=== PATIENT | male | born 1950 | race Caucasian/White ===

== ENCOUNTER → 2016-12-02 | Outpatient (CLI) | payer MEDICARE ==
--- NOTE | 2016-12-02 18:25 | PN ---
DATE OF SERVICE: 12/02/2016 A 66-year-old gentleman who has been followed in the sleep center for treatment of obstructive sleep apnea/hypopnea syndrome. We proceeded with a home sleep apnea test and then with titration. We discussed results of the tests in detail. Home sleep apnea test confirmed moderate obstructive sleep apnea-hypopnea syndrome. During the titration, patient did not sleep at all in sleep center. Subsequently I recommended to try auto PAP with a pressure in the regimen between 5 and 15. Presently, patient received auto PAP machine. I checked unit. It showed that the patient is using equipment 100% of the time more than 4 hours per night. Average pressure is 11.5 cm of water. Apnea-hypopnea index reading from the machine is 1.7 for the last month. Leak is up to 18 L/min, which is acceptable. Patient sleeps better with the machine, longer than before. Vaughn Sleepiness Scale is 8. MEDICATIONS: 1. Aspirin. 2. Sulfasalazine. 3. Alprazolam. 4. Paroxetine. 5. Atenolol. 6. Pravastatin. 7. Benazepril. 8. Metformin. 9. Humalog. 10. Magnesium supplement. 11. Cranberry. PHYSICAL EXAMINATION: GENERAL: Patient without any distress. VITAL SIGNS: BP 126/62, HR 162, RR 16. Weight 203. Temperature 97.8. Oxygen saturation at room air 95% HEENT: PERRLA, EOMI, Evaluation of the oropharynx showed tongue protrudes midline. NECK: Supple. No JVD, Thyroid is not palpable. LUNGS: Clear to percussion and to auscultation. Good air exchange. No wheezing or rhonchi. HEART: S1, S2 regular. No murmurs, gallops, or rubs. ABDOMEN: Soft and nontender. Bowel sounds are present. No organomegaly appreciated. EXTREMITIES: 1+ bilateral ankle edema. RETAIL SEASONAL SPECIALIST: Awake, alert, and oriented x3. Cranial nerves 2 to 7 intact. There is no fasciculation or atrophy noted. No focal deficits observed. IMPRESSION: 1. Moderate obstructive sleep apnea-hypopnea syndrome on control with auto positive airway pressure treatment. Patient demonstrated 100% compliance with treatment, benefiting from treatment. 2. Obesity. 3. Hyperlipidemia. 4. Diabetes. 5. Anxiety. 6. Ulcerative colitis. PLAN: 1. Continue treatment with CPAP every night for the whole night. 2. Watching and losing weight. 3. Sleep hygiene with regular time in bed for at least 8 hours. 4. No driving if feeling any sleepiness. Thank you very much for allowing me to participate in the management of your patient. Sincerely, Tej Flanagan MD, PhD, FAASM Diplomat of [employer], Sleep Medicine Board by [employer] Rod Drawer of [facility] [place]
== END | disposition home or self-care (01) ==
LOC: SLEEP 14:13
PROVIDERS: ATTEND Internal Medicine
DX: G47.33 Obstructive sleep apnea (adult) (pediatric) (principal); E66.9 Obesity, unspecified; E78.5 Hyperlipidemia, unspecified; E11.9 Type 2 diabetes mellitus without complications; F41.9 Anxiety disorder, unspecified; K51.90 Ulcerative colitis, unspecified, without complications; Z79.4 Long term (current) use of insulin; Z79.84 Long term (current) use of oral hypoglycemic drugs; Z79.82 Long term (current) use of aspirin; Z79.899 Other long term (current) drug therapy

== ENCOUNTER → 2017-01-06 | Outpatient (CLI) | payer MEDICARE ==
--- NOTE | 2017-01-06 23:29 | CONS ---
DATE OF CONSULTATION: 01/06/2017 66-year-old gentleman who has been followed in the sleep center for treatment of obstructive sleep apnea/hypopnea syndrome and episodes of some abnormal movements during sleep. Presently, patient is on auto PAP in the range between 5 and 15 cm of water, range with a pressure. I checked his CPAP unit. Most of the time pressure is 10.7 cm of water, apnea-hypopnea index was only 1.1. Average usage is 6. Hours usage for more than 4 hours is 26 out of 30 nights, very good compliance, humidity level at 5, REM time is on automatic regimen. Leak 22 L per minute which is acceptable. MEDICATIONS: 1. Aspirin. 2. Alprazolam. 3. Silver sulfasalazine. 4. Paroxetine. 5. Atenolol. 6. Pravastatin. 7. Benazepril. 8. Metformin. 9. Humalog. During physical exam, the patient in no distress. VITAL SIGNS: BP 136/63, HR 60, RR 16. Height 5 feet 6 inches. Weight 200, BMI 32.2. Temp is 97.5. Oxygen saturation at room air 95%. HEENT: PERRLA, EOMI oropharynx low position of soft palate. NECK: Supple. No JVD. Thyroid is not palpable. LUNGS: Clear to percussion and to auscultation. Good air exchange. No wheezing or rhonchi. HEART: S1, S2 regular. No murmurs, gallops or rubs. ABDOMEN: Obese. Soft and nontender. Bowel sounds are present. No organomegaly appreciated. EXTREMITIES: No clubbing or cyanosis. PUBLIC SAFETY DIRECTOR: Awake, alert, and oriented x3. Cranial nerves 2 to 7 intact. There is no fasciculation or atrophy noted. No focal deficits observed. IMPRESSION: 1. Obstructive sleep apnea/hypopnea syndrome on control with AutoPap five to 15 cm of water range for most of the time. Pressure is 10.7 cm of water. Patient demonstrated great compliance with treatment, benefiting from treatment. 2. No episodes of abnormal behavioral recently on treatment with Clonazepam. 3. Obesity. 4. Hyperlipidemia. 5. Diabetes mellitus. 6. Anxiety. 7. Ulcerative colitis. PLAN: 1. Continue treatment with CPAP every night for the whole night. 2. Losing weight. 3. Sleep hygiene with regular time in bed for at least 8 hours. 4. No driving if feeling any sleepiness. Thank you very much for allowing me to participate in the management of your patient. Sincerely, Tej Flanagan MD, PhD, FAASM. Diplomat of [place] [employer], Sleep Medicine Board by [employer] Colon Therapist [facility] [place]
== END | disposition home or self-care (01) ==
LOC: SLEEP 15:50
PROVIDERS: ATTEND Internal Medicine
DX: G47.33 Obstructive sleep apnea (adult) (pediatric) (principal); E66.9 Obesity, unspecified; Z68.32 Body mass index [BMI] 32.0-32.9, adult; Z79.899 Other long term (current) drug therapy; Z79.4 Long term (current) use of insulin; Z79.84 Long term (current) use of oral hypoglycemic drugs; E78.5 Hyperlipidemia, unspecified; E11.9 Type 2 diabetes mellitus without complications; F41.9 Anxiety disorder, unspecified; K51.90 Ulcerative colitis, unspecified, without complications

== ENCOUNTER 2017-03-07 07:08 | Emergency (ER) | payer MEDICARE ==
[2017-03-07] MEDS ORDERED: diphenhydrAMINE 50 MG/ML 1 ML VIAL IVP STA (08:01)
[2017-03-07] MEDS ORDERED: ONDANSETRON 4 MG/2 ML VIAL IVP STA (08:01)
[2017-03-07] MEDS ORDERED: SODIUM CHLORIDE 0.9% 1,000 ML IV ONE (08:01)
--- NOTE | 2017-03-07 08:04 | ED ---
General Adult HPI - General Chief complaint: Abdominal Pain Stated complaint: Flu like symptoms Time Seen by Provider: 03/07/17 07:20 Source: patient, family, RN notes reviewed Mode of arrival: ambulatory Limitations: no limitations - History of Present Illness Initial comments: This is a 66-year-old male who presents to the emergency department complaining that last night he started having diarrhea in the middle the night he started vomiting. Patient states he has diffuse abdominal cramping but no specific area of pain. Patient denies any fever chills. Patient states he took some Pepto-Bismol and since then he's been itching all over. Patient states he is raised hives on the insides of his thighs. Patient denies any chest pain difficulty breathing shortness of breath per patient denies back pain. Patient denies any dysuria hematuria urinary frequency. Patient states is also started last night - Related Data Home Medications Medication Instructions Recorded Confirmed Aspirin 81 mg PO DAILY 05/16/14 03/07/17 Atenolol 100 mg PO DAILY 05/16/14 03/07/17 Cranberry Conc/C/Bacill Coag 1 each PO DAILY 05/16/14 03/07/17 [Cranberry Tablet] Fish Oil/Fat No.8/Hrb Comb.137 1,200 mg PO DAILY 05/16/14 03/07/17 [[place] 3-6-9 1,200 mg Softgel] Garlic 1 each PO DAILY 05/16/14 03/07/17 INSULIN LISPRO (humaLOG) [humaLOG] 1 injection SQ DIRECTED 05/16/14 03/07/17 Mesalamine [Delzicol] 800 mg PO TID 05/16/14 03/07/17 Multivitamins, Thera [Multivitamin] 1 tab PO DAILY 05/16/14 03/07/17 PARoxetine [Paxil] 20 mg PO DAILY 05/16/14 03/07/17 Pravastatin Sodium [Pravachol] 20 mg PO HS 05/16/14 03/07/17 amLODIPine [Norvasc] 5 mg PO BID 05/16/14 03/07/17 metFORMIN HCL 1,000 mg PO BID 05/16/14 03/07/17 Allergies Allergy/AdvReac Type Severity Reaction Status Date / Time Penicillins Allergy Anaphylaxis Verified 03/07/17 09:45 Review of Systems ROS Statement: Those systems with pertinent positive or pertinent negative responses have been documented in the HPI. ROS Other: All systems not noted in ROS Statement are negative. 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 Patient is nontoxic and well- hydrated and is in mild distress. ENT: Neck is soft and supple. No significant lymphadenopathy is noted. Oropharynx is clear. Moist mucous membranes. EYES: The sclera were anicteric and conjunctiva were pink and moist. Extraocular movements were intact and pupils were equal round and reactive to light. Eyelids were unremarkable. PULMONARY: Unlabored respirations. Good breath sounds bilaterally. No audible rales rhonchi or wheezing was noted. CARDIOVASCULAR: There is a regular rate and rhythm without any murmurs gallops or rubs. ABDOMEN: Soft and nontender with normal bowel sounds. No palpable organomegaly was noted. There is no palpable pulsatile mass. SKIN: Skin is clear with no lesions or rashes and otherwise unremarkable. NEUROLOGIC: Patient is alert and oriented x3. Cranial nerves II through XII are grossly intact. Motor and sensory are also intact. Normal speech, volume and content. Symmetrical smile. MUSCULOSKELETAL: Normal extremities with adequate strength and full range of motion. LYMPHATICS: No significant lymphadenopathy is noted PSYCHIATRIC: Normal psychiatric evaluation. Limitations: no limitations Course Vital Signs 03/07/17 07:21 Temperature 98.2 F Pulse Rate 64 Respiratory 18 Rate Blood Pressure 142/63 O2 Sat by Pulse 91 L Oximetry Medical Decision Making - Medical Decision Making I went back into the room to reevaluate the patient his abdomen remained soft and nontender on palpation. Patient states he felt much better. Patient states he has not vomited since been emergency department. - Lab Data Result diagrams: 03/07/17 07:38 03/07/17 07:38 Lab Results 03/07/17 03/07/17 03/07/17 Range/Units 07:38 07:38 09:13 WBC 16.7 H (3.8-10.6) k/uL RBC 5.62 (4.30-5.90) m/uL Hgb 16.2 (13.0-17.5) gm/dL Hct 48.9 (39.0-53.0) % MCV 87.1 (80.0-100.0) fL MCH 28.9 (25.0-35.0) pg MCHC 33.1 (31.0-37.0) g/dL RDW 14.2 (11.5-15.5) % Plt Count 287 (150-450) k/uL Neutrophils % 88 % Lymphocytes % 7 % Monocytes % 4 % Eosinophils % 0 % Basophils % 0 % Neutrophils # 14.7 H (1.3-7.7) k/uL Lymphocytes # 1.1 (1.0-4.8) k/uL Monocytes # 0.7 (0-1.0) k/uL Eosinophils # 0.1 (0-0.7) k/uL Basophils # 0.0 (0-0.2) k/uL Sodium 141 (137-145) mmol/L Potassium 5.2 H (3.5-5.1) mmol/L Chloride 102 (98-107) mmol/L Carbon Dioxide 24 (22-30) mmol/L Anion Gap 15 mmol/L BUN 28 H (9-20) mg/dL Creatinine 1.00 (0.66-1.25) mg/dL Est GFR (MDRD) Af Amer >60 (>60 ml/min/1.73 sqM) Est GFR (MDRD) Non-Af >60 (>60 ml/min/1.73 sqM) Glucose 258 H (74-99) mg/dL Calcium 9.7 (8.4-10.2) mg/dL Total Bilirubin 0.6 (0.2-1.3) mg/dL AST 31 (17-59) U/L ALT 43 (21-72) U/L Alkaline Phosphatase 73 (38-126) U/L Total Protein 7.1 (6.3-8.2) g/dL Albumin 4.3 (3.5-5.0) g/dL Amylase 53 (30-110) U/L Lipase 142 (23-300) U/L Urine Color Yellow Urine Appearance Cloudy (Clear) Urine pH 5.5 (5.0-8.0) Ur Specific [place] 1.022 (1.001-1.035) Urine Protein 3+ H (Negative) Urine Glucose (UA) Trace H (Negative) Urine Ketones Trace H (Negative) Urine Blood Negative (Negative) Urine Nitrite Negative (Negative) Urine Bilirubin Negative (Negative) Urine Urobilinogen <2.0 (<2.0) mg/dL Ur Leukocyte Esterase Negative (Negative) Urine RBC 4 (0-5) /hpf Urine WBC 9 H (0-5) /hpf Ur Squamous Epith Cells 1 (0-4) /hpf Calcium Oxalate Crystal Rare H (None) /hpf Hyaline Casts 26 H (0-2) /lpf Urine Mucus Moderate H (None) /hpf Disposition Clinical Impression: Gastroenteritis Disposition: HOME SELF-CARE Condition: Good Instructions: Gastroenteritis (ED) Referrals: Long Acosta MD [Primary Care Provider] - 1-2 days Time of Disposition: 09:52
[2017-03-07 08:10] LABS: Basophils % (A) 0 %; CH 28.5; CHCM 32.9; Eosinophils # (A) 0.1 k/uL (0-0.7); Eosinophils % (A) 0 %; HCT 48.9 % (39.0-53.0); HDW 2.62; HGB 16.2 gm/dL (13.0-17.5); Luc # (Auto) 0.12; Luc % (Auto) 1; Lymphocytes # (A) 1.1 k/uL (1.0-4.8); Lymphocytes % (A) 7 %; MCH 28.9 pg (25.0-35.0); MCHC 33.1 g/dL (31.0-37.0); MCV 87.1 fL (80.0-100.0); Mean Platelet Volume 7.7; Monocytes # (A) 0.7 k/uL (0-1.0); Monocytes % (A) 4 %; Neutrophils # (A) 14.7 k/uL (1.3-7.7); Neutrophils % (A) 88 %; RBC 5.62 m/uL (4.30-5.90); RDW 14.2 % (11.5-15.5); WBC 16.7 k/uL (3.8-10.6); WBC (Perox) 15.76
[2017-03-07 08:18] LABS: ALT 43 U/L (21-72); AST 31 U/L (17-59); Alkaline Phosphatase 73 U/L (38-126); Amylase 53 U/L (30-110); Anion Gap 15 mmol/L; Blood Urea Nitrogen 28 mg/dL (9-20); Calcium 9.7 mg/dL (8.4-10.2); Carbon Dioxide 24 mmol/L (22-30); Chloride 102 mmol/L (98-107); Glucose 258 mg/dL (74-99); Non-African American GFR(MDRD) >60 (>60 ml/min/1.73 sqM); Potassium 5.2 mmol/L (3.5-5.1); Sodium 141 mmol/L (137-145); Total Bilirubin 0.6 mg/dL (0.2-1.3); Total Protein 7.1 g/dL (6.3-8.2)
--- NOTE | 2017-03-07 08:44 | XR ---
Abdomen HISTORY: Pain, nausea and vomiting Frontal view of the abdomen on 3 images There are air-fluid levels with gas distended loops of small bowel. Lung bases are clear. No pneumope ritoneum. IMPRESSION: Findings may be indicative of enteritis, follow-up as indicated if bowel obstruction is s uspected.
[2017-03-07 09:46] LABS: Appearance,Urine Cloudy (Clear); Bilirubin,Urine Negative (Negative); Calcium Oxalate Crystals,Urine Rare /hpf; Glucose,Urine (UA) Trace (Negative); Ketones,Urine Trace (Negative); Leukocyte Esterase,Urine Negative (Negative); Mucus,Urine Moderate /hpf; Nitrite,Urine Negative (Negative); PH, Urine 5.5 (5.0-8.0); Particle Count 6756; Protein,Urine 3+ (Negative); RBC,Urine 4 /hpf (0-5); Specific Gravity,Urine 1.022 (1.001-1.035); Squamous Epithelial Cell,Urine 1 /hpf (0-4); UA Billing (MACRO vs. MICRO) MICRO; Urobilinogen,Urine <2.0 mg/dL (<2.0); WBC,Urine 9 /hpf (0-5)
[2017-03-07] MEDS ORDERED: ONDANSETRON 4 MG ODT STARTER PACK 2 TAB BTL PO STA (09:52)
[2017-03-07 10:20] VITALS: BP 137/63; PULSE 62; RESP 16; TEMP 97.6
== END 2017-03-07 10:20 | disposition home or self-care (01) ==
LOC: EC 07:08
DX: K52.9 Noninfective gastroenteritis and colitis, unspecified (principal); E11.9 Type 2 diabetes mellitus without complications; R11.10 Vomiting, unspecified; E78.5 Hyperlipidemia, unspecified; F41.9 Anxiety disorder, unspecified; I10 Essential (primary) hypertension; F32.9 Major depressive disorder, single episode, unspecified; Z79.82 Long term (current) use of aspirin; Z79.4 Long term (current) use of insulin; Z79.899 Other long term (current) drug therapy; Z88.0 Allergy status to penicillin; Z87.19 Personal history of other diseases of the digestive system
CPT/HCPCS: 36415; 80053; 82150; 83690; 85025; 81001; 87045; 87046; 74000; 99284; 96374; 96375; 96361; J1200; J2405; S0119

== ENCOUNTER 2017-06-26 18:11 | Emergency (ER) | payer MEDICARE ==
[2017-06-26 18:36] VITALS: RESP 18
[2017-06-26] MEDS ORDERED: MORPHINE SULFATE 4 MG/ML SYRINGE IV ONE (18:49)
[2017-06-26] MEDS ORDERED: SODIUM CHLORIDE 0.9% 1,000 ML IV ONE (18:49)
[2017-06-26] MEDS ORDERED: KETOROLAC 30 MG/ML 1 ML VIAL IVP STA (18:49)
--- NOTE | 2017-06-26 18:57 | ED ---
Abdominal Pain HPI - General Chief Complaint: Abdominal Pain Stated Complaint: rt side irma Time Seen by Provider: 06/26/17 18:39 Source: patient Mode of arrival: ambulatory Limitations: no limitations - History of Present Illness Initial Comments: This is a 67-year-old male with a history of ulcerative colitis who presents emergency department for right-sided flank pain. He states it started this morning and has gradually worsened. He states it radiates into his testicle. It does not radiate into his back. No fevers or chills. No nausea or vomiting. No diarrhea. He states he's been having normal bowel movements. No other complaints. - Related Data Home Medications Medication Instructions Recorded Confirmed Aspirin 81 mg PO DAILY 05/16/14 06/26/17 Atenolol 100 mg PO DAILY 05/16/14 06/26/17 Cranberry Conc/C/Bacill Coag 1 tab PO DAILY 05/16/14 06/26/17 [Cranberry Tablet] Fish Oil/Fat No.8/Hrb Comb.137 1,200 mg PO DAILY 05/16/14 06/26/17 [[place] 3-6-9 1,200 mg Softgel] Garlic 1 tab PO DAILY 05/16/14 06/26/17 PARoxetine [Paxil] 20 mg PO DAILY 05/16/14 06/26/17 Pravastatin Sodium [Pravachol] 20 mg PO DAILY 05/16/14 06/26/17 amLODIPine [Norvasc] 5 mg PO BID 05/16/14 06/26/17 metFORMIN HCL 1,000 mg PO BID 05/16/14 06/26/17 ALPRAZolam [Xanax] 0.25 mg PO Q8HR PRN 03/07/17 06/26/17 Benazepril HCl [Lotensin] 40 mg PO DAILY 03/07/17 06/26/17 Cinnamon Bark [Cinnamon] 500 mg PO DAILY 03/07/17 06/26/17 Magnesium Oxide [Magnesium] 500 mg PO DAILY 03/07/17 06/26/17 INSULIN LISPRO (For Pump) [humaLOG 0.01 units SQ-PUMP CONTINUOUS MDD 06/26/17 (For Pump)] 150 UNITS IN 24 HOURS Multivitamins, Thera [Multivitamin 1 tab PO DAILY 09/17/17 09/17/17 (formulary)] clonazePAM [KlonoPIN] 0.5 mg PO HS 06/26/17 06/26/17 sulfaSALAzine [Azulfidine] 500 mg PO BID 06/26/17 06/26/17 Previous Rx's Medication Instructions Recorded HYDROcodone/APAP 5-325MG [[place] 1 tab PO Q4HR PRN #15 tab 06/26/17 5-325] Tamsulosin HCl [Flomax] 0.4 mg PO DAILY #14 cap 06/26/17 Allergies Allergy/AdvReac Type Severity Reaction Status Date / Time Penicillins Allergy Anaphylaxis Verified 06/26/17 19:04 Review of Systems ROS Statement: Those systems with pertinent positive or pertinent negative responses have been documented in the HPI. ROS Other: All systems not noted in ROS Statement are negative. Past Medical History Past Medical History: Asthma, Diabetes Mellitus, Hyperlipidemia, Hypertension Additional Past Medical History / Comment(s): ulcerative colitis History of Any Multi-Drug Resistant Organisms: None Reported Past Surgical History: Heart Catheterization, Orthopedic Surgery Additional Past Surgical History / Comment(s): right elbow and gonzalez wrist/hands surgery Past Anesthesia/Blood Transfusion Reactions: No Reported Reaction Past Psychological History: Anxiety, Depression Smoking Status: Former smoker Past Alcohol Use History: None Reported Past Drug Use History: None Reported - Past Family History Father Family Medical History: Myocardial Infarction ([place]) Additional Family Medical History / Comment(s): age 64 Brother(s) Family Medical History: Myocardial Infarction ([place]) Additional Family Medical History / Comment(s): at 65 General Exam - General Exam Comments Initial Comments: Constitutional: Awake alert Appears comfortable Head: Normocephalic atraumatic Eyes: no conjunctival injection No scleral icterus EOMI Neck: No JVD Supple Heart: Regular rate rhythm normal S1-S2 no murmurs Lungs: Clear to auscultation bilaterally No wheezing No rales Abdomen: Soft nondistended entered his along the right flank just above the right ASIS, no hernias palpated Extremities: Non edematous DP pulses intact Radial pulses intact Neuro: A&Ox3 No focal neurologic deficits Psych: Appropriate mood and affect Limitations: no limitations Course Vital Signs 06/26/17 06/26/17 18:34 19:31 Temperature 98.4 F Pulse Rate 61 60 Respiratory 18 18 Rate Blood Pressure 202/89 181/76 O2 Sat by Pulse 96 95 Oximetry Medical Decision Making - Medical Decision Making This is a 67-year-old male who presents emergency department for right flank pain. Computed tomography scan confirmed a 6 mm obstructing stone. The rest was labwork was unremarkable. No UTI. At this time I feel the patient can be managed as an outpatient since his pain is well controlled currently. I gave him Dr. Ny for follow-up. He will be sent home on [place], Flomax, and given a strainer. He can return if he has worsening or changing symptoms. All questions were answered. - Lab Data Result diagrams: 06/26/17 19:03 06/26/17 19:03 Lab Results 06/26/17 06/26/17 06/26/17 Range/Units 19: 19: 19:03 WBC 11.2 H (3.8-10.6) k/uL RBC 4.67 (4.30-5.90) m/uL Hgb 13.5 (13.0-17.5) gm/dL Hct 40.2 (39.0-53.0) % MCV 86.0 (80.0-100.0) fL MCH 28.8 (25.0-35.0) pg MCHC 33.5 (31.0-37.0) g/dL RDW 15.3 (11.5-15.5) % Plt Count 209 (150-450) k/uL Neutrophils % 79 % Lymphocytes % 11 % Monocytes % 8 % Eosinophils % 1 % Basophils % 0 % Neutrophils # 8.8 H (1.3-7.7) k/uL Lymphocytes # 1.2 (1.0-4.8) k/uL Monocytes # 0.9 (0-1.0) k/uL Eosinophils # 0.1 (0-0.7) k/uL Basophils # 0.1 (0-0.2) k/uL Sodium 139 (137-145) mmol/L Potassium 4.9 (3.5-5.1) mmol/L Chloride 104 (98-107) mmol/L Carbon Dioxide 21 L (22-30) mmol/L Anion Gap 14 mmol/L BUN 22 H (9-20) mg/dL Creatinine 1.00 (0.66-1.25) mg/dL Est GFR (MDRD) Af Amer >60 (>60 ml/min/1.73 sqM) Est GFR (MDRD) Non-Af >60 (>60 ml/min/1.73 sqM) Glucose 237 H (74-99) mg/dL Calcium 9.4 (8.4-10.2) mg/dL Total Bilirubin 0.6 (0.2-1.3) mg/dL AST 30 (17-59) U/L ALT 48 (21-72) U/L Alkaline Phosphatase 86 (38-126) U/L Total Protein 7.4 (6.3-8.2) g/dL Albumin 4.4 (3.5-5.0) g/dL Urine Color Yellow Urine Appearance Clear (Clear) Urine pH 6.0 (5.0-8.0) Ur Specific [place] 1.015 (1.001-1.035) Urine Protein 3+ H (Negative) Urine Glucose (UA) 3+ H (Negative) Urine Ketones Negative (Negative) Urine Blood Moderate H (Negative) Urine Nitrite Negative (Negative) Urine Bilirubin Negative (Negative) Urine Urobilinogen <2.0 (<2.0) mg/dL Ur Leukocyte Esterase Negative (Negative) Urine RBC 59 H (0-5) /hpf Urine WBC 1 (0-5) /hpf Hyaline Casts 4 H (0-2) /lpf Urine Mucus Rare H (None) /hpf Urine Yeast (Budding) Rare H (None) /hpf Urine Sperm Rare (None) /hpf Disposition Clinical Impression: Ureterolithiasis Disposition: HOME SELF-CARE Condition: Stable Instructions: Kidney Stones (ED) Prescriptions: HYDROcodone/APAP 5-325MG [[place] 5-325] 1 tab PO Q4HR PRN #15 tab PRN Reason: Pain Tamsulosin HCl [Flomax] 0.4 mg PO DAILY #14 cap Referrals: Long Acosta MD [Primary Care Provider] - 1-2 days Will Gaitan MD [STAFF PHYSICIAN] - 1-2 days
[2017-06-26 19:16] LABS: Basophils # (A) 0.1 k/uL (0-0.2); Basophils % (A) 0 %; CH 27.7; CHCM 32.3; Eosinophils # (A) 0.1 k/uL (0-0.7); Eosinophils % (A) 1 %; HCT 40.2 % (39.0-53.0); HDW 2.78; HGB 13.5 gm/dL (13.0-17.5); Luc # (Auto) 0.18; Luc % (Auto) 2; Lymphocytes # (A) 1.2 k/uL (1.0-4.8); Lymphocytes % (A) 11 %; MCH 28.8 pg (25.0-35.0); MCHC 33.5 g/dL (31.0-37.0); Monocytes # (A) 0.9 k/uL (0-1.0); Monocytes % (A) 8 %; Neutrophils # (A) 8.8 k/uL (1.3-7.7); Neutrophils % (A) 79 %; RBC 4.67 m/uL (4.30-5.90); RDW 15.3 % (11.5-15.5); WBC 11.2 k/uL (3.8-10.6); WBC (Perox) 11.13
[2017-06-26 19:20] LABS: Appearance,Urine Clear (Clear); Bilirubin,Urine Negative (Negative); Glucose,Urine (UA) 3+ (Negative); Ketones,Urine Negative (Negative); Leukocyte Esterase,Urine Negative (Negative); Mucus,Urine Rare /hpf; Nitrite,Urine Negative (Negative); Particle Count 1199; Protein,Urine 3+ (Negative); RBC,Urine 59 /hpf (0-5); Specific Gravity,Urine 1.015 (1.001-1.035); Sperm,Urine Rare /hpf; UA Billing (MACRO vs. MICRO) MICRO; Urobilinogen,Urine <2.0 mg/dL (<2.0); WBC,Urine 1 /hpf (0-5)
[2017-06-26 19:25] LABS: ALT 48 U/L (21-72); AST 30 U/L (17-59); Alkaline Phosphatase 86 U/L (38-126); Anion Gap 14 mmol/L; Blood Urea Nitrogen 22 mg/dL (9-20); Calcium 9.4 mg/dL (8.4-10.2); Carbon Dioxide 21 mmol/L (22-30); Chloride 104 mmol/L (98-107); Glucose 237 mg/dL (74-99); Non-African American GFR(MDRD) >60 (>60 ml/min/1.73 sqM); Potassium 4.9 mmol/L (3.5-5.1); Sodium 139 mmol/L (137-145); Total Bilirubin 0.6 mg/dL (0.2-1.3); Total Protein 7.4 g/dL (6.3-8.2)
[2017-06-26] MEDS ORDERED: ONDANSETRON 4 MG/2 ML VIAL IVP STA (19:27)
--- NOTE | 2017-06-26 20:07 | CT ---
EXAMINATION TYPE: CT abdomen pelvis wo con DATE OF EXAM: 06/26/2017 COMPARISON: NONE HISTORY: Right side flank pain. CT DLP: 778.7 mGycm Automated exposure control for dose reduction was used. TECHNIQUE: Helical acquisition of images was performed from the lung bases through the pelvis. FINDINGS: LUNG BASES: There is a small right-sided pleural effusion with adjacent passive atelectasis. There is a tiny left-sided pleural effusion with adjacent atelectasis. Evaluation of the visceral organs is suboptimal without the use of intravenous contrast. LIVER/GB: Liver is unremarkable. There is a calcification identified within the neck of the gallbladd er which is felt to be a gallstone. PANCREAS: No significant abnormality is seen. SPLEEN: No significant abnormality is seen. ADRENALS: No significant abnormality is seen. KIDNEYS: Mild hydronephrosis is identified within the right kidney as well as the right ureter. There is a 6 mm obstructing calculus noted in the distal right ureter. Left kidney is unremarkable. There is no left-sided hydronephrosis or evidence of left-sided nephrolithiasis. FREE AIR: No free air is visualized RETROPERITONEAL ADENOPATHY: None visualized REPRODUCTIVE ORGANS: No significant abnormality is seen URINARY BLADDER: No significant abnormality is seen. PELVIC ADENOPATHY: None visualized. OSSEOUS STRUCTURES: No significant abnormality is seen. BOWEL: No significant abnormality is seen. IMPRESSION: OBSTRUCTING RIGHT-SIDED NEPHROLITHIASIS WITH A 6 MM CUTTING CALCULUS IN THE DISTAL RIGHT URETER.
[2017-06-26 20:35] VITALS: BP 162/72; PULSE 67; TEMP 97.8
== END 2017-06-26 20:35 | disposition home or self-care (01) ==
LOC: EC 18:11
DX: N20.1 Calculus of ureter (principal); E11.9 Type 2 diabetes mellitus without complications; E78.5 Hyperlipidemia, unspecified; I10 Essential (primary) hypertension; F32.9 Major depressive disorder, single episode, unspecified; F41.9 Anxiety disorder, unspecified; Z87.19 Personal history of other diseases of the digestive system; Z87.891 Personal history of nicotine dependence; Z88.0 Allergy status to penicillin; Z79.4 Long term (current) use of insulin; Z79.84 Long term (current) use of oral hypoglycemic drugs; Z79.82 Long term (current) use of aspirin; Z79.899 Other long term (current) drug therapy
CPT/HCPCS: 36415; 80053; 85025; 81001; 74176; 99284; 96374; 96375 ×2; 96361; J2270; J2405; J1885

== ENCOUNTER 2017-10-13 16:18 | Emergency (ER) | payer MEDICARE ==
[2017-10-13] MEDS ORDERED: DIPH,PERTUS(ACELL)TETVAC-LF 0.5 ML VIAL IM ONE (16:39)
[2017-10-13] MEDS ORDERED: SODIUM CHLORIDE 0.9% 1,000 ML IV STA (16:39)
[2017-10-13] MEDS ORDERED: HYDROmorphone 1 MG/ML 1 ML SYRINGE IVP STA (16:39)
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
[2017-10-13] MEDS ORDERED: LACTATED RINGERS 1,000 ML IV STA (16:56)
[2017-10-13 17:00] LABS: Anisocytosis Slight; Basophils # (A) 0.1 k/uL (0-0.2); Basophils % (A) 1 %; Eosinophils # (A) 0.2 k/uL (0-0.7); Eosinophils % (A) 3 %; HCT 44.8 % (39.0-53.0); HGB 13.7 gm/dL (13.0-17.5); Hypochromasia Slight; Lymphocytes # (A) 1.7 k/uL (1.0-4.8); Lymphocytes % (A) 21 %; MCH 26.8 pg (25.0-35.0); MCHC 30.6 g/dL (31.0-37.0); MCV 87.7 fL (80.0-100.0); Mean Platelet Volume 7.8; Monocytes # (A) 0.7 k/uL (0-1.0); Monocytes % (A) 9 %; Neutrophils # (A) 5.2 k/uL (1.3-7.7); Neutrophils % (A) 65 %; Platelet Count 214 k/uL (150-450); RBC 5.11 m/uL (4.30-5.90)
[2017-10-13 17:07] LABS: ALT 66 U/L (21-72); AST 47 U/L (17-59); Albumin 4.5 g/dL (3.5-5.0); Alcohol <10 mg/dL; Alkaline Phosphatase 96 U/L (38-126); Amylase 66 U/L (30-110); Anion Gap 13 mmol/L; Blood Urea Nitrogen 17 mg/dL (9-20); Calcium 10.1 mg/dL (8.4-10.2); Carbon Dioxide 28 mmol/L (22-30); Chloride 103 mmol/L (98-107); Glucose 199 mg/dL (74-99); Lipase 340 U/L (23-300); Potassium 4.9 mmol/L (3.5-5.1); Sodium 144 mmol/L (137-145); Total Bilirubin 0.3 mg/dL (0.2-1.3); Total Protein 7.6 g/dL (6.3-8.2)
--- NOTE | 2017-10-13 17:11 | XR ---
EXAMINATION TYPE: XR pelvis AP view DATE OF EXAM: 10/13/2017 COMPARISON: NONE HISTORY: Pain TECHNIQUE: Single view FINDINGS: The pelvic ring is intact. Proximal femurs and hip joints are intact. Sacroiliac joints escobar ear normal. There is no evidence of a fracture. IMPRESSION: Negative pelvis exam.
--- NOTE | 2017-10-13 17:12 | XR ---
EXAMINATION TYPE: XR chest 1V portable DATE OF EXAM: 10/13/2017 COMPARISON: 09/13/2014 HISTORY: Chest pain TECHNIQUE: Single frontal view of the chest is obtained. FINDINGS: There is no heart failure nor confluent pneumonic infiltrate. Thoracic aorta is atheromato us. Costophrenic angles are clear. Bony thorax is intact. IMPRESSION: No active cardiopulmonary disease. Normal heart. Inspiration is improved compared to old exam.
[2017-10-13 17:16] LABS: Creatine Kinase 162 U/L (55-170)
[2017-10-13 17:17] LABS: INR 1.1 (<1.2); Prothrombin Time 10.3 sec (9.0-12.0)
[2017-10-13 17:23] LABS: Partial Thromboplastin Time 21.6 sec (22.0-30.0)
[2017-10-13 17:30] LABS: Troponin I <0.012 ng/mL (0.000-0.034)
[2017-10-13 18:44] VITALS: BP 172/76; PULSE 98; RESP 18; TEMP 97.6
== END 2017-10-13 17:45 | disposition other institution (70) ==
LOC: EC 16:18
DX: T21.34XA Burn of third degree of lower back, initial encounter (principal); T21.25XA Burn of second degree of buttock, initial encounter; T24.222A Burn of second degree of left knee, initial encounter; T24.221A Burn of second degree of right knee, initial encounter; E11.9 Type 2 diabetes mellitus without complications; E78.5 Hyperlipidemia, unspecified; I10 Essential (primary) hypertension; F32.9 Major depressive disorder, single episode, unspecified; F41.9 Anxiety disorder, unspecified; Z95.5 Presence of coronary angioplasty implant and graft; Z87.891 Personal history of nicotine dependence; Z79.82 Long term (current) use of aspirin; Z79.899 Other long term (current) drug therapy; Z79.4 Long term (current) use of insulin; Z88.0 Allergy status to penicillin; X08.8XXA Exposure to other specified smoke, fire and flames, initial encounter; Y92.59 Other trade areas as the place of occurrence of the external cause
CPT/HCPCS: 99285; 96374; 36415; 93005; 86900; 86901; 80053; 82150; 82550; 82553; 83605; 83690; 84484; 85025; 85610; 85730; 86850; 80320; 72170; 71045; J1170

== ENCOUNTER 2017-11-06 08:44 | Emergency (ER) | payer MEDICARE ==
[2017-11-06 08:53] VITALS: RESP 18
[2017-11-06] MEDS ORDERED: methylPREDNISolone SOD SUCCI 125 MG/2 ML VIAL IV STA (09:21)
[2017-11-06] MEDS ORDERED: diphenhydrAMINE 50 MG/ML 1 ML VIAL IVP STA (09:21)
[2017-11-06] MEDS ORDERED: FAMOTIDINE 20 MG/2 ML VIAL IV STA (09:21)
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
[2017-11-06 11:37] VITALS: BP 180/77; PULSE 76; TEMP 97.9
== END 2017-11-06 11:38 | disposition home or self-care (01) ==
LOC: EC 08:44
DX: T78.3XXA Angioneurotic edema, initial encounter (principal); E11.9 Type 2 diabetes mellitus without complications; I10 Essential (primary) hypertension; E78.5 Hyperlipidemia, unspecified; F32.9 Major depressive disorder, single episode, unspecified; F41.9 Anxiety disorder, unspecified; Z87.891 Personal history of nicotine dependence; Z88.0 Allergy status to penicillin; Z79.82 Long term (current) use of aspirin; Z79.84 Long term (current) use of oral hypoglycemic drugs; Z79.4 Long term (current) use of insulin; Z79.899 Other long term (current) drug therapy
CPT/HCPCS: 99284; 96374; 96375 ×2; J1200; J2930

== ENCOUNTER → 2018-01-12 | Outpatient (CLI) | payer MEDICARE ==
--- NOTE | 2018-01-12 13:01 | SFUN ---
FOLLOW UP NOTE DATE OF SERVICE: 01/12/2018 A 67-year-old gentleman who has been followed in the Sleep Center for treatment of obstructive sleep apnea-hypopnea syndrome. Patient continued to use his CPAP equipment every night for the whole night. According to him, he cannot sleep without machine now, so much he is used to it. He usually goes to bed quite late around 2 am until 9 - 10 in the morning. 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 I checked his CPAP unit machine, it is on automatic regimen 5 to 15 cm of water. Most of the time pressure at the range of 10.6 cm of water, usage is 28/30 nights for more than 4 hours. Average usage is 66.2 hours. Leak 10 L/minute which is totally normal. Apnea-hypopnea index for the last month only 1.0, which is perfect. The patient lost 2 pounds since our visit last year. MEDICATIONS: Aspirin, alprazolam, paroxetine, atenolol, pravastatin, benazepril, metformin, Humalog, clonazepam. PHYSICAL EXAM: Patient in no distress. BP 170/65, HR 53, RR 16, height 5 and 7, weight 198.8, BMI 31.0, temperature 98.0, oxygen saturation at room air 94%. OROPHARYNX: Low position of soft palate. ABDOMEN: Obese. HEART: S1, S2 regular. Systolic murmur on aorta. Neck Supple, no JVD. Thyroid is not palpable. LUNGS Clear to percussion and to auscultation. Good air exchange. No wheezing or rhonchi. EXTREMITIES No clubbing or cyanosis. VOLCANOLOGY PROFESSOR Awake, alert, and oriented X3. Cranial nerves 2 to 7 intact. There is no fasciculation or atrophy. noted. No focal deficits observed. IMPRESSION: 1. Obstructive sleep apnea-hypopnea syndrome, on full control with CPAP with great compliance with treatment benefitting from treatment. 2. History of some abnormal movements at night and abnormal behavioral, no problem presently with treatment of clonazepam. 3. Obesity. 4. Hyperlipidemia. 5. Diabetes mellitus. 6. History of ulcerative colitis. 7. History of anxiety. 8. Sleep delay syndrome. PLAN: 1. Patient will continue to use his CPAP equipment every night for the whole night. 2. Losing weight. 3. Sleep hygiene in bed for at least 7-1/2, 8 hours. 4. As much as possible exposure to the sunlight in the morning with a goal to move sleep cycle earlier. 5. Followup visit in 1 year or earlier if patient has any problems. Thank you very much for allowing me to participate in the management of your patient. Sincerely, Tej Flanagan MD, PhD, FAASM Diplomat of [employer] District Agent of [facility] [place] MMODL / RADHA: [id number] / ARLENE
== END | disposition home or self-care (01) ==
LOC: SLEEP 11:29
PROVIDERS: ATTEND Internal Medicine
DX: G47.33 Obstructive sleep apnea (adult) (pediatric) (principal); E66.9 Obesity, unspecified; E78.5 Hyperlipidemia, unspecified; E11.9 Type 2 diabetes mellitus without complications; Z87.19 Personal history of other diseases of the digestive system; Z86.59 Personal history of other mental and behavioral disorders; G47.21 Circadian rhythm sleep disorder, delayed sleep phase type; Z99.89 Dependence on other enabling machines and devices; Z79.82 Long term (current) use of aspirin; Z79.84 Long term (current) use of oral hypoglycemic drugs; Z79.899 Other long term (current) drug therapy

== ENCOUNTER → 2018-04-26 | Day surgery (SDC) | payer MEDICARE ==
[2018-04-20 13:17] VITALS: BMI 30.8
[~2018-04-26] MED LIST: ALPRAZolam 0.25 MG TAB PO PRN; ALPRAZolam 0.5 MG TAB PO PRN; ASPIRIN 325 MG TAB PO STA; ATORVASTATIN 80 MG TAB PO STA; HEPARIN SODIUM 1,000 UN/ML (10ML VL) IV ONE; HEPARIN SODIUM 1,000 UN/ML (10ML VL) ONE; IOPAMIDOL-370 125ML BTL INJ ONE; IV FLUID CONTINUATION 1,000 ML IV ONE; LIDOCAINE 1% INJ 10MG/ML (20 ML MDV) ONE; LIDOCAINE 1% INJ 10MG/ML (20 ML MDV) SQ ONE; MIDAZOLAM 2 MG/2 ML VIAL IVP ONE; MIDAZOLAM 2 MG/2 ML VIAL ONE; NITROGLYCERIN SL TABS 0.4 MG TAB SUBLINGUAL PRN; RX INFO: IV CONTRAST WAS GIVEN 1 EACH MISC MISCELLANE PRN; SODIUM CHLORIDE 0.9% 1,000 ML IV ONE; SODIUM CHLORIDE 0.9% 1,000 ML IV SCH; SODIUM CHLORIDE 0.9% 1,000 ML in EMPTY BAG 1 BAG IV ONE; VERAPAMIL 2.5 MG/ML 2 ML AMP ONE
[2018-04-26 09:44] VITALS: TEMP 98.2
[2018-04-26 09:53] LABS: Glucose,Whole Blood 155 mg/dL (75-99)
[2018-04-26 09:59] LABS: Basophils # (A) 0.1 k/uL (0-0.2); Basophils % (A) 1 %; Eosinophils # (A) 0.5 k/uL (0-0.7); Eosinophils % (A) 7 %; HCT 40.7 % (39.0-53.0); HGB 13.4 gm/dL (13.0-17.5); Lymphocytes # (A) 1.4 k/uL (1.0-4.8); Lymphocytes % (A) 20 %; MCH 27.3 pg (25.0-35.0); Mean Platelet Volume 7.1; Monocytes # (A) 0.5 k/uL (0-1.0); Monocytes % (A) 8 %; Neutrophils # (A) 4.1 k/uL (1.3-7.7); Neutrophils % (A) 62 %; Platelet Count 201 k/uL (150-450); RBC 4.92 m/uL (4.30-5.90); RDW 15.6 % (11.5-15.5); WBC 6.7 k/uL (3.8-10.6)
[2018-04-26 10:01] LABS: MCV 82.8 fL (80.0-100.0)
[2018-04-26 10:15] LABS: Calcium 9.2 mg/dL (8.4-10.2); Potassium 4.7 mmol/L (3.5-5.1)
[2018-04-26] MEDS: VERAPAMIL SYRINGE (5 MG/10 ML) INTRAARTER ONE ×2 (13:56→14:05)
[2018-04-26 15:26] VITALS: PULSE 48
[2018-04-26 15:27] VITALS: BP 120/56; RESP 16
--- NOTE | 2018-04-26 17:21 | CC ---
CARDIAC CATHETERIZATION REPORT DATE OF SERVICE: April 26, 2018 PERFORMING PHYSICIAN: Jonathan Cadena MD, armed security officer. PROCEDURE PERFORMED: 1. Selective right and left coronary angiogram. 2. Left heart catheterization. INDICATION: This is a pleasant 67-year-old gentleman with diabetes, hypertension, and dyslipidemia, who was experiencing symptoms of exertional dyspnea and feeling fatigue and tired. He underwent a stress test and that revealed moderate area of ischemia involving the anterior wall. Because of that, heart catheterization was recommended. APPROACH: Right radial artery. COMPLICATION: None. LEVEL OF SEDATION: Moderate. Sedation length of 14 minutes. PROCEDURE DESCRIPTION: After obtaining an informed consent, the patient was brought to cardiac label folder. The right radial artery was cannulated using micropuncture technique, the micropuncture wire passed easily. Then I placed a 6-Tamazight sheath in the right radial artery. After that, I gave the patient a thousands of heparin IV and 2 mg of verapamil IA. Selective right and left coronary angiogram after that was performed using JR4 and JL3.5 catheters. Left heart catheterization was performed using 5-Tamazight pigtail catheter. The procedure was completed without any complication. SELECTIVE CORONARY ANGIOGRAM: 1. The RCA is a large caliber vessel. It is a dominant vessel. It is angiographically normal. 2. The left main is angiographically normal it bifurcates into the circumflex and left anterior descending artery. 3. The left circumflex is a large caliber, this is a codominant vessel. The proximal circ is normal. The mid circ is normal and gives rise into a large OM branch which seems to be angiographically normal. The circ distally is normal and bifurcates into PDA and PLV branches both are angiographically normal. 4. The LAD: The proximal LAD is angiographically normal. It gives rise into a large diagonal branch which seems to be normal. The mid and distal LAD are angiographically normal. HEMODYNAMICS: The left ventricular end-diastolic pressure was 12 mmHg and no gradient was identified across aortic valve. CONCLUSION: 1. Normal coronary angiogram. 2. Normal left ventricular end-diastolic pressure. POSTPROCEDURE MANAGEMENT: Medical treatment and follow up with the patient. MMODL / IJN: [id number] /
--- NOTE | 2018-04-26 17:27 | LTR ---
April 26, [address] Acosta: Mr. Valentino Donovan was experiencing symptoms of shortness of breath with exertion as well as symptoms of fatigue and tiredness. He underwent a myocardial perfusion imaging stress test and that revealed an anterior ischemia. Because of that, he underwent a heart catheterization and that revealed normal coronaries. I want to thank you for allowing me to participate in his care and please do not hesitate to call if you have any questions or concerns. MMODL / IJN: [id number] /
== END | disposition home or self-care (01) ==
LOC: CATHCVL 09:21
PROVIDERS: ATTEND Internal Medicine Interventional Cardiology
DX: I25.9 Chronic ischemic heart disease, unspecified (principal); I20.0 Unstable angina; I10 Essential (primary) hypertension; E11.9 Type 2 diabetes mellitus without complications; E78.5 Hyperlipidemia, unspecified; E78.00 Pure hypercholesterolemia, unspecified; Z82.49 Family history of ischemic heart disease and other diseases of the circulatory system; Z79.899 Other long term (current) drug therapy; Z88.0 Allergy status to penicillin; K51.90 Ulcerative colitis, unspecified, without complications; Z79.4 Long term (current) use of insulin; Z79.82 Long term (current) use of aspirin; Z88.8 Allergy status to other drugs, medicaments and biological substances; Z87.891 Personal history of nicotine dependence
CPT/HCPCS: 93458; 80048; 85025; C1894; C1769; J2250; J2001; J1644; Q9967

== ENCOUNTER 2018-05-17 06:38 | Day surgery (SDC) | payer MEDICARE ==
[2018-05-16 09:35] VITALS: BMI 31.9
[2018-05-17] MEDS ORDERED: LACTATED RINGERS 1,000 ML IV ONE ×3 (06:52→07:52)
[2018-05-17 07:03] LABS: Glucose,Whole Blood 100 mg/dL (75-99)
[2018-05-17] MEDS ORDERED: LIDOCAINE 1% INJ 10MG/ML (20 ML MDV) ONE (07:25)
[2018-05-17] MEDS ORDERED: PROPOFOL 10 MG/ML 20 ML VIAL IV ONE (07:25)
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
--- NOTE | 2018-05-17 07:55 | P.PCN ---
Date of Procedure: 05/17/18 Description of Procedure: PREOPERATIVE DIAGNOSIS: Ulcerative colitis History of colon polyps POSTOPERATIVE DIAGNOSIS: Ulcerative colitis History of colon polyps Multiple tubular adenomas throughout the colon. External hemorrhoids, grade 3 Scattered diverticulosis OPERATION: Colonoscopy to the ileocecal valve and appendiceal orifice. Colonoscopy with multiple cold forceps biopsies. SURGEON: Brianna Padilla MD. ANESTHESIA: MAC. INDICATIONS: The patient is a 67-year-old male who presents for colonoscopy screening. Last colonoscopy was 2 years ago due to high risk colon polyps and ulcerative colitis. Benefits and risks were described and informed consent was obtained. DESCRIPTION OF PROCEDURE: The patient had undergone Gatorade, MiraLAX and Dulcolax prep. He had been brought into the operating room and laid in the left lateral decubitus position. Prostate was smooth and without abnormality. After adequate intravenous sedation, the rectum was examined with 2% lidocaine jelly. External hemorrhoids were encountered. The rectal tone was within normal limits. No lesions were palpated in the rectal vault. An Olympus colonoscope was advanced until the ileocecal valve and appendiceal orifice were clearly viewed. The prep was fair with visualization of the mucosal folds. The scope was removed with visualization of each mucosal fold. Scattered diverticulosis was encountered. Multiple colonic polyps were found and cold forcep biopsy or snare polypectomy. No evidence of focal colitis was found. Retroflexion of the scope demonstrated grade 1 internal hemorrhoids without active bleeding or inflammation. The colon was desufflated. The patient had tolerated the procedure well. Withdrawal time was over 6 minutes. FINDINGS: Internal hemorrhoids, grade 1 External hemorrhoids, grade 3 No arteriovenous malformations Scattered sigmoid diverticulosis without diverticulitis Removal of 11 polyps from the proximal, mid transverse colon and descending colon: - Cold forceps biopsy at 25 cm from the anal verge, 4 mm polyp. - Cold forceps biopsy at cecum, 5 mm polyp. - Cold forceps biopsy at proximal ascending colon colon, 4 mm polyp. No focal colitis. RECOMMENDATIONS: Given severity of tubular adenomas, recommend repeat colonoscopy 2 years, 2019. Plan - Discharge Summary New Discharge Prescriptions: No Action PARoxetine [Paxil] 20 mg PO DAILY Aspirin 81 mg PO DAILY amLODIPine [Norvasc] 5 mg PO BID Pravastatin Sodium [Pravachol] 20 mg PO DAILY metFORMIN HCL 1,000 mg PO BID Garlic 1 tab PO DAILY Fish Oil/Fat No.8/Hrb Comb.137 [[place] 3-6-9 1,200 mg Softgel] 1,200 mg PO DAILY Cranberry Conc/C/Bacill Coag [Cranberry Tablet] 1 tab PO DAILY ALPRAZolam [Xanax] 0.25 mg PO Q8HR PRN PRN Reason: Anxiety Benazepril HCl [Lotensin] 40 mg PO DAILY Cinnamon Bark [Cinnamon] 500 mg PO DAILY Magnesium Oxide [Magnesium] 500 mg PO DAILY clonazePAM [KlonoPIN] 0.5 mg PO HS INSULIN LISPRO (For Pump) [humaLOG (For Pump)] 0.01 units SQ-PUMP CONTINUOUS MDD 150 UNITS IN 24 HOURS sulfaSALAzine [Azulfidine] 500 mg PO BID Multivitamins, Thera [Multivitamin (formulary)] 1 tab PO DAILY Nitroglycerin Sl Tabs [Nitrostat] 0.4 mg SUBLINGUAL Q5M PRN PRN Reason: Chest Pain Hydrochlorothiazide 25 mg PO DAILY Discharge Medication List Aspirin 81 mg PO DAILY 05/16/14 [History] Cranberry Conc/C/Bacill Coag [Cranberry Tablet] 1 tab PO DAILY 05/16/14 [History ] Fish Oil/Fat No.8/Hrb Comb.137 [[place] 3-6-9 1,200 mg Softgel] 1,200 mg PO DAILY 05/16/14 [History] Garlic 1 tab PO DAILY 05/16/14 [History] PARoxetine [Paxil] 20 mg PO DAILY 05/16/14 [History] Pravastatin Sodium [Pravachol] 20 mg PO DAILY 05/16/14 [History] amLODIPine [Norvasc] 5 mg PO BID 05/16/14 [History] metFORMIN HCL 1,000 mg PO BID 05/16/14 [History] ALPRAZolam [Xanax] 0.25 mg PO Q8HR PRN 03/07/17 [History] Benazepril HCl [Lotensin] 40 mg PO DAILY 03/07/17 [History] Cinnamon Bark [Cinnamon] 500 mg PO DAILY 03/07/17 [History] Magnesium Oxide [Magnesium] 500 mg PO DAILY 03/07/17 [History] INSULIN LISPRO (For Pump) [humaLOG (For Pump)] 0.01 units SQ-PUMP CONTINUOUS MDD 150 UNITS IN 24 HOURS 06/26/17 [History] Multivitamins, Thera [Multivitamin (formulary)] 1 tab PO DAILY 06/26/17 [History ] clonazePAM [KlonoPIN] 0.5 mg PO HS 06/26/17 [History] sulfaSALAzine [Azulfidine] 500 mg PO BID 06/26/17 [History] Nitroglycerin Sl Tabs [Nitrostat] 0.4 mg SUBLINGUAL Q5M PRN 04/20/18 [History] Hydrochlorothiazide 25 mg PO DAILY 05/16/18 [History]
[2018-05-17 07:56] VITALS: RESP 18
[2018-05-17 08:12] VITALS: BP 162/70; PULSE 50
[2018-05-17] MEDS ORDERED: IV FLUID CONTINUATION 1,000 ML IV ONE (08:14)
[2018-05-17 08:23] LABS: Glucose,Whole Blood 103 mg/dL (75-99)
== END 2018-05-17 08:48 | disposition home or self-care (01) ==
LOC: ORWHC2ENDO 06:38
PROVIDERS: ATTEND Surgery Plastic and Reconstructive Surgery
DX: D12.0 Benign neoplasm of cecum (principal); D12.5 Benign neoplasm of sigmoid colon; Z86.010 Personal history of colon polyps; K57.90 Diverticulosis of intestine, part unspecified, without perforation or abscess without bleeding; K64.2 Third degree hemorrhoids; K64.0 First degree hemorrhoids; I10 Essential (primary) hypertension; E78.5 Hyperlipidemia, unspecified; E11.9 Type 2 diabetes mellitus without complications; Z79.4 Long term (current) use of insulin; Z96.41 Presence of insulin pump (external) (internal); F41.9 Anxiety disorder, unspecified; F32.9 Major depressive disorder, single episode, unspecified; G47.30 Sleep apnea, unspecified; Z99.89 Dependence on other enabling machines and devices; H35.30 Unspecified macular degeneration; Z87.891 Personal history of nicotine dependence; Z85.828 Personal history of other malignant neoplasm of skin; Z79.82 Long term (current) use of aspirin; Z79.899 Other long term (current) drug therapy; Z88.0 Allergy status to penicillin; Z88.8 Allergy status to other drugs, medicaments and biological substances
CPT/HCPCS: 88305; 45380; 45385; J2001; J2704

== ENCOUNTER → 2018-05-25 | Outpatient (CLI) | payer MEDICARE ==
[2018-05-25 12:35] LABS: Anisocytosis Slight; HCT 39.3 % (39.0-53.0); HGB 12.5 gm/dL (13.0-17.5); Hypochromasia Slight; MCH 26.7 pg (25.0-35.0); MCHC 31.7 g/dL (31.0-37.0); MCV 84.4 fL (80.0-100.0); Mean Platelet Volume 7.2; Platelet Count 199 k/uL (150-450); RBC 4.66 m/uL (4.30-5.90); RDW 16.5 % (11.5-15.5)
[2018-05-25 12:43] LABS: ABG Base Excess -2.3 mmol/L; ABG HCO3 23 mmol/L (21-25); ABG Oxygen Saturation 93.2 % (94-97); ABG PCO2 39 mmHg (35-45); ABG PH 7.38 (7.35-7.45); ABG PO2 72 mmHg (83-108); ABG TCO2 24 mmol/L (19-24)
[2018-05-25 12:45] LABS: Albumin 4.4 g/dL (3.5-5.0); Calcium 9.7 mg/dL (8.4-10.2); Potassium 4.7 mmol/L (3.5-5.1); Total Bilirubin 0.2 mg/dL (0.2-1.3); Total Protein 7.3 g/dL (6.3-8.2)
[2018-05-25 13:01] LABS: T4, Free (Free Thyroxine) 0.92 ng/dL (0.78-2.19)
[2018-05-25 13:22] LABS: Erythrocyte Sedimentation Rate 8 mm/hr (0-15)
--- NOTE | 2018-05-25 13:36 | CT ---
EXAMINATION TYPE: CT angio chest DATE OF EXAM: 05/25/2018 COMPARISON: None HISTORY: SOB CT DLP: 407.3 mGycm CONTRAST: CT chest with contrast and 3D reconstruction with MIP imaging is performed with IV Contrast, patient injected with 100 mL of Isovue 370. Contrast-enhanced CT of the chest was performed through the course of the pulmonary arteries with harjinder g and mediastinal window settings submitted. 3D reconstruction with MIP imaging was also performed. PULMONARY ARTERIES: The pulmonary arteries and their major tributaries are patent. I do not see michelle dence for sizable filling defect to suggest pulmonary embolic process. LUNGS: The lungs are clear and free of infiltrate. No evidence for atelectasis. No pulmonary nodule or mass is detected. No pleural effusion. MEDIASTINUM: Thoracic aorta is of normal caliber,however, evaluation is limited given timing of the contrast bolus. If there is concern for thoracic aortic pathology consider THERESA. Correlate clinicall y . The heart is not enlarged. No evidence for mediastinal mass. No mediastinal lymph nodes greater than 1cm. HILAR STRUCTURES: No evidence for mass. No hilar lymph nodes greater than 1 cm. UPPER ABDOMEN: No significant abnormality is seen. IMPRESSION: 1. No evidence for Pulmonary embolism at this time.
--- NOTE | 2018-05-25 15:11 | FL ---
EXAMINATION TYPE: FL sniff test without CXR DATE OF EXAM: 05/25/2018 COMPARISON: NONE HISTORY: Shortness of breath TECHNIQUE: Fluoroscopy. FINDINGS: There is no evidence for paradoxical motion of the hemidiaphragms with SNIFF maneuver. May phragms are symmetric and grossly unremarkable. IMPRESSION: Unremarkable study.
== END | disposition home or self-care (01) ==
LOC: RADCTMAIN 11:54
PROVIDERS: ATTEND Internal Medicine
DX: R06.02 Shortness of breath (principal); R06.00 Dyspnea, unspecified; Z88.0 Allergy status to penicillin; Z88.8 Allergy status to other drugs, medicaments and biological substances
CPT/HCPCS: 36600; 84439; 80053; 85652; 82805; 84443; 85027; 86038; 76000; 71275; 36415; Q9967

== ENCOUNTER → 2018-07-17 | Outpatient (CLI) | payer MEDICARE | END | disposition home or self-care (01) | LOC: LABWHC1 14:01 | PROVIDERS: ATTEND Internal Medicine | DX: K51.50 Left sided colitis without complications (principal) | CPT/HCPCS: 36415; 83993; 85652; 86140 ==

== ENCOUNTER → 2018-11-08 | Outpatient (CLI) | payer MEDICARE ==
[2018-11-08 12:01] LABS: Basophils % (A) 0 %; Eosinophils # (A) 0.3 k/uL (0-0.7); Eosinophils % (A) 5 %; HGB 13.2 gm/dL (13.0-17.5); Lymphocytes % (A) 20 %; MCH 27.7 pg (25.0-35.0); MCHC 30.8 g/dL (31.0-37.0); Mean Platelet Volume 6.7; Monocytes # (A) 0.3 k/uL (0-1.0); Monocytes % (A) 6 %; Neutrophils # (A) 3.3 k/uL (1.3-7.7); Neutrophils % (A) 67 %; Platelet Count 214 k/uL (150-450); RBC 4.77 m/uL (4.30-5.90); RDW 15.3 % (11.5-15.5)
[2018-11-08 16:01] LABS: Albumin 4.4 g/dL (3.80-4.90); Anion Gap 10.3 mmol/L (4.00-12.00); Calcium 9.6 mg/dL (8.7-10.3); Carbon Dioxide 29.7 mmol/L (21.6-31.8); Globulin 2.2 g/dL (1.6-3.3); LDL Cholesterol,Calculated 71.4 mg/dL (0.0-131.0); Potassium 4.3 mmol/L (3.5-5.5); Total Bilirubin 0.3 mg/dL (0.3-1.2); Total Protein 6.6 g/dL (6.2-8.2); VLDL Calculation 39.6 mg/dL (5.00-40.00)
[2018-11-08 17:21] LABS: Hemoglobin A1C 9.4 % (4.0-6.0)
== END | disposition home or self-care (01) ==
LOC: LABWHC1 11:09
PROVIDERS: ATTEND Internal Medicine Endocrinology, Diabetes & Metabolism
DX: E11.65 Type 2 diabetes mellitus with hyperglycemia (principal); I10 Essential (primary) hypertension; E78.2 Mixed hyperlipidemia; E55.9 Vitamin D deficiency, unspecified; Z12.5 Encounter for screening for malignant neoplasm of prostate
CPT/HCPCS: 80061; 80053; 84443; 85025; 82306; 82043; 82570; 83036; 36415; G0103

== ENCOUNTER → 2019-02-19 | Outpatient (CLI) | payer MEDICARE ==
[2019-02-19 13:20] LABS: Basophils # (A) 0.1 k/uL (0-0.2); Basophils % (A) 1 %; Eosinophils # (A) 0.3 k/uL (0-0.7); Eosinophils % (A) 5 %; HCT 45.6 % (39.0-53.0); HGB 13.8 gm/dL (13.0-17.5); Lymphocytes # (A) 1.1 k/uL (1.0-4.8); Lymphocytes % (A) 20 %; MCH 27.3 pg (25.0-35.0); MCHC 30.3 g/dL (31.0-37.0); MCV 89.9 fL (80.0-100.0); Mean Platelet Volume 7.5; Monocytes # (A) 0.5 k/uL (0-1.0); Monocytes % (A) 8 %; Neutrophils # (A) 3.6 k/uL (1.3-7.7); Neutrophils % (A) 65 %; Platelet Count 230 k/uL (150-450); RBC 5.07 m/uL (4.30-5.90); RDW 14.7 % (11.5-15.5); WBC 5.5 k/uL (3.8-10.6)
[2019-02-19 14:14] LABS: Erythrocyte Sedimentation Rate 10 mm/hr (0-15)
[2019-02-19 19:24] LABS: Albumin 4.5 g/dL (3.80-4.90); Albumin/Globulin Ratio 2.14 (1.60-3.17); Anion Gap 7.2 mmol/L (4.00-12.00); C Reactive Protein 1.4 mg/dL (0.0-0.8); Calcium 9.4 mg/dL (8.7-10.3); Carbon Dioxide 29.8 mmol/L (21.6-31.8); Globulin 2.1 g/dL (1.6-3.3); LDL Cholesterol,Calculated 53.2 mg/dL (0.0-131.0); Total Bilirubin 0.4 mg/dL (0.3-1.2); Total Protein 6.6 g/dL (6.2-8.2); VLDL Calculation 36.8 mg/dL (5.00-40.00)
[2019-02-19 22:17] LABS: Hemoglobin A1C 8.1 % (4.0-6.0)
== END ==
LOC: LABWHC1 11:58
PROVIDERS: ATTEND Internal Medicine Endocrinology, Diabetes & Metabolism
DX: E11.65 Type 2 diabetes mellitus with hyperglycemia (principal); E11.21 Type 2 diabetes mellitus with diabetic nephropathy; K51.50 Left sided colitis without complications
CPT/HCPCS: 36415; 80053; 80061; 82043; 82570; 83036; 84443; 85025; 85652; 86140

== ENCOUNTER → 2019-03-01 | Outpatient (CLI) | payer MEDICARE ==
--- NOTE | 2019-03-01 14:20 | SFUN ---
SLEEP CENTER FOLLOW UP NOTE DATE OF SERVICE: 03/01/2019 A 68-year-old gentleman who has been followed in the Sleep Center for treatment of obstructive sleep apnea-hypopnea syndrome. The patient successfully continues to use his CPAP equipment every night for the whole night without significant problem with the usage of equipment. No snoring with the machine. [place] Sleepiness Scale is 6, which is normal. I checked CPAP unit, range of the pressure 5-15, average pressure 8.6, usage 27/30 nights for more than 4 hours for last month. Average usage 6.1 hours. Leak 30 L/minute which is normal range. Apnea-hypopnea index only 0.9, which is absolutely perfect. MEDICATIONS: Losartan, hydrochlorothiazide, paroxetine, aspirin, atenolol, amlodipine, clonazepam, pravastatin, metformin, Humalog, PHYSICAL EXAM: Patient in no distress. BP 132/71, HR 60, RR 16, height 5 foot 6 inches, weight 205 pounds which is 7 pounds more than during the last visit last year. Temperature 97.7, oxygen saturation at room air 95%. OROPHARYNX: Low position of soft palate. HEART: S1, S2 with some irregularities. Neck Supple, no JVD. Thyroid is not palpable. LUNGS Clear to percussion and to auscultation. Good air exchange. No wheezing or rhonchi. ABDOMEN Soft and nontender. Bowel sounds are present. No organomegaly appreciated. EXTREMITIES No clubbing or cyanosis. BILINGUAL SOCIAL WORKER Awake, alert, and oriented X3. Cranial nerves 2 to 7 intact. There is no fasciculation or atrophy. noted. No focal deficits observed. IMPRESSION: 1. Obstructive sleep apnea-hypopnea syndrome, on full control with CPAP. The patient demonstrated great compliance with treatment, benefitting from treatment. 2. Obesity. 3. History of chronic obstructive pulmonary disease. 4. Hyperlipidemia. 5. Diabetes mellitus. 6. History of anxiety. 7. History of ulcerative colitis. 8. Sleep delay syndrome. PLAN: 1. Patient will continue to use CPAP equipment every night for the whole night with the same regimen. 2. Prescription for all necessary CPAP supplies including mask, tube, filters. 3. As much as possible bright light exposure in the morning and less bright light exposure in the evening for sleep delay syndrome. 4. Losing weight. 5. No driving if feeling sleepiness. Thank you very much for allowing me to participate in the management of your patient. Sincerely, Tej Flanagan MD, PhD, FAASM Diplomat of [place] [employer] Barbed Wire Machine Operator of [facility] [place] SADIE / RADHA: [id number] /
== END | disposition home or self-care (01) ==
LOC: SLEEP 13:19
PROVIDERS: ATTEND Internal Medicine
DX: G47.33 Obstructive sleep apnea (adult) (pediatric) (principal); E66.9 Obesity, unspecified; E78.5 Hyperlipidemia, unspecified; E11.9 Type 2 diabetes mellitus without complications; G47.21 Circadian rhythm sleep disorder, delayed sleep phase type; Z68.33 Body mass index [BMI] 33.0-33.9, adult; Z87.09 Personal history of other diseases of the respiratory system; Z86.59 Personal history of other mental and behavioral disorders; Z87.19 Personal history of other diseases of the digestive system; Z99.89 Dependence on other enabling machines and devices; Z79.82 Long term (current) use of aspirin; Z79.4 Long term (current) use of insulin; Z79.899 Other long term (current) drug therapy

== ENCOUNTER → 2019-05-01 | Outpatient (CLI) | payer MEDICARE ==
--- NOTE | 2019-05-01 13:39 | XR ---
Right foot HISTORY: Pain 3 weeks 3 views of the right foot There is a proximal metaphyseal second digit metatarsal fracture with only minimal displacement. No e vident dislocation. Bone mineralization is reduced. Small ossific density present at the proximal fir st metatarsal medially and dorsally is of questionable acuity. Difficult to exclude small chip fractu re. There is a plantar calcaneal spur. Enthesophyte present at the insertion of the Achilles tendon. IMPRESSION: Proximal second metatarsal fracture and additional findings above.
== END | disposition home or self-care (01) ==
LOC: RADXRMAIN 09:43
PROVIDERS: ATTEND Internal Medicine
DX: S92.324A Nondisplaced fracture of second metatarsal bone, right foot, initial encounter for closed fracture (principal)

== ENCOUNTER → 2019-09-17 | Outpatient (CLI) | payer MEDICARE ==
[2019-09-17 11:40] LABS: Basophils # (A) 0.1 k/uL (0-0.2); Basophils % (A) 1 %; Eosinophils # (A) 0.3 k/uL (0-0.7); Eosinophils % (A) 3 %; HCT 41.2 % (39.0-53.0); Lymphocytes # (A) 1.6 k/uL (1.0-4.8); Lymphocytes % (A) 18 %; MCH 27.6 pg (25.0-35.0); MCHC 31.6 g/dL (31.0-37.0); MCV 87.3 fL (80.0-100.0); Mean Platelet Volume 7.3; Monocytes # (A) 0.7 k/uL (0-1.0); Monocytes % (A) 8 %; Neutrophils # (A) 5.8 k/uL (1.3-7.7); Neutrophils % (A) 67 %; Platelet Count 257 k/uL (150-450); RBC 4.72 m/uL (4.30-5.90); RDW 15.2 % (11.5-15.5); WBC 8.6 k/uL (3.8-10.6)
[2019-09-17 12:50] LABS: Erythrocyte Sedimentation Rate 22 mm/hr (0-15)
[2019-09-17 17:55] LABS: African American GFR (CKD) 87.4 (60.0-200.0); Albumin 4.3 g/dL (3.80-4.90); Albumin/Globulin Ratio 2.05 (1.60-3.17); Anion Gap 9.7 mmol/L (4.00-12.00); Calcium 9.5 mg/dL (8.7-10.3); Carbon Dioxide 28.3 mmol/L (21.6-31.8); Globulin 2.1 g/dL (1.6-3.3); Non-African American GFR(CKD) 75.4 (60.0-200.0); Potassium 5.1 mmol/L (3.5-5.5); Total Bilirubin 0.3 mg/dL (0.3-1.2); Total Protein 6.4 g/dL (6.2-8.2)
== END | disposition home or self-care (01) ==
LOC: LABWHC1 10:10
PROVIDERS: ATTEND Internal Medicine
DX: K51.50 Left sided colitis without complications (principal)
CPT/HCPCS: 36415; 80053; 85025; 85652; 86140

== ENCOUNTER → 2019-10-30 | Outpatient (CLI) | payer MEDICARE ==
[2019-10-30 19:51] LABS: African American GFR (CKD) 77.9 (60.0-200.0); Albumin 4.3 g/dL (3.80-4.90); Albumin/Globulin Ratio 2.53 (1.60-3.17); Anion Gap 11.6 mmol/L (4.00-12.00); BUN/Creat Ratio 20.91 Ratio (12.00-20.00); Calcium 9.2 mg/dL (8.7-10.3); Carbon Dioxide 30.4 mmol/L (21.6-31.8); Chol/HDL Ratio 2.45; Globulin 1.7 g/dL (1.6-3.3); Non-African American GFR(CKD) 67.2 (60.0-200.0); Total Bilirubin 0.4 mg/dL (0.2-1.2)
[2019-10-30 21:27] LABS: Hemoglobin A1C 7.8 % (4.0-6.0)
[2019-10-30 22:33] LABS: Urine Creatinine 133.3 mg/dL
== END | disposition home or self-care (01) ==
LOC: LABWHC1 12:12
PROVIDERS: ATTEND Internal Medicine Endocrinology, Diabetes & Metabolism
DX: E11.65 Type 2 diabetes mellitus with hyperglycemia (principal)
CPT/HCPCS: 36415; 80053; 80061; 82043; 82570; 83036; 84403; 84443

== ENCOUNTER → 2019-11-23 | Outpatient (CLI) | payer MEDICARE ==
[2019-11-23 13:20] LABS: Anisocytosis Slight; Basophils # (A) 0.1 k/uL (0-0.2); Basophils % (A) 1 %; Eosinophils # (A) 0.1 k/uL (0-0.7); Eosinophils % (A) 2 %; HCT 41.6 % (39.0-53.0); HGB 13.2 gm/dL (13.0-17.5); Lymphocytes # (A) 1.3 k/uL (1.0-4.8); Lymphocytes % (A) 21 %; MCHC 31.7 g/dL (31.0-37.0); MCV 91.3 fL (80.0-100.0); Mean Platelet Volume 8.4; Monocytes # (A) 0.4 k/uL (0-1.0); Monocytes % (A) 7 %; Neutrophils # (A) 4.3 k/uL (1.3-7.7); Neutrophils % (A) 67 %; Platelet Count 167 k/uL (150-450); RBC 4.56 m/uL (4.30-5.90); RDW 16.7 % (11.5-15.5); WBC 6.4 k/uL (3.8-10.6)
[2019-11-23 15:52] LABS: Erythrocyte Sedimentation Rate 10 mm/hr (0-15)
[2019-11-23 18:30] LABS: African American GFR (CKD) 99.2 (60.0-200.0); Albumin 4.1 g/dL (3.80-4.90); Albumin/Globulin Ratio 2.56 (1.60-3.17); Anion Gap 7.9 mmol/L (4.00-12.00); BUN/Creat Ratio 12.22 Ratio (12.00-20.00); C Reactive Protein 2.3 mg/dL (0.0-0.8); Calcium 8.7 mg/dL (8.7-10.3); Carbon Dioxide 27.1 mmol/L (21.6-31.8); Globulin 1.6 g/dL (1.6-3.3); Non-African American GFR(CKD) 85.6 (60.0-200.0); Potassium 4.6 mmol/L (3.5-5.5); Total Bilirubin 0.3 mg/dL (0.3-1.2); Total Protein 5.7 g/dL (6.2-8.2)
== END | disposition home or self-care (01) ==
LOC: LABWHC1 12:58
PROVIDERS: ATTEND Internal Medicine
DX: K51.50 Left sided colitis without complications (principal)
CPT/HCPCS: 36415; 80053; 83993; 85025; 85652; 86140

== ENCOUNTER → 2020-05-27 | Outpatient (CLI) | payer MEDICARE ==
[2020-05-27 14:03] LABS: Basophils # (A) 0.1 k/uL (0-0.2); Basophils % (A) 1 %; Eosinophils # (A) 0.3 k/uL (0-0.7); Eosinophils % (A) 5 %; HCT 41.2 % (39.0-53.0); HGB 12.9 gm/dL (13.0-17.5); Lymphocytes # (A) 1.5 k/uL (1.0-4.8); Lymphocytes % (A) 23 %; MCH 28.7 pg (25.0-35.0); MCHC 31.3 g/dL (31.0-37.0); MCV 91.7 fL (80.0-100.0); Mean Platelet Volume 7.8; Monocytes # (A) 0.5 k/uL (0-1.0); Monocytes % (A) 8 %; Neutrophils % (A) 62 %; Platelet Count 209 k/uL (150-450); RDW 15.6 % (11.5-15.5); WBC 6.4 k/uL (3.8-10.6)
[2020-05-27 20:04] LABS: Erythrocyte Sedimentation Rate 9 mm/Hr (0-20)
[2020-05-27 23:15] LABS: African American GFR (CKD) 86.8 (60.0-200.0); Albumin 4.4 g/dL (3.80-4.90); Calcium 9.2 mg/dL (8.7-10.3); Globulin 2.2 g/dL (1.6-3.3); Non-African American GFR(CKD) 74.9 (60.0-200.0); Potassium 4.5 mmol/L (3.5-5.5); Total Bilirubin 0.2 mg/dL (0.2-1.2); Total Protein 6.6 g/dL (6.2-8.2)
[2020-05-27 23:47] LABS: C Reactive Protein 0.8 mg/dL (0.0-0.8)
== END | disposition home or self-care (01) ==
LOC: LABWHC1 12:45
PROVIDERS: ATTEND Internal Medicine Endocrinology, Diabetes & Metabolism
DX: E11.65 Type 2 diabetes mellitus with hyperglycemia (principal); K51.50 Left sided colitis without complications
CPT/HCPCS: 36415; 80053; 82043; 82570; 83036; 84443; 85025; 85652; 86140

== ENCOUNTER 2020-06-09 06:46 | Day surgery (SDC) | payer MEDICARE ==
[2020-06-04 16:00] VITALS: BMI 31.8
[~2020-06-09 06:46] MED LIST changes: -ALPRAZolam 0.25 MG TAB PO PRN; -ALPRAZolam 0.5 MG TAB PO PRN; -ASPIRIN 325 MG TAB PO STA; -ATORVASTATIN 80 MG TAB PO STA; -HEPARIN SODIUM 1,000 UN/ML (10ML VL) IV ONE; -HEPARIN SODIUM 1,000 UN/ML (10ML VL) ONE; -IOPAMIDOL-370 125ML BTL INJ ONE; -IV FLUID CONTINUATION 1,000 ML IV ONE; +LACTATED RINGERS 1,000 ML IV SCH; -LIDOCAINE 1% INJ 10MG/ML (20 ML MDV) ONE; -LIDOCAINE 1% INJ 10MG/ML (20 ML MDV) SQ ONE; -MIDAZOLAM 2 MG/2 ML VIAL IVP ONE; -MIDAZOLAM 2 MG/2 ML VIAL ONE; -NITROGLYCERIN SL TABS 0.4 MG TAB SUBLINGUAL PRN; -RX INFO: IV CONTRAST WAS GIVEN 1 EACH MISC MISCELLANE PRN; -SODIUM CHLORIDE 0.9% 1,000 ML IV ONE; -SODIUM CHLORIDE 0.9% 1,000 ML IV SCH; -SODIUM CHLORIDE 0.9% 1,000 ML in EMPTY BAG 1 BAG IV ONE; -VERAPAMIL 2.5 MG/ML 2 ML AMP ONE
[2020-06-09 07:20] VITALS: RESP 16; TEMP 96.9
[2020-06-09] MEDS ORDERED: LIDOCAINE 1% (10MG/ML) FOR IV START INTRADERMA ONE (07:21)
[2020-06-09 07:35] LABS: Glucose,Whole Blood 114 mg/dL (75-99)
[2020-06-09] MEDS ORDERED: PROPOFOL 10 MG/ML 20 ML VIAL IV ONE (07:43)
[2020-06-09] MEDS ORDERED: fentaNYL (PF) 50 MCG/ML 2 ML AMP ONE (07:43)
[2020-06-09] MEDS ORDERED: LIDOCAINE 1% INJ 10MG/ML (20 ML MDV) ONE (07:43)
--- NOTE | 2020-06-09 08:27 | P.PCN ---
Date of Procedure: 06/09/20 Description of Procedure: BRIEF HISTORY: Patient is a 70-year-old male with a long-standing history of left-sided ulcerative colitis presenting for colonoscopy for evaluation of ulcerative colitis. Patient has been maintained on 5ASA agents for many years. Patient intermittently reports symptoms of loose stool and frequent stool. Last colonoscopy 2 years ago with no signs of active disease on gross examination but inflammation seen on biopsy. PROCEDURE PERFORMED: Colonoscopy with biopsy and polypectomy. PREOPERATIVE DIAGNOSIS: Left-sided ulcerative colitis with no complications, ulcerative colitis, last colonoscopy 2 years ago. ESTIMATED BLOOD LOSS: Minimal. IV sedation per Anesthesia. PROCEDURE: After informed consent was obtained, the patient, was brought into the endoscopy unit. IV sedation was administered by Anesthesia under continuous monitoring. Digital rectal examination was normal. Initially the Olympus CF-190 flexible video colonoscope was then inserted in the rectum, gradually advanced into the cecum without any difficulty. Careful examination was performed as the scope was gradually being withdrawn. Ileocecal valve and the appendiceal orifice were visualized and appeared normal. Prep was excellent. Mucosa of the cecum, ascending colon, transverse colon, descending colon, sigmoid colon, and rectum appeared normal. Diminutive polyps measuring 2-3 mm were removed from the cecum, hepatic flexure, transverse colon, sigmoid colon and rectum 2 with cold forcep polypectomy. Random biopsies taken of the right colon, transverse colon, left colon and rectum for evaluation of ulcerative colitis. A few scattered diverticula noted in the left colon. Retroflexion was performed in the rectum and no lesions were seen. The patient tolerated the procedure well. IMPRESSION: Diminutive polyps removed with cold forcep polypectomy from the cecum, hepatic flexure, transverse colon, sigmoid colon and rectum 2. Normal-appearing colon from rectum to cecum with no active inflammation noted with random biopsies taken of the right colon, transverse colon, left colon and rectum. Mild left colonic diverticulosis. RECOMMENDATIONS: Findings of this examination were discussed with the patient in his . Okay to resume diet and medications. Continue follow-up with the GI service. Await pathology from biopsies and polypectomy. Follow-up in GI clinic as scheduled.
[2020-06-09 08:29] LABS: Glucose,Whole Blood 97 mg/dL (75-99)
[2020-06-09 09:03] VITALS: BP 173/78; PULSE 63
== END 2020-06-09 09:13 | disposition home or self-care (01) ==
LOC: ORWHC2ENDO 06:46
PROVIDERS: ATTEND Internal Medicine
DX: D12.0 Benign neoplasm of cecum (principal); D12.3 Benign neoplasm of transverse colon; D12.8 Benign neoplasm of rectum; K63.5 Polyp of colon; K51.50 Left sided colitis without complications; K57.30 Diverticulosis of large intestine without perforation or abscess without bleeding; I10 Essential (primary) hypertension; G47.33 Obstructive sleep apnea (adult) (pediatric); E11.9 Type 2 diabetes mellitus without complications; Z87.891 Personal history of nicotine dependence; Z88.0 Allergy status to penicillin; Z79.899 Other long term (current) drug therapy; Z79.82 Long term (current) use of aspirin; Z88.8 Allergy status to other drugs, medicaments and biological substances; Z79.4 Long term (current) use of insulin
CPT/HCPCS: 88305; 45380; J2001; J3010; J2704

== ENCOUNTER → 2020-08-07 | Outpatient (CLI) | payer MEDICARE ==
--- NOTE | 2020-08-07 20:44 | SFUN ---
SLEEP CENTER FOLLOW UP NOTE DATE OF SERVICE: 08/07/2020 This 70-year-old gentleman has been followed in Sleep Center for treatment of obstructive sleep apnea-hypopnea syndrome. The patient continues to use his CPAP equipment every night for the whole night. No problems with usage of the machine. No snoring. [place] Sleepiness Scale today is 5. I checked his CPAP unit. Range of the pressure is 5 to 15 with average pressure 8.5. Usage is every night and 27/30 nights for more than 4 hours with average usage 6 hours per night. Leak is 10 L/minute, which is acceptable. Apnea-hypopnea index is 1.2, which is perfect. Previously the patient had episodes of fek-ca-hqiyd behavior when he might hit his . At present, while on treatment with clonazepam and CPAP, there is no abnormal behavior during sleep. MEDICATIONS: 1. Allopurinol 5 mg twice a day. 2. Carvedilol 12.5 mg twice a day. 3. Dicyclomine 20 mg as needed. 4. Losartan 12.5 mg once a day. 5. Clonazepam 0.5 mg once at bedtime. 6. Hydrochlorothiazide 12.5 mg once a day. 7. Metformin 1000 mg twice a day. 8. Paroxetine 20 mg once a day. 9. Pravastatin 20 mg once a day. 10.Sulfasalazine 500 mg. 11.Insulin. 12.Aspirin 81 mg once a day. PHYSICAL EXAMINATION: GENERAL: A pleasant patient in no distress. VITAL SIGNS: BP 169/73, HR 78, RR 15, height 5 feet 6-1/2 inches, weight 204 pounds. Body mass index 32.4. Temperature 98.4, oxygen saturation at room air 92%. HEENT: PERRLA, EOMI. Evaluation of oropharynx showed tongue protrudes midline. Low position of soft palate. NECK: Supple. No JVD. Thyroid is not palpable. LUNGS: Clear to percussion and to auscultation. Good air exchange. No wheezing or rhonchi. HEART: S1, S2 regular. No murmurs, gallops or rubs. ABDOMEN: Slightly obese. EXTREMITIES: No clubbing or cyanosis. 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 Cranial nerves 2 to 7 intact. There is no fasciculation or atrophy. noted. No focal deficits observed. IMPRESSION: 1. Obstructive sleep apnea-hypopnea syndrome. Patient demonstrated great compliance with treatment, benefitting from treatment. 2. 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 No recent episodes. On treatment with clonazepam. 3. History of chronic obstructive pulmonary disease. 4. Hyperlipidemia. 5. Diabetes mellitus. 6. History of anxiety. 7. History of ulcerative colitis. PLAN: 1. Patient will continue to use PAP equipment every night for the whole night. 2. Sleep hygiene with regular time in bed for at least 7-1/2 to 8 hours. 3. Precautions related to driving. No driving if feeling sleepiness. 4. I will maintain all necessary prescription for PAP supplies including mask, tube, filters. 5. Watching weight. 6. No driving if feeling sleepiness. 7. Follow-up visit in 6 months or earlier if patient has any problems. 8. Patient will continue to take clonazepam 0.5 mg at bedtime. Thank you very much for allowing me to participate in the management of your patient. Sincerely, Tej Flanagan MD, PhD, FAASM Diplomat of [place] [employer] [place] [employer] Tool Filer Hand of [facility] [place] MMODL / IJN: [id number] /
== END | disposition home or self-care (01) ==
LOC: SLEEP 16:53
PROVIDERS: ATTEND Internal Medicine
DX: G47.33 Obstructive sleep apnea (adult) (pediatric) (principal); E11.9 Type 2 diabetes mellitus without complications; E78.5 Hyperlipidemia, unspecified; Z86.59 Personal history of other mental and behavioral disorders; Z79.82 Long term (current) use of aspirin; Z79.891 Long term (current) use of opiate analgesic; Z79.899 Other long term (current) drug therapy; Z79.4 Long term (current) use of insulin; Z79.1 Long term (current) use of non-steroidal anti-inflammatories (NSAID); Z87.19 Personal history of other diseases of the digestive system

== ENCOUNTER → 2020-09-19 | Outpatient (CLI) | payer MEDICARE ==
[2020-09-19 20:27] LABS: African American GFR (CKD) 77.3 (60.0-200.0); Albumin 4.5 g/dL (3.80-4.90); Albumin/Globulin Ratio 2.14 (1.60-3.17); Anion Gap 9.2 mmol/L (4.00-12.00); BUN/Creat Ratio 13.64 Ratio (12.00-20.00); Calcium 9.5 mg/dL (8.7-10.3); Carbon Dioxide 27.8 mmol/L (21.6-31.8); Chol/HDL Ratio 4.16; Globulin 2.1 g/dL (1.6-3.3); LDL Cholesterol,Calculated 50.8 mg/dL (0.0-131.0); Non-African American GFR(CKD) 66.7 (60.0-200.0); Potassium 4.2 mmol/L (3.5-5.5); Total Bilirubin 0.3 mg/dL (0.2-1.2); Total Protein 6.6 g/dL (6.2-8.2); VLDL Calculation 50.2 mg/dL (5.00-40.00)
[2020-09-19 21:32] LABS: Hemoglobin A1C 6.9 % (4.0-6.0)
== END | disposition home or self-care (01) ==
LOC: LABWHC1 14:16
PROVIDERS: ATTEND Internal Medicine Endocrinology, Diabetes & Metabolism
DX: E11.65 Type 2 diabetes mellitus with hyperglycemia (principal)
CPT/HCPCS: 36415; 80053; 80061; 83036; 84443

== ENCOUNTER 2021-02-02 07:13 | Day surgery (SDC) | payer MEDICARE ==
[2021-01-29 11:07] VITALS: BMI 30.7
[~2021-02-02 07:13] MED LIST changes: +ACETAMINOPHEN TAB 500 MG TAB PO PRN; +CLINDAMYCIN 900 MG in DEXTROSE 5% IN WATER 50 ML IVPB PRN; +DEXAMETHASONE SOD PHOSPHATE 4 MG/ML 1 ML VIAL IV ONE; +GENTAMICIN 360 MG in SODIUM CHLORIDE 0.9% 100 ML IVPB PRN; +HEPARIN SODIUM,PORCINE/PF 5,000 UNIT/0.5 ML SYRINGE SQ PRN; +LIDOCAINE 1% (10MG/ML) FOR IV START INTRADERMA PRN; +ONDANSETRON 4 MG/2 ML VIAL IVP ONE
[2021-02-02 07:53] LABS: Glucose,Whole Blood 144 mg/dL (75-99)
--- NOTE | 2021-02-02 08:23 | P.GSHP ---
History of Present Illness H&P Date: 02/02/21 Chief Complaint: Right upper quadrant This is a 70-year-old male who presents today for laparoscopic cholecystectomy. Patient's echo was read quadrant pain. Patient has had a history of gallstones. Patient is noted to have a gallstone in the neck of the gallbladder. Past Medical History Past Medical History: Cancer, COPD, Diabetes Mellitus, Eye Disorder, GERD/Reflux, Hyperlipidemia, Hypertension, Sleep Apnea/CPAP/BIPAP Additional Past Medical History / Comment(s): Ulcerative colitis, 1st 2nd and 3rd degree de [place] santos with skin grafts 10/26/17, cough, CPAP use., RLS., macular degeneration (receives injections)., Hx basal cell skin cancer., keratosis, trigger finger left hand., mild COPD., hx Gall Bladder pain & nausea. History of Any Multi-Drug Resistant Organisms: None Reported Past Surgical History: Heart Catheterization, Orthopedic Surgery Additional Past Surgical History / Comment(s): right elbow and bilateral wrist/hand surgery, trigger finger surgery x3., skin grafts to lower back, under knee and buttocks due to de [place] santos., HEART CATH 2018. Past Anesthesia/Blood Transfusion Reactions: No Reported Reaction Past Psychological History: Anxiety, Depression Smoking Status: Former smoker Past Alcohol Use History: None Reported Additional Past Alcohol Use History / Comment(s): Quit smoking 1998, smoked for 35 yrs., smoked 1/2 ppd.,. States hx of heavy alcohol use but quit 41 yrs ago. Past Drug Use History: Marijuana Additional Drug Use History / Comment(s): quit marijuana 41 yrs ago. - Past Family History Father Family Medical History: Cancer, Myocardial Infarction ([place]) Additional Family Medical History / Comment(s): skin cancer Brother(s) Family Medical History: Myocardial Infarction ([place]) Additional Family Medical History / Comment(s): at 65 Mother Family Medical History: Cancer Additional Family Medical History / Comment(s): skin cancer Medications and Allergies Home Medications Medication Instructions Recorded Confirmed Type Aspirin 81 mg PO DAILY 05/16/14 02/02/21 History Cranberry Conc/C/Bacill Coag 1 tab PO DAILY 05/16/14 02/02/21 History [Cranberry Tablet] Fish Oil/Fat No.8/Hrb Comb.137 1,200 mg PO DAILY 05/16/14 02/02/21 History [[place] 3-6-9 1,200 mg Softgel] Garlic 1 tab PO DAILY 05/16/14 02/02/21 History PARoxetine [Paxil] 20 mg PO DAILY 05/16/14 02/02/21 History Pravastatin Sodium [Pravachol] 20 mg PO DAILY 05/16/14 02/02/21 History amLODIPine [Norvasc] 5 mg PO BID 05/16/14 02/02/21 History metFORMIN HCL 1,000 mg PO BID 05/16/14 02/02/21 History Cinnamon Bark [Cinnamon] 500 mg PO DAILY 03/07/17 02/02/21 History Magnesium Oxide [Magnesium] 133 mg PO DAILY 03/07/17 02/02/21 History clonazePAM [KlonoPIN] 0.5 mg PO HS 06/26/17 02/02/21 History sulfaSALAzine [Azulfidine] 1,000 mg PO TID-W/MEALS 06/26/17 02/02/21 History Nitroglycerin Sl Tabs [Nitrostat] 0.4 mg SUBLINGUAL Q5M PRN 04/20/18 02/02/21 History Carvedilol [Coreg] 12.5 mg PO BID 06/04/20 02/02/21 History Dicyclomine HCl 20 mg PO TID PRN 06/04/20 02/02/21 History Insulin Aspart [NovoLOG] 0 units SQ AC-TID PRN 06/04/20 02/02/21 History hydroCHLOROthiazide [Hydrodiuril] 12.5 mg PO DAILY 06/04/20 02/02/21 History INSULIN LISPRO (For Pump) [humaLOG 0 units SQ-PUMP CONTINUOUS 01/29/21 02/02/21 History (For Pump)] Losartan Potassium [Cozaar] 100 mg PO DAILY 01/29/21 02/02/21 History Multivit-Min/FA/Lycopen/Lutein 1 each PO DAILY 01/29/21 02/02/21 History [Centrum Silver Tablet] Allergies Allergy/AdvReac Type Severity Reaction Status Date / Time hydralazine Allergy Swelling Verified 02/02/21 07:34 Penicillins Allergy Anaphylaxis Verified 02/02/21 07:34 Surgical - Exam Vital Signs Temp Pulse Resp BP Pulse Ox 98.2 F 77 16 200/91 95 02/02/21 07:41 02/02/21 07:41 02/02/21 07:41 02/02/21 07:41 02/02/21 07:41 - General well developed, well nourished - ENT normal pinna, no hearing loss - Respiratory normal expansion - Cardiovascular Rhythm: regular - Abdomen Abdomen: soft, non tender Results - Labs Abnormal Lab Results - Last 24 Hours (Table) 02/02/21 Range/Units 07:50 POC Glucose (mg/dL) 144 H (75-99) mg/dL Assessment and Plan Assessment: Right quadrant pain Cholelithiasis We'll perform laparoscopic cholecystectomy
[2021-02-02] MEDS ORDERED: LIDOCAINE 1% INJ 10MG/ML (20 ML MDV) ONE (08:32)
[2021-02-02] MEDS ORDERED: fentaNYL (PF) 50 MCG/ML 2 ML AMP ONE (08:32)
[2021-02-02] MEDS ORDERED: NEOSTIGMINE 1 MG/ML 10 ML VIAL ONE (08:32)
[2021-02-02] MEDS ORDERED: ROCURONIUM 10 MG/ML (5 ML VIAL) IV ONE (08:32)
[2021-02-02] MEDS ORDERED: PROPOFOL 10 MG/ML 20 ML VIAL IV ONE (08:32)
[2021-02-02] MEDS ORDERED: MIDAZOLAM 2 MG/2 ML VIAL ONE (08:32)
[2021-02-02] MEDS ORDERED: SUCCINYLCHOLINE CHLORIDE 100 MG/5 ML SYR IV ONE (08:32)
[2021-02-02] MEDS ORDERED: GLYCOPYRROLATE 0.2 MG/ML 2 ML VIAL ONE (08:32)
[2021-02-02] MEDS ORDERED: KETOROLAC 15 MG/ML 1 ML VIAL ONE (08:32)
[2021-02-02] MEDS ORDERED: LIDOCAINE 1%-EPI 1:100,000 20 ML VIAL SQ ONE (08:56)
--- NOTE | 2021-02-02 09:14 | P.OP ---
Date of Procedure: 02/02/21 Preoperative Diagnosis: Cholecystitis Postoperative Diagnosis: Cholecystitis Procedure(s) Performed: Laparoscopic cholecystectomy Anesthesia: PAUL Surgeon: Papa Herrera Estimated Blood Loss (ml): 5 Pathology: other (Gallbladder) Condition: stable Disposition: PACU Description of Procedure: The patient was placed on the operating table. The patient received a general endotracheal tube anesthesia. The patients abdomen was prepped and draped in the usual sterile fashion. Through an infraumbilical stab incision, the fascia of the anterior abdominal wall was grasped with a pair of Kochers and then the Veress needle was placed in the peritoneal cavity. Position of the Veress needle was confirmed with positive drop test. The abdomen was then insufflated. After adequate insufflation, the 10 mm trocar was placed in the peritoneal cavity. Following this the laparoscope was placed in the peritoneal cavity. The patient was placed in the head-up, right side up position and then a 5 mm trocar was placed in the right lateral and right subcostal position under direct visualization. A 8 mm trocar was placed in the epigastric position. The gallbladder was grasped in the fundus and infundibulum. Traction on the gallbladder was placed in the lateral and the cephalad positions. The triangle of Calot was visualized.. The cystic duct was bluntly dissected until the union of the cystic duct and common bile duct was seen. A critical view of safety was achieved. The cystic duct was then divided and sealed with the Harmonic scissors. A PDS Endoloop was then placed throughout the cystic duct stump. The cystic artery divided and sealed with the Harmonic scissors. The gallbladder was then removed from the liver bed using Harmonic scissors. The gallbladder was then extracted through the epigastric port site. Operative field was checked for any bleeding spots and Harmonic scissors was used to coagulate the liver bed. The abdomen was irrigated. The trocars were removed. The skin was closed using interrupted 3-0 Vicryl suture. Dermabond dressing were applied. The patient tolerated the procedure well.
[2021-02-02] MEDS: HYDROmorphone 0.5 MG/0.5 ML SYRINGE IVP PRN ×2 (09:26→09:46)
[2021-02-02 09:46] LABS: Glucose,Whole Blood 259 mg/dL (75-99)
[2021-02-02] MEDS ORDERED: INSULIN ASPART (NovoLOG) 100 UNIT/ML VIAL SQ ONE (09:47)
[2021-02-02 09:54] VITALS: TEMP 96.8
[2021-02-02] MEDS ORDERED: diphenhydrAMINE 50 MG/ML 1 ML VIAL IVP ONE (10:08)
[2021-02-02 10:44] VITALS: RESP 16
[2021-02-02] MEDS ORDERED: LACTATED RINGERS 1,000 ML IV ONE (11:30)
[2021-02-02 11:37] LABS: Glucose,Whole Blood 231 mg/dL (75-99)
[2021-02-02 12:20] VITALS: PULSE 68
[2021-02-02] MEDS ORDERED: TAMSULOSIN 0.4 MG CAP.ER.24H PO STA (14:34)
[2021-02-02 18:39] VITALS: BP 153/78
== END 2021-02-02 18:33 | disposition home or self-care (01) ==
LOC: OR 07:13
PROVIDERS: ATTEND Surgery
DX: K80.10 Calculus of gallbladder with chronic cholecystitis without obstruction (principal); J44.9 Chronic obstructive pulmonary disease, unspecified; E11.9 Type 2 diabetes mellitus without complications; K21.9 Gastro-esophageal reflux disease without esophagitis; E78.5 Hyperlipidemia, unspecified; I10 Essential (primary) hypertension; G47.33 Obstructive sleep apnea (adult) (pediatric); Z99.89 Dependence on other enabling machines and devices; K51.90 Ulcerative colitis, unspecified, without complications; G25.81 Restless legs syndrome; H35.30 Unspecified macular degeneration; Z85.828 Personal history of other malignant neoplasm of skin; Z98.890 Other specified postprocedural states; F41.9 Anxiety disorder, unspecified; F32.9 Major depressive disorder, single episode, unspecified; Z87.891 Personal history of nicotine dependence; Z82.49 Family history of ischemic heart disease and other diseases of the circulatory system; Z80.8 Family history of malignant neoplasm of other organs or systems; Z79.82 Long term (current) use of aspirin; Z79.4 Long term (current) use of insulin; Z79.899 Other long term (current) drug therapy; Z88.0 Allergy status to penicillin; Z88.8 Allergy status to other drugs, medicaments and biological substances
CPT/HCPCS: 88304; 47562; J2250; J1200; J1100; J2710; J2405; J2001; J3010; J1885; J0330; J2704; J1170; J1644

== ENCOUNTER → 2021-02-12 | Outpatient (CLI) | payer MEDICARE ==
--- NOTE | 2021-02-12 20:04 | SFUN ---
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 The patient continues to use his CPAP equipment every night for the whole night. No problems with the machine related to mask fitting, pressure or humidification. He is getting his supplies. He is on treatment with clonazepam 0.5 mg at bedtime for episodes of [id number] movements. With medication and CPAP, he sleeps better but still sometimes might have some awakenings from sleep. [place] Sleepiness Scale today increased to 20. I checked his CPAP unit. Range of the pressure is 5 to 15, average pressure 8.7, usage 30/30 nights and nights for more than 4 hours, average 6.0 hours per night. Leak is in normal range at 10 L/minute. Apnea-hypopnea index is 1.0, which is perfect. MEDICATIONS: 1. Amlodipine 5 mg once a day. 2. Carvedilol 12.5 mg once a day. 3. Dicyclomine 20 mg as needed. 4. Losartan 12.5 mg once a day. 5. Clonazepam 0.5 mg at bedtime. 6. Hydrochlorothiazide 12.5 mg once a day. 7. Metformin 1000 mg twice a day. 8. Paroxetine 20 mg once a day. 9. Pravastatin 20 mg once a day. 10.Sulfasalazine 500 mg once a day. 11.Insulin. 12.Aspirin 81 mg once a day. PHYSICAL EXAMINATION: GENERAL: A pleasant patient in no distress. VITAL SIGNS: BP 189/75, HR 78, RR 18, height 5 feet 7 inches, weight 201.2, which is 3 pounds less than on his last visit, temperature 97.2, oxygen saturation at room air 94%. HEENT: PERRLA, EOMI. Evaluation of oropharynx showed tongue protrudes midline. Low position of soft palate. NECK: Supple. No JVD. Thyroid is not palpable. LUNGS: Clear to percussion and to auscultation. Good air exchange. No wheezing or rhonchi. HEART: S1, S2 regular. No murmurs, gallops or rubs. ABDOMEN: Obese. EXTREMITIES: No clubbing or cyanosis. FILTERING MACHINE TENDER HELPER: Awake, alert, and oriented X3. Cranial nerves 2 to 7 intact. There is no fasciculation or atrophy. noted. No focal deficits observed. IMPRESSION: 1. Obstructive sleep apnea-hypopnea syndrome. Patient demonstrated close to 100% compliance with treatment, benefitting from treatment. Normal respiration on CPAP. 2. History of possible REM sleep behavioral disorder with episodes of [id number] movements. The patient is on treatment with clonazepam. No recent problems. 3. History of chronic obstructive pulmonary disease. 4. Hyperlipidemia. 5. Diabetes mellitus. 6. History of anxiety. 7. History of ulcerative colitis. PLAN: 1. Patient will continue to use PAP equipment every night for the whole night. 2. Sleep hygiene with regular time in bed for at least 7-1/2 to 8 hours. 3. Precautions related to driving. No driving if feeling sleepiness. 4. I will maintain all necessary prescription for PAP supplies including mask, tube, filters. 5. Watching weight. 6. Follow-up visit in 6 months or earlier if patient has any problems. Thank you very much for allowing me to participate in the management of your patient. Sincerely, Tej Flanagan MD, PhD, FAASM Diplomat of [place] [employer] [place] [employer] Pharmacy Assistant of [facility] [place] MMODL / IJN: [id number] /
== END ==
LOC: SLEEP 10:19
PROVIDERS: ATTEND Internal Medicine
DX: G47.33 Obstructive sleep apnea (adult) (pediatric) (principal); J44.9 Chronic obstructive pulmonary disease, unspecified; E78.5 Hyperlipidemia, unspecified; E11.9 Type 2 diabetes mellitus without complications; F41.9 Anxiety disorder, unspecified; Z87.19 Personal history of other diseases of the digestive system; Z79.4 Long term (current) use of insulin; Z79.899 Other long term (current) drug therapy; Z87.891 Personal history of nicotine dependence

== ENCOUNTER → 2021-05-14 | Outpatient (CLI) | payer MEDICARE ==
[2021-05-15 04:38] LABS: Hemoglobin A1C 6.9 % (4.0-6.0)
[2021-05-15 06:10] LABS: African American GFR (CKD) 77.3 (60.0-200.0); Albumin 4.6 g/dL (3.80-4.90); Albumin/Globulin Ratio 1.77 (1.60-3.17); Anion Gap 14.7 mmol/L (4.00-12.00); BUN/Creat Ratio 18.18 Ratio (12.00-20.00); Calcium 9.6 mg/dL (8.7-10.3); Carbon Dioxide 25.3 mmol/L (21.6-31.8); Chol/HDL Ratio 4.17; Globulin 2.6 g/dL (1.6-3.3); LDL Cholesterol,Calculated 59.4 mg/dL (0.0-131.0); Magnesium 1.6 mg/dL (1.5-2.4); Non-African American GFR(CKD) 66.7 (60.0-200.0); Potassium 5.4 mmol/L (3.5-5.5); Total Bilirubin 0.3 mg/dL (0.2-1.2); Total Protein 7.2 g/dL (6.2-8.2); VLDL Calculation 35.6 mg/dL (5.00-40.00)
[2021-05-15 14:10] LABS: Urine Creatinine 107.4 mg/dL
== END | disposition home or self-care (01) ==
LOC: LABWHC1 12:44
PROVIDERS: ATTEND Internal Medicine Endocrinology, Diabetes & Metabolism
DX: E11.65 Type 2 diabetes mellitus with hyperglycemia (principal); I10 Essential (primary) hypertension
CPT/HCPCS: 36415; 80053; 80061; 82043; 82570; 83036; 83735; 84443

== ENCOUNTER → 2021-09-02 | Outpatient (CLI) | payer MEDICARE ==
--- NOTE | 2021-09-02 11:19 | SFUN ---
SLEEP CENTER FOLLOW UP NOTE DATE OF SERVICE: 09/02/2021 This 71-year-old gentleman has been followed in Sleep Center for treatment of obstructive sleep apnea-hypopnea syndrome. Also, the patient has a history of REM sleep behavioral disorder. The patient continues to use his CPAP equipment every night but still has occasional episodes of REM sleep behavioral disorder, which was stopped. He is on treatment with clonazepam 0.5 mg but presently on the same dose of medication he started to have occasional events. [place] Sleepiness Scale today is increased to 12. I checked his CPAP unit. The air filter is in bad condition. AutoPAP 5 to 15 with average pressure 9 cm of water. Usage 83/90 nights for last 3 months. Average 6.5 hours per night. Leak is 19 L/minute. Apnea-hypopnea index 1.0, which is absolutely normal. MEDICATIONS: 1. Pravastatin 20 mg once a day. 2. Paroxetine 20 mg once a day. 3. Sulfasalazine 500 mg 2 tablets twice a day. 4. Metformin 1000 mg twice a day. 5. Carvedilol 12.5 mg twice a day. 6. Valsartan 320 mg once a day. 7. Amlodipine 5 mg twice a day. 8. Chlorthalidone 25 mg once a day. 9. Clonazepam 0.5 mg at bedtime. 10.Dicyclomine 20 mg as needed. 11.Aspirin 81 mg once a day. 12.Insulin pump with Humalog. 13.Vitamin D3. 14.Potassium. 15.Fiber. 16.Fish oil. 17.Polyvitamin supplement. PHYSICAL EXAMINATION: GENERAL: Pleasant patient in no distress. VITAL SIGNS: BP 155/71, HR 82, RR 18, height 5 feet 6-1/2 inches, weight 199.4 pounds, 2 pounds less than during last visit, temperature 98.5, oxygen saturation at room air 94%. HEENT: PERRLA, EOMI, evaluation of oropharynx showed tongue protrudes midline. Low position of soft palate. NECK: Supple, no JVD. Thyroid is not palpable. LUNGS: Clear to percussion and to auscultation. Good air exchange. No wheezing or rhonchi. HEART: S1, S2 regular. No murmurs, gallops, or rubs. ABDOMEN: Obese. EXTREMITIES: No clubbing or cyanosis. WELDER TOOL AND DIE: Awake, alert, and oriented X3. Cranial nerves 2 to 7 intact. There is no fasciculation or atrophy. noted. No focal deficits observed. IMPRESSION: 1. Obstructive sleep apnea-hypopnea syndrome. Patient demonstrated good compliance with treatment. Normal respiration on CPAP, benefitting from treatment. 2. REM sleep behavioral disorder. The patient again started to develop some out-of- dream events. 3. History of chronic obstructive pulmonary disease. 4. Hyperlipidemia. 5. Diabetes mellitus. 6. History of anxiety. 7. Ulcerative colitis. PLAN: 1. I increased dose of clonazepam to 0.75 mg at bedtime. 2. Melatonin at bedtime. Melatonin may decrease episodes of REM sleep behavioral disorder. 3. Patient will continue to use PAP equipment every night for the whole night. 4. Sleep hygiene with regular time in bed for at least 7-1/2 to 8 hours. 5. Precautions related to driving. No driving if feeling sleepiness. 6. I will maintain all necessary prescription for PAP supplies including mask, tube, filters. 7. Watching weight. 8. Follow-up visit in 6 months or earlier if patient has any problems. Thank you very much for allowing me to participate in the management of your patient. Sincerely, Tej Flanagan MD, PhD, FAASM Diplomat of [place] [employer] Specialties Sleep Medicine Board of [place] [employer] of Internal Medicine Duty Engineer of [facility] [place] SADIE / RADHA: [id number] /
== END ==
LOC: SLEEP 09:56
PROVIDERS: ATTEND Internal Medicine
DX: G47.33 Obstructive sleep apnea (adult) (pediatric) (principal); J44.9 Chronic obstructive pulmonary disease, unspecified; E78.5 Hyperlipidemia, unspecified; E11.9 Type 2 diabetes mellitus without complications; F41.9 Anxiety disorder, unspecified; K51.90 Ulcerative colitis, unspecified, without complications; Z79.4 Long term (current) use of insulin; Z96.41 Presence of insulin pump (external) (internal); Z79.84 Long term (current) use of oral hypoglycemic drugs; Z79.899 Other long term (current) drug therapy; Z88.8 Allergy status to other drugs, medicaments and biological substances; Z88.0 Allergy status to penicillin; Z87.891 Personal history of nicotine dependence

== ENCOUNTER → 2021-12-15 | Outpatient (CLI) | payer MEDICARE ==
[2021-12-15 15:41] LABS: ALT 27 U/L (10-49); AST 27 U/L (14-35); African American GFR (CKD) 66.4 (60.0-200.0); Albumin 4.4 g/dL (3.8-4.9); Albumin/Globulin Ratio 1.59 (1.60-3.17); Alkaline Phosphatase 64 U/L (41-126); BUN/Creat Ratio 16.53 Ratio (12.00-20.00); Blood Urea Nitrogen 20.5 mg/dL (9.0-27.0); Calcium 9.5 mg/dL (8.7-10.3); Chloride 99 mmol/L (96-109); Chol/HDL Ratio 3.78 Ratio; Globulin 2.8 g/dL (1.6-3.3); Glucose 200 mg/dL (70-110); LDL Cholesterol,Calculated 34.8 mg/dL (0.0-131.0); Non-African American GFR(CKD) 57.3 (60.0-200.0); Potassium 5.4 mmol/L (3.5-5.5); Sodium 138 mmol/L (135-145); Total Bilirubin <0.15 mg/dL (0.30-1.20); Total Protein 7.2 g/dL (6.2-8.2)
== END | disposition home or self-care (01) ==
LOC: LABWHC1 10:52
PROVIDERS: ATTEND Internal Medicine Endocrinology, Diabetes & Metabolism
DX: E11.65 Type 2 diabetes mellitus with hyperglycemia (principal)
CPT/HCPCS: 36415; 80053; 80061; 82043; 82570; 83036; 84443

== ENCOUNTER → 2022-04-06 | Outpatient (CLI) | payer MEDICARE ==
[2022-04-06 15:47] LABS: ALT 28 U/L (10-49); AST 27 U/L (14-35); African American GFR (CKD) 70.5 (60.0-200.0); Albumin 4.3 g/dL (3.8-4.9); Alkaline Phosphatase 67 U/L (41-126); BUN/Creat Ratio 14.58 Ratio (12.00-20.00); Blood Urea Nitrogen 17.2 mg/dL (9.0-27.0); Calcium 9.3 mg/dL (8.7-10.3); Carbon Dioxide 23.8 mmol/L (20.0-27.5); Chloride 102 mmol/L (96-109); Chol/HDL Ratio 3.54 Ratio; Globulin 2.5 g/dL (1.6-3.3); Glucose 122 mg/dL (70-110); LDL Cholesterol,Calculated 44.6 mg/dL (0.0-131.0); Non-African American GFR(CKD) 60.9 (60.0-200.0); Sodium 139 mmol/L (135-145); Total Bilirubin <0.15 mg/dL (0.30-1.20); Total Protein 6.9 g/dL (6.2-8.2)
== END | disposition home or self-care (01) ==
LOC: LABWHC1 10:48
PROVIDERS: ATTEND Internal Medicine Endocrinology, Diabetes & Metabolism
DX: E11.65 Type 2 diabetes mellitus with hyperglycemia (principal)
CPT/HCPCS: 36415; 80053; 80061; 83036

== ENCOUNTER → 2022-04-14 | Outpatient (CLI) | payer MEDICARE ==
--- NOTE | 2022-04-14 11:01 | P.PN ---
Subjective DATE: 04/14/2022 FOLLOW UP VISIT. Patient with obstructive sleep apnea hypopnea syndrome return to sleep center for follow-up visit. Patient is on treatment with clonazepam for REM sleep behavioral disorder. Video the dose of 0.75 mg of clonazepam no out of dream movements during the sleep. Patient is using PAP equipment every night for the whole night, getting PAP supplies in time. The patient does not have significant problems with the mask, PAP unit and humidification. [place] sleepiness scale is 6. I checked PAP unit. Air filter in bed condition. PAP unit pressure 5-15 average 8.3 cm H2O. Usage is 97 % for more then 4 hours, average 6.3 hours per night. Leak is 12 l/m, which is in acceptable range. Apnea Hypopnea Index is 1.2, which is normal. MEDICATIONS:1. Pravastatin 20 mg once a day 2. Paroxetine 20 mg once a day 3. Sulfasalazine 500 mg 2 tablets twice a day 4. Metformin 1000 mg twice a day 5. Carvedilol 12.5 mg twice a day 6. Valsartan 320 mg once a day 7. Amlodipine 5 mg twice a day 8. Trazodone 25 mg once a day 9. Clonazepam 0.75 mg at bedtime 10. Dicyclomine 20 mg as needed 11 Humalog During physical exam: GENERAL: A pleasant patient without any distress. VITAL SIGNS: BP 180/63, HR extent to, RR 18 , weight 196.8, height 5 foot 6 inches, body mass index 31.7, temperature 97.4, oxygen saturation at room air 2% . HEENT: PERRLA, EOMI.low position of soft palate[] . NECK: Supple. No JVD. LUNGS: Clear to percussion and to auscultation. Good air exchange. No wheezing or rhonchi. HEART: S1, S2 regular. ABDOMEN: Soft and nontender.[] EXTREMITIES: No clubbing or cyanosis. HOGSHEAD DUMPER: Awake, alert, and oriented x3. No focal deficit. Impressions: 1. Obstructive sleep apnea-hypopnea syndrome. Patient demonstrated great compliance with treatment, benefiting from treatment. 2. REM sleep behavioral disorder on control with clonazepam 0.75 mg at bedtime. 3. History of chronic obstructive pulmonary disease. 4. Hyperlipidemia. 5. Hypertension. 6. Diabetes mellitus. 7. Ulcerative colitis. 8. History of anxiety. Plan: 1. Continue using PAP equipment every night for the whole night. 2. To change air filter at least 1-2 times per month. 3. PAP unit should stay lower then position of the head. 4. Advised patient to remove all remaining water from humidifier canister daily and make it dry after each usage. Refill canister with fresh distilled water before each usage. 5. Sleep hygiene with regular time in bed for at least 8 hours. 6. Precautions related to driving. No driving if feel any sleepiness. 7. I will maintain prescription for PAP supplies including mask, tube, filters. 8. Follow up visit in 6 months or earlier if patient has any problems. 9. Watching weight. 10. Continue clonazepam 0.75 mg at bedtime. Thank you very much for allowing me to participate in the management of your patient. Tej Flanagan MD, PhD, FAASM. Diplomat of [place] [employer], Sleep Medicine Board by [place] [employer] Insurance Attorney of [facility] [place]
== END ==
LOC: SLEEP 09:54
PROVIDERS: ATTEND Internal Medicine
DX: G47.33 Obstructive sleep apnea (adult) (pediatric) (principal); J44.9 Chronic obstructive pulmonary disease, unspecified; E78.5 Hyperlipidemia, unspecified; I10 Essential (primary) hypertension; E11.9 Type 2 diabetes mellitus without complications; F41.9 Anxiety disorder, unspecified; K51.90 Ulcerative colitis, unspecified, without complications; Z99.89 Dependence on other enabling machines and devices; Z79.84 Long term (current) use of oral hypoglycemic drugs; Z79.4 Long term (current) use of insulin; Z79.899 Other long term (current) drug therapy; Z88.0 Allergy status to penicillin; Z88.8 Allergy status to other drugs, medicaments and biological substances; Z87.891 Personal history of nicotine dependence
CPT/HCPCS: 99212

== ENCOUNTER 2022-05-21 06:56 | Day surgery (SDC) | payer MEDICARE ==
[2022-05-20 10:18] VITALS: BMI 32.1
[~2022-05-21 06:56] MED LIST changes: -ACETAMINOPHEN TAB 500 MG TAB PO PRN; -CLINDAMYCIN 900 MG in DEXTROSE 5% IN WATER 50 ML IVPB PRN; -DEXAMETHASONE SOD PHOSPHATE 4 MG/ML 1 ML VIAL IV ONE; -GENTAMICIN 360 MG in SODIUM CHLORIDE 0.9% 100 ML IVPB PRN; -HEPARIN SODIUM,PORCINE/PF 5,000 UNIT/0.5 ML SYRINGE SQ PRN; -ONDANSETRON 4 MG/2 ML VIAL IVP ONE
[2022-05-21 07:48] VITALS: TEMP 98.3
[2022-05-21 07:57] LABS: Glucose,Whole Blood 113 mg/dL (70-110)
[2022-05-21] MEDS ORDERED: PROPOFOL 10 MG/ML 20 ML VIAL IV ONE (08:14)
[2022-05-21] MEDS ORDERED: LIDOCAINE 2% INJ 20 MG/ML (2 ML VIAL) ONE (08:14)
--- NOTE | 2022-05-21 08:35 | P.PCN ---
Date of Procedure: 05/21/22 Procedure(s) Performed: BRIEF HISTORY: Patient is a 71-year-old pleasant 78 male scheduled for an elective colonoscopy as a part of surveillance of long-standing history of ulcerative colitis which was diagnosed in 1969. Lately has been having chronic diarrhea with 5-6 loose watery bowel movements daily. He is currently maintained on sulfasalazine 1 g twice daily. PROCEDURE PERFORMED: Colonoscopy with biopsy. PREOPERATIVE DIAGNOSIS: Long-standing history of ulcerative colitis and chronic diarrhea. IV sedation per Anesthesia. PROCEDURE: After informed consent was obtained, the patient, was brought into the endoscopy unit. IV sedation was administered by Anesthesia under continuous monitoring. Digital rectal examination was normal. Initially the Olympus CF-160 flexible video colonoscope was then inserted in the rectum, gradually advanced into the cecum without any difficulty. Careful examination was performed as the scope was gradually being withdrawn. Ileocecal valve and the appendiceal orifice were visualized and appeared normal. Prep was excellent. Mucosa of the cecum, ascending colon, appeared normal. The transverse colon there was a 3-4 mm sessile polyp removed by cold biopsy. Rest of the transverse colon, descending colon, sigmoid colon, and rectum appeared normal. Retroflexion was performed in the rectum and no lesions were seen. Random biopsies were done from the cecum to rectum at every 10 cm intervals to rule out dysplasia. Scattered left-sided diverticulosis seen. The patient tolerated the procedure well. IMPRESSION: 3-4 mm transverse colon polyp status post cold biopsy Scattered sigmoid diverticulosis No evidence of active colitis RECOMMENDATIONS: Findings of this examination were discussed with the patient as well as his family. He was advised to follow with the biopsy results. If the biopsies do not show any evidence of dysplasia, he can have a repeat colonoscopy in 2 years..
[2022-05-21 08:42] VITALS: RESP 16
[2022-05-21 08:58] VITALS: BP 126/56; PULSE 70
== END 2022-05-21 09:33 | disposition home or self-care (01) ==
LOC: ORWHC2ENDO 06:56
PROVIDERS: ATTEND Internal Medicine Gastroenterology
DX: K52.9 Noninfective gastroenteritis and colitis, unspecified (principal); D12.3 Benign neoplasm of transverse colon; K57.30 Diverticulosis of large intestine without perforation or abscess without bleeding; Z88.0 Allergy status to penicillin; Z88.8 Allergy status to other drugs, medicaments and biological substances; I10 Essential (primary) hypertension; E11.69 Type 2 diabetes mellitus with other specified complication; E78.5 Hyperlipidemia, unspecified; J44.9 Chronic obstructive pulmonary disease, unspecified; Z87.891 Personal history of nicotine dependence; Z79.82 Long term (current) use of aspirin; Z79.899 Other long term (current) drug therapy; Z79.4 Long term (current) use of insulin; Z96.41 Presence of insulin pump (external) (internal); Z80.8 Family history of malignant neoplasm of other organs or systems; Z82.49 Family history of ischemic heart disease and other diseases of the circulatory system
CPT/HCPCS: 88305; 45380; J2704; J2001

== ENCOUNTER 2022-06-06 12:01 | Emergency (ER) | payer MEDICARE ==
--- NOTE | 2022-06-06 12:17 | ED ---
General Adult HPI - General Chief complaint: Recheck/Abnormal Lab/Rx Stated complaint: low blood sugar Time Seen by Provider: 06/06/22 12:16 Source: patient, family Mode of arrival: ambulatory Limitations: no limitations - History of Present Illness Initial comments: Patient presents to the ED with his for evaluation of low blood glucose readings intermittently over the past couple of days. Patient states that his blood glucose readings were in the 40s and below this morning, so he took 4 glucose pills, drank a glass of orange juice and had some cereal about 3 hours ago. Patient states that his readings have come up since then. Patient wears an insulin pump, and he states that he turned off his pump when his blood glucose readings were low this morning. Patient states that he felt weak and dizzy when his blood glucose readings were low this morning, but he no longer has these symptoms. Patient states that he has been eating regularly/normally, and he denies decreased PO intake or appetite. Patient denies any recent change in his insulin regimen. Patient states that the only oral diabetes medication that he takes is metformin. Patient denies having any pain, fever or chills, headache, focal numbness/weakness/neuro deficit, visual changes, speech difficulty, chest pain or pressure, dyspnea, cough or cold symptoms, palpitati ons, syncope, abdominal pain, nausea/vomiting/diarrhea, bloody or melanotic stool, dysuria or urinary symptoms, or any other symptoms or complaints. Patient states that he has an chemical process equipment operator who manages his diabetes, and he states that he plans on calling her tomorrow to schedule a follow-up ap pointment. - Related Data Home Medications Medication Instructions Recorded Confirmed Aspirin 81 mg PO DAILY 05/16/14 05/20/22 Cranberry Conc/C/Bacill Coag 1 tab PO DAILY 05/16/14 05/20/22 [Cranberry Tablet] Fish Oil/Fat No.8/Hrb Comb.137 1,200 mg PO DAILY 05/16/14 05/20/22 [[place]ham 3-6-9 1,200 mg Softgel] PARoxetine [Paxil] 20 mg PO QAM 05/16/14 05/20/22 Pravastatin Sodium [Pravachol] 20 mg PO HS 05/16/14 05/21/22 amLODIPine [Norvasc] 5 mg PO BID 05/16/14 05/20/22 metFORMIN HCL [Glucophage] 1,000 mg PO BID 05/16/14 05/21/22 Cinnamon Bark [Cinnamon] 500 mg PO DAILY 03/07/17 05/20/22 Magnesium Oxide [Magnesium] 133 mg PO DAILY 03/07/17 05/20/22 clonazePAM [KlonoPIN] 0.75 mg PO HS 06/26/17 05/21/22 sulfaSALAzine [Azulfidine] 1,000 mg PO QID 06/26/17 05/21/22 Nitroglycerin Sl Tabs [Nitrostat] 0.4 mg SUBLINGUAL Q5M PRN 04/20/18 05/20/22 Dicyclomine HCl 20 mg PO QID 06/04/20 05/21/22 Insulin Aspart [NovoLOG] 0 units SQ AC-TID PRN 06/04/20 05/20/22 carvediloL [Coreg] 12.5 mg PO BID 06/04/20 05/20/22 INSULIN LISPRO (For Pump) [humaLOG 0 units SQ-PUMP CONTINUOUS 01/29/21 05/21/22 (For Pump)] Multivit-Min/FA/Lycopen/Lutein 1 each PO DAILY 01/29/21 05/20/22 [Centrum Silver Tablet] Chlorthalidone 25 mg PO DAILY 05/20/22 05/21/22 Potassium (Unknown Dose) 1 tab PO DAILY 05/20/22 05/20/22 Valsartan 320 mg PO QAM 05/20/22 05/20/22 Vitamin D3 (Unknown Dose) 1 tab PO DAILY 05/20/22 05/20/22 Allergies Allergy/AdvReac Type Severity Reaction Status Date / Time hydralazine Allergy Swelling Verified 06/06/22 12:14 Penicillins Allergy Anaphylaxis Verified 06/06/22 12:14 Review of Systems ROS Statement: Those systems with pertinent positive or pertinent negative responses have been documented in the HPI. ROS Other: All systems not noted in ROS Statement are negative. Past Medical History Past Medical History: Cancer, COPD, Diabetes Mellitus, Eye Disorder, GERD/Reflux, GI Bleed, Hyperlipidemia, Hypertension, Skin Disorder, Sleep Apnea/CPAP/BIPAP Additional Past Medical History / Comment(s): Hx bronchitis early 2021. Ulcerative Colitis. hx GI bleeding many yrs ago. 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 CPAP use. RLS. Macular Degeneration (receives injections every 6 weeks). Hx basal cell skin cancer on right shoulder. Keratosis. Mild COPD. Hx prostate infections, resoved with taking cranberry supplement. History of Any Multi-Drug Resistant Organisms: None Reported Past Surgical History: Cholecystectomy, Heart Catheterization, Orthopedic Surgery Additional Past Surgical History / Comment(s): Right elbow surgery, left elbow tendon repair, bilateral wrist/hand surgery, trigger finger surgery X3, skin grafts to lower back, under knee and buttocks due to de los santos, colonoscopies. Past Anesthesia/Blood Transfusion Reactions: No Reported Reaction Past Psychological History: Anxiety, Depression Smoking Status: Former smoker Past Alcohol Use History: Heavy Past Drug Use History: Marijuana - Past Family History Father Family Medical History: Cancer, Myocardial Infarction ([place]) Additional Family Medical History / Comment(s): Skin cancer. Brother(s) Family Medical History: Myocardial Infarction ([place]) Additional Family Medical History / Comment(s): at age 65. Mother Family Medical History: Cancer Additional Family Medical History / Comment(s): Skin cancer. General Exam Limitations: no limitations General appearance: alert, in no apparent distress Head exam: Present: atraumatic, normocephalic Eye exam: Present: normal appearance, PERRL, EOMI ENT exam: Present: mucous membranes moist Neck exam: Present: other (Trachea is in midline) Respiratory exam: Present: normal lung sounds bilaterally. Absent: respiratory distress, wheezes, rales, rhonchi, stridor Cardiovascular Exam: Present: regular rate, normal rhythm, normal heart sounds, other (Normal radial pulses bilaterally) GI/Abdominal exam: Present: soft. Absent: distended, tenderness, guarding Extremities exam: Absent: pedal edema Neurological exam: Present: alert, oriented X3, CN II-XII intact. Absent: motor sensory deficit Psychiatric exam: Present: normal affect, normal mood Skin exam: Present: warm, dry, intact, normal color Course Vital Signs 06/06/22 12:11 Temperature 98.5 F Pulse Rate 77 Respiratory 18 Rate Blood Pressure 157/78 O2 Sat by Pulse 93 L Oximetry - Reevaluation(s) Reevaluation #1: 06/06/22 16:27 Patient denies having any symptoms while in the ED. Patient's blood glucose monitor is currently giving a reading of 50, which is quite a discrepancy from what the patient's lab blood glucose and finger-stick blood glucose readings have been in the ED. Per ED RN, the patient's glucose monitor has been giving inaccurate readings when compared to his ER readings since the patient has been in the ED. I suspect that the patient's glucose monitor is giving inaccurate readings. Patient was advised to, and agrees to, have his glucose monitor checked/replaced. In the meantime, I have instructed him to only rely on finger-stick blood glucose readings at home. Patient and are aware the patient's test results, and they both feel comfortable with the patient being discharged home at this time. They were counseled about hypoglycemia, and they were clearly explained return and follow-up instructions. They feel comfortable with this plan. Patient was instructed to, and agrees to, follow-up closely with his primary care provider, as well as his chemical process equipment operator. Medical Decision Making - Medical Decision Making I do not suspect an emergent medical condition at this time. I suspect the patient's low blood glucose readings are due to dysfunction of his glucose monitor given his monitor readings do not align with his readings in the ER today. Will discharge patient home with his at this time with instructed to follow up closely with his primary care provider, as well as his chemical process equipment operator. Patient feels comfortable with this plan. - Lab Data Result diagrams: 06/06/22 12:33 06/06/22 12:33 Lab Results 06/06/22 06/06/22 06/06/22 Range/Units 12:33 12:33 13:55 WBC 7.1 (3.8-10.6) k/uL RBC 4.45 (4.30-5.90) m/uL Hgb 12.5 L (13.0-17.5) gm/dL Hct 40.5 (39.0-53.0) % MCV 91.0 (80.0-100.0) fL MCH 28.1 (25.0-35.0) pg MCHC 30.9 L (31.0-37.0) g/dL RDW 16.0 H (11.5-15.5) % Plt Count 224 (150-450) k/uL MPV 7.7 Neutrophils % 69 % Lymphocytes % 19 % Monocytes % 7 % Eosinophils % 3 % Basophils % 1 % Neutrophils # 4.9 (1.3-7.7) k/uL Lymphocytes # 1.3 (1.0-4.8) k/uL Monocytes # 0.5 (0-1.0) k/uL Eosinophils # 0.2 (0-0.7) k/uL Basophils # 0.1 (0-0.2) k/uL Hypochromasia Moderate Sodium 136 L (137-145) mmol/L Potassium 5.3 H (3.5-5.1) mmol/L Chloride 98 (98-107) mmol/L Carbon Dioxide 21 L (22-30) mmol/L Anion Gap 17 mmol/L BUN 21 H (9-20) mg/dL Creatinine 1.04 (0.66-1.25) mg/dL Est GFR (CKD-EPI)AfAm 82 (>60 ml/min/1.73 sqM) Est GFR (CKD-EPI)NonAf 71 (>60 ml/min/1.73 sqM) Glucose 313 H (74-99) mg/dL POC Glucose (mg/dL) 250 H (70-110) mg/dL POC Glu Biostatistician ID Jacob, Candida Calcium 8.9 (8.4-10.2) mg/dL Magnesium 1.7 (1.6-2.3) mg/dL Total Bilirubin 0.3 (0.2-1.3) mg/dL AST 37 (17-59) U/L ALT 32 (4-49) U/L Alkaline Phosphatase 88 (38-126) U/L Total Protein 7.5 (6.3-8.2) g/dL Albumin 4.6 (3.5-5.0) g/dL TSH 6.710 H (0.465-4.680) mIU/L Free T4 (0.78-2.19) ng/dL Free T3 pg/mL (2.8-5.3) pg/ml 06/06/22 06/06/22 06/06/22 Range/Units 15:34 15:55 17:08 WBC (3.8-10.6) k/uL RBC (4.30-5.90) m/uL Hgb (13.0-17.5) gm/dL Hct (39.0-53.0) % MCV (80.0-100.0) fL MCH (25.0-35.0) pg MCHC (31.0-37.0) g/dL RDW (11.5-15.5) % Plt Count (150-450) k/uL MPV Neutrophils % % Lymphocytes % % Monocytes % % Eosinophils % % Basophils % % Neutrophils # (1.3-7.7) k/uL Lymphocytes # (1.0-4.8) k/uL Monocytes # (0-1.0) k/uL Eosinophils # (0-0.7) k/uL Basophils # (0-0.2) k/uL Hypochromasia Sodium (137-145) mmol/L Potassium (3.5-5.1) mmol/L Chloride (98-107) mmol/L Carbon Dioxide (22-30) mmol/L Anion Gap mmol/L BUN (9-20) mg/dL Creatinine (0.66-1.25) mg/dL Est GFR (CKD-EPI)AfAm (>60 ml/min/1.73 sqM) Est GFR (CKD-EPI)NonAf (>60 ml/min/1.73 sqM) Glucose (74-99) mg/dL POC Glucose (mg/dL) 216 H 168 H (70-110) mg/dL POC Glu Biostatistician ID Gigi Hardy Geronimo Calcium (8.4-10.2) mg/dL Magnesium (1.6-2.3) mg/dL Total Bilirubin (0.2-1.3) mg/dL AST (17-59) U/L ALT (4-49) U/L Alkaline Phosphatase (38-126) U/L Total Protein (6.3-8.2) g/dL Albumin (3.5-5.0) g/dL TSH (0.465-4.680) mIU/L Free T4 0.96 (0.78-2.19) ng/dL Free T3 pg/mL 3.6 (2.8-5.3) pg/ml Disposition Clinical Impression: Low blood glucose measurement Disposition: HOME SELF-CARE Condition: Stable Instructions (If sedation given, give patient instructions): Hypoglycemia in a Person with Diabetes (ED) Additional Instructions: Return to the ER immediately should you develop weakness/dizziness, fainting, shortness of breath, any significant pain, a fever, vomiting, or new or worseni ng symptoms. Follow up closely with your primary care provider, as well as your chemical process equipment operator. Is patient prescribed a controlled substance at d/c from ED?: No Referrals: Kayden Pascal DO [Primary Care Provider] - 1-2 days Time of Disposition: 17:37
[2022-06-06 12:48] LABS: Basophils # (A) 0.1 k/uL (0-0.2); Basophils % (A) 1 %; Eosinophils # (A) 0.2 k/uL (0-0.7); Eosinophils % (A) 3 %; HCT 40.5 % (39.0-53.0); HGB 12.5 gm/dL (13.0-17.5); Hypochromasia Moderate; Lymphocytes # (A) 1.3 k/uL (1.0-4.8); Lymphocytes % (A) 19 %; MCH 28.1 pg (25.0-35.0); MCHC 30.9 g/dL (31.0-37.0); Mean Platelet Volume 7.7; Monocytes # (A) 0.5 k/uL (0-1.0); Monocytes % (A) 7 %; Neutrophils # (A) 4.9 k/uL (1.3-7.7); Neutrophils % (A) 69 %; Platelet Count 224 k/uL (150-450); RBC 4.45 m/uL (4.30-5.90); WBC 7.1 k/uL (3.8-10.6)
[2022-06-06 13:00] LABS: Albumin 4.6 g/dL (3.5-5.0); Calcium 8.9 mg/dL (8.4-10.2); Magnesium 1.7 mg/dL (1.6-2.3); Potassium 5.3 mmol/L (3.5-5.1); Total Bilirubin 0.3 mg/dL (0.2-1.3); Total Protein 7.5 g/dL (6.3-8.2)
[2022-06-06 13:58] LABS: Glucose,Whole Blood 250 mg/dL (70-110)
[2022-06-06 15:35] LABS: Glucose,Whole Blood 216 mg/dL (70-110)
[2022-06-06 17:10] LABS: Glucose,Whole Blood 168 mg/dL (70-110)
[2022-06-06 17:21] LABS: T4, Free (Free Thyroxine) 0.96 ng/dL (0.78-2.19)
[2022-06-06 18:22] VITALS: BP 161/70; PULSE 66; RESP 16; TEMP 98
== END 2022-06-06 18:21 | disposition home or self-care (01) ==
LOC: EC 12:01
DX: E16.2 Hypoglycemia, unspecified (principal); J44.9 Chronic obstructive pulmonary disease, unspecified; E78.5 Hyperlipidemia, unspecified; I10 Essential (primary) hypertension; K21.9 Gastro-esophageal reflux disease without esophagitis; Z79.83 Long term (current) use of bisphosphonates; Z87.891 Personal history of nicotine dependence; Z82.49 Family history of ischemic heart disease and other diseases of the circulatory system; Z88.0 Allergy status to penicillin; Z88.8 Allergy status to other drugs, medicaments and biological substances
CPT/HCPCS: 36415; 80053; 83735; 84439; 84443; 84481; 85025; 99283

== ENCOUNTER → 2022-08-24 | Outpatient (CLI) | payer MEDICARE ==
[2022-08-24 19:14] LABS: ALT 34 U/L (10-49); AST 28 U/L (14-35); African American GFR (CKD) 75.4 (60.0-200.0); Albumin 4.4 g/dL (3.8-4.9); Albumin/Globulin Ratio 1.57 (1.60-3.17); Alkaline Phosphatase 61 U/L (41-126); BUN/Creat Ratio 16.22 Ratio (12.00-20.00); Calcium 9.5 mg/dL (8.7-10.3); Chloride 107 mmol/L (96-109); Chol/HDL Ratio 3.42 Ratio; Globulin 2.8 g/dL (1.6-3.3); Glucose 136 mg/dL (70-110); LDL Cholesterol,Calculated 49.3 mg/dL (0.0-131.0); Non-African American GFR(CKD) 65.1 (60.0-200.0); Potassium 5.6 mmol/L (3.5-5.5); Sodium 142 mmol/L (135-145); Total Bilirubin <0.15 mg/dL (0.30-1.20); Total Protein 7.2 g/dL (6.2-8.2)
== END | disposition home or self-care (01) ==
LOC: LABWHC1 11:30
PROVIDERS: ATTEND Internal Medicine Endocrinology, Diabetes & Metabolism
DX: E11.65 Type 2 diabetes mellitus with hyperglycemia (principal)
CPT/HCPCS: 36415; 80053; 80061; 82043; 82570; 83036; 84443

== ENCOUNTER → 2022-10-20 | Outpatient (CLI) | payer MEDICARE ==
--- NOTE | 2022-10-20 15:16 | P.PN ---
Subjective DATE: [] FOLLOW UP VISIT. Patient with obstructive sleep apnea hypopnea syndrome return to sleep center for follow-up visit. Information from previous visit have been reviewed. Patient is using PAP equipment every night for the whole night, getting PAP supplies in time. The patient does not have significant problems with the mask, PAP unit and humidification. [place] sleepiness scale is 4, which is normal. No problems with out of dream movements, while patient is on clonazepam 0.75 mg at bedtime. I checked information from PAP unit. PAP unit pressure 5-15, average 8.6 cm H2O. Usage is 98 % for more then 4 hours, average 5.6 hours per night. Leak is 7 l/m, which is in acceptable range. Apnea Hypopnea Index is 1.0, which is normal. MEDICATIONS:1. Pravastatin 20 mg once a day 2. Paroxetine 20 mg once a day 3. Sulfasalazine 500 mg 2 tablets twice a day 4. Metformin 1000 mg twice a day 5. Carvedilol 12.5 mg twice a day 6. Valsartan 320 mg once a day 7. Amlodipine 5 mg twice a day 8. Trazodone 25 mg once a day 9. Clonazepam 0.75 mg at bedtime 10. Dicyclomine 20 mg as needed 11 Humalog 12. Levothyroxine 50 g once a day During physical exam: GENERAL: A pleasant patient without any distress. VITAL SIGNS: BP 137/78, HR 77, RR 18 , weight 190.6, temperature 97.1, oxygen saturation at room air 93 % . HEENT: PERRLA, EOMI.low position of soft palate. NECK: Supple. No JVD. LUNGS: Clear to percussion and to auscultation. Good air exchange. No wheezing or rhonchi. HEART: S1, S2 regular. ABDOMEN: Soft and nontender.[] EXTREMITIES: No clubbing or cyanosis. AERIAL SPRAYER: Awake, alert, and oriented x3. No focal deficit. Impressions: 1. Obstructive sleep apnea-hypopnea syndrome. Patient demonstrated great compliance with treatment, benefiting from treatment. 2. REM sleep behavioral disorder on control with clonazepam 0.75 mg at bedtime. 3. History of chronic obstructive pulmonary disease. 4. Hyperlipidemia. 5. Hypertension. 6. Diabetes mellitus. Recent hemoglobin A1c according to patient 6.1. 7. Ulcerative colitis. 8. History of anxiety. Plan: 1. Continue using PAP equipment every night for the whole night. 2. To change air filter at least 1-2 times per month. 3. PAP unit should stay lower then position of the head. 4. Advised patient to remove all remaining water from humidifier canister daily and make it dry after each usage. Refill canister with fresh distilled water before each usage. 5. Sleep hygiene with regular time in bed for at least 8 hours. 6. Precautions related to driving. No driving if feel any sleepiness. 7. I will maintain prescription for PAP supplies including mask, tube, filters. 8. Follow up visit in 6 months or earlier if patient has any problems. 9. Watching weight. 10. Continue clonazepam 0.75 mg at bedtime. Prescription for 90 day supplies. Thank you very much for allowing me to participate in the management of your patient. Tej Flanagan MD, PhD, FAASM. Diplomat of [employer] [employer], Sleep Medicine Board by [employer] Loss Prevention Detective of [facility] [place]
== END ==
LOC: SLEEP 13:22
PROVIDERS: ATTEND Internal Medicine
DX: G47.33 Obstructive sleep apnea (adult) (pediatric) (principal); E78.5 Hyperlipidemia, unspecified; I10 Essential (primary) hypertension; E11.9 Type 2 diabetes mellitus without complications; Z86.59 Personal history of other mental and behavioral disorders; Z87.09 Personal history of other diseases of the respiratory system; G47.52 REM sleep behavior disorder; K51.919 Ulcerative colitis, unspecified with unspecified complications; Z99.89 Dependence on other enabling machines and devices; Z79.84 Long term (current) use of oral hypoglycemic drugs; Z88.0 Allergy status to penicillin; Z87.891 Personal history of nicotine dependence; Z88.8 Allergy status to other drugs, medicaments and biological substances; Z79.4 Long term (current) use of insulin
CPT/HCPCS: 99212

== ENCOUNTER → 2023-03-25 | Outpatient (CLI) | payer MEDICARE ==
[2023-03-25 16:20] LABS: ALT 23 U/L (10-49); AST 26 U/L (14-35); Albumin 4.1 d/dL (3.8-4.9); Albumin/Globulin Ratio 1.41 Ratio (1.60-3.17); Alkaline Phosphatase 81 U/L (41-126); BUN/Creat Ratio 14.42 Ratio (12.00-20.00); Blood Urea Nitrogen 17.3 mg/dL (9.0-27.0); Calcium 9.2 mg/dL (8.7-10.3); Carbon Dioxide 26.3 mmol/L (21.6-31.8); Chloride 106 mmol/L (96-109); Chol/HDL Ratio 3.84 Ratio; Globulin 2.9 d/dL (1.6-3.3); Glucose 105 mg/dL (70-110); Potassium 4.4 mmol/L (3.5-5.5); Sodium 144 mmol/L (135-145); Total Bilirubin <0.2 mg/dL (0.3-1.2)
== END | disposition home or self-care (01) ==
LOC: LABWHC1 10:39
PROVIDERS: ATTEND Internal Medicine Endocrinology, Diabetes & Metabolism
DX: E11.65 Type 2 diabetes mellitus with hyperglycemia (principal)
CPT/HCPCS: 36415; 80053; 80061; 82043; 82570; 83036; 84443

== ENCOUNTER → 2023-05-18 | Outpatient (CLI) | payer MEDICARE ==
--- NOTE | 2023-05-18 14:13 | P.PN ---
Subjective DATE: 05/18/2023 FOLLOW UP VISIT. Patient with obstructive sleep apnea hypopnea syndrome and RSBD return to sleep center for follow-up visit. Information from previous visit have been reviewed. On treatment with clonazepam, no episodes of out of dream movements. Patient is using PAP equipment every night for the whole night, getting PAP supplies in time. The patient does not have significant problems with the mask, PAP unit and humidification. [place] sleepiness scale is 3. I checked information from PAP unit. PAP unit pressure 5-15, average 8.6 cm H2O. Usage is 100 % for more then 4 hours, average 6.7 hours per night. Leak is 8 l/m, which is in acceptable range. Apnea Hypopnea Index is 1.2, which is normal. MEDICATIONS:1. Clonazepam 0.75 mg daily at bedtime 2. Carvedilol 12.5 mg twice a day 3. Losartan 320 mg once a day 4. Amlodipine 5 mg once a day 5. Metformin 1000 mg twice a day 6. Paroxetine 20 mg once a day 7. Insulin pump 8. Levothyroxine 50 g once a day During physical exam: GENERAL: A pleasant patient without any distress. VITAL SIGNS: BP 164/64, HR 77, RR 20 , weight 194.6, temperature 98.1, oxygen saturation at room air 91 % . HEENT: PERRLA, EOMI.low position of soft palate, [place] 3 . NECK: Supple. No JVD. LUNGS: Clear to percussion and to auscultation. Good air exchange. No wheezing or rhonchi. HEART: S1, S2 regular. ABDOMEN: Soft and nontender.[] EXTREMITIES: No clubbing or cyanosis. PERIPHERAL EQUIPMENT OPERATOR: Awake, alert, and oriented x3. No focal deficit. Impressions: 1. Obstructive sleep apnea-hypopnea syndrome. Patient demonstrated great compliance with treatment, benefiting from treatment. 2. REM sleep behavior disorder, on control with clonazepam. 3. History of COPD. 4. Hypertension. 5. Hyperlipidemia. 6. Diabetes mellitus. 7. History of ulcerative colitis. 8. History of anxiety. Plan: 1. Continue using PAP equipment every night for the whole night. 2. To change air filter at least 1-2 times per month. 3. PAP unit should stay lower then position of the head. 4. Advised patient to remove all remaining water from humidifier canister daily and make it dry after each usage. Refill canister with fresh distilled water before each usage. 5. Sleep hygiene with regular time in bed for at least 8 hours. 6. Precautions related to driving. No driving if feel any sleepiness. 7. I will maintain prescription for PAP supplies including mask, tube, filters. 8. Follow up visit in 6 months or earlier if patient has any problems. 9. Watching weight. 10. Prescription for clonazepam 90 days supply, Thank you very much for allowing me to participate in the management of your patient. Tej Flanagan MD, PhD, FAASM. Diplomat of [employer], Sleep Medicine Board by [employer] Flyer Repairer of [facility] [place]
== END ==
LOC: 3 N SLEEP 13:21
PROVIDERS: ATTEND Internal Medicine
DX: G47.33 Obstructive sleep apnea (adult) (pediatric) (principal); E11.9 Type 2 diabetes mellitus without complications; E78.5 Hyperlipidemia, unspecified; F41.9 Anxiety disorder, unspecified; G47.52 REM sleep behavior disorder; I10 Essential (primary) hypertension; J44.9 Chronic obstructive pulmonary disease, unspecified; K51.90 Ulcerative colitis, unspecified, without complications; Z79.4 Long term (current) use of insulin; Z79.84 Long term (current) use of oral hypoglycemic drugs; Z79.899 Other long term (current) drug therapy; Z99.89 Dependence on other enabling machines and devices; Z88.0 Allergy status to penicillin; Z88.8 Allergy status to other drugs, medicaments and biological substances; Z87.891 Personal history of nicotine dependence
CPT/HCPCS: 99212

== ENCOUNTER 2023-09-10 10:15 | Inpatient (IN) | payer MEDICARE ==
[2023-09-10] MEDS ORDERED: ALBUTEROL NEBULIZED 2.5 MG/3 ML INHALATION STA (10:29)
[2023-09-10] MEDS ORDERED: IPRATROPIUM 0.5 MG/2.5 ML NEBU INHALATION STA (10:29)
--- NOTE | 2023-09-10 10:32 | ED ---
General Adult HPI - General Chief complaint: Shortness of Breath Stated complaint: sob Time Seen by Provider: 09/10/23 10:15 Source: patient, RN notes reviewed, old records reviewed Mode of arrival: ambulatory Limitations: no limitations - History of Present Illness Initial comments: This is a 73-year-old male who presents emergency Department complaining of difficulty breathing. Patient states one month ago he was in the hospital with difficulty breathing for 4 days cardiology and pulmonary physician saw him and according to the never gave them any answers that explained his shortness of breath. Patient states she woke up this morning early and was very short of breath and was coughing but he has been coughing for quite a while he states he's got a chronic cough. Patient has a history of diabetes also of colitis and COPD. Patient denies any fever chills per patient denies any sputum production. Patient denies any chest pain palpitations. Patient denies any headache patient denies lightheadedness or dizziness. Patient denies any swelling to the legs or calf tenderness. - Related Data Home Medications Medication Instructions Recorded Confirmed Aspirin 81 mg PO DAILY 05/16/14 05/20/22 Cranberry Conc/C/Bacill Coag 1 tab PO DAILY 05/16/14 05/20/22 [Cranberry Tablet] Fish Oil/Fat No.8/Hrb Comb.137 1,200 mg PO DAILY 05/16/14 05/20/22 [[place]orton 3-6-9 1,200 mg Softgel] PARoxetine [Paxil] 20 mg PO QAM 05/16/14 05/20/22 Pravastatin Sodium [Pravachol] 20 mg PO HS 05/16/14 05/21/22 amLODIPine [Norvasc] 5 mg PO BID 05/16/14 05/20/22 metFORMIN HCL [Glucophage] 1,000 mg PO BID 05/16/14 05/21/22 Cinnamon Bark [Cinnamon] 500 mg PO DAILY 03/07/17 05/20/22 Magnesium Oxide [Magnesium] 133 mg PO DAILY 03/07/17 05/20/22 clonazePAM [KlonoPIN] 0.75 mg PO HS 06/26/17 05/21/22 sulfaSALAzine [Azulfidine] 1,000 mg PO QID 06/26/17 05/21/22 Nitroglycerin Sl Tabs [Nitrostat] 0.4 mg SUBLINGUAL Q5M PRN 04/20/18 05/20/22 Dicyclomine HCl 20 mg PO QID 06/04/20 05/21/22 Insulin Aspart [NovoLOG] 0 units SQ AC-TID PRN 06/04/20 05/20/22 carvediloL [Coreg] 12.5 mg PO BID 06/04/20 05/20/22 INSULIN LISPRO (For Pump) [humaLOG 0 units SQ-PUMP CONTINUOUS 01/29/21 05/21/22 (For Pump)] Multivit-Min/FA/Lycopen/Lutein 1 each PO DAILY 01/29/21 05/20/22 [Centrum Silver Tablet] Chlorthalidone 25 mg PO DAILY 05/20/22 05/21/22 Potassium (Unknown Dose) 1 tab PO DAILY 05/20/22 05/20/22 Valsartan 320 mg PO QAM 05/20/22 05/20/22 Vitamin D3 (Unknown Dose) 1 tab PO DAILY 05/20/22 05/20/22 Allergies Allergy/AdvReac Type Severity Reaction Status Date / Time hydralazine Allergy Swelling Verified 09/10/23 10:21 Penicillins Allergy Anaphylaxis Verified 09/10/23 10:21 Review of Systems ROS Statement: Those systems with pertinent positive or pertinent negative responses have been documented in the HPI. ROS Other: All systems not noted in ROS Statement are negative. Past Medical History Past Medical History: Cancer, COPD, Diabetes Mellitus, Eye Disorder, GERD/Reflux, GI Bleed, Hyperlipidemia, Hypertension, Skin Disorder, Sleep Apnea/CPAP/BIPAP Additional Past Medical History / Comment(s): Hx bronchitis early 2021. Ulcerative Colitis. hx GI bleeding many yrs ago. Hx 1st, 2nd and 3rd degree bu rns on back, legs and groin with skin grafts 10/26/17. CPAP use. RLS. Macular Degeneration (receives injections every 6 weeks). Hx basal cell skin cancer on right shoulder. Keratosis. Mild COPD. Hx prostate infections, resoved with taking cranberry supplement. History of Any Multi-Drug Resistant Organisms: None Reported Past Surgical History: Cholecystectomy, Heart Catheterization, Orthopedic Surgery Additional Past Surgical History / Comment(s): Right elbow surgery, left elbow tendon repair, bilateral wrist/hand surgery, trigger finger surgery X3, skin grafts to lower back, under knee and buttocks due to [place], colonoscopies. Past Anesthesia/Blood Transfusion Reactions: No Reported Reaction Past Psychological History: Anxiety, Depression Smoking Status: Former smoker Past Alcohol Use History: Heavy Past Drug Use History: Marijuana - Past Family History Father Family Medical History: Cancer, Myocardial Infarction (DC) Additional Family Medical History / Comment(s): Skin cancer. Brother(s) Family Medical History: Myocardial Infarction (DC) Additional Family Medical History / Comment(s): at age 65. Mother Family Medical History: Cancer Additional Family Medical History / Comment(s): Skin cancer. General Exam - General Exam Comments Initial Comments: GENERAL: Patient is well-developed and well-nourished. Patient is nontoxic and well- hydrated and is in mild distress. ENT: Neck is soft and supple. No significant lymphadenopathy is noted. Oropharynx is clear. Moist mucous membranes. Neck has full range of motion without eliciting any pain. EYES: The sclera were anicteric and conjunctiva were pink and moist. Extraocular movements were intact and pupils were equal round and reactive to light. Eyelids were unremarkable. PULMONARY: Unlabored respirations. Good breath sounds bilaterally. Scattered crackles left base CARDIOVASCULAR: There is a regular rate and rhythm without any murmurs gallops or rubs. ABDOMEN: Soft and nontender with normal bowel sounds. SKIN: Skin is clear with no lesions or rashes and otherwise unremarkable. NEUROLOGIC: Patient is alert and oriented x3. Cranial nerves II through XII are grossly intact. Motor and sensory are also intact. Normal speech, volume and content. Symmetrical smile. MUSCULOSKELETAL: Normal extremities with adequate strength and full range of motion. LYMPHATICS: No significant lymphadenopathy is noted PSYCHIATRIC: Normal psychiatric evaluation. Limitations: no limitations Course Vital Signs 09/10/23 09/10/23 09/10/23 10:19 10:21 11:31 Temperature 98.7 F Pulse Rate 82 80 70 Respiratory 18 17 18 Rate Blood Pressure 206/74 192/81 O2 Sat by Pulse 83 L 91 L Oximetry 09/10/23 09/10/23 09/10/23 11:52 12:00 13:49 Temperature Pulse Rate 80 74 Respiratory 18 20 Rate Blood Pressure 137/60 O2 Sat by Pulse 93 L Oximetry Medical Decision Making - Medical Decision Making EKG is interpreted by myself. EKG shows a sinus rhythm at 80 bpm AR interval 271 QRS is 96 QT interval 375 QTC is 412. Patient's EKG shows no ST segment elevation or depression. Was pt. sent in by a medical professional or institution (YLNN Nguyen, RADIATION CONTROL HEALTH PHYSICIST, urgent care, hospital, or half-way...) When possible be specific @ -No Did you speak to anyone other than the patient for history (EMS, parent, family, police, friend...)? What history was obtained from this source @ -Patient's gave some of the history the patient arrived Did you review nursing and triage notes (agree or disagree)? Why? @ -I reviewed and agree with nursing and triage notes Were old charts reviewed (outside hosp., previous admission, EMS record, old EKG, old radiological studies, urgent care reports/EKG's, half-way records)? Report findings @ -I reviewed prior charts from prior lab work on the patient Differential Diagnosis (chest pain, altered mental status, abdominal pain women, abdominal pain men, vaginal bleeding, weakness, fever, dyspnea, syncope, headache, dizziness, GI bleed, back pain, seizure, CVA, palpatations, mental health, musculoskeletal)? @ -Differential Dyspnea: Coronary syndrome, arrhythmia, tamponade, asthma, COPD, pulmonary embolism, pneumonia, pneumothorax, pulmonary effusion, anaphylaxis, diabetic ketoacidosis, flailed chest, pulmonary contusion, diaphragmatic rupture, anemia, neuromuscular, this is not meant to be an all-inclusive list. EKG interpreted by me (3pts min.). @ -As above X-rays interpreted by me (1pt min.). @ -Chest x-ray showed no acute abnormality. CT interpreted by me (1pt min.). @ -None done U/S interpreted by me (1pt. min.). @ -None done What testing was considered but not performed or refused? (CT, X-rays, U/S, labs)? Why? @ -None What meds were considered but not given or refused? Why? @ -None Did you discuss the management of the patient with other professionals (professionals i.e. LYNN Nguyen, RADIATION CONTROL HEALTH PHYSICIST, lab, RT, psych nurse, social work coordinator, inside channel account manager, teacher, radio division officer, shoe caser)? Give summary @ -I spoke with Dr. Duncan he agreed to admit the patient we admitted the patient wrote admitting orders. Patient received breathing treatments in the emergency pertinent as well as steroids. Dr. Lunsford will follow-up the CAT scan. Was smoking cessation discussed for >3mins.? @ -No Was critical care preformed (if so, how long)? @ -No Were there social determinants of health that impacted care today? How? (Homelessness, low income, unemployed, alcoholism, drug addiction, transportation, low edu. Level, literacy, decrease access to med. care, long term, rehab)? @ -No Was there de-escalation of care discussed even if they declined (Discuss DNR or withdrawal of care, Hospice)? DNR status @ -No What co-morbidities impacted this encounter? (DM, HTN, Smoking, COPD, CAD, Cancer, CVA, ARF, Chemo, Hep., AIDS, mental health diagnosis, sleep apnea, morbid obesity)? @ -None Was patient admitted / discharged? Hospital course, mention meds given and route, prescriptions, significant lab abnormalities, going to OR and other pertinent info. @ -Patient received breathing treatments steroids emergency department. Patient will be admitted I wrote admitting orders. Undiagnosed new problem with uncertain prognosis? @ -No Drug Therapy requiring intensive monitoring for toxicity (Heparin, Nitro, Insulin, Cardizem)? @ -No Were any procedures done? @ -No Diagnosis/symptom? @ -COPD exacerbation Acute, or Chronic, or Acute on Chronic? @ -Acute Uncomplicated (without systemic symptoms) or Complicated (systemic symptoms)? @ -Complicated Side effects of treatment? @ -No Exacerbation, Progression, or Severe Exacerbation? @ -No Poses a threat to life or bodily function? How? (Chest pain, [place], DC, pneumonia, PE, COPD, DKA, ARF, appy, cholecystitis, CVA, Diverticulitis, Homicidal, Suicidal, threat to staff... and all critical care pts) @ -Yes patient become hypoxic in because end organ dysfunction - Lab Data Result diagrams: 09/10/23 10:33 09/10/23 10:33 Lab Results 09/10/23 09/10/23 09/10/23 Range/Units 10:33 10:33 10:33 WBC 11.5 H (3.8-10.6) k/uL RBC 4.14 L (4.30-5.90) m/uL Hgb 11.1 L (13.0-17.5) gm/dL Hct 35.7 L (39.0-53.0) % MCV 86.2 (80.0-100.0) fL MCH 26.7 (25.0-35.0) pg MCHC 31.0 (31.0-37.0) g/dL RDW 17.4 H (11.5-15.5) % Plt Count 253 (150-450) k/uL MPV 9.5 Neutrophils % 76 % Lymphocytes % 12 % Monocytes % 8 % Eosinophils % 2 % Basophils % 0 % Neutrophils # 8.8 H (1.3-7.7) k/uL Lymphocytes # 1.4 (1.0-4.8) k/uL Monocytes # 0.9 (0-1.0) k/uL Eosinophils # 0.3 (0-0.7) k/uL Basophils # 0.0 (0-0.2) k/uL Hypochromasia Slight Anisocytosis Slight PT 11.3 (10.0-12.5) sec INR 1.0 (<1.2) APTT 24.5 (22.0-30.0) sec D-Dimer 0.93 H (<0.60) mg/L FEU VBG pH (7.31-7.41) VBG pCO2 (37-51) mmHg VBG HCO3 (24-28) mmol/L Sodium 141 (137-145) mmol/L Potassium 4.3 (3.5-5.1) mmol/L Chloride 108 H (98-107) mmol/L Carbon Dioxide 20 L (22-30) mmol/L Anion Gap 13 mmol/L BUN 19 (9-20) mg/dL Creatinine 1.14 (0.66-1.25) mg/dL Est GFR (CKD-EPI)AfAm 73 (>60 ml/min/1.73 sqM) Est GFR (CKD-EPI)NonAf 63 (>60 ml/min/1.73 sqM) Glucose 53 L (74-99) mg/dL Plasma Lactic Acid Denny (0.7-2.0) mmol/L Calcium 9.1 (8.4-10.2) mg/dL Magnesium 1.9 (1.6-2.3) mg/dL Total Bilirubin 0.4 (0.2-1.3) mg/dL AST 28 (17-59) U/L ALT 21 (4-49) U/L Alkaline Phosphatase 108 (38-126) U/L Troponin I (0.000-0.034) ng/mL NT-Pro-B Natriuret Pep 460 pg/mL Total Protein 7.3 (6.3-8.2) g/dL Albumin 4.1 (3.5-5.0) g/dL 09/10/23 09/10/23 09/10/23 Range/Units 10:33 10:33 12:50 WBC (3.8-10.6) k/uL RBC (4.30-5.90) m/uL Hgb (13.0-17.5) gm/dL Hct (39.0-53.0) % MCV (80.0-100.0) fL MCH (25.0-35.0) pg MCHC (31.0-37.0) g/dL RDW (11.5-15.5) % Plt Count (150-450) k/uL MPV Neutrophils % % Lymphocytes % % Monocytes % % Eosinophils % % Basophils % % Neutrophils # (1.3-7.7) k/uL Lymphocytes # (1.0-4.8) k/uL Monocytes # (0-1.0) k/uL Eosinophils # (0-0.7) k/uL Basophils # (0-0.2) k/uL Hypochromasia Anisocytosis PT (10.0-12.5) sec INR (<1.2) APTT (22.0-30.0) sec D-Dimer (<0.60) mg/L FEU VBG pH 7.36 (7.31-7.41) VBG pCO2 38 (37-51) mmHg VBG HCO3 21 L (24-28) mmol/L Sodium (137-145) mmol/L Potassium (3.5-5.1) mmol/L Chloride (98-107) mmol/L Carbon Dioxide (22-30) mmol/L Anion Gap mmol/L BUN (9-20) mg/dL Creatinine (0.66-1.25) mg/dL Est GFR (CKD-EPI)AfAm (>60 ml/min/1.73 sqM) Est GFR (CKD-EPI)NonAf (>60 ml/min/1.73 sqM) Glucose (74-99) mg/dL Plasma Lactic Acid Denny 0.9 (0.7-2.0) mmol/L Calcium (8.4-10.2) mg/dL Magnesium (1.6-2.3) mg/dL Total Bilirubin (0.2-1.3) mg/dL AST (17-59) U/L ALT (4-49) U/L Alkaline Phosphatase (38-126) U/L Troponin I <0.012 (0.000-0.034) ng/mL NT-Pro-B Natriuret Pep pg/mL Total Protein (6.3-8.2) g/dL Albumin (3.5-5.0) g/dL Disposition Clinical Impression: COPD exacerbation Disposition: ADMITTED IP TO THIS HOSP Referrals: Kayden Pascal DO [Primary Care Provider] - 1-2 days Time of Disposition: 15:02
[2023-09-10] MEDS ORDERED: hydrALAZINE HCL 20 MG/ML 1 ML VIAL IVP STA (10:34)
--- NOTE | 2023-09-10 10:56 | XR ---
EXAMINATION TYPE: XR chest 2V DATE OF EXAM: 09/10/2023 COMPARISON: 10/13/2017 INDICATION: Short of breath TECHNIQUE: Frontal and lateral views of the chest are obtained. FINDINGS: The heart size is normal. The pulmonary vasculature is normal. The lungs are clear. On the lateral projection a tiny posterior pleural effusion is not excluded IMPRESSION: 1. No acute pulmonary process. Tiny posterior pleural effusion not excluded.
[2023-09-10 11:01] LABS: Anisocytosis Slight; Basophils % (A) 0 %; Eosinophils # (A) 0.3 k/uL (0-0.7); Eosinophils % (A) 2 %; HCT 35.7 % (39.0-53.0); HGB 11.1 gm/dL (13.0-17.5); Hypochromasia Slight; Lymphocytes # (A) 1.4 k/uL (1.0-4.8); Lymphocytes % (A) 12 %; MCH 26.7 pg (25.0-35.0); MCV 86.2 fL (80.0-100.0); Mean Platelet Volume 9.5; Monocytes # (A) 0.9 k/uL (0-1.0); Monocytes % (A) 8 %; Neutrophils # (A) 8.8 k/uL (1.3-7.7); Neutrophils % (A) 76 %; Platelet Count 253 k/uL (150-450); RBC 4.14 m/uL (4.30-5.90); RDW 17.4 % (11.5-15.5); WBC 11.5 k/uL (3.8-10.6)
[2023-09-10 11:12] LABS: Partial Thromboplastin Time 24.5 sec (22.0-30.0); Prothrombin Time 11.3 sec (10.0-12.5)
[2023-09-10 11:17] LABS: ALT 21 U/L (4-49); AST 28 U/L (17-59); African American GFR (CKD) 73 (>60 ml/min/1.73 sqM); Albumin 4.1 g/dL (3.5-5.0); Alkaline Phosphatase 108 U/L (38-126); Anion Gap 13 mmol/L; Blood Urea Nitrogen 19 mg/dL (9-20); Carbon Dioxide 20 mmol/L (22-30); Chloride 108 mmol/L (98-107); Glucose 53 mg/dL (74-99); Magnesium 1.9 mg/dL (1.6-2.3); Non-African American GFR(CKD) 63 (>60 ml/min/1.73 sqM); Potassium 4.3 mmol/L (3.5-5.1); Sodium 141 mmol/L (137-145); Total Bilirubin 0.4 mg/dL (0.2-1.3); Total Protein 7.3 g/dL (6.3-8.2)
[2023-09-10 11:18] LABS: Calcium 9.1 mg/dL (8.4-10.2)
[2023-09-10 11:24] LABS: NT-Pro-B-Type Natriuretic Pept 460 pg/mL
[2023-09-10 13:36] LABS: VBG PH 7.36 (7.31-7.41)
[2023-09-10] MEDS ORDERED: methylPREDNISolone SOD SUCCI 125 MG/2 ML VIAL IV STA (15:05)
[2023-09-10] MEDS ORDERED: NALOXONE 0.4 MG/ML 1 ML VIAL IVP PRN (15:05)
[2023-09-10] MEDS ORDERED: IPRATROPIUM-ALBUTEROL 3 ML NEB INHALATION PRN (15:05)
[2023-09-10] MEDS ORDERED: LORazepam 2 MG/ML INJ IV PRN (15:36)
[2023-09-10] MEDS ORDERED: LORazepam 0.5 MG TAB PO PRN (15:36)
[2023-09-10] MEDS ORDERED: DEXTROSE 50% SYRINGE 50 ML IVP PRN ×2 (15:37)
[2023-09-10] MEDS: IPRATROPIUM-ALBUTEROL 3 ML NEB INHALATION SCH ×2 (15:49→18:15)
[2023-09-10] MEDS: SYMBICORT 160-4.5 MCG INHALER INHALATION SCH ×2 (15:49→18:15)
[2023-09-10 16:27] LABS: Glucose,Whole Blood 91 mg/dL (70-110)
[2023-09-10] MEDS: INSULIN ASPART (NovoLOG) 100 UNIT/ML VIAL SQ SCH ×2 (16:40→21:51)
[2023-09-10] MEDS: AZITHROMYCIN 500 MG in SODIUM CHLORIDE 0.9% 250 ML IVPB SCH (17:03)
--- NOTE | 2023-09-10 17:41 | CT ---
CT CHEST FOR PULMONARY EMBOLISM. EXAMINATION TYPE: CT chest angio for PE DATE OF EXAM: 09/10/2023 INDICATION: Elevated d-dimer, SOB. Hx COPD. CT DLP: 396.4 mGycm, Automated exposure control for dose reduction was used. CONTRAST: Patient injected with 100 mL of Isovue 370. COMPARISON: TECHNIQUE: CT of the chest is performed on a spiral scan at 2 mm thick sections. Study is performed with intravenous contrast timed for evaluation for pulmonary embolism. This will limit additional po rtions of the evaluation. 3-D MIP images reconstructed by the technologist are reviewed on the compu ter in the coronal and sagittal planes. FINDINGS: The thyroid visualized is unremarkable. No persistent filling defects are evident to suggest an acute pulmonary embolism. There is a 1.1 cm node adjacent to the left main pulmonary artery. Image 57. 1.6 cm pretracheal lymp h node may be present. Image 46 additional small pretracheal lymph nodes are present. Hilar adenopath y likely present The ascending aorta diameter at the level of the main pulmonary artery is 3.8 cm. T he main pulmonary artery diameter at the bifurcation is 3.0 cm. Some mild infiltrates in the periphery of the left upper lobe, example image series 401 image 27. The re is a punctate density posterior lateral left upper lobe. Series 4061 image 40. Some mild compressi ve atelectasis adjacent to minimal bilateral pleural effusions. Limited CT section through the upper abdomen are unremarkable. IMPRESSION: 1. Couple of prominent lymph nodes enlarged by CT criteria. 2. No acute pulmonary embolism. 3. Minimal infiltrate posterior lateral left upper lung field.
[2023-09-10] MEDS: AZTREONAM 2 GM in SODIUM CHLORIDE 0.9% 100 ML IVPB SCH ×2 (18:12→23:26)
[2023-09-10] MEDS: methylPREDNISolone SOD SUCCI 125 MG/2 ML VIAL IV SCH ×2 (18:14→23:26)
--- NOTE | 2023-09-10 19:46 | CA ---
Transthoracic Echo Report Name: Valentino Donovan Age: 73 Gender: M : 1950 Exam Date: 09/10/2023 15:41 Exam Location: [facility] Ht (in): 67 Wt (lb): 190 Ordering Physician: Alejandra Duncan MD Attending/Referring Phys: Orchard Manager Josseline Duggan RDCS Procedure CPT: Indications: chf Cardiac Hx: Technical Quality: Good Contrast 1: Total Dose (mL): Contrast 2: Total Dose (mL): MEASUREMENTS (Male / Female) Normal Values 2D ECHO LV Diastolic Diameter PLAX 4.5 cm 4.2 - 5.9 / 3.9 - 5.3 cm LV Systolic Diameter PLAX 3.2 cm IVS Diastolic Thickness 1.3 cm 0.6 - 1.0 / 0.6 - 0.9 cm LVPW Diastolic Thickness 1.1 cm 0.6 - 1.0 / 0.6 - 0.9 cm LV Relative Wall Thickness 0.5 RV Internal Dim ED PLAX 3.4 cm LA Systolic Diameter LX 3.7 cm 3.0 - 4.0 / 2.7 - 3.8 cm LV Diastolic Volume MOD BP 72.0 cm??? 67 - 155 / 56 - 104 cm??? LV Systolic Volume MOD BP 31.1 cm??? 22 - 58 / 19 - 49 cm??? LV Ejection Fraction MOD BP 56.8 % >= 55 % LV Cardiac Index MOD BP 1442.9 cm???/min???m??? LV Diastolic Volume MOD 4C 89.1 cm??? LV Systolic Volume MOD 4C 35.2 cm??? LV Ejection Fraction MOD 4C 60.6 % LV Cardiac Index MOD 4C 1902.9 cm???/min???m??? LV Diastolic Length 4C 8.0 cm LV Systolic Length 4C 6.8 cm LV Diastolic Volume MOD 2C 46.6 cm??? LV Systolic Volume MOD 2C 26.0 cm??? LV Ejection Fraction MOD 2C 44.2 % LV Cardiac Index MOD 2C 725.0 cm???/min???m??? LV Diastolic Length 2C 6.2 cm LV Systolic Length 2C 5.8 cm LA Volume 66.5 cm??? 18 - 58 / 22 - 52 cm??? LA Volume Index 32.6 cm???/m??? 16 - 28 cm???/m??? M-MODE Aortic Root Diameter MM 3.1 cm MV E Point Septal Separation 0.3 cm AV Cusp Separation MM 2.1 cm DOPPLER AV Peak Velocity 204.4 cm/s AV Peak Gradient 16.7 mmHg AI Peak Velocity 346.8 cm/s AI Peak Gradient 48.1 mmHg AI Pressure Half Time 637.7 ms MV Peak Velocity 178.1 cm/s MV Peak Gradient 12.7 mmHg MV Mean Velocity 91.7 cm/s MV Mean Gradient 3.9 mmHg MV Velocity Time Integral 53.8 cm MV Area PHT 2.7 cm??? MR Peak Velocity 529.1 cm/s MR Peak Gradient 112.0 mmHg Mitral E Point Velocity 105.8 cm/s Mitral A Point Velocity 118.6 cm/s Mitral E to A Ratio 0.9 MV Deceleration Time 286.2 ms TR Peak Velocity 369.4 cm/s TR Peak Gradient 54.6 mmHg Right Ventricular Systolic Press 58.2 mmHg FINDINGS Left Ventricle Left ventricular ejection fraction is estimated at 60-65 %. No obvious regional wall motion abnormalities. Left ventricular cavity size normal. Mildly increased septal wall thickness. Right Ventricle Mild right ventricular dilatation. Severe pulmonary hypertension. Right ventricular systolic pressure estimated at 58 mm hg. Right Atrium mild RA dilatation Left Atrium Mildly increased left atrial volume. Mitral Valve Structurally normal mitral valve. Mild mitral regurgitation. Aortic Valve Trileaflet aortic valve. Trace to mild aortic regurgitation. Aortic valve sclerosis. Tricuspid Valve Structurally normal tricuspid valve. Mild tricuspid regurgitation. Pulmonic Valve Structurally normal pulmonic valve. No pulmonic regurgitation. Pericardium No pericardial effusion. Aorta Normal size aortic root and proximal ascending aorta. CONCLUSIONS Left ventricular ejection fraction is estimated at 60-65 %. Left ventricular cavity size normal. Mildly increased septal wall thickness. No obvious regional wall motion abnormalities. Right ventricular systolic pressure estimated at 58 mm hg. Mild RA dilatation. Mildly increased left atrial volume. Previewed by: Dr Zbigniew Arriaga (Electronically Signed) Final Date: 10 September 2023 19:45
[2023-09-10 20:21] LABS: Glucose,Whole Blood 176 mg/dL (70-110)
[2023-09-10] MEDS: LATANOPROST 0.005% OPHTH DROPS 2.5 ML BTL BOTH EYES SCH (21:49)
[2023-09-10] MEDS: sulfaSALAzine 500 MG TAB PO SCH (21:49)
[2023-09-10] MEDS: amLODIPine 5 MG TAB PO SCH (21:50)
[2023-09-10] MEDS: clonazePAM 0.5 MG TAB PO SCH (21:50)
[2023-09-10] MEDS: PRAVASTATIN SODIUM 20 MG TAB PO SCH (21:50)
[2023-09-10] MEDS: SENNOSIDES-DOCUSATE SODIUM 1 EACH TAB PO SCH (21:50)
[2023-09-10] MEDS: DICYCLOMINE 10 MG CAP PO SCH (21:50)
[2023-09-10] MEDS: HEPARIN SODIUM,PORCINE 5,000 UNIT/ML 1 ML VIAL SQ SCH (21:51)
[2023-09-10] MEDS: carvediloL 12.5 MG TAB PO SCH (22:01)
--- NOTE | 2023-09-10 22:31 | HP ---
HISTORY AND PHYSICAL CHIEF COMPLAINT: Shortness of breath. HISTORY OF PRESENT ILLNESS: This is a 73-year-old gentleman with a past medical history of multiple medical problems including COPD, being followed by Dr. Gwyn vargas. The patient apparently went to [facility]. D-dimer was elevated. V/Q scan was done. Currently, the patient last night again had shortness of breath and some cough, and the patient came to [facility]. D-dimer was elevated. CT angio chest is pending at this time, possibly indicating some interstitial pneumonitic process. The patient also has some bilateral pleural effusion also. There is no history of any fever, rigors, or chills. BNP is noted. PAST MEDICAL HISTORY: COPD, rest of the history and rest of the chart is also noted. HOME MEDICATIONS: Reviewed include sulfasalazine, dose and rest of medications noted. ALLERGIES: Hydralazine, penicillin. FAMILY HISTORY: History of myocardial infarction in the family. SOCIAL HISTORY: ETOH history and also acute smoking. REVIEW OF SYSTEMS: A 14-point review is negative except as mentioned earlier. PHYSICAL EXAMINATION: VITAL SIGNS: Pulse is 74, blood pressure 137/60, respirations 18. HEENT: Conjunctivae normal. NECK: No jugular venous distention. CARDIOVASCULAR: S1, S2. RESPIRATIONS: Breath sounds diminished at the bases. Few scattered rhonchi and crackles. ABDOMEN: Soft, obese, nontender. No masses palpable. LEGS: No edema. No swelling. NERVOUS SYSTEM: No focal deficits. LABORATORY DATA: WBC 11.5, other labs are noted. ASSESSMENT: 1. Shortness of breath, possibly COPD acute exacerbation with bilateral interstitial pneumonia with failure of outpatient treatment. 2. Elevated D-dimer. 3. Elevated WBC. 4. Diabetes mellitus, type 2. 5. History of GI bleed. 6. Hypertension. 7. Hyperlipidemia. 8. History of EtOH. RECOMMENDATIONS AND DISCUSSION: This 73-year-old gentleman presented with multiple complex medical issues, we will monitor the patient closely. Continue the current medications, continue symptomatic treatment. Otherwise at this time, intensive bronchodilator treatment, steroids as well as empiric antibiotics. I will review the CT scan of the chest when the final report is available. Otherwise, we will consult Dr. Ruiz and continue to monitor. The prognosis is guarded because of multiple complex medical conditions, further recommendations to follow. The family understands and agrees with [facility] protocol as well. SADIE / RADHA: [id number] / ARLENE
[2023-09-10] MEDS: hydrALAZINE HCL 50 MG TAB PO SCH (23:26)
[2023-09-11 05:55] LABS: Glucose,Whole Blood 212 mg/dL (70-110)
[2023-09-11 05:57] LABS: Anisocytosis Slight; Basophils % (A) 0 %; Eosinophils % (A) 0 %; HCT 34.1 % (39.0-53.0); HGB 10.8 gm/dL (13.0-17.5); Hypochromasia Slight; Lymphocytes # (A) 0.6 k/uL (1.0-4.8); Lymphocytes % (A) 9 %; MCH 27.3 pg (25.0-35.0); MCHC 31.7 g/dL (31.0-37.0); MCV 86.3 fL (80.0-100.0); Mean Platelet Volume 7.8; Monocytes # (A) 0.1 k/uL (0-1.0); Monocytes % (A) 2 %; Neutrophils # (A) 5.5 k/uL (1.3-7.7); Neutrophils % (A) 88 %; Platelet Count 215 k/uL (150-450); RBC 3.95 m/uL (4.30-5.90); RDW 17.6 % (11.5-15.5); WBC 6.3 k/uL (3.8-10.6)
[2023-09-11 06:05] LABS: African American GFR (CKD) 58 (>60 ml/min/1.73 sqM); Anion Gap 13 mmol/L; Blood Urea Nitrogen 29 mg/dL (9-20); Calcium 8.5 mg/dL (8.4-10.2); Carbon Dioxide 20 mmol/L (22-30); Chloride 104 mmol/L (98-107); Glucose 205 mg/dL (74-99); Non-African American GFR(CKD) 51 (>60 ml/min/1.73 sqM); Potassium 5.1 mmol/L (3.5-5.1); Sodium 137 mmol/L (137-145)
[2023-09-11] MEDS: methylPREDNISolone SOD SUCCI 125 MG/2 ML VIAL IV SCH ×4 (06:46→23:22)
[2023-09-11] MEDS: INSULIN ASPART (NovoLOG) 100 UNIT/ML VIAL SQ SCH ×4 (06:47→21:20)
[2023-09-11] MEDS: carvediloL 12.5 MG TAB PO SCH ×2 (06:47→17:44)
[2023-09-11] MEDS: DICYCLOMINE 10 MG CAP PO SCH ×4 (06:48→21:22)
[2023-09-11] MEDS: AZTREONAM 2 GM in SODIUM CHLORIDE 0.9% 100 ML IVPB SCH (08:14)
[2023-09-11] MEDS: hydrALAZINE HCL 50 MG TAB PO SCH ×3 (08:14→23:23)
[2023-09-11] MEDS: PARoxetine 20 MG TAB PO SCH (08:14)
[2023-09-11] MEDS: ISOSORBIDE MONONITRATE ER 30 MG TAB.ER.24H PO SCH (08:14)
[2023-09-11] MEDS: lisinopriL 5 MG TAB PO SCH (08:14)
[2023-09-11] MEDS: HEPARIN SODIUM,PORCINE 5,000 UNIT/ML 1 ML VIAL SQ SCH ×2 (08:14→21:21)
[2023-09-11] MEDS: amLODIPine 5 MG TAB PO SCH ×2 (08:14→21:22)
[2023-09-11] MEDS: ASPIRIN 81 MG PO SCH (08:14)
[2023-09-11] MEDS: sulfaSALAzine 500 MG TAB PO SCH ×4 (08:15→21:21)
[2023-09-11] MEDS: SYMBICORT 160-4.5 MCG INHALER INHALATION SCH ×2 (09:21→20:44)
[2023-09-11] MEDS: IPRATROPIUM-ALBUTEROL 3 ML NEB INHALATION SCH ×4 (09:21→20:44)
[2023-09-11 12:00] LABS: Glucose,Whole Blood 268 mg/dL (70-110)
--- NOTE | 2023-09-11 12:31 | P.CNPUL ---
History of Present Illness Consult date: 09/11/23 Requesting physician: Alejandra Duncan Reason for consult: dyspnea, COPD Chief complaint: Shortness of breath, cough, congestion History of present illness: This is a pleasant 73-year-old male patient with a history of chronic obstructive pulmonary disease, former smoker, history of heavy alcohol use, marijuana use, diabetes mellitus, hypertension, hyperlipidemia, hypothyroidism, anxiety/depression. He presented to the emergency room with complaints of shortness of breath. Chest x-ray reveals no acute pulmonary process. T angiogram ruled out pulmonary embolism. There is a minimal infiltrate in the posterior lateral left upper lung field. Chest x-ray reveals preserved left ventricular systolic function with ejection fraction 60-65%. Severe pulmonary hypertension with an RVSP of 58 mmHg. White count 6.3. Hemoglobin 10.8. Platelets 2:15. Sodium 137. Potassium 5.1. Bicarb 20. BUN 29. Creatinine 1.36. ProBNP 460. Pro-Calcitonin 0.19. He is seen today in consultation on the regular medical floor. He is currently sitting up in bed. Awake and alert in no acute distress. Maintaining O2 saturations in the 90s on 4 L/m per nasal cannula. He's been afebrile. Hemodynamically stable. He's been initiated on ceftriaxone and azithromycin. DuoNeb inhalations, Symbicort, Solu-Medrol. Heparin for DVT prophylaxis. Review of Systems REVIEW OF SYSTEMS: CONSTITUTIONAL: Denies any recent significant weight loss or weight gain. EYES: Denies change in vision. EARS, NOSE, MOUTH, THROAT: Denies headaches, denies sore throat. CARDIOVASCULAR: Denies chest pain, palpitations or syncopal episodes. RESPIRATORY: Positive for shortness of breath, cough, congestion no hemoptysis. GASTROINTESTINAL: Denies change in appetite, denies abdominal pain GENITOURINARY: Denies hematuria, denies infections. MUSKULOSKELETAL: Denies pain, denies swelling. INTEGUMENTARY: Denies rash, denies eczema. NEUROLOGICAL: Denies recent memory loss, no recent seizure activity. PSYCHIATRIC: Denies anxiety, denies depression. HEMATOLOGIC/LYMPHATIC: Denies anemia, denies enlarged lymph nodes. Past Medical History Past Medical History: Cancer, COPD, Diabetes Mellitus, Eye Disorder, GERD/Reflux, GI Bleed, Hyperlipidemia, Hypertension, Skin Disorder, Sleep Apnea/CPAP/BIPAP Additional Past Medical History / Comment(s): Hx bronchitis early 2021. Ulcerative Colitis. hx GI bleeding many yrs ago. 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 CPAP use. RLS. Macular Degeneration (receives injections every 6 weeks). Hx basal cell skin cancer on right shoulder. Keratosis. Mild COPD. Hx prostate infections, resoved with taking cranberry supplement. History of Any Multi-Drug Resistant Organisms: None Reported Past Surgical History: Cholecystectomy, Heart Catheterization, Orthopedic Surgery Additional Past Surgical History / Comment(s): Right elbow surgery, left elbow tendon repair, bilateral wrist/hand surgery, trigger finger surgery X3, skin grafts to lower back, under knee and buttocks due to de [place] santos, colonoscopies. Past Anesthesia/Blood Transfusion Reactions: No Reported Reaction Past Psychological History: Anxiety, Depression Smoking Status: Former smoker Past Alcohol Use History: Heavy Additional Past Alcohol Use History / Comment(s): Quit smoking in 1998, smoked for 35 yrs, 1/2 ppd. Hx of heavy alcohol use, quit 43 yrs ago. Past Drug Use History: Marijuana Additional Drug Use History / Comment(s): Quit marijuana 43 yrs ago. - Past Family History Father Family Medical History: Cancer, Myocardial Infarction ([place]) Additional Family Medical History / Comment(s): Skin cancer. Brother(s) Family Medical History: Myocardial Infarction ([place]) Additional Family Medical History / Comment(s): at age 65. Mother Family Medical History: Cancer Additional Family Medical History / Comment(s): Skin cancer. Medications and Allergies Home Medications Medication Instructions Recorded Confirmed Type Aspirin 81 mg PO DAILY 05/16/14 09/10/23 History PARoxetine [Paxil] 20 mg PO DAILY 05/16/14 09/10/23 History Pravastatin Sodium [Pravachol] 20 mg PO HS 05/16/14 09/10/23 History amLODIPine [Norvasc] 5 mg PO BID 05/16/14 09/10/23 History metFORMIN HCL [Glucophage] 1,000 mg PO DAILY 05/16/14 09/10/23 History sulfaSALAzine [Azulfidine] 1,000 mg PO QID 06/26/17 09/10/23 History carvediloL [Coreg] 25 mg PO BID 06/04/20 09/10/23 History INSULIN LISPRO (For Pump) [humaLOG 0.01 units SQ-PUMP CONTINUOUS 01/29/21 09/10/23 History (For Pump)] Dicyclomine [Bentyl] 10 mg PO ACHS 09/10/23 09/10/23 History Famotidine 20 mg PO DAILY@1600 09/10/23 09/10/23 History Isosorbide Mononitrate ER [Imdur] 30 mg PO DAILY 09/10/23 09/10/23 History Latanoprost Ophth [Xalatan 0.005%] 1 drop BOTH EYES HS 09/10/23 09/10/23 History Levothyroxine Sodium [Synthroid] 75 mcg PO AC-BRKFST 09/10/23 09/10/23 History Sennosides/Docusate Sodium [Senna 1 cap PO HS 09/10/23 09/10/23 History Plus 8.6-50 mg Softgel] clonazePAM [KlonoPIN] 0.5 mg PO HS 09/10/23 09/10/23 History hydrALAZINE HCL [Apresoline] 100 mg PO Q8H 09/10/23 09/10/23 History lisinopriL [Zestril] 5 mg PO DAILY 09/10/23 09/10/23 History Allergies Allergy/AdvReac Type Severity Reaction Status Date / Time empagliflozin Allergy Unknown Verified 09/10/23 16:03 [From Jardiance] hydrochlorothiazide Allergy Unknown Verified 09/10/23 16:03 Penicillins Allergy Anaphylaxis Verified 09/10/23 16:03 Physical Exam Vitals: Vital Signs Temp Pulse Pulse Resp BP BP Pulse Ox 09/11/23 09:34 72 09/11/23 09:21 72 09/11/23 06:57 97.6 F 63 18 122/72 95 09/11/23 06:32 87 133/66 09/11/23 00:41 98.4 F 82 18 142/56 92 L 09/10/23 20:00 98.6 F 76 18 160/67 93 L 09/10/23 18:22 72 09/10/23 18:15 72 09/10/23 18:00 97.6 F 77 20 201/90 94 L 09/10/23 16:23 72 09/10/23 16:06 75 09/10/23 16:00 77 17 168/81 92 L 12/02/23 15:00 73 17 174/73 91 L 09/10/23 13:49 20 Intake and Output 09/10/23 09/11/23 09/11/23 22:59 06:59 14:59 Other: Voiding Method Toilet Toilet # Voids 1 1 Weight 86.183 kg GENERAL EXAM: Alert, pleasant 73-year-old male, on 4 L nasal cannula, fairly comfortable in no apparent distress. HEAD: Normocephalic. EYES: Normal reaction of pupils, equal size. NOSE: Clear with pink turbinates. THROAT: No erythema or exudates. NECK: No masses, no JVD. CHEST: No chest wall deformity. LUNGS: Equal air entry with no crackles, wheeze, rhonchi or dullness. CVS: S1 and S2 normal with no audible murmur, regular rhythm. ABDOMEN: No hepatosplenomegaly, normal bowel sounds, no guarding or rigidity. SPINE: No scoliosis or deformity SKIN: No rashes CENTRAL NERVOUS SYSTEM: No focal deficits, tone is normal in all 4 extremities. EXTREMITIES: There is no peripheral edema. No clubbing, no cyanosis. Peripheral pulses are intact. Results - Laboratory Findings CBC and BMP: 09/11/23 05:04 09/11/23 05:04 PT/INR, D-dimer PT 11.3 sec (10.0-12.5) 09/10/23 10:33 INR 1.0 (<1.2) 09/10/23 10:33 D-Dimer 0.93 mg/L FEU (<0.60) H 09/10/23 10:33 Abnormal lab findings: Abnormal Labs 09/10/23 09/10/23 09/10/23 10:33 10:33 10:33 WBC 11.5 H RBC 4.14 L Hgb 11.1 L Hct 35.7 L RDW 17.4 H Neutrophils # 8.8 H Lymphocytes # D-Dimer 0.93 H VBG HCO3 Chloride 108 H Carbon Dioxide 20 L BUN Creatinine Glucose 53 L POC Glucose (mg/dL) Procalcitonin 09/10/23 09/10/23 09/11/23 12:50 20:19 01:39 WBC RBC Hgb Hct RDW Neutrophils # Lymphocytes # D-Dimer VBG HCO3 21 L Chloride Carbon Dioxide BUN Creatinine Glucose POC Glucose (mg/dL) 176 H Procalcitonin 0.19 H 09/11/23 09/11/23 09/11/23 05:04 05:04 05:53 WBC RBC 3.95 L Hgb 10.8 L Hct 34.1 L RDW 17.6 H Neutrophils # Lymphocytes # 0.6 L D-Dimer VBG HCO3 Chloride Carbon Dioxide 20 L BUN 29 H Creatinine 1.36 H Glucose 205 H POC Glucose (mg/dL) 212 H Procalcitonin 09/11/23 11:58 WBC RBC Hgb Hct RDW Neutrophils # Lymphocytes # D-Dimer VBG HCO3 Chloride Carbon Dioxide BUN Creatinine Glucose POC Glucose (mg/dL) 268 H Procalcitonin - Diagnostic Findings Chest x-ray: image reviewed CT scan - chest: image reviewed Assessment and Plan Assessment: Acute hypoxemic respiratory failure secondary to suspected acute exacerbation of COPD, possible early pneumonia in the left upper lobe. Pro-Calcitonin 0.19 Former smoker Strict of sleep apnea maintained on CPAP Diabetes mellitus Hypertension Hyperlipidemia Hypothyroidism History of anxiety/depression History of alcohol use History of marijuana use Plan: The patient was seen and evaluated Chest x-ray, CT angiogram, echocardiogram, labs and medications reviewed Continue on ceftriaxone and azithromycin Continued DuoNeb inhalations, Symbicort, Solu-Medrol Titrate down the FiO2 as tolerated Increase his activity as tolerated We will continue to follow and make further recommendations based on his clinical status I have personally seen and examined the patient, performed the documentation and the assessment and plan as written. Number of minutes spent on the visit: 20.
[2023-09-11] MEDS: FAMOTIDINE 20 MG TAB PO SCH (16:19)
[2023-09-11] MEDS: AZITHROMYCIN 500 MG in SODIUM CHLORIDE 0.9% 250 ML IVPB SCH (16:19)
[2023-09-11 17:06] LABS: Glucose,Whole Blood 344 mg/dL (70-110)
[2023-09-11 19:12] LABS: Glucose,Whole Blood 337 mg/dL (70-110)
[2023-09-11] MEDS: LATANOPROST 0.005% OPHTH DROPS 2.5 ML BTL BOTH EYES SCH (21:21)
[2023-09-11] MEDS: PRAVASTATIN SODIUM 20 MG TAB PO SCH (21:22)
[2023-09-11] MEDS: SENNOSIDES-DOCUSATE SODIUM 1 EACH TAB PO SCH (21:22)
[2023-09-11] MEDS: clonazePAM 0.5 MG TAB PO SCH (21:22)
[2023-09-12 06:22] LABS: Glucose,Whole Blood 309 mg/dL (70-110)
[2023-09-12] MEDS: INSULIN ASPART (NovoLOG) 100 UNIT/ML VIAL SQ SCH ×5 (06:42→21:11)
[2023-09-12] MEDS: methylPREDNISolone SOD SUCCI 125 MG/2 ML VIAL IV SCH ×2 (06:43→12:03)
[2023-09-12] MEDS: carvediloL 12.5 MG TAB PO SCH ×2 (06:43→16:50)
[2023-09-12] MEDS: DICYCLOMINE 10 MG CAP PO SCH ×4 (06:43→21:11)
--- NOTE | 2023-09-12 07:56 | PN ---
PROGRESS NOTE SUBJECTIVE: This is a 73-year-old gentleman admitted with COPD acute exacerbation, also had possibly bilateral interstitial pneumonia. The procalcitonin is elevated. Cultures are pending at this time. The patient is started on Zithromax and Rocephin at this time. Multiple consultants are following the patient closely. PAST MEDICAL HISTORY: Reviewed. REVIEW OF SYSTEMS: Fourteen-point review is negative except as mentioned earlier. PHYSICAL EXAMINATION: VITAL SIGNS: Pulse is 72, blood pressure 120/70, respirations 18. HEENT: Conjunctivae are normal. NECK: No jugular venous distention. CARDIOVASCULAR: S1 and S2 muffled. RESPIRATORY: Breath sounds diminished at the bases. Bilateral scattered rhonchi. ABDOMEN: Soft. NERVOUS SYSTEM: Nonfocal. LABORATORY DATA: Creatinine 1.36. Other labs are noted. ASSESSMENT: 1. Shortness of breath with possible chronic obstructive pulmonary disease acute exacerbation with bilateral interstitial pneumonia with failure of outpatient treatment. 2. Elevated D-dimer. 3. Elevated WBC. 4. Diabetes mellitus, type 2. 5. History of gastrointestinal bleed. 6. Hypertension. 7. Hyperlipidemia. 8. History of EtOH. RECOMMENDATIONS AND DISCUSSION: In this 73-year-old gentleman presented with multiple complex medical issues, we will monitor the patient closely. Continue with current medications. Continue symptomatic treatment. The patient will require more than 2 nights of hospital stay for evaluation and treatment of the above-mentioned medical issues. The creatinine is elevated. I would recommend to avoid nephrotoxic medications. Continue to monitor. Continue with empiric antibiotics. Follow the cultures. Closely follow up with Pulmonary. Dr. Pascal will follow tomorrow. IV steroids. MMODL / IJN: [id number] /
[2023-09-12] MEDS: HEPARIN SODIUM,PORCINE 5,000 UNIT/ML 1 ML VIAL SQ SCH ×2 (08:08→21:11)
[2023-09-12] MEDS: lisinopriL 5 MG TAB PO SCH (08:08)
[2023-09-12] MEDS: ASPIRIN 81 MG PO SCH (08:08)
[2023-09-12] MEDS: ISOSORBIDE MONONITRATE ER 30 MG TAB.ER.24H PO SCH (08:08)
[2023-09-12] MEDS: hydrALAZINE HCL 50 MG TAB PO SCH ×2 (08:08→16:50)
[2023-09-12] MEDS: PARoxetine 20 MG TAB PO SCH (08:08)
[2023-09-12] MEDS: amLODIPine 5 MG TAB PO SCH ×2 (08:08→21:11)
[2023-09-12] MEDS: sulfaSALAzine 500 MG TAB PO SCH ×2 (08:09→12:04)
[2023-09-12 08:41] LABS: Basophils # (A) 0 X 10*3/uL (0.00-0.10); Basophils % (A) 0 %; Eosinophils # (A) 0 X 10*3/uL (0.04-0.35); Eosinophils % (A) 0 %; HCT 31.2 % (39.6-50.0); HGB 9.2 g/dL (13.0-17.0); Lymphocytes # (A) 0.45 X 10*3/uL (0.90-5.00); Lymphocytes % (A) 5.4 %; MCH 25.3 pg (27.0-32.0); MCHC 29.5 g/dL (32.0-37.0); Mean Platelet Volume 10.8 FL (9.5-12.2); Monocytes # (A) 0.26 X 10*3/uL (0.20-1.00); Monocytes % (A) 3.1 %; NRBC Per 100 WBC 0 X 10*3/uL (0.00-0.01); Neutrophils # (A) 7.54 X 10*3/uL (1.80-7.70); Platelet Count 212 X 10*3/uL (140-440); RBC 3.63 X 10*6/uL (4.40-5.60); RDW 18.3 % (11.5-14.5); WBC 8.29 X 10*3/uL (4.50-10.00)
[2023-09-12 08:55] LABS: ALT 20 U/L (10-49); AST 20 U/L (14-35); Albumin 3.5 g/dL (3.8-4.9); Alkaline Phosphatase 101 U/L (41-126); Blood Urea Nitrogen 48.2 mg/dL (9.0-27.0); Calcium 8.4 mg/dL (8.7-10.3); Carbon Dioxide 20.6 mmol/L (21.6-31.8); Chloride 103 mmol/L (96-109); Globulin 2.5 g/dL (1.6-3.3); Glucose 309 mg/dL (70-110); Potassium 5.8 mmol/L (3.5-5.5); Sodium 135 mmol/L (135-145); Total Bilirubin <0.2 mg/dL (0.3-1.2)
[2023-09-12] MEDS: IPRATROPIUM-ALBUTEROL 3 ML NEB INHALATION SCH ×4 (08:59→21:38)
[2023-09-12] MEDS: SYMBICORT 160-4.5 MCG INHALER INHALATION SCH ×2 (08:59→21:38)
[2023-09-12 11:31] LABS: Glucose,Whole Blood 340 mg/dL (70-110)
--- NOTE | 2023-09-12 13:59 | P.PN ---
Subjective Progress Note Date: 09/12/23 This is a pleasant 73-year-old male patient with a history of chronic obstructi ve pulmonary disease, former smoker, history of heavy alcohol use, marijuana use, diabetes mellitus, hypertension, hyperlipidemia, hypothyroidism, anxiety/depression. He presented to the emergency room with complaints of shortness of breath. Chest x-ray reveals no acute pulmonary process. T angio gram ruled out pulmonary embolism. There is a minimal infiltrate in the posterior lateral left upper lung field. Chest x-ray reveals preserved left ventricular systolic function with ejection fraction 60-65%. Severe pulmonary hypertension with an RVSP of 58 mmHg. White count 6.3. Hemoglobin 10.8. Platelets 2:15. Sodium 137. Potassium 5.1. Bicarb 20. BUN 29. Creatinine 1.36. ProBNP 460. Pro-Calcitonin 0.19. He is seen today in consultation on the regular medical floor. He is currently sitting up in bed. Awake and alert in no acute distress. Maintaining O2 saturations in the 90s on 4 L/m per nasal cannula. He's been afebrile. Hemodynamically stable. He's been initiated on ceftriaxone and azithromycin. DuoNeb inhalations, Symbicort, Solu-Medrol. Heparin for DVT prophylaxis. On 09/12/2023, the patient is feeling better last short of breath compared to yesterday. He is known to have COPD, former smoker presented with Acute hypoxic respiratory failure and shortness of breath. The patient is already feeling better by now. His creatinine is impaired at 2.0. Stable. CT angiogram showed some limited infiltration and small effusion lung bases. He is diabetic and he is currently on a insulin pump. However, the pump is off currently as the patient is hospitalized.His echoes at 8.9, hemoglobin is at 9.2, sodium is at 135, potassium is at 5.8, BUN is at 48 with a creatinine 2.0. LFTs are within normal limits. Echo of the heart was done and it showed a preserved LV function with an ejection fraction of 60-65%. No significant wall motion abnormalities. RV pressure was elevated at [address] angiogram was also done at time of admission and it showed no evidence of any acute pulmonary embolism. Currently on Rocephin and Zithromax. Currently on bronchodilators. Currently on steroids. Objective - Vital Signs Vital signs: Vital Signs Temp 98.0 F 09/12/23 07:00 Pulse 80 09/12/23 09:16 Resp 19 09/12/23 07:00 BP 173/59 09/12/23 07:00 Pulse Ox 95 09/12/23 07:00 FiO2 Intake & Output 09/11/23 09/12/23 09/12/23 18:59 06:59 18:59 Other: Voiding Method Toilet - Exam GENERAL EXAM: Alert, pleasant 73-year-old male, on 4 L nasal cannula, fairly comfortable in no apparent distress. HEAD: Normocephalic. EYES: Normal reaction of pupils, equal size. NOSE: Clear with pink turbinates. THROAT: No erythema or exudates. NECK: No masses, no JVD. CHEST: No chest wall deformity. LUNGS: Equal air entry with no crackles, wheeze, rhonchi or dullness. CVS: S1 and S2 normal with no audible murmur, regular rhythm. ABDOMEN: No hepatosplenomegaly, normal bowel sounds, no guarding or rigidity. SPINE: No scoliosis or deformity SKIN: No rashes CENTRAL NERVOUS SYSTEM: No focal deficits, tone is normal in all 4 extremities. EXTREMITIES: There is no peripheral edema. No clubbing, no cyanosis. Perip heral pulses are intact. - Labs CBC & Chem 7: 09/12/23 05:18 09/12/23 05:18 Labs: Abnormal Lab Results - Last 24 Hours (Table) 09/11/23 09/11/23 09/12/23 Range/Units 17:03 19:11 05:18 RBC 3.63 L (4.40-5.60) X 10*6/uL Hgb 9.2 L (13.0-17.0) g/dL Hct 31.2 L (39.6-50.0) % MCH 25.3 L (27.0-32.0) pg MCHC 29.5 L (32.0-37.0) g/dL RDW 18.3 H (11.5-14.5) % Lymphocytes # 0.45 L (0.90-5.00) X 10*3/uL Eosinophils # 0 L (0.04-0.35) X 10*3/uL Potassium (3.5-5.5) mmol/L Carbon Dioxide (21.6-31.8) mmol/L BUN (9.0-27.0) mg/dL Creatinine (0.6-1.5) mg/dL Est GFR (CKD-EPI) (>=60) BUN/Creatinine Ratio (12.00-20.00) Ratio Glucose (70-110) mg/dL POC Glucose (mg/dL) 344 H 337 H (70-110) mg/dL Calcium (8.7-10.3) mg/dL Total Bilirubin (0.3-1.2) mg/dL Total Protein (6.2-8.2) g/dL Albumin (3.8-4.9) g/dL Albumin/Globulin Ratio (1.60-3.17) Ratio 09/12/23 09/12/23 09/12/23 Range/Units 05:18 06:18 11:29 RBC (4.40-5.60) X 10*6/uL Hgb (13.0-17.0) g/dL Hct (39.6-50.0) % MCH (27.0-32.0) pg MCHC (32.0-37.0) g/dL RDW (11.5-14.5) % Lymphocytes # (0.90-5.00) X 10*3/uL Eosinophils # (0.04-0.35) X 10*3/uL Potassium 5.8 H (3.5-5.5) mmol/L Carbon Dioxide 20.6 L (21.6-31.8) mmol/L BUN 48.2 H (9.0-27.0) mg/dL Creatinine 2.0 H (0.6-1.5) mg/dL Est GFR (CKD-EPI) 34 L (>=60) BUN/Creatinine Ratio 24.10 H (12.00-20.00) Ratio Glucose 309 H (70-110) mg/dL POC Glucose (mg/dL) 309 H 340 H (70-110) mg/dL Calcium 8.4 L (8.7-10.3) mg/dL Total Bilirubin <0.2 L (0.3-1.2) mg/dL Total Protein 6.0 L (6.2-8.2) g/dL Albumin 3.5 L (3.8-4.9) g/dL Albumin/Globulin Ratio 1.40 L (1.60-3.17) Ratio Microbiology - Last 24 Hours (Table) 09/10/23 10:33 Blood Culture - Preliminary Blood Assessment and Plan Plan: Acute hypoxemic respiratory failure secondary to suspected acute exacerbation of COPD, possible early pneumonia in the left upper lobe. Pro-Calcitonin 0.19, and the patient is covered appropriately with antibiotics with Rocephin and Zithromax. Currently is on oxygen at 2 L. Former smoker Obstructive sleep apnea maintained on CPAP Diabetes mellitus, currently on insulin pump , Hypertension Hyperlipidemia Hypothyroidism History of anxiety/depression History of alcohol use History of marijuana use Plan: Will taper the Solu-Medrol to 40 mg every 12 hours Wean down FiO2 as tolerated to [facility] about 90% Continue on ceftriaxone and azithromycin Continued DuoNeb inhalations, Symbicort, Solu-Medrol Titrate down the FiO2 as tolerated Increase his activity as tolerated We will continue to follow and make further recommendations based on his cl inical status
[2023-09-12] MEDS ORDERED: INSULIN DETEMIR (LEVEMIR) 100 UNIT/ML SYR SQ SCH (15:29)
[2023-09-12] MEDS ORDERED: DEXTROSE 50% SYRINGE 50 ML IVP PRN ×2 (15:34)
--- NOTE | 2023-09-12 15:45 | P.PN ---
Subjective Progress Note Date: 09/12/23 This is a 73-year-old gentleman admitted with acute hypoxic respiratory failure, acute exacerbation COPD and possible left upper lobe pneumonia and multiple other medical issues. Echo reported normal LV function, EF 6065%, mildly increased septal wall thickness. Maintained on Rocephin ,Zithromax, nebulized bronchodilators and IV steroids. Pro-calcitonin 0.19. Maintaining O2 sats in the 90s on 2 L. Afebrile, normal WBC. Worsening renal function, BUN 48.2, creatinine 2. Blood sugars uncontrolled. Objective - Vital Signs Vital signs: Vital Signs Temp 98.2 F 09/12/23 14:29 Pulse 87 09/12/23 14:29 Resp 19 09/12/23 14:29 BP 163/76 09/12/23 14:29 Pulse Ox 94 L 09/12/23 14:29 FiO2 Intake & Output 09/11/23 09/12/23 09/12/23 18:59 06:59 18:59 Other: Voiding Method Toilet - Exam PHYSICAL EXAM: VITAL SIGNS: [As above] GENERAL: Sitting up in bed, no acute distress HEENT: Normocephalic Conjunctivae normal. eyes normal. NECK: Supple, No JVD. CARDIOVASCULAR: S1, S2 regular. No murmur RESPIRATION: Unlabored , equal air entry ,Breath sounds diminished in the bases. No rhonchi or crackles. ABDOMEN: Soft, nontender . No guarding. no masses palpable.+BS. LEGS: No edema. no swelling PSYCHIATRY: Alert and oriented X3, mood and affect normal. NERVOUS SYSTEM: Cranial N 2-12 grossly normal. No focal deficits. Strength and sensation grossly intact.. Skin: Warm and dry, no rash - Labs CBC & Chem 7: 09/12/23 05:18 09/12/23 05:18 Labs: Abnormal Lab Results - Last 24 Hours (Table) 09/11/23 09/11/23 09/12/23 Range/Units 17:03 19:11 05:18 RBC 3.63 L (4.40-5.60) X 10*6/uL Hgb 9.2 L (13.0-17.0) g/dL Hct 31.2 L (39.6-50.0) % MCH 25.3 L (27.0-32.0) pg MCHC 29.5 L (32.0-37.0) g/dL RDW 18.3 H (11.5-14.5) % Lymphocytes # 0.45 L (0.90-5.00) X 10*3/uL Eosinophils # 0 L (0.04-0.35) X 10*3/uL Potassium (3.5-5.5) mmol/L Carbon Dioxide (21.6-31.8) mmol/L BUN (9.0-27.0) mg/dL Creatinine (0.6-1.5) mg/dL Est GFR (CKD-EPI) (>=60) BUN/Creatinine Ratio (12.00-20.00) Ratio Glucose (70-110) mg/dL POC Glucose (mg/dL) 344 H 337 H (70-110) mg/dL Calcium (8.7-10.3) mg/dL Total Bilirubin (0.3-1.2) mg/dL Total Protein (6.2-8.2) g/dL Albumin (3.8-4.9) g/dL Albumin/Globulin Ratio (1.60-3.17) Ratio 09/12/23 09/12/23 09/12/23 Range/Units 05:18 06:18 11:29 RBC (4.40-5.60) X 10*6/uL Hgb (13.0-17.0) g/dL Hct (39.6-50.0) % MCH (27.0-32.0) pg MCHC (32.0-37.0) g/dL RDW (11.5-14.5) % Lymphocytes # (0.90-5.00) X 10*3/uL Eosinophils # (0.04-0.35) X 10*3/uL Potassium 5.8 H (3.5-5.5) mmol/L Carbon Dioxide 20.6 L (21.6-31.8) mmol/L BUN 48.2 H (9.0-27.0) mg/dL Creatinine 2.0 H (0.6-1.5) mg/dL Est GFR (CKD-EPI) 34 L (>=60) BUN/Creatinine Ratio 24.10 H (12.00-20.00) Ratio Glucose 309 H (70-110) mg/dL POC Glucose (mg/dL) 309 H 340 H (70-110) mg/dL Calcium 8.4 L (8.7-10.3) mg/dL Total Bilirubin <0.2 L (0.3-1.2) mg/dL Total Protein 6.0 L (6.2-8.2) g/dL Albumin 3.5 L (3.8-4.9) g/dL Albumin/Globulin Ratio 1.40 L (1.60-3.17) Ratio Microbiology - Last 24 Hours (Table) 09/10/23 10:33 Blood Culture - Preliminary Blood Assessment and Plan Assessment: Acute COPD exacerbation Possible acute left upper lobe pneumonia Acute hypoxic respiratory failure secondary to the above Obesity, BMI 30 Obstructive sleep apnea, on CPAP Diabetes mellitus, insulin pump currently not on, hemoglobin A1c 5, [id number] Hypothyroidism Hypertension Hyperlipidemia History of anxiety, depression History of alcohol and marijuana use Plan: Continue on current medication regime ,monitoring and symptomatic t reatment. Patient's took his insulin pump home over the weekend, Lantus insulin, pre-meal insulin ordered in addition to sliding scale. Close monitoring of Accu-Cheks. Worsening renal function, IV fluids initiated, azulfadine and PHOEBE inhibitor placed on hold, IV fluids ordered and nephrology consulted. Close monitoring of renal function with repeat labs ordered for a.m. Continue weaning FiO2. Aggressive pulmonary toileting with antibiotics, steroids and nebulized bronchodilators. Smoking cessation reinforced. Increase activity as tolerated. The impression and plan of care has been dictated as directed. : I performed a history and examination of this patient, discussed the same with the dictator. I agree with the dictator's note ,documented as a scribe. Any additional findings or plans will be noted.
[2023-09-12 16:22] LABS: Glucose,Whole Blood 348 mg/dL (70-110)
[2023-09-12] MEDS: FAMOTIDINE 20 MG TAB PO SCH (16:50)
[2023-09-12] MEDS: AZITHROMYCIN 500 MG in SODIUM CHLORIDE 0.9% 250 ML IVPB SCH (16:51)
[2023-09-12] MEDS: INSULIN DETEMIR (LEVEMIR) 100 UNIT/ML SYR SQ SCH (16:51)
[2023-09-12] MEDS: methylPREDNISolone SOD SUCCI 40 MG/ML 1 ML VIAL IV SCH (19:48)
[2023-09-12 20:55] LABS: Glucose,Whole Blood 354 mg/dL (70-110)
[2023-09-12] MEDS: clonazePAM 0.5 MG TAB PO SCH (21:11)
[2023-09-12] MEDS: LATANOPROST 0.005% OPHTH DROPS 2.5 ML BTL BOTH EYES SCH (21:11)
[2023-09-12] MEDS: SENNOSIDES-DOCUSATE SODIUM 1 EACH TAB PO SCH (21:11)
[2023-09-12] MEDS: PRAVASTATIN SODIUM 20 MG TAB PO SCH (21:11)
[2023-09-13] MEDS: hydrALAZINE HCL 50 MG TAB PO SCH ×3 (00:32→17:58)
[2023-09-13] MEDS: methylPREDNISolone SOD SUCCI 40 MG/ML 1 ML VIAL IV SCH ×4 (00:32→17:58)
[2023-09-13] MEDS: SODIUM CHLORIDE 0.45% 1,000 ML IV SCH ×2 (00:49→07:35)
[2023-09-13 05:40] LABS: Glucose,Whole Blood 247 mg/dL (70-110)
[2023-09-13] MEDS: carvediloL 12.5 MG TAB PO SCH ×2 (07:35→17:57)
[2023-09-13] MEDS: DICYCLOMINE 10 MG CAP PO SCH ×4 (07:35→21:36)
[2023-09-13] MEDS: INSULIN ASPART (NovoLOG) 100 UNIT/ML VIAL SQ SCH ×7 (07:35→21:37)
[2023-09-13] MEDS: IPRATROPIUM-ALBUTEROL 3 ML NEB INHALATION SCH ×4 (07:37→21:20)
[2023-09-13] MEDS: SYMBICORT 160-4.5 MCG INHALER INHALATION SCH ×2 (07:37→21:20)
[2023-09-13] MEDS: INSULIN DETEMIR (LEVEMIR) 100 UNIT/ML SYR SQ SCH ×2 (07:39→21:37)
[2023-09-13] MEDS: ASPIRIN 81 MG PO SCH (08:37)
[2023-09-13] MEDS: HEPARIN SODIUM,PORCINE 5,000 UNIT/ML 1 ML VIAL SQ SCH ×2 (08:37→21:37)
[2023-09-13] MEDS: amLODIPine 5 MG TAB PO SCH ×2 (08:37→21:36)
[2023-09-13] MEDS: PARoxetine 20 MG TAB PO SCH (08:37)
[2023-09-13] MEDS: ISOSORBIDE MONONITRATE ER 30 MG TAB.ER.24H PO SCH (08:37)
[2023-09-13 08:57] LABS: BUN/Creat Ratio 28.93 Ratio (12.00-20.00); Blood Urea Nitrogen 43.4 mg/dL (9.0-27.0); Calcium 8.2 mg/dL (8.7-10.3); Carbon Dioxide 20.6 mmol/L (21.6-31.8); Chloride 105 mmol/L (96-109); Glucose 253 mg/dL (70-110); Potassium 5.4 mmol/L (3.5-5.5); Sodium 135 mmol/L (135-145)
[2023-09-13] MEDS ORDERED: SODIUM CHLORIDE 0.9% 1,000 ML IV SCH (10:00)
--- NOTE | 2023-09-13 11:41 | P.NPCON ---
History of Present Illness - Reason for Consult acute renal failure - History of Present Illness Patient is a 73-year-old male with history of COPD, type 2 diabetes, gastroesophageal reflux disease, hypertension. Patient is admitted to the hospital with complaints of shortness of breath and is being treated for acute exacerbation of COPD with possible early pneumonia in the left upper lobe. Serum creatinine was 1.14 on 09/10/2023 and increased to 2.0 yesterday. Creatinine is down to 1.5 today. Patient received IV contrast for chest CTA on 09/10/2023. Patient has been voiding. The pressure is not low in fact it is on the high side. Started IV fluids yesterday. Review of Systems As per HPI Past Medical History Past Medical History: Cancer, COPD, Diabetes Mellitus, Eye Disorder, GERD/Reflux, GI Bleed, Hyperlipidemia, Hypertension, Skin Disorder, Sleep Apnea/CPAP/BIPAP Additional Past Medical History / Comment(s): Hx bronchitis early 2021. Ulcerative Colitis. hx GI bleeding many yrs ago. 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 CPAP use. RLS. Macular Degeneration (receives injections every 6 weeks). Hx basal cell skin cancer on right shoulder. Keratosis. Mild COPD. Hx prostate infections, resoved with taking cranberry supplement. History of Any Multi-Drug Resistant Organisms: None Reported Past Surgical History: Cholecystectomy, Heart Catheterization, Orthopedic Surgery Additional Past Surgical History / Comment(s): Right elbow surgery, left elbow tendon repair, bilateral wrist/hand surgery, trigger finger surgery X3, skin grafts to lower back, under knee and buttocks due to de [place] santos, colonoscopies. Past Anesthesia/Blood Transfusion Reactions: No Reported Reaction Past Psychological History: Anxiety, Depression Smoking Status: Former smoker Past Alcohol Use History: Heavy Additional Past Alcohol Use History / Comment(s): Quit smoking in 1998, smoked for 35 yrs, 1/2 ppd. Hx of heavy alcohol use, quit 43 yrs ago. Past Drug Use History: Marijuana Additional Drug Use History / Comment(s): Quit marijuana 43 yrs ago. - Past Family History Father Family Medical History: Cancer, Myocardial Infarction ([place]) Additional Family Medical History / Comment(s): Skin cancer. Brother(s) Family Medical History: Myocardial Infarction ([place]) Additional Family Medical History / Comment(s): at age 65. Mother Family Medical History: Cancer Additional Family Medical History / Comment(s): Skin cancer. Medications and Allergies Home Medications Medication Instructions Recorded Confirmed Type Aspirin 81 mg PO DAILY 05/16/14 09/10/23 History PARoxetine [Paxil] 20 mg PO DAILY 05/16/14 09/10/23 History Pravastatin Sodium [Pravachol] 20 mg PO HS 05/16/14 09/10/23 History amLODIPine [Norvasc] 5 mg PO BID 05/16/14 09/10/23 History metFORMIN HCL [Glucophage] 1,000 mg PO DAILY 05/16/14 09/10/23 History sulfaSALAzine [Azulfidine] 1,000 mg PO QID 06/26/17 09/10/23 History carvediloL [Coreg] 25 mg PO BID 06/04/20 09/10/23 History INSULIN LISPRO (For Pump) [humaLOG 0.01 units SQ-PUMP CONTINUOUS 01/29/21 09/10/23 History (For Pump)] Dicyclomine [Bentyl] 10 mg PO ACHS 09/10/23 09/10/23 History Famotidine 20 mg PO DAILY@1600 09/10/23 09/10/23 History Isosorbide Mononitrate ER [Imdur] 30 mg PO DAILY 09/10/23 09/10/23 History Latanoprost Ophth [Xalatan 0.005%] 1 drop BOTH EYES HS 09/10/23 09/10/23 History Levothyroxine Sodium [Synthroid] 75 mcg PO AC-BRKFST 09/10/23 09/10/23 History Sennosides/Docusate Sodium [Senna 1 cap PO HS 09/10/23 09/10/23 History Plus 8.6-50 mg Softgel] clonazePAM [KlonoPIN] 0.5 mg PO HS 09/10/23 09/10/23 History hydrALAZINE HCL [Apresoline] 100 mg PO Q8H 09/10/23 09/10/23 History lisinopriL [Zestril] 5 mg PO DAILY 09/10/23 09/10/23 History Allergies Allergy/AdvReac Type Severity Reaction Status Date / Time empagliflozin Allergy Unknown Verified 09/10/23 16:03 [From Jardiance] hydrochlorothiazide Allergy Unknown Verified 09/10/23 16:03 Penicillins Allergy Anaphylaxis Verified 09/10/23 16:03 Physical Exam Vitals: Vital Signs Temp Pulse Pulse Resp BP BP Pulse Ox 09/13/23 10:20 20 85 L 09/13/23 08:02 97.5 F L 75 20 179/82 91 L 09/13/23 07:58 76 09/13/23 07:37 78 96 09/13/23 00:39 97.5 F L 61 18 163/84 92 L 09/12/23 21:50 85 09/12/23 21:39 84 09/12/23 20:00 16 09/12/23 19:13 97.4 F L 72 18 149/62 94 L 09/12/23 16:46 87 09/12/23 16:21 87 09/12/23 16:17 87 19 09/12/23 14:29 98.2 F 87 19 163/76 94 L Intake and Output 09/12/23 09/13/23 09/13/23 22:59 06:59 14:59 Intake Total 1300 Balance 1300 Intake: Intake, IV Titration 900 Amount Sodium Chloride 0.45% 1, 900 000 ml @ 75 mls/hr IV . 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 Acute kidney injury, ATN currently nonoliguric. Rule out urine retention. Renal function improved with IV hydration. Check UA and check ultrasound of the kidneys. 2. Acute hypoxic respiratory failure secondary to COPD exacerbation and possible pneumonia 3. Non-gap metabolic acidosis associated with acute kidney injury and IV fluids 4. Hypertension uncontrolled secondary to steroids. Maintained on Coreg and hydralazine and amlodipine. Lisinopril was held due to acute kidney injury. Plan: Change IV fluids to Ringer lactate as sodium is on the lower side and patient is maintained on 0.45% daily Can resume lisinopril as renal function has improved. Check UA Check ultrasound of the kidneys Thank you for the consultation. We will continue to follow the patient with you during his hospitalization
--- NOTE | 2023-09-13 11:47 | P.PN ---
Subjective Progress Note Date: 09/13/23 This is a pleasant 73-year-old male patient with a history of chronic obstructi ve pulmonary disease, former smoker, history of heavy alcohol use, marijuana use, diabetes mellitus, hypertension, hyperlipidemia, hypothyroidism, anxiety/depression. He presented to the emergency room with complaints of shortness of breath. Chest x-ray reveals no acute pulmonary process. T angio gram ruled out pulmonary embolism. There is a minimal infiltrate in the posterior lateral left upper lung field. Chest x-ray reveals preserved left ventricular systolic function with ejection fraction 60-65%. Severe pulmonary hypertension with an RVSP of 58 mmHg. White count 6.3. Hemoglobin 10.8. Platelets 2:15. Sodium 137. Potassium 5.1. Bicarb 20. BUN 29. Creatinine 1.36. ProBNP 460. Pro-Calcitonin 0.19. He is seen today in consultation on the regular medical floor. He is currently sitting up in bed. Awake and alert in no acute distress. Maintaining O2 saturations in the 90s on 4 L/m per nasal cannula. He's been afebrile. Hemodynamically stable. He's been initiated on ceftriaxone and azithromycin. DuoNeb inhalations, Symbicort, Solu-Medrol. Heparin for DVT prophylaxis. On 09/12/2023, the patient is feeling better last short of breath compared to yesterday. He is known to have COPD, former smoker presented with Acute hypoxic respiratory failure and shortness of breath. The patient is already feeling better by now. His creatinine is impaired at 2.0. Stable. CT angiogram showed some limited infiltration and small effusion lung bases. He is diabetic and he is currently on a insulin pump. However, the pump is off currently as the patient is hospitalized.His echoes at 8.9, hemoglobin is at 9.2, sodium is at 135, potassium is at 5.8, BUN is at 48 with a creatinine 2.0. LFTs are within normal limits. Echo of the heart was done and it showed a preserved LV function with an ejection fraction of 60-65%. No significant wall motion abnormalities. RV pressure was elevated at [address] angiogram was also done at time of admission and it showed no evidence of any acute pulmonary embolism. Currently on Rocephin and Zithromax. Currently on bronchodilators. Currently on steroids. on 09/13/2023, less short of breath compared to yesterday and the patient is responding to the treatment. The patient is less bronchospastic and wheezing compared to yesterday. He was restless for an acute COPD exacerbation. He is on oxygen at 2 L/m nasal cannula. No interval worsening. Remains on Rocephin and Zithromax. Follow-up blood work from today shows a BUN of 43 with a creatinine of 1.5. Sodium is at 135 and a potassium level is at 5.4. The patient remains on IV fluids of normal saline at the rate of 75 mL an hour. Objective - Vital Signs Vital signs: Vital Signs Temp 97.5 F L 09/13/23 08:02 Pulse 75 09/13/23 08:02 Resp 20 09/13/23 10:20 BP 179/82 09/13/23 08:02 Pulse Ox 85 L 09/13/23 10:20 FiO2 Intake & Output 09/12/23 09/13/23 09/13/23 18:59 06:59 18:59 Intake Total 1300 Balance 1300 Intake: Intake, IV Titration 900 Amount Sodium Chloride 0.45% 1, 900 000 ml @ 75 mls/hr IV . [id number] [facility] Rx#:[id number] Oral 400 Other: Voiding Method Toilet Toilet # Voids 2 2 - Exam GENERAL EXAM: Alert, pleasant 73-year-old male, on 4 L nasal cannula, fairly comfortable in no apparent distress. HEAD: Normocephalic. EYES: Normal reaction of pupils, equal size. NOSE: Clear with pink turbinates. THROAT: No erythema or exudates. NECK: No masses, no JVD. CHEST: No chest wall deformity. LUNGS: Equal air entry with no crackles, wheeze, rhonchi or dullness. CVS: S1 and S2 normal with no audible murmur, regular rhythm. ABDOMEN: No hepatosplenomegaly, normal bowel sounds, no guarding or rigidity. SPINE: No scoliosis or deformity SKIN: No rashes CENTRAL NERVOUS SYSTEM: No focal deficits, tone is normal in all 4 extremities. EXTREMITIES: There is no peripheral edema. No clubbing, no cyanosis. Peripheral pulses are intact. - Labs CBC & Chem 7: 09/12/23 05:18 09/13/23 05:16 Labs: Abnormal Lab Results - Last 24 Hours (Table) 09/12/23 09/12/23 09/13/23 Range/Units 16:21 20:51 05:16 Carbon Dioxide 20.6 L (21.6-31.8) mmol/L BUN 43.4 H (9.0-27.0) mg/dL Est GFR (CKD-EPI) 48 L (>=60) BUN/Creatinine Ratio 28.93 H (12.00-20.00) Ratio Glucose 253 H (70-110) mg/dL POC Glucose (mg/dL) 348 H 354 H (70-110) mg/dL Calcium 8.2 L (8.7-10.3) mg/dL 09/13/23 Range/Units 05:37 Carbon Dioxide (21.6-31.8) mmol/L BUN (9.0-27.0) mg/dL Est GFR (CKD-EPI) (>=60) BUN/Creatinine Ratio (12.00-20.00) Ratio Glucose (70-110) mg/dL POC Glucose (mg/dL) 247 H (70-110) mg/dL Calcium (8.7-10.3) mg/dL Microbiology - Last 24 Hours (Table) 09/10/23 10:33 Blood Culture - Preliminary Blood Assessment and Plan Plan: Acute hypoxemic respiratory failure secondary to suspected acute exacerbation of COPD, possible early pneumonia in the left upper lobe. Pro-Calcitonin 0.19, and the patient is covered appropriately with antibiotics with Rocephin and Zithromax. Currently is on oxygen at 2 L. Former smoker Obstructive sleep apnea maintained on CPAP Diabetes mellitus, currently on insulin pump , Hypertension Hyperlipidemia Hypothyroidism History of anxiety/depression History of alcohol use History of marijuana use Plan: clinically improved and the patient is currently on 2 L of oxygen by nasal cannula. Not completely ready to come off the oxygen yet. I'm hoping this will occur tomorrow. Renal function continues to improve Will tcontinue Solu-Medrol to 40 mg every 12 hours Wean down FiO2 as tolerated to [facility] about 90% Continue on ceftriaxone and azithromycin Continued DuoNeb inhalations, Symbicort, Solu-Medrol Titrate down the FiO2 as tolerated Increase his activity as tolerated We will continue to follow and make further recommendations based on his clin ical status
[2023-09-13 11:51] LABS: Glucose,Whole Blood 268 mg/dL (70-110)
[2023-09-13] MEDS: LACTATED RINGERS 1,000 ML IV SCH (12:59)
--- NOTE | 2023-09-13 15:28 | US ---
EXAMINATION TYPE: US kidneys/renal and bladder DATE OF EXAM: 09/13/2023 COMPARISON: CT 2017 CLINICAL INDICATION: Male, 73 years old with history of laine; LAINE, hx of kidney stones. EXAM MEASUREMENTS: Right Kidney: 11.9 x 6.2 x 5.7 cm Left Kidney: 11.1 x 6.4 x 6.3 cm Right Kidney: Anechoic area seen laterally at mid: 1.0 x 0.7 x 0.8 cm. Left Kidney: Hyperechoic focus with posterior shadowing seen upper pole: 0.7 x 0.5 x 0.5 cm. Bladder: Appears wnl Bilateral Jets seen: Left jet seen during exam. Renal cortical thickness normal. Cortical medullary junction preserved. IMPRESSION: 1. Nonobstructing 7 mm left renal calculus. 2. Anechoic areas seen in the lateral mid right kidney is too small to characterize but statistically most likely related to tiny simple cyst
[2023-09-13 17:11] LABS: Glucose,Whole Blood 364 mg/dL (70-110)
--- NOTE | 2023-09-13 17:14 | P.PN ---
Subjective Progress Note Date: 09/13/23 This is a 73-year-old gentleman admitted with acute hypoxic respiratory failure, acute exacerbation COPD and possible left upper lobe pneumonia and multiple other medical issues. Echo reported normal LV function, EF 6065%, mildly increased septal wall thickness. Maintained on Rocephin ,Zithromax, nebulized bronchodilators and IV steroids. Pro-calcitonin 0.19. Maintaining O2 sats in the 90s on 2 L. Afebrile, normal WBC. Worsening renal function, BUN 48.2, creatinine 2. Blood sugars uncontrolled. 09/13/2023 maintained on nebulized bronchodilators, IV steroids, ceftriaxone and azithromycin. Maintaining O2 sats in the 90s on 2 L nasal cannula patient's renal function worsened after receiving chest CTA-contrast. PHOEBE inhibitor held, IV fluids initiated and creatinine improved decreased to 1.5. Potassium decreased to 5.4, sodium 135. Hypertensive. Blood sugars elevated blood but improving on Lantus, pre-meal NovoLog and sliding scale. Reports breathing better, set up in the chair yesterday, he ambulated more within the room. Tolerated exertion well. Objective - Vital Signs Vital signs: Vital Signs Temp 97.5 F L 09/13/23 08:02 Pulse 76 09/13/23 12:22 Resp 20 09/13/23 10:20 BP 179/82 09/13/23 08:02 Pulse Ox 85 L 09/13/23 10:20 FiO2 Intake & Output 09/12/23 09/13/23 09/13/23 18:59 06:59 18:59 Intake Total 1300 300 Balance 1300 300 Intake: Intake, IV Titration 900 Amount Sodium Chloride 0.45% 1, 900 000 ml @ 75 mls/hr IV . [id number] [facility] Rx#:[id number] Oral 400 300 Other: Voiding Method Toilet Toilet # Voids 2 2 - Exam PHYSICAL EXAM: VITAL SIGNS: [As above] GENERAL: Alert and oriented 3, Sitting up in bed, no acute distress HEENT: Normocephalic Conjunctivae normal. eyes normal. NECK: Supple, No JVD. CARDIOVASCULAR: S1, S2 regular. No murmur RESPIRATION: Unlabored , equal air entry ,Breath sounds diminished in the bases. No rhonchi or crackles. No expiratory wheeze. ABDOMEN: Soft, nondistended, nontender . No guarding. +BS. LEGS: No edema. no swelling NERVOUS SYSTEM: Cranial N 2-12 grossly normal. No focal deficits. Strength and sensation grossly intact. Skin: Warm and dry, no rash - Labs CBC & Chem 7: 09/12/23 05:18 09/13/23 05:16 Labs: Abnormal Lab Results - Last 24 Hours (Table) 09/12/23 09/12/23 09/13/23 Range/Units 16:21 20:51 05:16 Carbon Dioxide 20.6 L (21.6-31.8) mmol/L BUN 43.4 H (9.0-27.0) mg/dL Est GFR (CKD-EPI) 48 L (>=60) BUN/Creatinine Ratio 28.93 H (12.00-20.00) Ratio Glucose 253 H (70-110) mg/dL POC Glucose (mg/dL) 348 H 354 H (70-110) mg/dL Calcium 8.2 L (8.7-10.3) mg/dL 09/13/23 09/13/23 Range/Units 05:37 11:49 Carbon Dioxide (21.6-31.8) mmol/L BUN (9.0-27.0) mg/dL Est GFR (CKD-EPI) (>=60) BUN/Creatinine Ratio (12.00-20.00) Ratio Glucose (70-110) mg/dL POC Glucose (mg/dL) 247 H 268 H (70-110) mg/dL Calcium (8.7-10.3) mg/dL Microbiology - Last 24 Hours (Table) 09/10/23 10:33 Blood Culture - Preliminary Blood Assessment and Plan Assessment: Acute COPD exacerbation Possible acute left upper lobe pneumonia Acute hypoxic respiratory failure secondary to the above Acute renal failure, contrast induced, possibly hypovolemic Obesity, BMI 30 Obstructive sleep apnea, on CPAP Diabetes mellitus, insulin pump currently not on, hemoglobin A1c 5, [id number] Hypothyroidism Hypertension Hyperlipidemia History of anxiety, depression History of alcohol and marijuana use Plan: Continue on current medication regime ,monitoring and symptomatic treat ment. Maintain aggressive pulmonary toileting with antibiotics, steroids and nebulized bronchodilators. Increase activity as tolerated. Lantus increased to a.m. and p.m. with close monitoring of Accu-Cheks. Renal function improving , close monitoring with repeat labs ordered for a.m. Continue weaning FiO2. Smoking cessation reinforced. The impression and plan of care has been dictated as directed. : I performed a history and examination of this patient, discussed the same with the dictator. I agree with the dictator's note ,documented as a scribe. Any additional findings or plans will be noted.
[2023-09-13] MEDS: FAMOTIDINE 20 MG TAB PO SCH (17:58)
[2023-09-13] MEDS: AZITHROMYCIN 500 MG in SODIUM CHLORIDE 0.9% 250 ML IVPB SCH (17:58)
[2023-09-13 20:47] LABS: Glucose,Whole Blood 421 mg/dL (70-110)
[2023-09-13] MEDS ORDERED: INSULIN DETEMIR (LEVEMIR) 100 UNIT/ML SYR SQ ONE (21:16)
[2023-09-13] MEDS: SENNOSIDES-DOCUSATE SODIUM 1 EACH TAB PO SCH (21:36)
[2023-09-13] MEDS: PRAVASTATIN SODIUM 20 MG TAB PO SCH (21:36)
[2023-09-13] MEDS: clonazePAM 0.5 MG TAB PO SCH (21:36)
[2023-09-13] MEDS: LATANOPROST 0.005% OPHTH DROPS 2.5 ML BTL BOTH EYES SCH (21:38)
[2023-09-14] MEDS: methylPREDNISolone SOD SUCCI 40 MG/ML 1 ML VIAL IV SCH ×4 (00:48→17:17)
[2023-09-14] MEDS: hydrALAZINE HCL 50 MG TAB PO SCH ×4 (00:48→17:17)
[2023-09-14 06:08] LABS: Glucose,Whole Blood 264 mg/dL (70-110)
[2023-09-14] MEDS: carvediloL 12.5 MG TAB PO SCH ×2 (06:36→17:17)
[2023-09-14] MEDS: INSULIN DETEMIR (LEVEMIR) 100 UNIT/ML SYR SQ SCH ×2 (06:36→21:40)
[2023-09-14] MEDS: LACTATED RINGERS 1,000 ML IV SCH (06:37)
[2023-09-14] MEDS: DICYCLOMINE 10 MG CAP PO SCH ×4 (06:37→21:40)
[2023-09-14] MEDS: INSULIN ASPART (NovoLOG) 100 UNIT/ML VIAL SQ SCH ×7 (08:13→21:40)
[2023-09-14] MEDS: ISOSORBIDE MONONITRATE ER 30 MG TAB.ER.24H PO SCH ×2 (08:13→21:40)
[2023-09-14] MEDS: HEPARIN SODIUM,PORCINE 5,000 UNIT/ML 1 ML VIAL SQ SCH ×2 (08:13→21:40)
[2023-09-14] MEDS: ASPIRIN 81 MG PO SCH (08:13)
[2023-09-14] MEDS: PARoxetine 20 MG TAB PO SCH (08:13)
[2023-09-14] MEDS: amLODIPine 5 MG TAB PO SCH ×2 (08:13→21:40)
[2023-09-14] MEDS: lisinopriL 5 MG TAB PO SCH (08:13)
[2023-09-14 08:51] LABS: BUN/Creat Ratio 27.31 Ratio (12.00-20.00); Blood Urea Nitrogen 35.5 mg/dL (9.0-27.0); Calcium 8.3 mg/dL (8.7-10.3); Carbon Dioxide 21.6 mmol/L (21.6-31.8); Chloride 106 mmol/L (96-109); Glucose 280 mg/dL (70-110); Potassium 5.6 mmol/L (3.5-5.5); Sodium 135 mmol/L (135-145)
[2023-09-14] MEDS: SYMBICORT 160-4.5 MCG INHALER INHALATION SCH ×2 (09:05→21:14)
[2023-09-14] MEDS: IPRATROPIUM-ALBUTEROL 3 ML NEB INHALATION SCH ×4 (09:05→21:14)
--- NOTE | 2023-09-14 10:46 | P.PN ---
Subjective Patient is seen for follow-up for acute kidney injury. No significant complaints today. Renal function has improved with creatinine down to 1.3. Potassium did go up to 5.6. Blood pressure remains elevated with systolic in the 180s to 197. Lisinopril was restarted yesterday but potassium has increased to 5.6 today. 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 - Labs CBC & Chem 7: 09/12/23 05:18 09/14/23 05:41 Labs: Abnormal Lab Results - Last 24 Hours (Table) 09/13/23 09/13/23 09/13/23 Range/Units 11:49 17:10 20:46 Potassium (3.5-5.5) mmol/L BUN (9.0-27.0) mg/dL Est GFR (CKD-EPI) (>=60) BUN/Creatinine Ratio (12.00-20.00) Ratio Glucose (70-110) mg/dL POC Glucose (mg/dL) 268 H 364 H 421 H (70-110) mg/dL Calcium (8.7-10.3) mg/dL 09/14/23 09/14/23 Range/Units 05:41 06:06 Potassium 5.6 H (3.5-5.5) mmol/L BUN 35.5 H (9.0-27.0) mg/dL Est GFR (CKD-EPI) 57 L (>=60) BUN/Creatinine Ratio 27.31 H (12.00-20.00) Ratio Glucose 280 H (70-110) mg/dL POC Glucose (mg/dL) 264 H (70-110) mg/dL Calcium 8.3 L (8.7-10.3) mg/dL Microbiology - Last 24 Hours (Table) 09/10/23 10:33 Blood Culture - Preliminary Blood Assessment and Plan Assessment: 1. Acute kidney injury, ATN currently nonoliguric. . Renal function improved with IV hydration. Check UA , ultrasound shows nonobstructing 7 mm left renal calculus. No hydronephrosis noted bilaterally.. 2. Acute hypoxic respiratory failure secondary to COPD exacerbation and possible pneumonia 3. Non-gap metabolic acidosis associated with acute kidney injury and IV fluids 4. Hypertension uncontrolled secondary to steroids. Maintained on Coreg and hydralazine and amlodipine. Lisinopril was held due to acute kidney injury. It was restarted this morning but potassium has increased to 5.6 therefore I will hold it again. Plan: DC IV fluids Increase Imdur to 30 mg twice a day Lokelma x2 Low potassium diet Control blood sugars which will also contribute to hyperkalemia DC lisinopril again if potassium remains elevated.
[2023-09-14 11:52] LABS: Glucose,Whole Blood 286 mg/dL (70-110)
[2023-09-14] MEDS ORDERED: INSULIN DETEMIR (LEVEMIR) 100 UNIT/ML SYR SQ ONE (12:15)
[2023-09-14] MEDS: SODIUM ZIRCONIUM CYCLOSILICATE 10 GM PACKET PO SCH ×3 (12:19→21:42)
--- NOTE | 2023-09-14 12:22 | P.PN ---
Subjective Progress Note Date: 09/14/23 This is a 73-year-old gentleman admitted with acute hypoxic respiratory failure, acute exacerbation COPD and possible left upper lobe pneumonia and multiple other medical issues. Echo reported normal LV function, EF 6065%, mildly increased septal wall thickness. Maintained on Rocephin ,Zithromax, nebulized bronchodilators and IV steroids. Pro-calcitonin 0.19. Maintaining O2 sats in the 90s on 2 L. Afebrile, normal WBC. Worsening renal function, BUN 48.2, creatinine 2. Blood sugars uncontrolled. 09/13/2023 maintained on nebulized bronchodilators, IV steroids, ceftriaxone and azithromycin. Maintaining O2 sats in the 90s on 2 L nasal cannula patient's renal function worsened after receiving chest CTA-contrast. PHOEBE inhibitor held, IV fluids initiated and creatinine improved decreased to 1.5. Potassium decreased to 5.4, sodium 135. Hypertensive. Blood sugars elevated blood but improving on Lantus, pre-meal NovoLog and sliding scale. Reports breathing better, set up in the chair yesterday, he ambulated more within the room. Tolerated exertion well. 09/14/2023 maintaining O2 sats of low 90s on 2 L nasal cannula. Respiratory status improving .Denies chest pain, palpitations or increased shortness of breath. Apparently, patient did not receive his insulin sliding scale this mor divina with current blood sugars further elevated to 286. Creatinine decreased, potassium increased to 5.6. Hypertensive. Renal ultrasound reporting nonobstructing 7 mm left renal calculus, anechoic areas seen in the lateral mid right kidney too small to characterize but statistically most likely related to tiny simple cyst. Objective - Vital Signs Vital signs: Vital Signs Temp 97.9 F 09/14/23 07:21 Pulse 72 09/14/23 09:21 Resp 15 09/14/23 07:21 BP 197/70 09/14/23 07:21 Pulse Ox 97 09/14/23 09:05 FiO2 Intake & Output 09/13/23 09/14/23 09/14/23 18:59 06:59 18:59 Intake Total 600 Balance 600 Intake: Oral 600 Other: Voiding Method Toilet # Voids 2 - Exam PHYSICAL EXAM: VITAL SIGNS: [As above] GENERAL: Alert and oriented 3, Sitting up in bed, no acute distress HEENT: Normocephalic Conjunctivae normal. eyes normal. NECK: Supple, No JVD. CARDIOVASCULAR: S1, S2 regular. No murmur RESPIRATION: Unlabored , equal air entry ,Breath sounds diminished in the bases. No rhonchi,crackles or expiratory wheeze. ABDOMEN: Soft, nondistended, nontender . No guarding. +BS. LEGS: No edema. no swelling NERVOUS SYSTEM: Cranial N 2-12 grossly normal. No focal deficits. Strength and sensation grossly intact. Skin: Warm and dry, no rash - Labs CBC & Chem 7: 09/12/23 05:18 09/14/23 05:41 Labs: Abnormal Lab Results - Last 24 Hours (Table) 09/13/23 09/13/23 09/13/23 Range/Units 11:49 17:10 20:46 Potassium (3.5-5.5) mmol/L BUN (9.0-27.0) mg/dL Est GFR (CKD-EPI) (>=60) BUN/Creatinine Ratio (12.00-20.00) Ratio Glucose (70-110) mg/dL POC Glucose (mg/dL) 268 H 364 H 421 H (70-110) mg/dL Calcium (8.7-10.3) mg/dL 09/14/23 09/14/23 Range/Units 05:41 06:06 Potassium 5.6 H (3.5-5.5) mmol/L BUN 35.5 H (9.0-27.0) mg/dL Est GFR (CKD-EPI) 57 L (>=60) BUN/Creatinine Ratio 27.31 H (12.00-20.00) Ratio Glucose 280 H (70-110) mg/dL POC Glucose (mg/dL) 264 H (70-110) mg/dL Calcium 8.3 L (8.7-10.3) mg/dL Microbiology - Last 24 Hours (Table) 09/10/23 10:33 Blood Culture - Preliminary Blood Assessment and Plan Assessment: Acute COPD exacerbation Possible acute left upper lobe pneumonia Acute hypoxic respiratory failure secondary to the above Acute renal failure, contrast induced, possibly hypovolemic Obesity, BMI 30 Obstructive sleep apnea, on CPAP Diabetes mellitus, insulin pump currently not on, hemoglobin A1c 5, [id number] Hypothyroidism Hypertension Hyperlipidemia History of anxiety, depression History of alcohol and marijuana use Plan: Continue on current medication regime ,monitoring and symptomatic treatment. Antihypertensives further adjusted with parameters .hyperkalemic in part related to uncontrolled blood sugars, Salvatoreme ordered, recheck potassium level later this afternoon. Discussed diabetic regimen with RN; patient is to receive Levemir insulin pre-meal insulin and sliding scale as ordered -informed to call with any concerns or questions .Levemir dose increased, close monitoring of Accu-Cheks . Continue with aggressive pulmonary toileting with antibiotics, steroids and nebulized bronchodilators. Increase activity as tolerated. Renal function improving , close monitoring with repeat labs ordered for a.m. Continue weaning FiO2. Smoking cessation reinforced. Discharge planning soon, pending pulmonary clearance. The impression and plan of care has been dictated as directed. : I performed a history and examination of this patient, discussed the same with the dictator. I agree with the dictator's note ,documented as a scribe. Any additional findings or plans will be noted.
[2023-09-14 16:50] LABS: Glucose,Whole Blood 268 mg/dL (70-110)
[2023-09-14] MEDS: FAMOTIDINE 20 MG TAB PO SCH (17:17)
--- NOTE | 2023-09-14 17:53 | P.PN ---
Subjective Progress Note Date: 09/14/23 This is a pleasant 73-year-old male patient with a history of chronic obstructi ve pulmonary disease, former smoker, history of heavy alcohol use, marijuana use, diabetes mellitus, hypertension, hyperlipidemia, hypothyroidism, anxiety/depression. He presented to the emergency room with complaints of shortness of breath. Chest x-ray reveals no acute pulmonary process. T angio gram ruled out pulmonary embolism. There is a minimal infiltrate in the posterior lateral left upper lung field. Chest x-ray reveals preserved left ventricular systolic function with ejection fraction 60-65%. Severe pulmonary hypertension with an RVSP of 58 mmHg. White count 6.3. Hemoglobin 10.8. Platelets 2:15. Sodium 137. Potassium 5.1. Bicarb 20. BUN 29. Creatinine 1.36. ProBNP 460. Pro-Calcitonin 0.19. He is seen today in consultation on the regular medical floor. He is currently sitting up in bed. Awake and alert in no acute distress. Maintaining O2 saturations in the 90s on 4 L/m per nasal cannula. He's been afebrile. Hemodynamically stable. He's been initiated on ceftriaxone and azithromycin. DuoNeb inhalations, Symbicort, Solu-Medrol. Heparin for DVT prophylaxis. On 09/12/2023, the patient is feeling better last short of breath compared to yesterday. He is known to have COPD, former smoker presented with Acute hypoxic respiratory failure and shortness of breath. The patient is already feeling better by now. His creatinine is impaired at 2.0. Stable. CT angiogram showed some limited infiltration and small effusion lung bases. He is diabetic and he is currently on a insulin pump. However, the pump is off currently as the patient is hospitalized.His echoes at 8.9, hemoglobin is at 9.2, sodium is at 135, potassium is at 5.8, BUN is at 48 with a creatinine 2.0. LFTs are within normal limits. Echo of the heart was done and it showed a preserved LV function with an ejection fraction of 60-65%. No significant wall motion abnormalities. RV pressure was elevated at [address] angiogram was also done at time of admission and it showed no evidence of any acute pulmonary embolism. Currently on Rocephin and Zithromax. Currently on bronchodilators. Currently on steroids. on 09/13/2023, less short of breath compared to yesterday and the patient is responding to the treatment. The patient is less bronchospastic and wheezing compared to yesterday. He was restless for an acute COPD exacerbation. He is on oxygen at 2 L/m nasal cannula. No interval worsening. Remains on Rocephin and Zithromax. Follow-up blood work from today shows a BUN of 43 with a creatinine of 1.5. Sodium is at 135 and a potassium level is at 5.4. The patient remains on IV fluids of normal saline at the rate of 75 mL an hour. On 09/14/2023, the patient is still hypoxic on 2 L of oxygen by nasal cannula to maintain a saturation above 90%. On room air, he denies his oxygen to mid 80s. No chest pain. No cough or sputum production. No altered mentation. Potassium levels at 5.6 with a sodium level of 135, BUN is at 35 with a creatinine of 1.3. He remains on DuoNeb updrafts. He remains on Symbicort. He remains on IV Solu-Medrol 40 mg every 6 hours. Is also on Levemir insulin 30 units in the morning and 10 units in the evening and he is also on a sliding scale insulin coverage. He remains on IV Rocephin. The CT angiogram that was done at time of admission showed no this of any pulmonary embolism. Minimal infiltration of the posterior lateral left upper lung vicente. Noted the patient also developed an acute kidney injury at time of admission and the creatinine peaked at 2.0pain currently is down to 1.3. The patient remains on IV fluids. He is also on Lokelma regarding his hyperkalemia. Nephrology is on the case regarding potassium monitoring. Hyperkalemia is probably related to his acute kidney injury and its improved. Ultrasound the kidney was done and showed nonobstructive 7 mm calculus in the left kidney. Objective - Vital Signs Vital signs: Vital Signs Temp 97.5 F L 09/14/23 11:56 Pulse 70 09/14/23 12:21 Resp 18 09/14/23 11:56 BP 166/84 09/14/23 11:56 Pulse Ox 93 L 09/14/23 11:56 FiO2 Intake & Output 09/13/23 09/14/23 09/14/23 18:59 06:59 18:59 Intake Total 600 Balance 600 Intake: Oral 600 Other: Voiding Method Toilet # Voids 2 - Exam GENERAL EXAM: Alert, pleasant 73-year-old male, on 2 L nasal cannula, fairly com fortable in no apparent distress. HEAD: Normocephalic. EYES: Normal reaction of pupils, equal size. NOSE: Clear with pink turbinates. THROAT: No erythema or exudates. NECK: No masses, no JVD. CHEST: No chest wall deformity. LUNGS: Equal air entry with no crackles, wheeze, rhonchi or dullness. CVS: S1 and S2 normal with no audible murmur, regular rhythm. ABDOMEN: No hepatosplenomegaly, normal bowel sounds, no guarding or rigidity. SPINE: No scoliosis or deformity SKIN: No rashes CENTRAL NERVOUS SYSTEM: No focal deficits, tone is normal in all 4 extremities. EXTREMITIES: There is no peripheral edema. No clubbing, no cyanosis. Peripheral pulses are intact. - Labs CBC & Chem 7: 09/12/23 05:18 09/14/23 05:41 Labs: Abnormal Lab Results - Last 24 Hours (Table) 09/13/23 09/13/23 09/14/23 Range/Units 17:10 20:46 05:41 Potassium 5.6 H (3.5-5.5) mmol/L BUN 35.5 H (9.0-27.0) mg/dL Est GFR (CKD-EPI) 57 L (>=60) BUN/Creatinine Ratio 27.31 H (12.00-20.00) Ratio Glucose 280 H (70-110) mg/dL POC Glucose (mg/dL) 364 H 421 H (70-110) mg/dL Calcium 8.3 L (8.7-10.3) mg/dL 09/14/23 09/14/23 Range/Units 06:06 11:50 Potassium (3.5-5.5) mmol/L BUN (9.0-27.0) mg/dL Est GFR (CKD-EPI) (>=60) BUN/Creatinine Ratio (12.00-20.00) Ratio Glucose (70-110) mg/dL POC Glucose (mg/dL) 264 H 286 H (70-110) mg/dL Calcium (8.7-10.3) mg/dL Microbiology - Last 24 Hours (Table) 09/10/23 10:33 Blood Culture - Preliminary Blood Assessment and Plan Plan: Acute hypoxemic respiratory failure secondary to suspected acute exacerbation of COPD, possible early pneumonia in the left upper lobe. Pro-Calcitonin 0.19, and the patient is covered appropriately with antibiotics with Rocephin and Zithromax. Currently is on oxygen at 2 L. still having some issues with hypoxemia and the patient desaturates on room air oxygen. May need home O2 as his being treated for his acute COPD exacerbation Former smoker Obstructive sleep apnea maintained on CPAP Diabetes mellitus, currently on insulin pump Acute kidney injury, improving , Hypertension Hyperlipidemia Hypothyroidism History of anxiety/depression History of alcohol use History of marijuana use Plan: Continue same treatment Evaluate for home within the time of discharge Renal function continues to improve Will continue Solu-Medrol to 40 mg every 12 hours Wean down FiO2 as tolerated to [facility] about 90% Continue on ceftriaxone and azithromycin Continued DuoNeb inhalations, Symbicort, Solu-Medrol Titrate down the FiO2 as tolerated Increase his activity as tolerated We will continue to follow and make further recommendations based on his clinical status
[2023-09-14 20:34] LABS: Glucose,Whole Blood 280 mg/dL (70-110)
[2023-09-14] MEDS: SENNOSIDES-DOCUSATE SODIUM 1 EACH TAB PO SCH (21:40)
[2023-09-14] MEDS: clonazePAM 0.5 MG TAB PO SCH (21:40)
[2023-09-14] MEDS: PRAVASTATIN SODIUM 20 MG TAB PO SCH (21:40)
[2023-09-14] MEDS: LATANOPROST 0.005% OPHTH DROPS 2.5 ML BTL BOTH EYES SCH (21:41)
[2023-09-15] MEDS: methylPREDNISolone SOD SUCCI 40 MG/ML 1 ML VIAL IV SCH ×4 (00:46→17:28)
[2023-09-15] MEDS: hydrALAZINE HCL 50 MG TAB PO SCH ×4 (00:47→17:28)
[2023-09-15 06:29] LABS: Glucose,Whole Blood 333 mg/dL (70-110)
[2023-09-15] MEDS: DICYCLOMINE 10 MG CAP PO SCH ×4 (06:44→21:35)
[2023-09-15] MEDS: carvediloL 12.5 MG TAB PO SCH ×2 (06:44→17:28)
[2023-09-15] MEDS: INSULIN DETEMIR (LEVEMIR) 100 UNIT/ML SYR SQ SCH ×2 (06:44→21:36)
[2023-09-15] MEDS: lisinopriL 5 MG TAB PO SCH (07:57)
[2023-09-15] MEDS: INSULIN ASPART (NovoLOG) 100 UNIT/ML VIAL SQ SCH ×7 (07:57→21:35)
[2023-09-15] MEDS: PARoxetine 20 MG TAB PO SCH (07:58)
[2023-09-15] MEDS: ISOSORBIDE MONONITRATE ER 30 MG TAB.ER.24H PO SCH ×2 (07:58→21:35)
[2023-09-15] MEDS: ASPIRIN 81 MG PO SCH (07:58)
[2023-09-15] MEDS: amLODIPine 5 MG TAB PO SCH (07:58)
[2023-09-15] MEDS: HEPARIN SODIUM,PORCINE 5,000 UNIT/ML 1 ML VIAL SQ SCH ×2 (07:58→21:35)
[2023-09-15] MEDS: SYMBICORT 160-4.5 MCG INHALER INHALATION SCH ×2 (08:39→21:42)
[2023-09-15] MEDS: IPRATROPIUM-ALBUTEROL 3 ML NEB INHALATION SCH ×4 (08:39→21:41)
[2023-09-15 11:36] LABS: BUN/Creat Ratio 24.67 Ratio (12.00-20.00); Blood Urea Nitrogen 29.6 mg/dL (9.0-27.0); Calcium 8.7 mg/dL (8.7-10.3); Carbon Dioxide 22.4 mmol/L (21.6-31.8); Chloride 105 mmol/L (96-109); Glucose 334 mg/dL (70-110); Potassium 5.1 mmol/L (3.5-5.5); Sodium 138 mmol/L (135-145)
[2023-09-15 11:48] LABS: Glucose,Whole Blood 359 mg/dL (70-110)
--- NOTE | 2023-09-15 12:42 | P.PN ---
Subjective Patient is seen for follow-up for acute kidney injury. No significant complaints today. Renal function has improved with creatinine down to 1.2. Potassium did go up to 5.6 yesterday but decrease to 5.1 today. Blood sugars remained elevated but im proved from yesterday.. Objective - Vital Signs Vital signs: Vital Signs Temp 98.3 F 09/15/23 07:24 Pulse 72 09/15/23 11:43 Resp 16 09/15/23 07:24 BP 202/72 09/15/23 07:24 Pulse Ox 97 09/15/23 08:41 FiO2 - Exam Patient is awake, comfortable, no acute distress Examination of the heart S1 and S2 Examination of the lungs bilateral breath sounds are heard Abdomen is soft nontender Examination of lower extremities shows no significant edema [employer] exam grossly intac - Labs CBC & Chem 7: 09/12/23 05:18 09/15/23 06:29 Labs: Abnormal Lab Results - Last 24 Hours (Table) 09/14/23 09/14/23 09/15/23 Range/Units 16:49 20:33 06:27 BUN (9.0-27.0) mg/dL BUN/Creatinine Ratio (12.00-20.00) Ratio Glucose (70-110) mg/dL POC Glucose (mg/dL) 268 H 280 H 333 H (70-110) mg/dL 09/15/23 09/15/23 Range/Units 06:29 11:46 BUN 29.6 H (9.0-27.0) mg/dL BUN/Creatinine Ratio 24.67 H (12.00-20.00) Ratio Glucose 334 H (70-110) mg/dL POC Glucose (mg/dL) 359 H (70-110) mg/dL Assessment and Plan Assessment: 1. Acute kidney injury, ATN currently nonoliguric. . Renal function improved with IV hydration. Check UA , ultrasound shows nonobstructing 7 mm left renal calculus. No hydronephrosis noted bilaterally.. 2. Acute hypoxic respiratory failure secondary to COPD exacerbation and possible pneumonia 3. Non-gap metabolic acidosis associated with acute kidney injury and IV fluids 4. Hypertension uncontrolled secondary to steroids. Maintained on Coreg and hydralazine and amlodipine. Lisinopril was held due to acute kidney injury but was restarted due to uncontrolled hypertension. Potassium is better today at 5.1. Plan: Consider decreasing Solu-Medrol Switch amlodipine to Procardia and if blood pressure remains uncontrolled clonidine will be added Low potassium diet Control blood sugars as hyperglycemia will also contribute to hyperkalemia
[2023-09-15 13:26] VITALS: BMI 29.7
--- NOTE | 2023-09-15 16:16 | P.PN ---
Subjective Progress Note Date: 09/15/23 This is a pleasant 73-year-old male patient with a history of chronic obstructi ve pulmonary disease, former smoker, history of heavy alcohol use, marijuana use, diabetes mellitus, hypertension, hyperlipidemia, hypothyroidism, anxiety/depression. He presented to the emergency room with complaints of shortness of breath. Chest x-ray reveals no acute pulmonary process. T angio gram ruled out pulmonary embolism. There is a minimal infiltrate in the posterior lateral left upper lung field. Chest x-ray reveals preserved left ventricular systolic function with ejection fraction 60-65%. Severe pulmonary hypertension with an RVSP of 58 mmHg. White count 6.3. Hemoglobin 10.8. Platelets 2:15. Sodium 137. Potassium 5.1. Bicarb 20. BUN 29. Creatinine 1.36. ProBNP 460. Pro-Calcitonin 0.19. He is seen today in consultation on the regular medical floor. He is currently sitting up in bed. Awake and alert in no acute distress. Maintaining O2 saturations in the 90s on 4 L/m per nasal cannula. He's been afebrile. Hemodynamically stable. He's been initiated on ceftriaxone and azithromycin. DuoNeb inhalations, Symbicort, Solu-Medrol. Heparin for DVT prophylaxis. On 09/12/2023, the patient is feeling better last short of breath compared to yesterday. He is known to have COPD, former smoker presented with Acute hypoxic respiratory failure and shortness of breath. The patient is already feeling better by now. His creatinine is impaired at 2.0. Stable. CT angiogram showed some limited infiltration and small effusion lung bases. He is diabetic and he is currently on a insulin pump. However, the pump is off currently as the patient is hospitalized.His echoes at 8.9, hemoglobin is at 9.2, sodium is at 135, potassium is at 5.8, BUN is at 48 with a creatinine 2.0. LFTs are within normal limits. Echo of the heart was done and it showed a preserved LV function with an ejection fraction of 60-65%. No significant wall motion abnormalities. RV pressure was elevated at [address] angiogram was also done at time of admission and it showed no evidence of any acute pulmonary embolism. Currently on Rocephin and Zithromax. Currently on bronchodilators. Currently on steroids. on 09/13/2023, less short of breath compared to yesterday and the patient is responding to the treatment. The patient is less bronchospastic and wheezing compared to yesterday. He was restless for an acute COPD exacerbation. He is on oxygen at 2 L/m nasal cannula. No interval worsening. Remains on Rocephin and Zithromax. Follow-up blood work from today shows a BUN of 43 with a creatinine of 1.5. Sodium is at 135 and a potassium level is at 5.4. The patient remains on IV fluids of normal saline at the rate of 75 mL an hour. On 09/14/2023, the patient is still hypoxic on 2 L of oxygen by nasal cannula to maintain a saturation above 90%. On room air, he denies his oxygen to mid 80s. No chest pain. No cough or sputum production. No altered mentation. Potassium levels at 5.6 with a sodium level of 135, BUN is at 35 with a creatinine of 1.3. He remains on DuoNeb updrafts. He remains on Symbicort. He remains on IV Solu-Medrol 40 mg every 6 hours. Is also on Levemir insulin 30 units in the morning and 10 units in the evening and he is also on a sliding scale insulin coverage. He remains on IV Rocephin. The CT angiogram that was done at time of admission showed no this of any pulmonary embolism. Minimal infiltration of the posterior lateral left upper lung vicente. Noted the patient also developed an acute kidney injury at time of admission and the creatinine peaked at 2.0pain currently is down to 1.3. The patient remains on IV fluids. He is also on Lokelco regarding his hyperkalemia. Nephrology is on the case regarding potassium monitoring. Hyperkalemia is probably related to his acute kidney injury and its improved. Ultrasound the kidney was done and showed nonobstructive 7 mm calculus in the left kidney. On today's evaluation of 09/15/2023, the patient is less short of breath. Pulse ox on room air is is above 90%. We'll do also a home O2 evaluation. Remains on DuoNeb updrafts, remains on IV Solu-Medrol, remains on Symbicort. Remains on IV Rocephin. Remains on Levemir insulin for blood sugar control. No new complaints otherwise for now. Potassium level is down to 5.1. BUN is at 29 w ith a creatinine of 1.2 and a sodium level is at 138. The patient has recovered from his acute kidney injury. Potassium level is also improving. Objective - Vital Signs Vital signs: Vital Signs Temp 98.3 F 09/15/23 07:24 Pulse 72 09/15/23 11:43 Resp 16 09/15/23 07:24 BP 202/72 09/15/23 07:24 Pulse Ox 97 09/15/23 08:41 FiO2 Intake & Output 09/14/23 09/15/23 09/15/23 18:59 06:59 18:59 Weight 86.183 kg - Exam GENERAL EXAM: Alert, pleasant 73-year-old male, on 2 L nasal cannula, fairly comfortable in no apparent distress. HEAD: Normocephalic. EYES: Normal reaction of pupils, equal size. NOSE: Clear with pink turbinates. THROAT: No erythema or exudates. NECK: No masses, no JVD. CHEST: No chest wall deformity. LUNGS: Equal air entry with no crackles, wheeze, rhonchi or dullness. CVS: S1 and S2 normal with no audible murmur, regular rhythm. ABDOMEN: No hepatosplenomegaly, normal bowel sounds, no guarding or rigidity. SPINE: No scoliosis or deformity SKIN: No rashes CENTRAL NERVOUS SYSTEM: No focal deficits, tone is normal in all 4 extremities. EXTREMITIES: There is no peripheral edema. No clubbing, no cyanosis. Peripheral pulses are intact. - Labs CBC & Chem 7: 09/12/23 05:18 09/15/23 06:29 Labs: Abnormal Lab Results - Last 24 Hours (Table) 09/14/23 09/14/23 09/15/23 Range/Units 16:49 20:33 06:27 BUN (9.0-27.0) mg/dL BUN/Creatinine Ratio (12.00-20.00) Ratio Glucose (70-110) mg/dL POC Glucose (mg/dL) 268 H 280 H 333 H (70-110) mg/dL 09/15/23 09/15/23 Range/Units 06:29 11:46 BUN 29.6 H (9.0-27.0) mg/dL BUN/Creatinine Ratio 24.67 H (12.00-20.00) Ratio Glucose 334 H (70-110) mg/dL POC Glucose (mg/dL) 359 H (70-110) mg/dL Assessment and Plan Plan: Acute hypoxemic respiratory failure secondary to suspected acute exacerbation of COPD, possible early pneumonia in the left upper lobe. Pro-Calcitonin 0.19, and the patient is covered appropriately with antibiotics with Rocephin and Zithromax. Currently is on oxygen at 2 L. clinically improving. Oxygenation is also improving Acute kidney injury, improving Acute hyperkalemia, improving Former smoker Obstructive sleep apnea maintained on CPAP Diabetes mellitus, currently on insulin pump , Hypertension Hyperlipidemia Hypothyroidism History of anxiety/depression History of alcohol use History of marijuana use Plan: Continue same treatment Evaluate for home within the time of discharge, oxygenation general is improved Renal function continues to improve Will continue Solu-Medrol to 40 mg every 12 hours Wean down FiO2 as tolerated to [facility] about 90% Continue on ceftriaxone and azithromycin course Continued DuoNeb inhalations, Symbicort, Solu-Medrol Titrate down the FiO2 as tolerated Increase his activity as tolerated We will continue to follow and make further recommendations based on his clinical status
[2023-09-15 17:04] LABS: Glucose,Whole Blood 303 mg/dL (70-110)
[2023-09-15] MEDS: FAMOTIDINE 20 MG TAB PO SCH (17:29)
[2023-09-15 20:59] LABS: Glucose,Whole Blood 350 mg/dL (70-110)
[2023-09-15] MEDS: PRAVASTATIN SODIUM 20 MG TAB PO SCH (21:35)
[2023-09-15] MEDS: SENNOSIDES-DOCUSATE SODIUM 1 EACH TAB PO SCH (21:35)
[2023-09-15] MEDS: clonazePAM 0.5 MG TAB PO SCH (21:35)
[2023-09-15] MEDS: LATANOPROST 0.005% OPHTH DROPS 2.5 ML BTL BOTH EYES SCH (21:36)
[2023-09-16] MEDS: methylPREDNISolone SOD SUCCI 40 MG/ML 1 ML VIAL IV SCH ×2 (00:10→06:05)
[2023-09-16] MEDS: hydrALAZINE HCL 50 MG TAB PO SCH ×3 (00:10→12:45)
[2023-09-16 05:42] LABS: Glucose,Whole Blood 267 mg/dL (70-110)
[2023-09-16] MEDS: INSULIN DETEMIR (LEVEMIR) 100 UNIT/ML SYR SQ SCH (06:46)
[2023-09-16] MEDS: IPRATROPIUM-ALBUTEROL 3 ML NEB INHALATION SCH (08:50)
[2023-09-16] MEDS: SYMBICORT 160-4.5 MCG INHALER INHALATION SCH (08:50)
[2023-09-16] MEDS: ISOSORBIDE MONONITRATE ER 30 MG TAB.ER.24H PO SCH (08:58)
[2023-09-16] MEDS: lisinopriL 5 MG TAB PO SCH (08:58)
[2023-09-16] MEDS: PARoxetine 20 MG TAB PO SCH (08:58)
[2023-09-16] MEDS: HEPARIN SODIUM,PORCINE 5,000 UNIT/ML 1 ML VIAL SQ SCH (08:59)
[2023-09-16] MEDS: carvediloL 12.5 MG TAB PO SCH (08:59)
[2023-09-16] MEDS: DICYCLOMINE 10 MG CAP PO SCH ×2 (08:59→12:45)
[2023-09-16] MEDS: ASPIRIN 81 MG PO SCH (08:59)
[2023-09-16] MEDS: INSULIN ASPART (NovoLOG) 100 UNIT/ML VIAL SQ SCH ×4 (09:00→12:46)
--- NOTE | 2023-09-16 11:12 | P.PN ---
Subjective Progress Note Date: 09/16/23 This is a 73-year-old gentleman admitted with acute hypoxic respiratory failure, acute exacerbation COPD and possible left upper lobe pneumonia and multiple other medical issues. Echo reported normal LV function, EF 6065%, mildly increased septal wall thickness. Maintained on Rocephin ,Zithromax, nebulized bronchodilators and IV steroids. Pro-calcitonin 0.19. Maintaining O2 sats in the 90s on 2 L. Afebrile, normal WBC. Worsening renal function, BUN 48.2, creatinine 2. Blood sugars uncontrolled. 09/13/2023 maintained on nebulized bronchodilators, IV steroids, ceftriaxone and azithromycin. Maintaining O2 sats in the 90s on 2 L nasal cannula patient's renal function worsened after receiving chest CTA-contrast. PHOEBE inhibitor held, IV fluids initiated and creatinine improved decreased to 1.5. Potassium decreased to 5.4, sodium 135. Hypertensive. Blood sugars elevated blood but improving on Lantus, pre-meal NovoLog and sliding scale. Reports breathing better, set up in the chair yesterday, he ambulated more within the room. Tolerated exertion well. 09/14/2023 maintaining O2 sats of low 90s on 2 L nasal cannula. Respiratory status improving .Denies chest pain, palpitations or increased shortness of breath. Apparently, patient did not receive his insulin sliding scale this mor divina with current blood sugars further elevated to 286. Creatinine decreased, potassium increased to 5.6. Hypertensive. Renal ultrasound reporting nonobstructing 7 mm left renal calculus, anechoic areas seen in the lateral mid right kidney too small to characterize but statistically most likely related to tiny simple cyst. 09/15/2023 O2 sat on room air after ambulation reported at 82%, repeat 88%. Hypertensive, currently maintaining O2 sats of 91% on 2-1/2 L nasal cannula. Renal function improving, creatinine 1.2. Received lokelma yesterday, potassium decreased to 5.1. Blood sugars elevated, improving. IV steroids decreased as per pulmonary. Objective - Vital Signs Vital signs: Vital Signs Temp 98.3 F 09/15/23 07:24 Pulse 72 09/15/23 11:43 Resp 16 09/15/23 07:24 BP 202/72 09/15/23 07:24 Pulse Ox 97 09/15/23 08:41 FiO2 Intake & Output 09/14/23 09/15/23 09/15/23 18:59 06:59 18:59 Weight 86.183 kg - Exam PHYSICAL EXAM: VITAL SIGNS: [As above] GENERAL: Alert and oriented 3, Sitting up in chair, no acute distress HEENT: Normocephalic Conjunctivae normal. eyes normal. NECK: Supple, No JVD. CARDIOVASCULAR: S1, S2 regular. No murmur RESPIRATION: Unlabored , equal air entry ,Breath sounds diminished in the bases. No rhonchi,crackles or expiratory wheeze. ABDOMEN: Soft, nondistended, nontender . No guarding. +BS. LEGS: No edema. no swelling NERVOUS SYSTEM: Cranial N 2-12 grossly normal. No focal deficits. Strength and sensation grossly intact. Skin: Warm and dry, no rash - Labs CBC & Chem 7: 09/12/23 05:18 09/15/23 06:29 Labs: Abnormal Lab Results - Last 24 Hours (Table) 09/14/23 09/14/23 09/15/23 Range/Units 16:49 20:33 06:27 BUN (9.0-27.0) mg/dL BUN/Creatinine Ratio (12.00-20.00) Ratio Glucose (70-110) mg/dL POC Glucose (mg/dL) 268 H 280 H 333 H (70-110) mg/dL 09/15/23 09/15/23 Range/Units 06:29 11:46 BUN 29.6 H (9.0-27.0) mg/dL BUN/Creatinine Ratio 24.67 H (12.00-20.00) Ratio Glucose 334 H (70-110) mg/dL POC Glucose (mg/dL) 359 H (70-110) mg/dL Assessment and Plan Assessment: Acute COPD exacerbation Possible acute left upper lobe pneumonia Acute hypoxic respiratory failure secondary to the above Acute renal failure, contrast induced, possibly hypovolemic Hyperkalemia Obesity, BMI 30 Obstructive sleep apnea, on CPAP Diabetes mellitus, insulin pump currently not on, hemoglobin A1c 5, [id number] Hypothyroidism Hypertension Hyperlipidemia History of anxiety, depression History of alcohol and marijuana use Plan: Continue on current medication regime ,monitoring and symptomatic treatment. Hypertensive, antihypertensives further adjusted, close monitoring of blood pressures. Steroids decreased . Maintain aggressive pulmonary toileting with antibiotics, steroids and nebulized bronchodilators. Increase activity as tolerated. Continue weaning FiO2. O2 sat on room air after ambulation pending. Smoking cessation reinforced. Discussed with at bedside to bring patient's insulin pump in. Discharge planning in progress, pending pulmonary clearance. The impression and plan of care has been dictated as directed. : I performed a history and examination of this patient, discussed the same with the dictator. I agree with the dictator's note ,documented as a scribe. Any additional findings or plans will be noted.
[2023-09-16 11:27] LABS: Glucose,Whole Blood 380 mg/dL (70-110)
[2023-09-16 11:58] LABS: African American GFR (CKD) 71 (>60 ml/min/1.73 sqM); Anion Gap 12 mmol/L; Blood Urea Nitrogen 36 mg/dL (9-20); Calcium 8.5 mg/dL (8.4-10.2); Carbon Dioxide 22 mmol/L (22-30); Chloride 102 mmol/L (98-107); Glucose 384 mg/dL (74-99); Non-African American GFR(CKD) 62 (>60 ml/min/1.73 sqM); Potassium 4.7 mmol/L (3.5-5.1); Sodium 136 mmol/L (137-145)
--- NOTE | 2023-09-16 12:27 | P.DS ---
Providers Date of admission: 09/10/23 15:46 Expected date of discharge: 09/16/23 Attending physician: Kayden Pascal Consults: 09/10/23 15:32 Consult Physician Routine Consulting Provider: Micah Ruiz Consult Reason/Comments: copd Do you want consulting provider notified?: Yes 09/12/23 15:23 Consult Physician Routine Consulting Provider: Susan Clarke Consult Reason/Comments: Renal failure Do you want consulting provider notified?: Yes Primary care physician: Kayden Pascal Hospital Course: Final Diagnoses: Acute COPD exacerbation Possible acute left upper lobe pneumonia Acute hypoxic respiratory failure secondary to the above Acute renal failure, contrast induced, possibly hypovolemic Hyperkalemia Obesity, BMI 30 Obstructive sleep apnea, on CPAP Diabetes mellitus, insulin pump currently not on, hemoglobin A1c 5, [id number] Hypothyroidism Hypertension Hyperlipidemia History of anxiety, depression History of alcohol and marijuana use Hospital course:This is a 73-year-old gentleman admitted with acute hypoxic respiratory failure, acute exacerbation COPD and possible left upper lobe pneumonia and multiple other medical issues. Echo reported normal LV function, EF 6065%, mildly increased septal wall thickness. Maintained on Rocephin ,Zithromax, nebulized bronchodilators and IV steroids. Pro-calcitonin 0.19. Maintaining O2 sats in the 90s on 2 L. Afebrile, normal WBC. Worsening renal function, BUN 48.2, creatinine 2. Blood sugars uncontrolled. 09/13/2023 maintained on nebulized bronchodilators, IV steroids, ceftriaxone and azithromycin. Maintaining O2 sats in the 90s on 2 L nasal cannula patient's renal function worsened after receiving chest CTA-contrast. PHOEBE inhibitor held, IV fluids initiated and creatinine improved decreased to 1.5. Potassium decreased to 5.4, sodium 135. Hypertensive. Blood sugars elevated blood but improving on Lantus, pre-meal NovoLog and sliding scale. Reports breathing better, set up in the chair yesterday, he ambulated more within the room. Tolerated exertion well. 09/14/2023 maintaining O2 sats of low 90s on 2 L nasal cannula. Respiratory status improving .Denies chest pain, palpitations or increased shortness of breath. Apparently, patient did not receive his insulin sliding scale this morning with current blood sugars further elevated to 286. Creatinine decreased, potassium increased to 5.6. Hypertensive. Renal ultrasound reporting nonobstructing 7 mm left renal calculus, anechoic areas seen in the lateral mid right kidney too small to characterize but statistically most likely related to tiny simple cyst. 09/15/2023 O2 sat on room air after ambulation reported at 82%, repeat 88%. Hypertensive, currently maintaining O2 sats of 91% on 2-1/2 L nasal cannula. Re nal function improving, creatinine 1.2. Received lokelma yesterday, potassium decreased to 5.1. Blood sugars elevated, improving. IV steroids decreased as per pulmonary. Significant clinical improvement. Denies chest pain, palpitations or increased shortness of breath. He'll require 2 L nasal cannula O2 at home, O2 sat on room air after ambulation 88%. Patient will be discharged home today in stable condition with guarded prognosis pending final DC recommendations and clearance per pulmonary. The impression and plan of care has been dictated as directed. : I performed a history and examination of this patient, discussed the same with the dictator. I agree with the dictator's note ,documented as a scribe. Any additional findings or plans will be noted. Patient Condition at Discharge: Stable Plan - Discharge Summary Discharge Rx Participant: Yes New Discharge Prescriptions: New Ipratropium-Albuterol Nebulize [Duoneb 0.5 mg-3 mg/3 ml Soln] 3 ml INHALATION RT-QID #120 each Budesonide-Formot 160-4.5 Mcg [Symbicort 160-4.5 Mcg Inhaler] 2 puff INHALATION RT-BID #1 each cefUROXime axetiL [Ceftin] 500 mg PO BID 5 Days #10 tab predniSONE 10 mg PO DIRECTED #30 tab NIFEdipine XL [Procardia XL] 60 mg PO Q12HR #60 tab Continue PARoxetine [Paxil] 20 mg PO DAILY Aspirin 81 mg PO DAILY Pravastatin Sodium [Pravachol] 20 mg PO HS metFORMIN HCL [Glucophage] 1,000 mg PO DAILY sulfaSALAzine [Azulfidine] 1,000 mg PO QID carvediloL [Coreg] 25 mg PO BID INSULIN LISPRO (For Pump) [humaLOG (For Pump)] 0.01 units SQ-PUMP CONTINUOUS Latanoprost Ophth [Xalatan 0.005%] 1 drop BOTH EYES HS Dicyclomine [Bentyl] 10 mg PO ACHS clonazePAM [KlonoPIN] 0.5 mg PO HS Sennosides/Docusate Sodium [Senna Plus 8.6-50 mg Softgel] 1 cap PO HS Famotidine 20 mg PO DAILY@1600 Levothyroxine Sodium [Synthroid] 75 mcg PO AC-BRKFST lisinopriL [Zestril] 5 mg PO DAILY Changed hydrALAZINE HCL [Apresoline] 100 mg PO Q6H #0 Isosorbide Mononitrate ER [Imdur] 30 mg PO BID #60 tab Discontinued amLODIPine [Norvasc] 5 mg PO BID Discharge Medication List Aspirin 81 mg PO DAILY 05/16/14 [History] PARoxetine [Paxil] 20 mg PO DAILY 05/16/14 [History] Pravastatin Sodium [Pravachol] 20 mg PO HS 05/16/14 [History] metFORMIN HCL [Glucophage] 1,000 mg PO DAILY 05/16/14 [History] sulfaSALAzine [Azulfidine] 1,000 mg PO QID 06/26/17 [History] carvediloL [Coreg] 25 mg PO BID 06/04/20 [History] INSULIN LISPRO (For Pump) [humaLOG (For Pump)] 0.01 units SQ-PUMP CONTINUOUS 01/29/21 [History] Dicyclomine [Bentyl] 10 mg PO ACHS 09/10/23 [History] Famotidine 20 mg PO DAILY@1600 09/10/23 [History] Latanoprost Ophth [Xalatan 0.005%] 1 drop BOTH EYES HS 09/10/23 [History] Levothyroxine Sodium [Synthroid] 75 mcg PO AC-BRKFST 09/10/23 [History] Sennosides/Docusate Sodium [Senna Plus 8.6-50 mg Softgel] 1 cap PO HS 09/10/23 [History] clonazePAM [KlonoPIN] 0.5 mg PO HS 09/10/23 [History] lisinopriL [Zestril] 5 mg PO DAILY 09/10/23 [History] Budesonide-Formot 160-4.5 Mcg [Symbicort 160-4.5 Mcg Inhaler] 2 puff INHALATION RT-BID #1 each 09/16/23 [Rx] Ipratropium-Albuterol Nebulize [Duoneb 0.5 mg-3 mg/3 ml Soln] 3 ml INHALATION RT-QID #120 each 09/16/23 [Rx] Isosorbide Mononitrate ER [Imdur] 30 mg PO BID #60 tab 09/16/23 [Rx] NIFEdipine XL [Procardia XL] 60 mg PO Q12HR #60 tab 09/16/23 [Rx] cefUROXime axetiL [Ceftin] 500 mg PO BID 5 Days #10 tab 09/16/23 [Rx] hydrALAZINE HCL [Apresoline] 100 mg PO Q6H #0 09/16/23 [Rx] predniSONE 10 mg PO DIRECTED #30 tab 09/16/23 [Rx] Follow up Appointment(s)/Referral(s): Demetra Garcia MD [STAFF PHYSICIAN] - 1 Week Kayden Pascal DO [Primary Care Provider] - 09/27/23 2:20 pm Patient Instructions/Handouts: COPD (Chronic Obstructive Pulmonary Disease) (DC) Activity/Diet/Wound Care/Special Instructions: Insulin pump
--- NOTE | 2023-09-16 12:47 | P.PN ---
Subjective Patient is seen for follow-up for acute kidney injury. No significant complaints today. Renal function has improved with creatinine down to 1.1. Blood sugars remained high secondary to steroids. Objective - Vital Signs Vital signs: Vital Signs Temp 98.1 F 09/16/23 08:00 Pulse 72 09/16/23 09:02 Resp 17 09/16/23 08:00 BP 140/88 09/16/23 11:19 Pulse Ox 88 L 09/16/23 11:19 FiO2 Intake & Output 09/15/23 09/16/23 09/16/23 18:59 06:59 18:59 Weight 86.183 kg Other: Voiding Method Toilet - Exam Patient is awake, comfortable, no acute distress Examination of the heart S1 and S2 Examination of the lungs bilateral breath sounds are heard Abdomen is soft nontender Examination of lower extremities shows no significant edema DATA ENTRY REPRESENTATIVE exam grossly intac - Labs CBC & Chem 7: 09/12/23 05:18 09/16/23 11:32 Labs: Abnormal Lab Results - Last 24 Hours (Table) 09/15/23 09/15/23 09/16/23 Range/Units 16:59 20:57 05:40 Sodium (137-145) mmol/L BUN (9-20) mg/dL Glucose (74-99) mg/dL POC Glucose (mg/dL) 303 H 350 H 267 H (70-110) mg/dL 09/16/23 09/16/23 Range/Units 11:25 11:32 Sodium 136 L (137-145) mmol/L BUN 36 H (9-20) mg/dL Glucose 384 H (74-99) mg/dL POC Glucose (mg/dL) 380 H (70-110) mg/dL Microbiology - Last 24 Hours (Table) 09/10/23 10:33 Blood Culture - Final Blood Assessment and Plan Assessment: 1. Acute kidney injury, ATN currently nonoliguric. . Renal function improved with IV hydration. Check UA , ultrasound shows nonobstructing 7 mm left renal calculus. No hydronephrosis noted bilaterally.. 2. Acute hypoxic respiratory failure secondary to COPD exacerbation and possible pneumonia 3. Non-gap metabolic acidosis associated with acute kidney injury and IV fluids 4. Hypertension uncontrolled secondary to steroids. Maintained on Coreg and hydralazine and amlodipine. Lisinopril was held due to acute kidney injury but was restarted due to uncontrolled hypertension. Expect improvement with decreasing dose of steroids. Plan: Continue current antihypertensive regimen. Expect improvement in blood pressure with decreased dose of steroids Low potassium diet Control blood sugars as hyperglycemia will also contribute to hyperkalemia
[2023-09-16 14:39] VITALS: BP 136/52; PULSE 65; RESP 18; TEMP 97.6
[2023-09-16] MEDS ORDERED: methylPREDNISolone SOD SUCCI 40 MG/ML 1 ML VIAL IV SCH (18:00)
--- NOTE | 2023-09-16 18:18 | P.PN ---
Subjective Progress Note Date: 09/16/23 This is a pleasant 73-year-old male patient with a history of chronic obstructi ve pulmonary disease, former smoker, history of heavy alcohol use, marijuana use, diabetes mellitus, hypertension, hyperlipidemia, hypothyroidism, anxiety/depression. He presented to the emergency room with complaints of shortness of breath. Chest x-ray reveals no acute pulmonary process. T angio gram ruled out pulmonary embolism. There is a minimal infiltrate in the posterior lateral left upper lung field. Chest x-ray reveals preserved left ventricular systolic function with ejection fraction 60-65%. Severe pulmonary hypertension with an RVSP of 58 mmHg. White count 6.3. Hemoglobin 10.8. Platelets 2:15. Sodium 137. Potassium 5.1. Bicarb 20. BUN 29. Creatinine 1.36. ProBNP 460. Pro-Calcitonin 0.19. He is seen today in consultation on the regular medical floor. He is currently sitting up in bed. Awake and alert in no acute distress. Maintaining O2 saturations in the 90s on 4 L/m per nasal cannula. He's been afebrile. Hemodynamically stable. He's been initiated on ceftriaxone and azithromycin. DuoNeb inhalations, Symbicort, Solu-Medrol. Heparin for DVT prophylaxis. On 09/12/2023, the patient is feeling better last short of breath compared to yesterday. He is known to have COPD, former smoker presented with Acute hypoxic respiratory failure and shortness of breath. The patient is already feeling better by now. His creatinine is impaired at 2.0. Stable. CT angiogram showed some limited infiltration and small effusion lung bases. He is diabetic and he is currently on a insulin pump. However, the pump is off currently as the patient is hospitalized.His echoes at 8.9, hemoglobin is at 9.2, sodium is at 135, potassium is at 5.8, BUN is at 48 with a creatinine 2.0. LFTs are within normal limits. Echo of the heart was done and it showed a preserved LV function with an ejection fraction of 60-65%. No significant wall motion abnormalities. RV pressure was elevated at [address] angiogram was also done at time of admission and it showed no evidence of any acute pulmonary embolism. Currently on Rocephin and Zithromax. Currently on bronchodilators. Currently on steroids. on 09/13/2023, less short of breath compared to yesterday and the patient is responding to the treatment. The patient is less bronchospastic and wheezing compared to yesterday. He was restless for an acute COPD exacerbation. He is on oxygen at 2 L/m nasal cannula. No interval worsening. Remains on Rocephin and Zithromax. Follow-up blood work from today shows a BUN of 43 with a creatinine of 1.5. Sodium is at 135 and a potassium level is at 5.4. The patient remains on IV fluids of normal saline at the rate of 75 mL an hour. On 09/14/2023, the patient is still hypoxic on 2 L of oxygen by nasal cannula to maintain a saturation above 90%. On room air, he denies his oxygen to mid 80s. No chest pain. No cough or sputum production. No altered mentation. Potassium levels at 5.6 with a sodium level of 135, BUN is at 35 with a creatinine of 1.3. He remains on DuoNeb updrafts. He remains on Symbicort. He remains on IV Solu-Medrol 40 mg every 6 hours. Is also on Levemir insulin 30 units in the morning and 10 units in the evening and he is also on a sliding scale insulin coverage. He remains on IV Rocephin. The CT angiogram that was done at time of admission showed no this of any pulmonary embolism. Minimal infiltration of the posterior lateral left upper lung vicente. Noted the patient also developed an acute kidney injury at time of admission and the creatinine peaked at 2.0pain currently is down to 1.3. The patient remains on IV fluids. He is also on Lokelma regarding his hyperkalemia. Nephrology is on the case regarding potassium monitoring. Hyperkalemia is probably related to his acute kidney injury and its improved. Ultrasound the kidney was done and showed nonobstructive 7 mm calculus in the left kidney. on today's evaluation of 09/16/2023, the patient is doing well. He is going to go home as the patient shortness of breath is improved. The patient is going to get a nebulizer and home O2 be also delivered as the patient is still having some episodes of desaturations. He is going to go home on a prednisone burst taper. Objective - Vital Signs Vital signs: Vital Signs Temp 97.6 F 09/16/23 14:00 Pulse 65 09/16/23 14:00 Resp 18 09/16/23 14:00 BP 136/52 09/16/23 14:00 Pulse Ox 93 L 09/16/23 14:00 FiO2 Intake & Output 09/15/23 09/16/23 09/16/23 18:59 06:59 18:59 Intake Total 200 Balance 200 Weight 86.183 kg Intake: Oral 200 Other: Voiding Method Toilet - Exam GENERAL EXAM: Alert, pleasant 73-year-old male, on 2 L nasal cannula, fairly comfortable in no apparent distress. HEAD: Normocephalic. EYES: Normal reaction of pupils, equal size. NOSE: Clear with pink turbinates. THROAT: No erythema or exudates. NECK: No masses, no JVD. CHEST: No chest wall deformity. LUNGS: Equal air entry with no crackles, wheeze, rhonchi or dullness. CVS: S1 and S2 normal with no audible murmur, regular rhythm. ABDOMEN: No hepatosplenomegaly, normal bowel sounds, no guarding or rigidity. SPINE: No scoliosis or deformity SKIN: No rashes CENTRAL NERVOUS SYSTEM: No focal deficits, tone is normal in all 4 extremities. EXTREMITIES: There is no peripheral edema. No clubbing, no cyanosis. Peripheral pulses are intact. - Labs CBC & Chem 7: 09/12/23 05:18 09/16/23 11:32 Labs: Abnormal Lab Results - Last 24 Hours (Table) 09/15/23 09/16/23 09/16/23 Range/Units 20:57 05:40 11:25 Sodium (137-145) mmol/L BUN (9-20) mg/dL Glucose (74-99) mg/dL POC Glucose (mg/dL) 350 H 267 H 380 H (70-110) mg/dL 09/16/23 Range/Units 11:32 Sodium 136 L (137-145) mmol/L BUN 36 H (9-20) mg/dL Glucose 384 H (74-99) mg/dL POC Glucose (mg/dL) (70-110) mg/dL Microbiology - Last 24 Hours (Table) 09/10/23 10:33 Blood Culture - Final Blood Assessment and Plan Plan: Acute hypoxemic respiratory failure secondary to suspected acute exacerbation of COPD, possible early pneumonia in the left upper lobe. Pro-Calcitonin 0.19, and the patient is covered appropriately with antibiotics with Rocephin and Zithromax. Currently is on oxygen at 2 L. clinically improving. Oxygenation is also improving Acute kidney injury, improving Acute hyperkalemia, improving Former smoker Obstructive sleep apnea maintained on CPAP Diabetes mellitus, currently on insulin pump , Hypertension Hyperlipidemia Hypothyroidism History of anxiety/depression History of alcohol use History of marijuana use Plan: will discharge home with home 02, nebulizer and a prednisone taper and the patient is to be followed up outpatient
== END 2023-09-16 15:29 | disposition home or self-care (01) | DRG 193 ==
LOC: EC 10:15 → 6NMEDSUR 15:05 → OBSVTOIN 15:46 → 4SSUR 16:39
PROVIDERS: ADMIT Family Medicine; ATTEND Family Medicine
DX: J18.9 Pneumonia, unspecified organism (principal); J96.01 Acute respiratory failure with hypoxia; N17.0 Acute kidney failure with tubular necrosis; J44.1 Chronic obstructive pulmonary disease with (acute) exacerbation; J44.0 Chronic obstructive pulmonary disease with (acute) lower respiratory infection; E84.9 Cystic fibrosis, unspecified; K51.90 Ulcerative colitis, unspecified, without complications; E87.20 Acidosis, unspecified; E03.9 Hypothyroidism, unspecified; E11.65 Type 2 diabetes mellitus with hyperglycemia; Z79.4 Long term (current) use of insulin; Z79.84 Long term (current) use of oral hypoglycemic drugs; E86.1 Hypovolemia; I10 Essential (primary) hypertension; E66.9 Obesity, unspecified; E78.5 Hyperlipidemia, unspecified; E87.5 Hyperkalemia; H35.30 Unspecified macular degeneration; G25.81 Restless legs syndrome; G47.33 Obstructive sleep apnea (adult) (pediatric); T38.0X5A Adverse effect of glucocorticoids and synthetic analogues, initial encounter; I27.20 Pulmonary hypertension, unspecified; N20.0 Calculus of kidney; Z68.30 Body mass index [BMI] 30.0-30.9, adult; Z79.82 Long term (current) use of aspirin; Z79.52 Long term (current) use of systemic steroids; Z79.890 Hormone replacement therapy; Z79.899 Other long term (current) drug therapy; Z82.49 Family history of ischemic heart disease and other diseases of the circulatory system; Z85.828 Personal history of other malignant neoplasm of skin; Z80.8 Family history of malignant neoplasm of other organs or systems; Z96.41 Presence of insulin pump (external) (internal); Z88.0 Allergy status to penicillin; Z88.8 Allergy status to other drugs, medicaments and biological substances; F32.A Depression, unspecified; F41.9 Anxiety disorder, unspecified; K21.9 Gastro-esophageal reflux disease without esophagitis
CPT/HCPCS: 36415; 71046; 71275; 76770; 80048; 80053; 82803; 83036; 83605; 83735; 83880; 84132; 84145; 84484; 85025; 85379; 85610; 85730; 87040; 93005; 93306; 94640; 94760; 96365; 96375; 99285

== ENCOUNTER 2023-10-21 08:42 | Day surgery (SDC) | payer MEDICARE ==
--- NOTE | 2023-10-21 07:38 | P.PN ---
Progress Note - Text Progress Note Date: 10/21/23 The patient is a pleasant 73-year-old gentleman with paroxysmal atrial fibrillation who was brought today to undergo a cardioversion and he was found to be in sinus rhythm with heart rate at 45 bpm. The cardioversion was canceled. The patient is on amiodarone and also he is on metoprolol. I d ecrease the dose of the amiodarone and I decrease the dose of metoprolol. I advised the patient to stay overnight in the hospital to watch his heart rate but he refused. He is asymptomatic in terms of dizziness or lightheadedness or presyncope or syncope but he does feel slightly tired. No pain in the chest and no shortness of breath. He has been compliant with oral anticoagulation. The examination is unremarkable besides sinus bradycardia. The patient would like to go home. I'm going to decrease the dose of metoprolol and decrease the dose of amiodarone and continue oral anticoagulation and follow-up with the patient
[~2023-10-21 08:42] MED LIST changes: +ALPRAZolam 0.25 MG TAB PO PRN; +ALPRAZolam 0.5 MG TAB PO PRN; -LACTATED RINGERS 1,000 ML IV SCH; -LIDOCAINE 1% (10MG/ML) FOR IV START INTRADERMA PRN; +NITROGLYCERIN SL TABS 0.4 MG TAB SUBLINGUAL PRN
[2023-10-21] MEDS: SODIUM CHLORIDE 0.9% 1,000 ML IV ONE (09:14)
[2023-10-21 09:28] LABS: Glucose,Whole Blood 101 mg/dL (70-110)
[2023-10-21 09:34] LABS: Anisocytosis Slight; Basophils # (A) 0.1 k/uL (0-0.2); Basophils % (A) 1 %; Eosinophils # (A) 0.1 k/uL (0-0.7); Eosinophils % (A) 1 %; HCT 30.7 % (39.0-53.0); HGB 9.7 gm/dL (13.0-17.5); Hypochromasia Moderate; Lymphocytes # (A) 1.2 k/uL (1.0-4.8); Lymphocytes % (A) 13 %; MCH 27.7 pg (25.0-35.0); MCHC 31.5 g/dL (31.0-37.0); MCV 88.2 fL (80.0-100.0); Mean Platelet Volume 7.3; Monocytes # (A) 0.8 k/uL (0-1.0); Monocytes % (A) 9 %; Neutrophils % (A) 75 %; Platelet Count 279 k/uL (150-450); RBC 3.48 m/uL (4.30-5.90); WBC 9.3 k/uL (3.8-10.6)
[2023-10-21 09:49] LABS: African American GFR (CKD) 65 (>60 ml/min/1.73 sqM); Anion Gap 12 mmol/L; Blood Urea Nitrogen 21 mg/dL (9-20); Calcium 8.9 mg/dL (8.4-10.2); Carbon Dioxide 23 mmol/L (22-30); Chloride 106 mmol/L (98-107); Glucose 94 mg/dL (74-99); Non-African American GFR(CKD) 56 (>60 ml/min/1.73 sqM); Potassium 4.7 mmol/L (3.5-5.1); Sodium 141 mmol/L (137-145)
[2023-10-21] MEDS: MIDAZOLAM 2 MG/2 ML VIAL IVP ONE (11:15)
[2023-10-21] MEDS: LIDOCAINE 2% (PF) 20 MG/ML 5 ML VIAL SQ ONE (11:20)
[2023-10-21] MEDS: VERAPAMIL SYRINGE (5 MG/10 ML) INTRAARTER ONE (11:21)
[2023-10-21] MEDS: HEPARIN SODIUM 1,000 UN/ML (10ML VL) IVP ONE (11:24)
[2023-10-21] MEDS: NITROGLYCERIN 1000MCG/10ML SYRINGE INTRACORON ONE (11:32)
[2023-10-21] MEDS: CLOPIDOGREL 75 MG TAB PO ONE (11:55)
[2023-10-21] MEDS: IOPAMIDOL-370 100ML BTL INJ ONE (12:01)
[2023-10-21] MEDS ORDERED: hydrALAZINE HCL 50 MG TAB PO PRN (12:03)
[2023-10-21] MEDS ORDERED: IPRATROPIUM-ALBUTEROL 3 ML NEB INHALATION PRN (12:03)
[2023-10-21] MEDS ORDERED: RX INFO: IV CONTRAST WAS GIVEN 1 EACH MISC MISCELLANE PRN (12:04)
[2023-10-21] MEDS ORDERED: ZOLPIDEM 5 MG TAB PO PRN (12:04)
[2023-10-21] MEDS ORDERED: ATROPINE SULFATE 0.1 MG/ML 10ML SYRINGE IV PRN (12:04)
[2023-10-21] MEDS ORDERED: MAG HYDROX/AL HYDROX/SIMETH 30 ML CUP PO PRN (12:04)
[2023-10-21] MEDS ORDERED: NITROGLYCERIN SL TABS 0.4 MG TAB SUBLINGUAL PRN (12:04)
--- NOTE | 2023-10-21 12:17 | P.PCN ---
Date of Procedure: 10/21/23 Operative Findings: CARDIAC CATHETERIZATION AND PERCUTANEOUS CORONARY INTERVENTION PERFORMING PHYSICIAN: Jonathan Cadena MD, RPVI PROCEDURE PERFORMED: 1. Selective right and left coronary angiogram 2. Left heart catheterization and right heart catheterization 3. Successful stenting of proximal and mid RCA using 3.5 x 33 mm Xience BECKY with an excellent angiographic results 4. Adjunctive use of intracardiac imaging 5. Ultrasound guided access of the right radial artery INDICATION: Shortness of breath concerning for unstable angina in this 73-year-old gentleman with multiple risk factors with diabetes COMPLICATION: None APPROACH: Right radial artery and right basilic vein LEVEL OF SEDATION: Moderate with the sedation time off 35 minutes PROCEDURE DESCRIPTION: After obtaining an informed consent the patient was brought to the cardiac blood bank laboratory technologist. The right radial artery was cannulated using a commercial technique under ultrasound guidance of micro-rupture wire passed easily then I placed a 6-[place] sheath in the right radial artery. I give the patient total of 6000 units of heparin IV with continuous ACT monitoring. After that selective right and left coronary angiogram performed using JR4 and JL 3.5 catheters. Left heart catheterization was performed using the JR4 catheter. Before that right heart catheterization was performed from the right arm from the right basilic vein. After that I did intervene on the RCA PTCA separate dictation for that. The procedure was completed was no complication SELECTIVE CORONARY ANGIOGRAM: The right coronary artery: Large-caliber vessel is a dominant vessel with critical disease involving the proximal and midportion Left main: Is angiographically normal. Bifurcates into an LCx and LAD The left circumflex: Large caliber vessel nondominant vessel and appears to be normal and gives rises into the first and second obtuse marginal branches both appeared to be angiographically normal The left anterior descending artery: Large-caliber vessel appears to have mild disease only and gives rise into a large diagonal branch which seems to be normal HEMODYNAMICS: The pulmonary capillary wedge pressure was 31 as a mean PA pressures were as follow systolic 58 and diastolic of 23 and mean of 38 mmHg RV pressures as follow systolic 58 mmHg and end-diastolic of 8 mmHg RA pressure was 16 mmHg The LVEDP was 47 mmHg Transpulmonary gradient was 7 mmHg PCI OF THE RCA: Anticolic patient was initiated using heparin with continuous ACT monitoring. Subsequently I did engage the RCA using JR 3.5 short tip. I did wired using a run-through wire. Intravascular ultrasound showed a diameter in the mid RCA about 3 mm and proximally about 4 mm in the artery was not very calcified. 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 I performed successful stenting of the RCA POSTPROCEDURE MANAGEMENT: 1. Dual antiplatelet therapy using aspirin and Plavix for 6 month 2. Aggressive cholesterol control 3. Follow-up with the patient
[2023-10-21] MEDS: SODIUM CHLORIDE 0.9% 1,000 ML in EMPTY BAG 1 BAG IV SCH ×2 (12:24→13:37)
[2023-10-21] MEDS: ASPIRIN 325 MG TAB PO STA (12:24)
[2023-10-21] MEDS: sulfaSALAzine 500 MG TAB PO SCH (13:31)
[2023-10-21] MEDS: DICYCLOMINE 10 MG CAP PO SCH (13:31)
[2023-10-21 13:52] VITALS: BMI 28.8
[2023-10-21] MEDS: FAMOTIDINE 20 MG TAB PO SCH (16:27)
[2023-10-21] MEDS ORDERED: INSULIN PUMP BASAL RATES 1 EACH MISC MISCELLANE PRN (16:28)
[2023-10-21] MEDS ORDERED: INSULIN ASPART (NovoLOG) 100 UNIT/ML VIAL SQ PRN (16:28)
[2023-10-21] MEDS ORDERED: INSPUCOR MISCELLANE PRN (16:28)
[2023-10-21] MEDS: INSULIN LISPRO (For Pump) 100 UNIT/ML VIAL SQ-PUMP SCH (16:33)
[2023-10-21] MEDS: INSULIN PUMP MEAL BOLUS 1 UNIT MISC MISCELLANE SCH (18:12)
[2023-10-21 18:17] LABS: Glucose,Whole Blood 131 mg/dL (70-110)
[2023-10-21] MEDS: SYMBICORT 160-4.5 MCG INHALER INHALATION SCH (18:20)
[2023-10-21 20:43] LABS: Glucose,Whole Blood 93 mg/dL (70-110)
[2023-10-21] MEDS: PRAVASTATIN SODIUM 20 MG TAB PO SCH (21:19)
[2023-10-21] MEDS: clonazePAM 1 MG TAB PO SCH (21:19)
[2023-10-21] MEDS: LATANOPROST 0.005% OPHTH DROPS 2.5 ML BTL BOTH EYES SCH (22:46)
[2023-10-22 02:04] LABS: Glucose,Whole Blood 83 mg/dL (70-110)
[2023-10-22 06:25] LABS: Glucose,Whole Blood 56 mg/dL (70-110)
[2023-10-22 06:51] LABS: Glucose,Whole Blood 62 mg/dL (70-110)
[2023-10-22 07:35] LABS: Glucose,Whole Blood 102 mg/dL (70-110)
[2023-10-22] MEDS: lisinopriL 5 MG TAB PO SCH (08:18)
[2023-10-22 08:25] VITALS: RESP 18; TEMP 97.7
[2023-10-22 08:30] LABS: Anisocytosis Slight; Basophils # (A) 0.1 k/uL (0-0.2); Basophils % (A) 1 %; Eosinophils # (A) 0.1 k/uL (0-0.7); Eosinophils % (A) 1 %; HCT 28.2 % (39.0-53.0); HGB 8.8 gm/dL (13.0-17.5); Hypochromasia Marked; Lymphocytes # (A) 1.1 k/uL (1.0-4.8); Lymphocytes % (A) 17 %; MCH 27.8 pg (25.0-35.0); MCHC 31.3 g/dL (31.0-37.0); MCV 88.8 fL (80.0-100.0); Mean Platelet Volume 8.2; Monocytes # (A) 0.6 k/uL (0-1.0); Monocytes % (A) 9 %; Neutrophils # (A) 4.2 k/uL (1.3-7.7); Neutrophils % (A) 70 %; Platelet Count 228 k/uL (150-450); RBC 3.18 m/uL (4.30-5.90); RDW 17.5 % (11.5-15.5); WBC 6.1 k/uL (3.8-10.6)
[2023-10-22] MEDS: PARoxetine 20 MG TAB PO SCH (08:41)
[2023-10-22] MEDS: hydrALAZINE HCL 20 MG/ML 1 ML VIAL IVP STA (08:41)
[2023-10-22] MEDS: CLOPIDOGREL 75 MG TAB PO SCH (08:42)
[2023-10-22] MEDS: lisinopriL 10 MG TAB PO STA (08:42)
[2023-10-22] MEDS: ISOSORBIDE MONONITRATE ER 30 MG TAB.ER.24H PO SCH (08:42)
[2023-10-22] MEDS: ASPIRIN 81 MG PO SCH (08:42)
[2023-10-22 09:27] LABS: African American GFR (CKD) 79 (>60 ml/min/1.73 sqM); Anion Gap 11 mmol/L; Blood Urea Nitrogen 19 mg/dL (9-20); Calcium 8.6 mg/dL (8.4-10.2); Carbon Dioxide 24 mmol/L (22-30); Chloride 105 mmol/L (98-107); Glucose 97 mg/dL (74-99); Non-African American GFR(CKD) 68 (>60 ml/min/1.73 sqM); Potassium 4.8 mmol/L (3.5-5.1); Sodium 140 mmol/L (137-145)
--- NOTE | 2023-10-22 10:12 | P.DS ---
Providers Attending physician: Jonathan Cadena Consults: 10/21/23 12:04 Consult Physician Routine Consulting Provider: [facility] Consult Reason/Comments: Post Interventional patient Do you want consulting provider notified?: Already Contacted Primary care physician: Kayden Pascal [facility] Course: The patient is a pleasant 73-year-old gentleman who underwent yesterday a heart catheterization and stenting of the right coronary artery with a good angiographic results and no complication from right radial approach. The patient was seen and evaluated this morning. He is feeling better. No chest pain. No dizziness or lightheadedness. Hemodynamically he is stable. The right radial site is soft and nontender was no wheezes. There is of the examination is unremarkable. The patient is going to be discharged home on dual antiplatelet therapy along with a statin and I will follow-up with the patient next week in the office Plan - Discharge Summary Discharge Rx Participant: Yes New Discharge Prescriptions: New Clopidogrel [Plavix] 75 mg PO DAILY #90 tablet Continue PARoxetine [Paxil] 20 mg PO DAILY Aspirin 81 mg PO DAILY Pravastatin Sodium [Pravachol] 20 mg PO HS sulfaSALAzine [Azulfidine] 1,000 mg PO QID INSULIN LISPRO (For Pump) [humaLOG (For Pump)] 0.01 units SQ-PUMP CONTINUOUS Latanoprost Ophth [Xalatan 0.005%] 1 drop BOTH EYES HS Dicyclomine [Bentyl] 10 mg PO QID clonazePAM [KlonoPIN] 0.5 mg PO HS Famotidine 20 mg PO DAILY@1600 Budesonide-Formot 160-4.5 Mcg [Symbicort 160-4.5 Mcg Inhaler] 2 puff INHALATION RT-BID #1 each Isosorbide Mononitrate ER [Imdur] 30 mg PO QAM Ipratropium-Albuterol Nebulize [Duoneb 0.5 mg-3 mg/3 ml Soln] 3 ml INHALATION RT-QID PRN PRN Reason: sob lisinopriL [Zestril] 5 mg PO DAILY hydrALAZINE HCL [Apresoline] 100 mg PO Q8H PRN PRN Reason: hold if sys b/p > 130 Discharge Medication List Aspirin 81 mg PO DAILY 05/16/14 [History] PARoxetine [Paxil] 20 mg PO DAILY 05/16/14 [History] Pravastatin Sodium [Pravachol] 20 mg PO HS 05/16/14 [History] sulfaSALAzine [Azulfidine] 1,000 mg PO QID 06/26/17 [History] INSULIN LISPRO (For Pump) [humaLOG (For Pump)] 0.01 units SQ-PUMP CONTINUOUS 01/29/21 [History] Dicyclomine [Bentyl] 10 mg PO QID 09/10/23 [History] Famotidine 20 mg PO DAILY@1600 09/10/23 [History] Latanoprost Ophth [Xalatan 0.005%] 1 drop BOTH EYES HS 09/10/23 [History] clonazePAM [KlonoPIN] 0.5 mg PO HS 09/10/23 [History] lisinopriL [Zestril] 5 mg PO DAILY 09/10/23 [History] Budesonide-Formot 160-4.5 Mcg [Symbicort 160-4.5 Mcg Inhaler] 2 puff INHALATION RT-BID #1 each 09/16/23 [Rx] Ipratropium-Albuterol Nebulize [Duoneb 0.5 mg-3 mg/3 ml Soln] 3 ml INHALATION RT-QID PRN 10/17/23 [History] Isosorbide Mononitrate ER [Imdur] 30 mg PO QAM 10/17/23 [History] hydrALAZINE HCL [Apresoline] 100 mg PO Q8H PRN 10/17/23 [History] Clopidogrel [Plavix] 75 mg PO DAILY #90 tablet 10/22/23 [Rx] Follow up Appointment(s)/Referral(s): Jonathna Cadena MD [STAFF PHYSICIAN] - 1 Week (THE OFFICE WILL CALL YOU WITH AN APPOINTMENT DATE AND TIME) Patient Instructions/Handouts: Moderate Sedation (DC), After Radial Heart Catheterization (GEN) Activity/Diet/Wound Care/Special Instructions: *NO LIFTING, PUSHING, OR PULLING ANYTHING OVER 5 POUNDS FOR 5 DAYS *NO DRIVING FOR 3 DAYS *YOU CAN REMOVE YOUR DRESSING TOMORROW BUT DO NOT SUBMERSE YOUR PUNCTURE SITE IN WATER FOR A FEW DAYS TO PREVENT INFECTION - SO NO TUB BATHS, POOLS, HOT TUBS, DISHES...ETC *ANY SIGNS OF BLEEDING (HARDNESS, SWELLING, OR EXCESSIVE BRUISING) HOLD DIRECT PRESSURE ON YOUR PUNCTURE SITE AND COME TO THE NEAREST EMERGENCY ROOM TO GET YOUR PUNCTURE SITE LOOKED AT - DO NOT DRIVE YOURSELF! EITHER CALL EMS OR HAVE SOMEONE DRIVE YOU!
[2023-10-22 10:37] LABS: African American GFR (CKD) 70 (>60 ml/min/1.73 sqM); Non-African American GFR(CKD) 61 (>60 ml/min/1.73 sqM)
[2023-10-22 13:36] VITALS: BP 142/63; PULSE 68
[2023-10-23] MEDS ORDERED: lisinopriL 10 MG TAB PO SCH (09:00)
== END 2023-10-22 11:53 | disposition home or self-care (01) ==
LOC: CATHCVL 08:42 → 6NMEDSUR 11:54 → CATHCVL 10-22 11:53
PROVIDERS: ATTEND Internal Medicine Interventional Cardiology
DX: I27.23 Pulmonary hypertension due to lung diseases and hypoxia (principal); I77.819 Aortic ectasia, unspecified site; I38 Endocarditis, valve unspecified; I10 Essential (primary) hypertension; E78.5 Hyperlipidemia, unspecified; E11.9 Type 2 diabetes mellitus without complications; F17.210 Nicotine dependence, cigarettes, uncomplicated; Z79.84 Long term (current) use of oral hypoglycemic drugs; Z79.02 Long term (current) use of antithrombotics/antiplatelets; Z79.82 Long term (current) use of aspirin; Z79.899 Other long term (current) drug therapy; Z88.0 Allergy status to penicillin; Z51.81 Encounter for therapeutic drug level monitoring; Z95.5 Presence of coronary angioplasty implant and graft; Z88.8 Allergy status to other drugs, medicaments and biological substances
CPT/HCPCS: 94640 ×2; 94760; 92978; 93460; 76937; 80048 ×2; 82565; 85025 ×2; C9600; C1769 ×2; C1894; C1725 ×2; C1751; C1887; C1753; C1874; J2250; J0360; J1644; Q9967; J2001; J2305

== ENCOUNTER → 2023-11-07 | Outpatient (CLI) | payer MEDICARE ==
[2023-11-07 19:04] LABS: BUN/Creat Ratio 13.43 Ratio (12.00-20.00); Blood Urea Nitrogen 18.8 mg/dL (9.0-27.0); Chloride 110 mmol/L (96-109); Chol/HDL Ratio 3.66 Ratio; Glucose 121 mg/dL (70-110); LDL Cholesterol,Calculated 78.9 mg/dL (0.0-131.0); Potassium 5.6 mmol/L (3.5-5.5); Sodium 143 mmol/L (135-145)
[2023-11-07 19:05] LABS: ALT 18 U/L (10-49); AST 19 U/L (14-35); Albumin 3.8 g/dL (3.8-4.9); Albumin/Globulin Ratio 1.36 Ratio (1.60-3.17); Alkaline Phosphatase 114 U/L (41-126); Carbon Dioxide 21.1 mmol/L (21.6-31.8); Globulin 2.8 g/dL (1.6-3.3); Total Bilirubin 0.3 mg/dL (0.3-1.2); Total Protein 6.6 g/dL (6.2-8.2)
== END | disposition home or self-care (01) ==
LOC: LABWHC1 11:20
PROVIDERS: ATTEND Internal Medicine Endocrinology, Diabetes & Metabolism
DX: E11.65 Type 2 diabetes mellitus with hyperglycemia (principal)
CPT/HCPCS: 36415; 80053; 80061; 82043; 82570; 83036; 84443

== ENCOUNTER → 2023-11-16 | Outpatient (CLI) | payer MEDICARE ==
--- NOTE | 2023-11-16 14:38 | P.PN ---
Subjective DATE: 11/16/2023 FOLLOW UP VISIT. Patient with obstructive sleep apnea hypopnea syndrome return to sleep center for follow-up visit. Information from previous visit have been reviewed. Patient is using PAP equipment every night for the whole night, getting PAP supplies in time. The patient does not have significant problems with the mask, PAP unit and humidification. [place] sleepiness scale is slightly increased to 11. I checked information from PAP unit. PAP unit pressure 5-15, average 8.6 cm H2O. Usage is 90 % for more then 4 hours, average 7.6 hours per night. Leak is 10 l/m, which is in acceptable range. Apnea Hypopnea Index is 1.6, which is normal. Patient is on oxygen supplement 1.5 L/m at bedtime and during walk. MEDICATIONS:1. Symbicort 2. Albuterol 3. Procardia 60 mg twice a day 4. Hydralazine 100 mg 3 times a day 5. Aspirin 81 mg once a day 6. Insulin 7. Levothyroxine 75 g once a day 8. Pravastatin 20 mg once a day 9. Peripheral Solazine 1000 mg 2 tablets 4 times a day 10. Lisinopril 5 mg once a day. 11. Clonazepam 0.5 mg at bedtime 12. Carvedilol 12.5 mg 2 tablets twice a day During physical exam: GENERAL: A pleasant patient without any distress, on O2 supplement 1.5 L/m.. VITAL SIGNS: BP 106/52, HR 69, RR 20 , weight 184.8, temperature 97.3,. HEENT: PERRLA, EOMI.low position of soft palate, Mallapati 3 . NECK: Supple. No JVD. LUNGS: Clear to percussion and to auscultation. Good air exchange. No wheezing or rhonchi. HEART: S1, S2 regular. ABDOMEN: Soft and nontender.[] EXTREMITIES: No clubbing or cyanosis. FLIGHT SOFTWARE TEST ENGINEER: Awake, alert, and oriented x3. No focal deficit. Impressions: 1. Obstructive sleep apnea-hypopnea syndrome. Patient demonstrated great compliance with treatment, benefiting from treatment. 2. COPD. 3. History of REM sleep behavior disorder, on treatment with clonazepam. 4. Hypertension. 5. Hyperlipidemia. 6. Diabetes mellitus. 7. History of ulcerative colitis. 8. History of anxiety. Plan: 1. Continue using PAP equipment every night for the whole night. 2. To change air filter at least 1-2 times per month. 3. PAP unit should stay lower then position of the head. 4. Advised patient to remove all remaining water from humidifier canister daily and make it dry after each usage. Refill canister with fresh distilled water before each usage. 5. Sleep hygiene with regular time in bed for at least 8 hours. 6. Precautions related to driving. No driving if feel any sleepiness. 7. I will maintain prescription for PAP supplies including mask, tube, filters. 8. Follow up visit in 6 months or earlier if patient has any problems. 9. Watching weight. 10. We provided patient with connector for CPAP unit for connection with oxygen. Thank you very much for allowing me to participate in the management of your patient. Tej Flanagan MD, PhD, FAASM. Diplomat of [place] [employer], Sleep Medicine Board by [place] [employer] Public Works Technician of [facility] [place]
== END ==
LOC: 3 N SLEEP 13:18
PROVIDERS: ATTEND Internal Medicine
DX: G47.33 Obstructive sleep apnea (adult) (pediatric) (principal); E11.9 Type 2 diabetes mellitus without complications; E78.5 Hyperlipidemia, unspecified; F41.9 Anxiety disorder, unspecified; I10 Essential (primary) hypertension; J44.9 Chronic obstructive pulmonary disease, unspecified; G47.52 REM sleep behavior disorder; Z87.19 Personal history of other diseases of the digestive system; Z79.4 Long term (current) use of insulin; Z79.51 Long term (current) use of inhaled steroids; Z79.899 Other long term (current) drug therapy; Z99.89 Dependence on other enabling machines and devices; Z88.0 Allergy status to penicillin; Z88.8 Allergy status to other drugs, medicaments and biological substances; Z88.5 Allergy status to narcotic agent; Z79.82 Long term (current) use of aspirin; Z79.02 Long term (current) use of antithrombotics/antiplatelets; Z87.891 Personal history of nicotine dependence
CPT/HCPCS: 99212

== ENCOUNTER 2024-06-04 11:24 | Inpatient (IN) | payer MEDICARE ==
[2024-06-04 12:45] LABS: ALT 15 U/L (4-49); AST 27 U/L (17-59); African American GFR (CKD) 78 (>60 ml/min/1.73 sqM); Albumin 3.9 g/dL (3.5-5.0); Alkaline Phosphatase 132 U/L (38-126); Anion Gap 6 mmol/L; Blood Urea Nitrogen 16 mg/dL (9-20); Calcium 8.9 mg/dL (8.4-10.2); Carbon Dioxide 26 mmol/L (22-30); Chloride 108 mmol/L (98-107); Glucose 140 mg/dL (74-99); Non-African American GFR(CKD) 68 (>60 ml/min/1.73 sqM); Potassium 5.1 mmol/L (3.5-5.1); Sodium 140 mmol/L (137-145); Total Bilirubin 0.5 mg/dL (0.2-1.3); Total Protein 6.8 g/dL (6.3-8.2)
[2024-06-04 12:46] LABS: Anisocytosis Slight; Basophils % (A) 1 %; Eosinophils # (A) 0.2 k/uL (0-0.7); Eosinophils % (A) 2 %; HCT 24.2 % (39.0-53.0); Hypochromasia Marked; Lymphocytes % (A) 15 %; MCH 18.7 pg (25.0-35.0); MCHC 27.5 g/dL (31.0-37.0); MCV 68.2 fL (80.0-100.0); Mean Platelet Volume 7.3; Microcytosis Marked; Monocytes # (A) 0.5 k/uL (0-1.0); Monocytes % (A) 7 %; Neutrophils # (A) 4.7 k/uL (1.3-7.7); Neutrophils % (A) 73 %; Platelet Count 270 k/uL (150-450); RBC 3.55 m/uL (4.30-5.90); RDW 19.2 % (11.5-15.5); WBC 6.5 k/uL (3.8-10.6)
--- NOTE | 2024-06-04 12:47 | ED ---
General Adult HPI - General Chief complaint: Recheck/Abnormal Lab/Rx Stated complaint: Abn Labs Time Seen by Provider: 06/04/24 11:41 Source: patient, family Mode of arrival: ambulatory Limitations: no limitations - History of Present Illness Initial comments: Dictation was produced using [employer] dictation software. please excuse any grammatical, word or spelling errors. Chief Complaint: 74-year-old male presents to the emergency department with low hemoglobin History of Present Illness: Patient 74-year-old male past medical history of ulcerative colitis he was at [facility] to get oral surgery. He had blood works drawn preoperatively and was told that he has a hemoglobin of 7.2. His surgery was canceled patient was told to go to the emergency room. Patient is pale according to . Denies any black or bloody stools. Patient has history of ulcerative colitis. Denies any pain complaints. states he looks pale The ROS documented in this emergency department record has been reviewed and confirmed by me. Those systems with pertinent positive or negative responses have been documented in the HPI. All other systems are other negative and/or noncontributory. - Related Data Home Medications Medication Instructions Recorded Confirmed Aspirin 81 mg PO DAILY 05/16/14 10/21/23 PARoxetine [Paxil] 20 mg PO DAILY 05/16/14 10/21/23 Pravastatin Sodium [Pravachol] 20 mg PO HS 05/16/14 10/21/23 sulfaSALAzine [Azulfidine] 1,000 mg PO QID 06/26/17 10/21/23 INSULIN LISPRO (For Pump) [humaLOG 0.01 units SQ-PUMP CONTINUOUS 01/29/21 10/21/23 (For Pump)] Dicyclomine [Bentyl] 10 mg PO QID 09/10/23 10/21/23 Famotidine 20 mg PO DAILY@1600 09/10/23 10/21/23 Latanoprost Ophth [Xalatan 0.005%] 1 drop BOTH EYES HS 09/10/23 10/21/23 clonazePAM [KlonoPIN] 0.5 mg PO HS 09/10/23 10/21/23 Ipratropium-Albuterol Nebulize 3 ml INHALATION RT-QID PRN 10/17/23 10/21/23 [Duoneb 0.5 mg-3 mg/3 ml Soln] Isosorbide Mononitrate ER [Imdur] 30 mg PO QAM 10/17/23 10/21/23 hydrALAZINE HCL [Apresoline] 100 mg PO Q8H PRN 10/17/23 10/21/23 Ipratropium-Albuterol Nebulize 3 ml INHALATION RT-Q4H PRN 06/04/24 06/04/24 [Duoneb 0.5 mg-3 mg/3 ml Soln] Levothyroxine Sodium [Synthroid] 75 mcg PO AC-BRKFST 06/04/24 06/04/24 NIFEdipine XL [Procardia XL] 60 mg PO BID 06/04/24 06/04/24 carvediloL [Coreg] 12.5 mg PO BID 06/04/24 06/04/24 lisinopriL [Zestril] 5 mg PO DAILY 06/04/24 06/04/24 Previous Rx's Medication Instructions Recorded Budesonide-Formot 160-4.5 Mcg 2 puff INHALATION RT-BID #1 each 09/16/23 [Symbicort 160-4.5 Mcg Inhaler] Clopidogrel [Plavix] 75 mg PO DAILY #90 tablet 10/22/23 Allergies Allergy/AdvReac Type Severity Reaction Status Date / Time empagliflozin Allergy severe Verified 06/04/24 13:25 [From Jardiance] headache,genital pain and swelling hydrochlorothiazide Allergy Tongue Verified 06/04/24 13:25 swelling Penicillins Allergy Anaphylaxis Verified 06/04/24 13:25 Review of Systems ROS Statement: Those systems with pertinent positive or pertinent negative responses have been documented in the HPI. ROS Other: All systems not noted in ROS Statement are negative. Past Medical History Past Medical History: Cancer, COPD, Diabetes Mellitus, Eye Disorder, GERD/Reflux, GI Bleed, Hyperlipidemia, Hypertension, Skin Disorder, Sleep Apnea/CPAP/BIPAP Additional Past Medical History / Comment(s): had recent skin CA removed left chest area, [facility]- received steroids, also had admission to [facility] for difficulty breathing, Hx bronchitis early 2021. Ulcerative Colitis. hx GI bleeding many yrs ago. 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 CPAP use. RLS. Macular Degeneration (receives injections every 6 weeks). Hx basal cell skin cancer on right shoulder. Keratosis. Mild COPD. prostate infections History of Any Multi-Drug Resistant Organisms: None Reported Past Surgical History: Cholecystectomy, Heart Catheterization, Orthopedic Surgery Additional Past Surgical History / Comment(s): Right elbow surgery, left elbow tendon repair, bilateral wrist/hand surgery, trigger finger surgery X3, skin grafts to lower back, under knee and buttocks due to de [place] santos, colonoscopies. Past Anesthesia/Blood Transfusion Reactions: No Reported Reaction Additional Past Anesthesia/Blood Transfusion Reaction / Comment(s): no hx blood transfusion Past Psychological History: Anxiety, Depression Smoking Status: Former smoker Past Alcohol Use History: None Reported Past Drug Use History: None Reported - Past Family History Father Family Medical History: Cancer, Myocardial Infarction (ID) Additional Family Medical History / Comment(s): Skin cancer. Brother(s) Family Medical History: Myocardial Infarction (ID) Additional Family Medical History / Comment(s): at age 65. Mother Family Medical History: Cancer Additional Family Medical History / Comment(s): Skin cancer. General Exam - General Exam Comments Initial Comments: PHYSICAL EXAM: General Impression: Alert and oriented x3, not in acute distress HEENT: Normocephalic atraumatic, extra-ocular movements intact, pupils equal and reactive to light bilaterally, mucous membranes moist. Cardiovascular: Heart regular rate and rhythm Chest: Able to complete full sentences, no retractions, no tachypnea Abdomen: abdomen soft, non-tender, non-distended, no organomegaly Musculoskeletal: Pulses present and equal in all extremities, no peripheral fani ma Motor: no focal deficits noted Neurological: CN II-XII grossly intact, no focal motor or sensory deficits noted Skin: Intact with no visualized rashes Psych: Normal affect and mood Rectal: No gross blood Limitations: no limitations Course Vital Signs 06/04/24 06/04/24 11:30 12:14 Temperature 97.9 F Pulse Rate 71 74 Respiratory 20 18 Rate Blood Pressure 135/58 161/59 O2 Sat by Pulse 89 L 95 Oximetry EKG Findings - EKG Comments: EKG Findings:: My EKG interpretation: Ventricular rate 69, sinus rhythm, NJ interval 175, cures 93, QTc 425. No NJ prolongation, no QTC prolongation, no ST or T-wave changes noted. Overall, this EKG is unremarkable Medical Decision Making - Medical Decision Making Was pt. sent in by a medical professional or institution (, PA, PIPELINE CONTROLLER, urgent care, hospital, or [facility]...) When possible be specific @ -No Did you speak to anyone other than the patient for history (EMS, parent, family, police, friend...)? What history was obtained from this source @ -Some history obtained from states that he looks pale Did you review nursing and triage notes (agree or disagree)? Why? @ -I reviewed and agree with nursing and triage notes Were old charts reviewed (outside hosp., previous admission, EMS record, old EKG, old radiological studies, urgent care reports/EKG's, [facility] records)? Report findings @ -No old charts were reviewed Differential Diagnosis (chest pain, altered mental status, abdominal pain women, abdominal pain men, vaginal bleeding, musculoskeletal, weakness, fever, dyspnea, syncope, headache, dizziness, GI bleed, back pain, seizure, CVA, palpatations, mental health)? @ -Differential Weakness: Hypoglycemia, shock, sepsis, hyponatremia, anemia, infection, ID, ETOH, adverse medicine reaction, overdose, stroke, this is not meant to be an all-inclusive list. EKG interpreted by me (3pts min.). @ -See above X-rays interpreted by me (1pt min.). @ -None done CT interpreted by me (1pt min.). @ -None done U/S interpreted by me (1pt. min.). @ -None done What testing was considered but not performed or refused? (CT, X-rays, U/S, labs)? Why? @ -None What meds were considered but not given or refused? Why? @ -None Was smoking cessation discussed for >3mins.? @ -No Were there social determinants of health that impacted care today? How? (Homelessness, low income, unemployed, alcoholism, drug addiction, t ransportation, low edu. Level, literacy, decrease access to med. care, skilled nursing, rehab)? @ -No Was there de-escalation of care discussed even if they declined (Discuss DNR or withdrawal of care, Hospice)? DNR status @ -No What co-morbidities impacted this encounter? (DM, HTN, Smoking, COPD, CAD, Cance r, CVA, ARF, Chemo, Hep., AIDS, mental health diagnosis, sleep apnea, morbid obesity)? @ -Plavix use Was patient admitted / discharged? Hospital course, mention meds given and route, prescriptions, significant lab abnormalities, going to OR and other pertinent info. @ -74-year-old male presents to the emergency department for anemia. He has symptomatic anemia. Vital signs upon arrival are within acceptable limits. So- called blood is negative. Hemoglobin is 6.7 with microcytosis. Rest of labs within acceptable limits. Cervical blood is negative. Patient will be admitted. Case discussed with Dr. Kayden Pascal who is agreeable recommends iron studies and also hematology consult Did you discuss the management of the patient with other professionals (professionals i.e. , PA, PIPELINE CONTROLLER, lab, RT, psych nurse, social science manager, high lift mule operator, teacher, registration officer, employment case manager)? Give summary @ -See above Was critical care preformed (if so, how long)? @ -No Undiagnosed new problem with uncertain prognosis? @ -No Drug Therapy requiring intensive monitoring for toxicity (Heparin, Nitro, Insulin, Cardizem)? @ -No Were any procedures done? @ -No Diagnosis/symptom? Acute, or Chronic, or Acute on Chronic? Uncomplicated (without systemic symptoms) or Complicated (systemic symptoms)? @ -Symptomatic anemia Side effects of treatment? @ -No Exacerbation, Progression, or Severe Exacerbation? @ -No Poses a threat to life or bodily function? How? (Chest pain, USA, ID, pneumonia, PE, COPD, DKA, ARF, appy, cholecystitis, CVA, Diverticulitis, Homicidal, Suicidal, threat to staff... and all critical care pts) @ -Yes - Lab Data Result diagrams: 06/04/24 12:10 06/04/24 12:10 Lab Results 06/04/24 06/04/24 06/04/24 Range/Units 12:10 12:10 12:10 WBC 6.5 (3.8-10.6) k/uL RBC 3.55 L (4.30-5.90) m/uL Hgb 6.7 L* (13.0-17.5) gm/dL Hct 24.2 L (39.0-53.0) % MCV 68.2 L (80.0-100.0) fL MCH 18.7 L (25.0-35.0) pg MCHC 27.5 L (31.0-37.0) g/dL RDW 19.2 H (11.5-15.5) % Plt Count 270 (150-450) k/uL MPV 7.3 Neutrophils % 73 % Lymphocytes % 15 % Monocytes % 7 % Eosinophils % 2 % Basophils % 1 % Neutrophils # 4.7 (1.3-7.7) k/uL Lymphocytes # 1.0 (1.0-4.8) k/uL Monocytes # 0.5 (0-1.0) k/uL Eosinophils # 0.2 (0-0.7) k/uL Basophils # 0.0 (0-0.2) k/uL Hypochromasia Marked Anisocytosis Slight Microcytosis Marked PT 11.8 (10.0-12.5) sec INR 1.1 (<1.2) APTT 24.6 (22.0-30.0) sec Sodium 140 (137-145) mmol/L Potassium 5.1 (3.5-5.1) mmol/L Chloride 108 H (98-107) mmol/L Carbon Dioxide 26 (22-30) mmol/L Anion Gap 6 mmol/L BUN 16 (9-20) mg/dL Creatinine 1.07 (0.66-1.25) mg/dL Est GFR (CKD-EPI)AfAm 78 (>60 ml/min/1.73 sqM) Est GFR (CKD-EPI)NonAf 68 (>60 ml/min/1.73 sqM) Glucose 140 H (74-99) mg/dL Plasma Lactic Acid Denny (0.7-2.0) mmol/L Calcium 8.9 (8.4-10.2) mg/dL Total Bilirubin 0.5 (0.2-1.3) mg/dL AST 27 (17-59) U/L ALT 15 (4-49) U/L Alkaline Phosphatase 132 H (38-126) U/L Troponin I (0.000-0.034) ng/mL Total Protein 6.8 (6.3-8.2) g/dL Albumin 3.9 (3.5-5.0) g/dL Stool Occult Blood (Negative) Blood Type Blood Type Recheck Bld Type Recheck Status Antibody Screen Spec Expiration Date 06/04/24 06/04/24 06/04/24 Range/Units 12:10 12:10 12:24 WBC (3.8-10.6) k/uL RBC (4.30-5.90) m/uL Hgb (13.0-17.5) gm/dL Hct (39.0-53.0) % MCV (80.0-100.0) fL MCH (25.0-35.0) pg MCHC (31.0-37.0) g/dL RDW (11.5-15.5) % Plt Count (150-450) k/uL MPV Neutrophils % % Lymphocytes % % Monocytes % % Eosinophils % % Basophils % % Neutrophils # (1.3-7.7) k/uL Lymphocytes # (1.0-4.8) k/uL Monocytes # (0-1.0) k/uL Eosinophils # (0-0.7) k/uL Basophils # (0-0.2) k/uL Hypochromasia Anisocytosis Microcytosis PT (10.0-12.5) sec INR (<1.2) APTT (22.0-30.0) sec Sodium (137-145) mmol/L Potassium (3.5-5.1) mmol/L Chloride (98-107) mmol/L Carbon Dioxide (22-30) mmol/L Anion Gap mmol/L BUN (9-20) mg/dL Creatinine (0.66-1.25) mg/dL Est GFR (CKD-EPI)AfAm (>60 ml/min/1.73 sqM) Est GFR (CKD-EPI)NonAf (>60 ml/min/1.73 sqM) Glucose (74-99) mg/dL Plasma Lactic Acid Denny 1.4 (0.7-2.0) mmol/L Calcium (8.4-10.2) mg/dL Total Bilirubin (0.2-1.3) mg/dL AST (17-59) U/L ALT (4-49) U/L Alkaline Phosphatase (38-126) U/L Troponin I <0.012 (0.000-0.034) ng/mL Total Protein (6.3-8.2) g/dL Albumin (3.5-5.0) g/dL Stool Occult Blood (Negative) Blood Type B Positive Blood Type Recheck B Pos Bld Type Recheck Status No Antibody Screen NEGATIVE Spec Expiration Date 06/07/2024 - 230906/04/24 Range/Units 12:36 WBC (3.8-10.6) k/uL RBC (4.30-5.90) m/uL Hgb (13.0-17.5) gm/dL Hct (39.0-53.0) % MCV (80.0-100.0) fL MCH (25.0-35.0) pg MCHC (31.0-37.0) g/dL RDW (11.5-15.5) % Plt Count (150-450) k/uL MPV Neutrophils % % Lymphocytes % % Monocytes % % Eosinophils % % Basophils % % Neutrophils # (1.3-7.7) k/uL Lymphocytes # (1.0-4.8) k/uL Monocytes # (0-1.0) k/uL Eosinophils # (0-0.7) k/uL Basophils # (0-0.2) k/uL Hypochromasia Anisocytosis Microcytosis PT (10.0-12.5) sec INR (<1.2) APTT (22.0-30.0) sec Sodium (137-145) mmol/L Potassium (3.5-5.1) mmol/L Chloride (98-107) mmol/L Carbon Dioxide (22-30) mmol/L Anion Gap mmol/L BUN (9-20) mg/dL Creatinine (0.66-1.25) mg/dL Est GFR (CKD-EPI)AfAm (>60 ml/min/1.73 sqM) Est GFR (CKD-EPI)NonAf (>60 ml/min/1.73 sqM) Glucose (74-99) mg/dL Plasma Lactic Acid Denny (0.7-2.0) mmol/L Calcium (8.4-10.2) mg/dL Total Bilirubin (0.2-1.3) mg/dL AST (17-59) U/L ALT (4-49) U/L Alkaline Phosphatase (38-126) U/L Troponin I (0.000-0.034) ng/mL Total Protein (6.3-8.2) g/dL Albumin (3.5-5.0) g/dL Stool Occult Blood Negative (Negative) Blood Type Blood Type Recheck Bld Type Recheck Status Antibody Screen Spec Expiration Date Disposition Clinical Impression: Symptomatic anemia Disposition: ADMITTED IP TO THIS [facility] Condition: Fair Referrals: Kayden Pascal DO [Primary Care Provider] - 1-2 days Decision Time: 14:08
[2024-06-04 12:53] LABS: INR 1.1 (<1.2); Partial Thromboplastin Time 24.6 sec (22.0-30.0); Prothrombin Time 11.8 sec (10.0-12.5)
[2024-06-04 12:57] LABS: HGB 6.7 gm/dL (13.0-17.5)
[2024-06-04] MEDS ORDERED: NALOXONE 0.4 MG/ML 1 ML VIAL IV PRN (13:23)
[2024-06-04] MEDS: SODIUM CHLORIDE 0.9% 1,000 ML IV SCH (14:21)
[2024-06-04 16:05] LABS: Glucose,Whole Blood 152 mg/dL (70-110)
[2024-06-04] MEDS ORDERED: IPRATROPIUM-ALBUTEROL 3 ML NEB INHALATION PRN (16:57)
[2024-06-04] MEDS ORDERED: DEXTROSE 50% SYRINGE 50 ML IVP PRN ×2 (17:37)
[2024-06-04] MEDS: hydrALAZINE HCL 50 MG TAB PO SCH (17:44)
[2024-06-04] MEDS: DICYCLOMINE 10 MG CAP PO SCH (17:44)
[2024-06-04] MEDS: sulfaSALAzine 500 MG TAB PO SCH (17:44)
[2024-06-04 20:13] LABS: Glucose,Whole Blood 145 mg/dL (70-110)
[2024-06-04] MEDS: INSULIN ASPART (NovoLOG) 100 UNIT/ML VIAL SQ SCH (20:48)
[2024-06-04] MEDS: clonazePAM 0.5 MG TAB PO SCH (21:50)
[2024-06-04] MEDS: carvediloL 12.5 MG TAB PO SCH (21:50)
[2024-06-04] MEDS: LATANOPROST 0.005% OPHTH DROPS 2.5 ML BTL BOTH EYES SCH (21:51)
[2024-06-04] MEDS: PRAVASTATIN SODIUM 20 MG TAB PO SCH (21:51)
[2024-06-04] MEDS: IPRATROPIUM-ALBUTEROL 3 ML NEB INHALATION SCH (21:54)
[2024-06-04] MEDS: SYMBICORT 160-4.5 MCG INHALER INHALATION SCH (21:54)
[2024-06-04 23:18] LABS: % Iron Saturation 3.73 (15.00-50.00); Ferritin 12.5 ng/mL (22.0-322.0)
[2024-06-05 06:15] LABS: Glucose,Whole Blood 121 mg/dL (70-110)
[2024-06-05] MEDS: LEVOTHYROXINE 75 MCG TAB PO SCH (06:34)
[2024-06-05 08:41] LABS: Anisocytosis Slight; Basophils # (A) 0.1 k/uL (0-0.2); Basophils % (A) 1 %; Eosinophils # (A) 0.2 k/uL (0-0.7); Eosinophils % (A) 3 %; HCT 27.1 % (39.0-53.0); HGB 7.7 gm/dL (13.0-17.5); Hypochromasia Marked; Lymphocytes # (A) 0.9 k/uL (1.0-4.8); Lymphocytes % (A) 15 %; MCH 19.9 pg (25.0-35.0); MCHC 28.6 g/dL (31.0-37.0); MCV 69.7 fL (80.0-100.0); Mean Platelet Volume 7.3; Microcytosis Marked; Monocytes # (A) 0.4 k/uL (0-1.0); Monocytes % (A) 8 %; Neutrophils # (A) 4.1 k/uL (1.3-7.7); Neutrophils % (A) 72 %; Platelet Count 228 k/uL (150-450); Poikilocytosis Moderate; RBC 3.88 m/uL (4.30-5.90); RDW 19.5 % (11.5-15.5); WBC 5.6 k/uL (3.8-10.6)
[2024-06-05] MEDS: ISOSORBIDE MONONITRATE ER 30 MG TAB.ER.24H PO SCH (08:55)
[2024-06-05] MEDS: CLOPIDOGREL 75 MG TAB PO SCH (08:55)
[2024-06-05] MEDS: lisinopriL 5 MG TAB PO SCH (08:55)
[2024-06-05] MEDS: PARoxetine 20 MG TAB PO SCH (08:55)
[2024-06-05] MEDS: FAMOTIDINE 20 MG TAB PO SCH (08:55)
[2024-06-05] MEDS: SODIUM FERRIC GLUCONAT-SUCROSE 125 MG in SODIUM CHLORIDE 0.9% 100 ML IVPB SCH (10:38)
[2024-06-05 11:25] LABS: Glucose,Whole Blood 136 mg/dL (70-110)
--- NOTE | 2024-06-05 15:14 | P.CONS ---
History of Present Illness - Reason for Consult Consult date: 06/05/24 anemia Requesting physician: Roderick Jenkins - Chief Complaint abnormal lab - History of Present Illness Mr. Donovan is a 74-year-old male we have been asked to see regarding anemia. On chart review it is noted that patient's anemia has been progressive since September 2023, microcytic and hyperchromic in the last few months. Patient has a history of ulcerative colitis diagnosed in his mid 20s. He has had multiple colonoscopies over the years, most recent was in 2021. He states that he believes he is scheduled for another colonoscopy next month. In this last year he has "lost taste for meat" he notes this was after his gallbladder was removed in January 2021. He states that his taste has changed overall. He is also having trouble with his teeth. He was due to have multiple teeth extracted and on routine lab work was when the anemia was found. Hemoglobin 6.7. He is status post 1 unit of blood with an appropriate increase in his hemoglobin to 7.7. He denies any bleeding, no recent illness, nausea, vomiting, hematic emesis, coffee-ground emesis, abdominal pain or unusual indigestion or heartburn, his stool may have been a little bit darker recently. He was started on Plavix 2 to 3 months ago after cardiac stent placement, he has been on aspirin for years. CBC is otherwise within normal defined limits, mild renal dysfunction is noted. 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 Partial workup for anemia did show significantly low iron saturation at 3.7% and ferr itin of 12.5. Review of Systems 10 point review of systems is negative except as stated in HPI Past Medical History Past Medical History: Cancer, COPD, Diabetes Mellitus, Eye Disorder, GERD/Reflux, GI Bleed, Hyperlipidemia, Hypertension, Skin Disorder, Sleep Apnea/CPAP/BIPAP Additional Past Medical History / Comment(s): had recent skin CA removed left chest area, admitted sep 2023 to [facility] for difficulty breathing- received steroids, also had admission to [facility] for diffi culty breathing, Hx bronchitis early 2021. Ulcerative Colitis. hx GI bleeding many yrs ago. 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 CPAP use. RLS. Macular Degeneration (receives injections every 6 weeks). Hx basal cell skin cancer on right shoulder. Keratosis. Mild COPD. prostate infections History of Any Multi-Drug Resistant Organisms: None Reported Past Surgical History: Cholecystectomy, Heart Catheterization, Orthopedic Surgery Additional Past Surgical History / Comment(s): Right elbow surgery, left elbow tendon repair, bilateral wrist/hand surgery, trigger finger surgery X3, skin grafts to lower back, under knee and buttocks due to de los santos, colonoscopies. Past Anesthesia/Blood Transfusion Reactions: No Reported Reaction Additional Past Anesthesia/Blood Transfusion Reaction / Comm: no hx blood transfusion Past Psychological History: Anxiety, Depression Smoking Status: Former smoker Past Alcohol Use History: None Reported Additional Past Alcohol Use History / Comment(s): Quit smoking in 1998, smoked for 35 yrs, 1/2 ppd. quit alcohol at age 29. Past Drug Use History: None Reported Additional Drug Use History / Comment(s): Quit marijuana 43 yrs ago. - Past Family History Father Family Medical History: Cancer, Myocardial Infarction ([place]) Additional Family Medical History / Comment(s): Skin cancer. Brother(s) Family Medical History: Myocardial Infarction ([place]) Additional Family Medical History / Comment(s): at age 65. Mother Family Medical History: Cancer Additional Family Medical History / Comment(s): Skin cancer. Medications and Allergies Home Medications Medication Instructions Recorded Confirmed Type Aspirin 81 mg PO DAILY 05/16/14 06/04/24 History PARoxetine [Paxil] 20 mg PO DAILY 05/16/14 06/04/24 History Pravastatin Sodium [Pravachol] 20 mg PO HS 05/16/14 06/04/24 History sulfaSALAzine [Azulfidine] 1,000 mg PO QID 06/26/17 06/04/24 History INSULIN LISPRO (For Pump) [humaLOG 0.01 units SQ-PUMP CONTINUOUS MDD 01/29/21 06/04/24 History (For Pump)] 100 UNITS Dicyclomine [Bentyl] 10 mg PO ACHS 09/10/23 06/04/24 History Famotidine 20 mg PO DAILY 09/10/23 06/04/24 History Latanoprost Ophth [Xalatan 0.005%] 1 drop BOTH EYES HS 09/10/23 06/04/24 History clonazePAM [KlonoPIN] 0.5 mg PO HS 09/10/23 06/04/24 History Budesonide-Formot 160-4.5 Mcg 2 puff INHALATION RT-BID #1 each 09/16/23 06/04/24 Rx [Symbicort 160-4.5 Mcg Inhaler] Ipratropium-Albuterol Nebulize 3 ml INHALATION RT-QID 10/17/23 06/04/24 History [Duoneb 0.5 mg-3 mg/3 ml Soln] Isosorbide Mononitrate ER [Imdur] 30 mg PO DAILY 10/17/23 06/04/24 History hydrALAZINE HCL [Apresoline] 50 mg PO TID 10/17/23 06/04/24 History Clopidogrel [Plavix] 75 mg PO DAILY #90 tablet 10/22/23 06/04/24 Rx Ipratropium-Albuterol Nebulize 3 ml INHALATION RT-Q4H PRN 06/04/24 06/04/24 History [Duoneb 0.5 mg-3 mg/3 ml Soln] Levothyroxine Sodium [Synthroid] 75 mcg PO AC-BRKFST 06/04/24 06/04/24 History NIFEdipine XL [Procardia XL] 60 mg PO BID 06/04/24 06/04/24 History carvediloL [Coreg] 12.5 mg PO BID 06/04/24 06/04/24 History lisinopriL [Zestril] 5 mg PO DAILY 06/04/24 06/04/24 History Allergies Allergy/AdvReac Type Severity Reaction Status Date / Time empagliflozin Allergy severe Verified 06/04/24 13:25 [From Jardiance] headache,genital pain and swelling hydrochlorothiazide Allergy Tongue Verified 06/04/24 13:25 swelling Penicillins Allergy Anaphylaxis Verified 06/04/24 13:25 Physical Exam Vitals: Vital Signs Temp Pulse Pulse Resp BP BP Pulse Ox 06/05/24 14:00 18 06/05/24 12:00 98.4 F 74 18 173/73 94 L 06/05/24 11:34 72 06/05/24 11:23 72 06/05/24 08:03 76 06/05/24 08:00 98.9 F 77 17 196/84 92 L 06/05/24 07:52 76 93 L 06/05/24 04:00 167/65 06/05/24 00:00 97.8 F 70 18 154/62 96 06/04/24 22:05 76 06/04/24 21:55 72 06/04/24 20:00 98 F 74 18 163/64 97 06/04/24 16:29 97.7 F 70 18 172/65 96 06/04/24 15:23 98.0 F 711 H 8 L 160/72 94 L Intake and Output 06/04/24 06/05/24 06/05/24 22:59 06:59 14:59 Intake Total 522 0 150 Output Total 400 Balance 122 0 150 Intake: Oral 240 0 150 Blood Product 282 Rc Pheresis As-3 Unit 282 [id number] Output: Urine 400 Other: Voiding Method Urinal Urinal Weight 76.204 kg 75.2 kg - Constitutional General appearance: average body habitus, cooperative, no acute distress - EENT tongue mildly reddened, some spots of irritation along the side of the tongue, no ulcers Eyes: anicteric sclerae, EOMI ENT: hearing grossly normal - Neck Neck: no lymphadenopathy - Respiratory Respiratory: bilateral: CTA - Cardiovascular Rhythm: regular Heart sounds: normal: S1, S2 Abnormal Heart Sounds: no systolic murmur, no diastolic murmur, no rub, no S3 Gallop, no S4 Gallop, no click, no other leg Peripheral Edema: bilateral: None - Gastrointestinal General gastrointestinal: no absent bowel sounds, no decreased bowel sounds, no distended, no hepatomegaly, no hyperactive bowel sounds, normal bowel sounds, no organomegaly, no rigid, no scaphoid, soft, no splenomegaly, no tenderness, no umbilical hernia, no ventral hernia - Integumentary Integumentary: pale - Neurologic Neurologic: CNII-XII intact - Musculoskeletal Musculoskeletal: strength equal bilaterally - Psychiatric Psychiatric: A&O x's 3, appropriate affect, intact judgment & insight Results CBC & Chem 7: 06/05/24 08:01 06/04/24 12:10 Labs: Abnormal Lab Results - Last 24 Hours (Table) 06/04/24 06/04/24 06/04/24 Range/Units 12:10 12:10 16:04 RBC (4.30-5.90) m/uL Hgb (13.0-17.5) gm/dL Hct (39.0-53.0) % MCV (80.0-100.0) fL MCH (25.0-35.0) pg MCHC (31.0-37.0) g/dL RDW (11.5-15.5) % Lymphocytes # (1.0-4.8) k/uL POC Glucose (mg/dL) 152 H (70-110) mg/dL Iron 17 L (65-175) UG/DL % Saturation 3.73 L (15.00-50.00) Ferritin 12.5 L (22.0-322.0) ng/mL Crossmatch See Detail 06/04/24 06/05/24 06/05/24 Range/Units 20:12 05:59 08:01 RBC 3.88 L (4.30-5.90) m/uL Hgb 7.7 L (13.0-17.5) gm/dL Hct 27.1 L (39.0-53.0) % MCV 69.7 L (80.0-100.0) fL MCH 19.9 L (25.0-35.0) pg MCHC 28.6 L (31.0-37.0) g/dL RDW 19.5 H (11.5-15.5) % Lymphocytes # 0.9 L (1.0-4.8) k/uL POC Glucose (mg/dL) 145 H 121 H (70-110) mg/dL Iron (65-175) UG/DL % Saturation (15.00-50.00) Ferritin (22.0-322.0) ng/mL Crossmatch 06/05/24 Range/Units 11:23 RBC (4.30-5.90) m/uL Hgb (13.0-17.5) gm/dL Hct (39.0-53.0) % MCV (80.0-100.0) fL MCH (25.0-35.0) pg MCHC (31.0-37.0) g/dL RDW (11.5-15.5) % Lymphocytes # (1.0-4.8) k/uL POC Glucose (mg/dL) 136 H (70-110) mg/dL Iron (65-175) UG/DL % Saturation (15.00-50.00) Ferritin (22.0-322.0) ng/mL Crossmatch Assessment and Plan (1) Microcytic hypochromic anemia Current Visit: Yes Status: Acute Priority: High Code(s): D50.9 - IRON DEFICIENCY ANEMIA, UNSPECIFIED SNOMED Code(s): 37371413 (2) Iron deficiency Current Visit: Yes Status: Acute Priority: High Code(s): E61.1 - IRON DEFICIENCY SNOMED Code(s): 66948915 Plan: Microcytic, hypochromic anemia. Iron deficiency -Chart review reveals progressive anemia starting later in 2022, progressive with microcytosis and hypochromasia developing the last few months. -Iron studies consistent with significant iron deficiency with single digit saturation and ferritin of 12.5. -Agree with parenteral iron supplementation as patient deficit is too great for oral supplementation to be adequate. -Will complete anemia workup with additional lab work. Further recommendations if other supplements are needed -Spoke with patient about making sure he follows up with his radiology interventional physician. If he is due for colonoscopy next month then highly recommend he proceed. Recommend upper GI as well. -Suspect that the iron deficient anemia is multifactorial based on history. Patient reported changes in diet after 2020 because of gallbladder removal. He has had more recent dietary changes because of teeth. He was recently started on an additional antiplatelet therapy because of cardiac stent. -Will plan for a follow-up outpatient to see how patient hemoglobin recovers post parenteral iron. Additional workup can be done at that time from a Hematology standpoint if needed. -Transfuse to keep Hgb >7 -CBC in AM
[2024-06-05 16:12] LABS: Glucose,Whole Blood 174 mg/dL (70-110)
[2024-06-05 16:37] LABS: Reticulocyte % 3.1 % (0.5-2.0)
--- NOTE | 2024-06-05 17:21 | P.HPIM ---
History of Present Illness H&P Date: 06/05/24 Chief Complaint: Anemic, oral surgery canceled yesterday This is a 74-year-old gentleman with past medical history significant for ulcerative colitis, follows closely with GI Dr. Xochitl Taylor with colonoscopies every couple of years, last completed 2021, COPD, gastroesophageal reflux disease, GI bleed, obstructive sleep apnea wears CPAP/BiPAP, diabetes mellitus- hemoglobin A1c 5.2 in October 2023. Recent cardiac catheterization with stents placed on Plavix in addition to aspirin. Chronic kidney disease, baseline creatinine 1.1. Hemoglobin has been trending down as of 10/01. yesterday patient was scheduled for oral surgery, routine lab work reported hemoglobin is 7. Patient was symptomatic with dizziness, fatigue, mild shortness of breath and procedure was canceled with patient directed to the ER.Hemoglobin on admission 6.7, transfuse 1 unit packed RBCs with repeat hemoglobin 7.7. iron studies reported iron of 17, TIBC 456, iron saturation 3.73, transferrin 326, ferritin 12.5. Alk phos 132, stool for occult blood negative. Patient denies any bleeding, no hemoptysis, no rectal bleeding, no black stools. Denies nausea or vomiting. His chest pain, palpitations or shortness of breath. Review of Systems ROS Statement: Those systems with pertinent positive or pertinent negative responses have been documented in the HPI. ROS Other: All systems not noted in ROS Statement are negative. Past Medical History Past Medical History: Cancer, COPD, Diabetes Mellitus, Eye Disorder, GERD/Reflux, GI Bleed, Hyperlipidemia, Hypertension, Skin Disorder, Sleep Apnea/CPAP/BIPAP Additional Past Medical History / Comment(s): had recent skin CA removed left chest area, admitted sep 2023 to [facility] for difficulty breathing- received steroids, also had admission to [facility] for difficulty breathing, Hx bronchitis early 2021. Ulcerative Colitis. hx GI bleeding many yrs ago. 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 CPAP use. RLS. Macular Degeneration (receives injections every 6 weeks). Hx basal cell skin cancer on right shoulder. Keratosis. Mild COPD. prostate infections History of Any Multi-Drug Resistant Organisms: None Reported Past Surgical History: Cholecystectomy, Heart Catheterization, Orthopedic Surgery Additional Past Surgical History / Comment(s): Right elbow surgery, left elbow tendon repair, bilateral wrist/hand surgery, trigger finger surgery X3, skin g rafts to lower back, under knee and buttocks due to de los santos, colonoscopies. Past Anesthesia/Blood Transfusion Reactions: No Reported Reaction Additional Past Anesthesia/Blood Transfusion Reaction / Comment(s): no hx blood transfusion Past Psychological History: Anxiety, Depression Smoking Status: Former smoker Past Alcohol Use History: None Reported Additional Past Alcohol Use History / Comment(s): Quit smoking in 1998, smoked for 35 yrs, 1/2 ppd. quit alcohol at age 29. Past Drug Use History: None Reported Additional Drug Use History / Comment(s): Quit marijuana 43 yrs ago. - Past Family History Father Family Medical History: Cancer, Myocardial Infarction ([place]) Additional Family Medical History / Comment(s): Skin cancer. Brother(s) Family Medical History: Myocardial Infarction ([place]) Additional Family Medical History / Comment(s): at age 65. Mother Family Medical History: Cancer Additional Family Medical History / Comment(s): Skin cancer. Medications and Allergies Home Medications Medication Instructions Recorded Confirmed Type Aspirin 81 mg PO DAILY 05/16/14 06/04/24 History PARoxetine [Paxil] 20 mg PO DAILY 05/16/14 06/04/24 History Pravastatin Sodium [Pravachol] 20 mg PO HS 05/16/14 06/04/24 History sulfaSALAzine [Azulfidine] 1,000 mg PO QID 06/26/17 06/04/24 History INSULIN LISPRO (For Pump) [humaLOG 0.01 units SQ-PUMP CONTINUOUS MDD 01/29/21 06/04/24 History (For Pump)] 100 UNITS Dicyclomine [Bentyl] 10 mg PO ACHS 09/10/23 06/04/24 History Famotidine 20 mg PO DAILY 09/10/23 06/04/24 History Latanoprost Ophth [Xalatan 0.005%] 1 drop BOTH EYES HS 09/10/23 06/04/24 History clonazePAM [KlonoPIN] 0.5 mg PO HS 09/10/23 06/04/24 History Budesonide-Formot 160-4.5 Mcg 2 puff INHALATION RT-BID #1 each 09/16/23 06/04/24 Rx [Symbicort 160-4.5 Mcg Inhaler] Ipratropium-Albuterol Nebulize 3 ml INHALATION RT-QID 10/17/23 06/04/24 History [Duoneb 0.5 mg-3 mg/3 ml Soln] Isosorbide Mononitrate ER [Imdur] 30 mg PO DAILY 10/17/23 06/04/24 History hydrALAZINE HCL [Apresoline] 50 mg PO TID 10/17/23 06/04/24 History Clopidogrel [Plavix] 75 mg PO DAILY #90 tablet 10/22/23 06/04/24 Rx Ipratropium-Albuterol Nebulize 3 ml INHALATION RT-Q4H PRN 06/04/24 06/04/24 History [Duoneb 0.5 mg-3 mg/3 ml Soln] Levothyroxine Sodium [Synthroid] 75 mcg PO AC-BRKFST 06/04/24 06/04/24 History NIFEdipine XL [Procardia XL] 60 mg PO BID 06/04/24 06/04/24 History carvediloL [Coreg] 12.5 mg PO BID 06/04/24 06/04/24 History lisinopriL [Zestril] 5 mg PO DAILY 06/04/24 06/04/24 History Allergies Allergy/AdvReac Type Severity Reaction Status Date / Time empagliflozin Allergy severe Verified 06/04/24 13:25 [From Jardiance] headache,genital pain and swelling hydrochlorothiazide Allergy Tongue Verified 06/04/24 13:25 swelling Penicillins Allergy Anaphylaxis Verified 06/04/24 13:25 Physical Exam Vitals: Vital Signs Temp Pulse Pulse Resp BP Pulse Ox 06/05/24 16:00 76 18 179/70 93 L 06/05/24 15:28 72 06/05/24 15:15 72 06/05/24 14:00 18 06/05/24 12:00 98.4 F 74 18 173/73 94 L 06/05/24 11:34 72 06/05/24 11:23 72 06/05/24 08:03 76 06/05/24 08:00 98.9 F 77 17 196/84 92 L 06/05/24 07:52 76 93 L 06/05/24 04:00 167/65 06/05/24 00:00 97.8 F 70 18 154/62 96 08/26/24 22:05 76 06/04/24 21:55 72 06/04/24 20:00 98 F 74 18 163/64 97 Intake and Output 06/05/24 06/05/24 06/05/24 06:59 14:59 22:59 Intake Total 0 600 Output Total 1700 Balance 0 -1100 Intake: Oral 0 600 Output: Urine 1700 Other: Voiding Method Urinal Urinal Weight 75.2 kg PHYSICAL EXAM: VITAL SIGNS: [As above] GENERAL: Alert and oriented 3, Sitting up in chair, no acute distress, HEENT: Normocephalic Conjunctivae normal. eyes normal, poor dentition NECK: Supple, No JVD. CARDIOVASCULAR: S1, S2 regular. No murmur RESPIRATION: Unlabored , equal air entry ,Breath sounds diminished in the bases. No rhonchi,crackles or expiratory wheeze. ABDOMEN: Soft, nondistended, nontender . No guarding. +BS. LEGS: No edema. no swelling NERVOUS SYSTEM: Cranial N 2-12 grossly normal. No focal deficits. Strength and sensation grossly intact. Skin: Warm and dry, no rash Results CBC & Chem 7: 06/05/24 08:01 06/04/24 12:10 Labs: Abnormal Lab Results - Last 24 Hours (Table) 06/04/24 06/04/24 06/05/24 Range/Units 12:10 20:12 05:59 RBC (4.30-5.90) m/uL Hgb (13.0-17.5) gm/dL Hct (39.0-53.0) % MCV (80.0-100.0) fL MCH (25.0-35.0) pg MCHC (31.0-37.0) g/dL RDW (11.5-15.5) % Lymphocytes # (1.0-4.8) k/uL Retic Count (0.5-2.0) % POC Glucose (mg/dL) 145 H 121 H (70-110) mg/dL Iron 17 L (65-175) UG/DL % Saturation 3.73 L (15.00-50.00) Ferritin 12.5 L (22.0-322.0) ng/mL 06/05/24 06/05/24 06/05/24 Range/Units 08:01 08:01 11:23 RBC 3.88 L (4.30-5.90) m/uL Hgb 7.7 L (13.0-17.5) gm/dL Hct 27.1 L (39.0-53.0) % MCV 69.7 L (80.0-100.0) fL MCH 19.9 L (25.0-35.0) pg MCHC 28.6 L (31.0-37.0) g/dL RDW 19.5 H (11.5-15.5) % Lymphocytes # 0.9 L (1.0-4.8) k/uL Retic Count 3.1 H (0.5-2.0) % POC Glucose (mg/dL) 136 H (70-110) mg/dL Iron (65-175) UG/DL % Saturation (15.00-50.00) Ferritin (22.0-322.0) ng/mL 06/05/24 Range/Units 16:11 RBC (4.30-5.90) m/uL Hgb (13.0-17.5) gm/dL Hct (39.0-53.0) % MCV (80.0-100.0) fL MCH (25.0-35.0) pg MCHC (31.0-37.0) g/dL RDW (11.5-15.5) % Lymphocytes # (1.0-4.8) k/uL Retic Count (0.5-2.0) % POC Glucose (mg/dL) 174 H (70-110) mg/dL Iron (65-175) UG/DL % Saturation (15.00-50.00) Ferritin (22.0-322.0) ng/mL Thrombosis Risk Factor Assmnt - Choose All That Apply Each Factor Represents 1 point: Abnormal pulmonary function (COPD), Obesity (BMI >25) Each Risk Factor Represents 3 Points: Age 75 years or older Other congenital or acquired thrombophilia - If yes, enter type in comment: No Thrombosis Risk Factor Assessment Total Risk Factor Score: 5 Thrombosis Risk Factor Assessment Level: High Risk Assessment and Plan Assessment: Symptomatic acute on chronic anemia, iron deficient, recent cath with stents, on Plavix and aspirin. Negative occult. History of ulcerative colitis , last colonoscopy 2021 -routine colonoscopies ev dheeraj 2 years with GI-Dr. Meme Villafuerte, due next month COPD, stable Obesity, BMI 27 Obstructive sleep apnea, on CPAP Diabetes mellitus, insulin pump Hypothyroidism Hypertension Hyperlipidemia History of anxiety, depression History of alcohol and marijuana use Plan: Continue on current medication resume ,monitoring and symptomatic treatment. iron studies reflecting iron deficiency anemia, IV Venofer ordered. Hold aspirin and Plavix for today. hematology consulted. PPI for GI prophylaxis. The impression and plan of care has been dictated as directed. : I performed a history and examination of this patient, discussed the same with the dictator. I agree with the dictator's note ,documented as a scribe. Any additional findings or plans will be noted.
[2024-06-05] MEDS: INSULIN LISPRO (For Pump) 100 UNIT/ML VIAL SQ-PUMP SCH (17:24)
[2024-06-05] MEDS: PANTOPRAZOLE 40 MG/10 ML VIAL IVP SCH (17:28)
[2024-06-05 20:35] LABS: Glucose,Whole Blood 172 mg/dL (70-110)
[2024-06-06 05:58] LABS: Glucose,Whole Blood 136 mg/dL (70-110)
[2024-06-06 10:07] LABS: Anisocytosis Slight; Basophils % (A) 1 %; Eosinophils # (A) 0.3 k/uL (0-0.7); Eosinophils % (A) 4 %; HCT 25.4 % (39.0-53.0); Hypochromasia Marked; Lymphocytes # (A) 0.8 k/uL (1.0-4.8); Lymphocytes % (A) 13 %; MCH 19.3 pg (25.0-35.0); MCHC 27.7 g/dL (31.0-37.0); MCV 69.6 fL (80.0-100.0); Mean Platelet Volume 6.5; Microcytosis Marked; Monocytes # (A) 0.5 k/uL (0-1.0); Monocytes % (A) 9 %; Neutrophils # (A) 4.5 k/uL (1.3-7.7); Neutrophils % (A) 72 %; Platelet Count 231 k/uL (150-450); Poikilocytosis Slight; RBC 3.65 m/uL (4.30-5.90); RDW 19.7 % (11.5-15.5); WBC 6.2 k/uL (3.8-10.6)
[2024-06-06 10:12] LABS: African American GFR (CKD) 73 (>60 ml/min/1.73 sqM); Anion Gap 8 mmol/L; Blood Urea Nitrogen 14 mg/dL (9-20); Calcium 8.5 mg/dL (8.4-10.2); Carbon Dioxide 26 mmol/L (22-30); Chloride 106 mmol/L (98-107); Glucose 159 mg/dL (74-99); Non-African American GFR(CKD) 63 (>60 ml/min/1.73 sqM); Potassium 4.3 mmol/L (3.5-5.1); Sodium 140 mmol/L (137-145)
[2024-06-06 11:34] LABS: Glucose,Whole Blood 235 mg/dL (70-110)
--- NOTE | 2024-06-06 12:42 | P.PN ---
Subjective Progress Note Date: 06/06/24 Principal diagnosis: microcytic, hypochromic anemia In follow-up today patient has complaints of shortness of breath with the exertion of any kind, this limits his activities, he is trying to be as active as possible. He denies any overt bleeding, he thinks there was a little bit of blood and some mucus in his stool this morning, no abdominal pain or cramping. He is tolerating parenteral iron well. Objective - Vital Signs Vital signs: Vital Signs Temp 98.0 F 06/06/24 11:14 Pulse 73 06/06/24 11:14 Resp 16 06/06/24 11:14 BP 156/68 06/06/24 11:14 Pulse Ox 95 06/06/24 11:14 FiO2 Intake & Output 06/05/24 06/06/24 06/06/24 18:59 06:59 18:59 Intake Total 718 118 Output Total 1700 Balance -982 118 Weight 75.6 kg Intake: Oral 718 118 Output: Urine 1700 Other: Voiding Method Urinal Urinal Urinal # Voids 2 # Bowel Movements 0 - Constitutional General appearance: Present: average body habitus, cooperative, no acute distress - EENT Eyes: Present: anicteric sclerae, EOMI ENT: Present: hearing grossly normal - Respiratory Details: Respirations unlabored at rest - Cardiovascular Details: Skin is warm to the touch - Peripheral edema leg Peripheral Edema: bilateral: None - Integumentary Integumentary: Present: pale - Musculoskeletal Musculoskeletal: Present: generalized weakness, strength equal bilaterally - Psychiatric Psychiatric: Present: A&O x's 3, appropriate affect, intact judgment & insight - Labs CBC & Chem 7: 06/06/24 09:24 06/06/24 09:24 Labs: Abnormal Lab Results - Last 24 Hours (Table) 06/05/24 06/05/24 06/05/24 Range/Units 08:01 16:11 20:26 RBC (4.30-5.90) m/uL Hgb (13.0-17.5) gm/dL Hct (39.0-53.0) % MCV (80.0-100.0) fL MCH (25.0-35.0) pg MCHC (31.0-37.0) g/dL RDW (11.5-15.5) % Lymphocytes # (1.0-4.8) k/uL Retic Count 3.1 H (0.5-2.0) % Glucose (74-99) mg/dL POC Glucose (mg/dL) 174 H 172 H (70-110) mg/dL 06/06/24 06/06/24 06/06/24 Range/Units 05:50 09:24 09:24 RBC 3.65 L (4.30-5.90) m/uL Hgb 7.0 L (13.0-17.5) gm/dL Hct 25.4 L (39.0-53.0) % MCV 69.6 L (80.0-100.0) fL MCH 19.3 L (25.0-35.0) pg MCHC 27.7 L (31.0-37.0) g/dL RDW 19.7 H (11.5-15.5) % Lymphocytes # 0.8 L (1.0-4.8) k/uL Retic Count (0.5-2.0) % Glucose 159 H (74-99) mg/dL POC Glucose (mg/dL) 136 H (70-110) mg/dL 06/06/24 Range/Units 11:32 RBC (4.30-5.90) m/uL Hgb (13.0-17.5) gm/dL Hct (39.0-53.0) % MCV (80.0-100.0) fL MCH (25.0-35.0) pg MCHC (31.0-37.0) g/dL RDW (11.5-15.5) % Lymphocytes # (1.0-4.8) k/uL Retic Count (0.5-2.0) % Glucose (74-99) mg/dL POC Glucose (mg/dL) 235 H (70-110) mg/dL Assessment and Plan (1) Microcytic hypochromic anemia Current Visit: Yes Status: Acute Priority: High Code(s): D50.9 - IRON DEFICIENCY ANEMIA, UNSPECIFIED SNOMED Code(s): 79530357 (2) Iron deficiency Current Visit: Yes Status: Acute Priority: High Code(s): E61.1 - IRON DEFICIENCY SNOMED Code(s): 97092849 Plan: Microcytic, hypochromic anemia. Iron deficiency -Progressive anemia starting late in 2022, microcytosis and hypochromasia developing the last few months. -Iron studies consistent with significant iron deficiency with single digit saturation and ferritin of 12.5. Agree with parenteral iron supplementation, cont as ordered, pt tolerating well. Iron deficit is too great for oral supplementation to be adequate. -Ordered additional anemia workup, still pending some results. Further recommendations if other supplements are needed -Pt has Cardiology and GI f/u in Jun, pt needs to keep those appts. Recommending upper and lower GI. -Suspect that the iron deficient anemia is multifactorial based on history. Patient reported changes in diet after 2020 because of gallbladder removal. He has had more recent dietary changes because of teeth. He was recently started on an additional antiplatelet therapy because of cardiac stent. He has been on aspirin for many years. Chronic GI losses over time. -Discussed above with at bedside. Plan is for follow-up outpatient about 4 weeks after DC to check Hgb recovery post parenteral iron. Additional workup can be done at that time from a Hematology standpoint if needed. -Transfuse to keep Hgb >7. Hgb 7 today -CBC daily while inpt
[2024-06-06 16:38] LABS: Glucose,Whole Blood 172 mg/dL (70-110)
[2024-06-06] MEDS ORDERED: IPRATROPIUM-ALBUTEROL 3 ML NEB INHALATION PRN (17:30)
--- NOTE | 2024-06-06 17:32 | P.PN ---
Subjective Progress Note Date: 06/06/24 H&P Date: 06/05/24 Chief Complaint: Anemic, oral surgery canceled yesterday This is a 74-year-old gentleman with past medical history significant for ulcerative colitis, follows closely with GI Dr. Xochitl Taylor with colonoscopies every couple of years, last completed 2021, COPD, gastroesophageal reflux disease, GI bleed, obstructive sleep apnea wears CPAP/BiPAP, diabetes mellitus- hemoglobin A1c 5.2 in October 2023. Recent cardiac catheterization 11/02 with stenting of RCA placed on Plavix in addition to aspirin. Chronic kidney disease, baseline creatinine 1.1. Hemoglobin has been trending down as of 10/01. yesterday patient was scheduled for oral surgery, routine lab work reported hemoglobin is 7. Patient was symptomatic with dizziness, fatigue, mild shortness of breath and procedure was canceled with patient directed to the ER.Hemoglobin on admission 6.7, transfuse 1 unit packed RBCs with repeat hemoglobin 7.7. iron studies reported iron of 17, TIBC 456, iron saturation 3.73, transferrin 326, ferritin 12.5. Alk phos 132, stool for occult blood negative. Patient denies any bleeding, no hemoptysis, no rectal bleeding, no black stools. Denies nausea or vomiting. His chest pain, palpitations or shortness of breath. 06/06/2024 reports trace blood with mucus in his stool this morning. Denies nausea vomiting or abdominal pain. Complains of exertional shortness of breath. Progressive hypoxic respiratory failure, now requiring 4 L nasal cannula O2 to maintain O2 sats in the 90s. Continues on IV iron. Evaluated by hematology, i simona studies in progress, recommendations noted and appreciated. Hemoglobin 7, platelets 231, electrolytes within normal limits, bicarb 26, creatinine 1.13. Objective - Vital Signs Vital signs: Vital Signs Temp 98.0 F 06/06/24 11:14 Pulse 75 06/06/24 16:59 Resp 22 06/06/24 16:59 BP 175/75 06/06/24 16:59 Pulse Ox 95 06/06/24 16:59 FiO2 Intake & Output 06/05/24 06/06/24 06/06/24 18:59 06:59 18:59 Intake Total 718 354 Output Total 1700 200 Balance -982 154 Weight 75.6 kg Intake: Oral 718 354 Output: Urine 1700 200 Other: Voiding Method Urinal Urinal Urinal # Voids 2 # Bowel Movements 0 - Exam PHYSICAL EXAM: VITAL SIGNS: [As above] GENERAL: Alert and oriented 3, Sitting up in bed, no acute distress,pale HEENT: Normocephalic Conjunctivae normal. eyes normal NECK: Supple, No JVD. CARDIOVASCULAR: S1, S2 regular. No murmur RESPIRATION: Unlabored , equal air entry ,Breath sounds diminished in the bases. ABDOMEN: Soft, nondistended, nontender . No guarding. +BS. LEGS: No edema. no swelling NERVOUS SYSTEM: Cranial N 2-12 grossly normal. No focal deficits. Strength and sensation grossly intact. Skin: Warm and dry, no rash - Labs CBC & Chem 7: 06/06/24 09:24 06/06/24 09:24 Labs: Abnormal Lab Results - Last 24 Hours (Table) 06/05/24 06/06/24 06/06/24 Range/Units 20:26 05:50 09:24 RBC 3.65 L (4.30-5.90) m/uL Hgb 7.0 L (13.0-17.5) gm/dL Hct 25.4 L (39.0-53.0) % MCV 69.6 L (80.0-100.0) fL MCH 19.3 L (25.0-35.0) pg MCHC 27.7 L (31.0-37.0) g/dL RDW 19.7 H (11.5-15.5) % Lymphocytes # 0.8 L (1.0-4.8) k/uL Glucose (74-99) mg/dL POC Glucose (mg/dL) 172 H 136 H (70-110) mg/dL 06/06/24 06/06/24 06/06/24 Range/Units 09:24 11:32 16:36 RBC (4.30-5.90) m/uL Hgb (13.0-17.5) gm/dL Hct (39.0-53.0) % MCV (80.0-100.0) fL MCH (25.0-35.0) pg MCHC (31.0-37.0) g/dL RDW (11.5-15.5) % Lymphocytes # (1.0-4.8) k/uL Glucose 159 H (74-99) mg/dL POC Glucose (mg/dL) 235 H 172 H (70-110) mg/dL Assessment and Plan Assessment: Symptomatic acute on chronic anemia, iron deficient, recent cath with stents, on Plavix and aspirin. Negative occult. Acute hypoxic respiratory failure secondary to the above, chest x-ray pending History of ulcerative colitis , last colonoscopy 2021 -routine colonoscopies every 2 years with GI-Dr. Meme Villafuerte, due next month COPD, stable Obesity, BMI 27 Obstructive sleep apnea, on CPAP Diabetes mellitus, insulin pump Hypothyroidism Hypertension Hyperlipidemia History of anxiety, depression History of alcohol and marijuana use Plan: Continue on current medication resume ,monitoring and symptomatic tatum tment. Continue IV Venofer. Hold Plavix and aspirin, maintain on PPI. Close monitoring of hemoglobin, with repeat CBC in a.m. per hematology, transfuse to keep hemoglobin greater than 7. Worsening hypoxia -chest x-ray ordered/pulmonary consult. The impression and plan of care has been dictated as directed. : I performed a history and examination of this patient, discussed the same with the dictator. I agree with the dictator's note ,documented as a scribe. Any additional findings or plans will be noted.
--- NOTE | 2024-06-06 18:17 | XR ---
EXAMINATION TYPE: XR chest 1V portable DATE OF EXAM: 06/06/2024 COMPARISON: 09/10/2023 INDICATION: Hypoxia short of breath TECHNIQUE: Single frontal view of the chest is obtained. FINDINGS: The heart size is normal. The pulmonary vasculature is normal. There is moderate right pleural effusion. Some mild compressive atelectasis adjacent to the pleural e ffusions present. IMPRESSION: 1. Moderate left pleural effusion with minimal adjacent compressive atelectasis
[2024-06-06 20:25] LABS: Glucose,Whole Blood 143 mg/dL (70-110)
--- NOTE | 2024-06-07 05:52 | P.CNPUL ---
History of Present Illness Consult date: 06/07/24 Reason for consult: pleural effusion Chief complaint: Abnormal lab work History of present illness: Patient is a 74-year-old male with past medical history significant for COPD, chronic oxygen dependence, valvular heart disease, coronary artery disease with previous stent to the RCA, obstructive sleep apnea, hypothyroidism, hyperlipidemia, hypertension, ulcerative colitis, and former tobacco smoker. Patient was sent to the emergency department on 06/04/2024 after being found to have abnormal lab work and anemia. This was found in preparation for some dental work that he was going to have. He does take Plavix. Last dose reportedly before he came in on 06/04/2024. Does admit dark brown stools. Mostly formed. He has history of ulcerative colitis. Does follow-up with Dr. Meme Villafuerte, and has frequent colonoscopies every 2 years. Hemoglobin on arrival was 6.7 g/dL. Did receive 1 unit of PRBCs. Fecal occult was negative. Anemia is microcytic and hypochromic. Iron studies abnormal. Has been receiving iron infusions while inpatient. While being admitted, he was noted to have increased oxygen demands and shortness of breath. Currently on 2 L/min nasal cannula. Chest x- ray demonstrates a moderate right-sided pleural effusion. Denies prior history of previous pleural effusion, or prior thoracentesis. Denies trauma. Denies history of heart failure. Denies history of cancer, except local skin cancer removed. Denies any cough, sputum production, chest pain most recent CBC from yesterday: WBC count 6.2, hemoglobin 7, hematocrit 25.4, platelets 231. BMP from yesterday: Sodium 140, potassium 4.3, chloride 106, serum bicarb 26, BUN 14, creatinine 1.13, glucose 159. Vitals are stable. Review of Systems REVIEW OF SYSTEMS: CONSTITUTIONAL: Admits to 30 pound weight loss over the last 6 months, poor appetite. EYES: Denies change in vision. EARS, NOSE, MOUTH, THROAT: Denies headaches, denies sore throat. CARDIOVASCULAR: Denies chest pain, palpitations or syncopal episodes. Denies lower extremity swelling. RESPIRATORY: Admits shortness of breath. Denies cough, chest congestion, hemoptysis, chest pain. GASTROINTESTINAL: Denies change in appetite, abdominal pain, nausea and vomiting, or diarrhea GENITOURINARY: Denies hematuria, denies infections. MUSKULOSKELETAL: Denies pain, denies swelling. INTEGUMENTARY: Denies rash, denies eczema. NEUROLOGICAL: Denies recent memory loss, no recent seizure activity. PSYCHIATRIC: Denies anxiety, denies depression. HEMATOLOGIC/LYMPHATIC: Denies anemia, denies enlarged lymph node Past Medical History Past Medical History: Cancer, COPD, Diabetes Mellitus, Eye Disorder, GERD /Reflux, GI Bleed, Hyperlipidemia, Hypertension, Skin Disorder, Sleep Apnea/CPAP/BIPAP Additional Past Medical History / Comment(s): had recent skin CA removed left chest area, admitted sep 2023 to [facility] for difficulty breathing- received steroids, also had admission to [facility] for difficulty breathing, Hx bronchitis early 2021. Ulcerative Colitis. hx GI bleeding many yrs ago. 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 CPAP use. RLS. Macular Degeneration (receives injections every 6 weeks). Hx basal cell skin cancer on right shoulder. Keratosis. Mild COPD. prostate infections History of Any Multi-Drug Resistant Organisms: None Reported Past Surgical History: Cholecystectomy, Heart Catheterization, Orthopedic Surgery Additional Past Surgical History / Comment(s): Right elbow surgery, left elbow tendon repair, bilateral wrist/hand surgery, trigger finger surgery X3, skin grafts to lower back, under knee and buttocks due to de [place] santos, colonoscopies. Past Anesthesia/Blood Transfusion Reactions: No Reported Reaction Additional Past Anesthesia/Blood Transfusion Reaction / Comment(s): no hx blood transfusion Past Psychological History: Anxiety, Depression Smoking Status: Former smoker Past Alcohol Use History: None Reported Additional Past Alcohol Use History / Comment(s): Quit smoking in 1998, smoked for 35 yrs, 1/2 ppd. quit alcohol at age 29. Past Drug Use History: None Reported Additional Drug Use History / Comment(s): Quit marijuana 43 yrs ago. - Past Family History Father Family Medical History: Cancer, Myocardial Infarction ([place]) Additional Family Medical History / Comment(s): Skin cancer. Brother(s) Family Medical History: Myocardial Infarction ([place]) Additional Family Medical History / Comment(s): at age 65. Mother Family Medical History: Cancer Additional Family Medical History / Comment(s): Skin cancer. Medications and Allergies Home Medications Medication Instructions Recorded Confirmed Type Aspirin 81 mg PO DAILY 05/16/14 06/04/24 History PARoxetine [Paxil] 20 mg PO DAILY 05/16/14 06/04/24 History Pravastatin Sodium [Pravachol] 20 mg PO HS 05/16/14 06/04/24 History sulfaSALAzine [Azulfidine] 1,000 mg PO QID 06/26/17 06/04/24 History INSULIN LISPRO (For Pump) [humaLOG 0.01 units SQ-PUMP CONTINUOUS MDD 01/29/21 06/04/24 History (For Pump)] 100 UNITS Dicyclomine [Bentyl] 10 mg PO ACHS 09/10/23 06/04/24 History Famotidine 20 mg PO DAILY 09/10/23 06/04/24 History Latanoprost Ophth [Xalatan 0.005%] 1 drop BOTH EYES HS 09/10/23 06/04/24 History clonazePAM [KlonoPIN] 0.5 mg PO HS 09/10/23 06/04/24 History Budesonide-Formot 160-4.5 Mcg 2 puff INHALATION RT-BID #1 each 09/16/23 06/04/24 Rx [Symbicort 160-4.5 Mcg Inhaler] Ipratropium-Albuterol Nebulize 3 ml INHALATION RT-QID 10/17/23 06/04/24 History [Duoneb 0.5 mg-3 mg/3 ml Soln] Isosorbide Mononitrate ER [Imdur] 30 mg PO DAILY 10/17/23 06/04/24 History hydrALAZINE HCL [Apresoline] 50 mg PO TID 10/17/23 06/04/24 History Clopidogrel [Plavix] 75 mg PO DAILY #90 tablet 10/22/23 06/04/24 Rx Ipratropium-Albuterol Nebulize 3 ml INHALATION RT-Q4H PRN 06/04/24 06/04/24 History [Duoneb 0.5 mg-3 mg/3 ml Soln] Levothyroxine Sodium [Synthroid] 75 mcg PO AC-BRKFST 06/04/24 06/04/24 History NIFEdipine XL [Procardia XL] 60 mg PO BID 06/04/24 06/04/24 History carvediloL [Coreg] 12.5 mg PO BID 06/04/24 06/04/24 History lisinopriL [Zestril] 5 mg PO DAILY 06/04/24 06/04/24 History Allergies Allergy/AdvReac Type Severity Reaction Status Date / Time empagliflozin Allergy severe Verified 06/04/24 13:25 [From Jardiance] headache,genital pain and swelling hydrochlorothiazide Allergy Tongue Verified 06/04/24 13:25 swelling Penicillins Allergy Anaphylaxis Verified 06/04/24 13:25 Physical Exam Vitals: Vital Signs Temp Pulse Pulse Resp BP Pulse Ox 06/07/24 04:00 98.5 F 74 16 140/62 91 L 06/06/24 20:27 98.1 F 71 14 151/65 94 L 06/06/24 20:17 76 06/06/24 20:06 74 06/06/24 16:59 75 22 175/75 95 06/06/24 11:14 98.0 F 73 16 156/68 95 06/06/24 09:33 80 06/06/24 09:18 78 98 06/06/24 08:00 98.1 F 76 18 159/65 95 Intake and Output 06/06/24 06/06/24 06/07/24 14:59 22:59 06:59 Intake Total 354 118 Output Total 200 Balance 154 118 Intake: Oral 354 118 Output: Urine 200 Other: Voiding Method Urinal GENERAL EXAM: Alert, 74-year-old male, appearing stated age, comfortable in no apparent distress. HEAD: Normocephalic and atraumatic EYES: Normal reaction of pupils, equal size. NOSE: Clear with pink turbinates. THROAT: No erythema or exudates. NECK: No masses, no JVD. CHEST: No chest wall deformity. LUNGS: Equal air entry with right basilar dullness. No wheezes, rhonchi, crackles. On 4 L/min nasal cannula. No conversational dyspnea or accessory muscle use.. CVS: S1 and S2 normal with no audible murmur, regular rhythm. No extra heart sounds ABDOMEN: No hepatosplenomegaly, active bowel sounds, no guarding or rigidity. SPINE: No scoliosis or deformity SKIN: No rashes CENTRAL NERVOUS SYSTEM: No focal deficits, tone is normal in all 4 extremities. EXTREMITIES: There is no peripheral edema, clubbing, or cyanosis. Peripheral pulses are intact. Results - Laboratory Findings CBC and BMP: 06/06/24 09:24 06/06/24 09:24 PT/INR, D-dimer PT 11.8 sec (10.0-12.5) 06/04/24 12:10 INR 1.1 (<1.2) 06/04/24 12:10 Abnormal lab findings: Abnormal Labs 06/04/24 06/04/24 06/04/24 12:10 12:10 12:10 RBC 3.55 L Hgb 6.7 L* Hct 24.2 L MCV 68.2 L MCH 18.7 L MCHC 27.5 L RDW 19.2 H Lymphocytes # Retic Count Chloride 108 H Glucose 140 H POC Glucose (mg/dL) Iron % Saturation Ferritin Alkaline Phosphatase 132 H Crossmatch See Detail 06/04/24 06/04/24 06/04/24 12:10 16:04 20:12 RBC Hgb Hct MCV MCH MCHC RDW Lymphocytes # Retic Count Chloride Glucose POC Glucose (mg/dL) 152 H 145 H Iron 17 L % Saturation 3.73 L Ferritin 12.5 L Alkaline Phosphatase Crossmatch 06/05/24 06/05/24 06/05/24 05:59 08:01 08:01 RBC 3.88 L Hgb 7.7 L Hct 27.1 L MCV 69.7 L MCH 19.9 L MCHC 28.6 L RDW 19.5 H Lymphocytes # 0.9 L Retic Count 3.1 H Chloride Glucose POC Glucose (mg/dL) 121 H Iron % Saturation Ferritin Alkaline Phosphatase Crossmatch 06/05/24 06/05/24 06/05/24 11:23 16:11 20:26 RBC Hgb Hct MCV MCH MCHC RDW Lymphocytes # Retic Count Chloride Glucose POC Glucose (mg/dL) 136 H 174 H 172 H Iron % Saturation Ferritin Alkaline Phosphatase Crossmatch 06/06/24 06/06/24 06/06/24 05:50 09:24 09:24 RBC 3.65 L Hgb 7.0 L Hct 25.4 L MCV 69.6 L MCH 19.3 L MCHC 27.7 L RDW 19.7 H Lymphocytes # 0.8 L Retic Count Chloride Glucose 159 H POC Glucose (mg/dL) 136 H Iron % Saturation Ferritin Alkaline Phosphatase Crossmatch 06/06/24 06/06/24 06/06/24 11:32 16:36 20:23 RBC Hgb Hct MCV MCH MCHC RDW Lymphocytes # Retic Count Chloride Glucose POC Glucose (mg/dL) 235 H 172 H 143 H Iron % Saturation Ferritin Alkaline Phosphatase Crossmatch - Diagnostic Findings Chest x-ray: image reviewed Assessment and Plan Assessment: Acute on chronic hypoxemic respiratory failure, secondary to moderate right- sided pleural effusion. Symptomatic anemia, microcytic/hypochromic, status post 1 unit PRBCs, hemoglobin up to 7 g/dL Iron deficiency anemia, receiving iron infusions History of ulcerative colitis with frequent colonoscopies approximately every 2 years, next scheduled colonoscopy is next month Chronic obstructive pulmonary disease, stable Obstructive sleep apnea Coronary artery disease with previous PCI/stent to the RCA, currently on dual antiplatelet medications Diabetes mellitus, insulin-dependent Hypothyroidism Hypertension Hyperlipidemia Former tobacco smoker Pain: Patient's medications, labs, imaging reviewed Obtain chest ultrasound with markings for potential right-sided thoracentesis Plavix on hold, last reported dose 06/04/2024 Continue supplemental oxygen, to maintain oxygen saturation of 92% or greater COPD appears stable. COPD maintenance medications already resumed Hematology on board to manage patient's anemia. Receiving iron infusions. Status post 1 unit PRBCs. We will continue to follow, additional recommendations are forthcoming I have personally seen and examined the patient, performed the documentation and the assessment and plan as written. Number of minutes spent on the visit:20 Time with Patient: Greater than 30
--- NOTE | 2024-06-07 08:40 | US ---
EXAMINATION TYPE: US chest DATE OF EXAM: 06/07/2024 COMPARISON: NONE CLINICAL INDICATION: Male, 74 years old with history of pleural effusion; SOB TECHNIQUE: Targeted ultrasound of the posterior lower Bilat EXAM MEASUREMENTS: Right Pleural Effusion pocket size: 10.9 cm Right skin surface to fluid distance: 3.2 cm Left Pleural Effusion pocket size: less then 2cm with lung tissue within pocket Right side marked for possible thoracentesis outside the dept. Left side NOT marked Pulmonologists are able to review the images in the patient?s EMR. IMPRESSIONS: Right pleural effusion marked for thoracentesis.
[2024-06-07 09:11] LABS: INR 1.1 (<1.2); Partial Thromboplastin Time 25.2 sec (22.0-30.0); Prothrombin Time 11.8 sec (10.0-12.5)
[2024-06-07 09:35] LABS: Anisocytosis Moderate; Basophils # (A) 0.1 k/uL (0-0.2); Basophils % (A) 1 %; Eosinophils # (A) 0.4 k/uL (0-0.7); Eosinophils % (A) 7 %; HCT 24.8 % (39.0-53.0); HGB 7.1 gm/dL (13.0-17.5); Hypochromasia Marked; Lymphocytes # (A) 0.9 k/uL (1.0-4.8); Lymphocytes % (A) 17 %; MCH 20.1 pg (25.0-35.0); MCHC 28.6 g/dL (31.0-37.0); MCV 70.2 fL (80.0-100.0); Mean Platelet Volume 8.5; Microcytosis Marked; Monocytes # (A) 0.6 k/uL (0-1.0); Monocytes % (A) 10 %; Neutrophils # (A) 3.5 k/uL (1.3-7.7); Neutrophils % (A) 63 %; Platelet Count 236 k/uL (150-450); Poikilocytosis Moderate; RBC 3.53 m/uL (4.30-5.90); RDW 20.5 % (11.5-15.5); WBC 5.5 k/uL (3.8-10.6)
[2024-06-07 10:34] LABS: Anisocytosis Moderate; HCT 25.1 % (39.0-53.0); HGB 7.2 gm/dL (13.0-17.5); Hypochromasia Marked; MCH 20.2 pg (25.0-35.0); MCHC 28.8 g/dL (31.0-37.0); MCV 70.1 fL (80.0-100.0); Mean Platelet Volume 7.6; Microcytosis Marked; Platelet Count 223 k/uL (150-450); Poikilocytosis Slight; RBC 3.58 m/uL (4.30-5.90); RDW 20.5 % (11.5-15.5)
[2024-06-07 10:48] LABS: African American GFR (CKD) 78 (>60 ml/min/1.73 sqM); Anion Gap 4 mmol/L; Blood Urea Nitrogen 15 mg/dL (9-20); Calcium 8.4 mg/dL (8.4-10.2); Carbon Dioxide 28 mmol/L (22-30); Chloride 107 mmol/L (98-107); Glucose 121 mg/dL (74-99); Non-African American GFR(CKD) 68 (>60 ml/min/1.73 sqM); Potassium 4.3 mmol/L (3.5-5.1); Sodium 139 mmol/L (137-145)
--- NOTE | 2024-06-07 11:33 | P.PN ---
Subjective Progress Note Date: 06/07/24 Principal diagnosis: microcytic, hypochromic anemia In follow-up today patient has no complaints, SOB on exertion stable, little bit of blood and some mucus in his stool yesterday, none since, no abdominal pain or cramping. He is tolerating parenteral iron well. Objective - Vital Signs Vital signs: Vital Signs Temp 98.4 F 06/07/24 08:00 Pulse 72 06/07/24 10:30 Resp 20 06/07/24 10:30 BP 171/68 06/07/24 10:30 Pulse Ox 94 L 06/07/24 10:30 FiO2 Intake & Output 06/06/24 06/07/24 06/07/24 18:59 06:59 18:59 Intake Total 472 Output Total 200 Balance 272 Intake: Oral 472 Output: Urine 200 Other: Voiding Method Urinal Urinal # Voids 2 - Constitutional General appearance: Present: average body habitus, cooperative, no acute distress - EENT Eyes: Present: anicteric sclerae, EOMI ENT: Present: hearing grossly normal - Respiratory Details: resp even and unlabored - Cardiovascular Details: some mild pink in his cheeks - Peripheral edema leg Peripheral Edema: bilateral: None - Neurologic Neurologic: Present: CNII-XII intact - Musculoskeletal Musculoskeletal: Present: generalized weakness, strength equal bilaterally - Psychiatric Psychiatric: Present: A&O x's 3, appropriate affect, intact judgment & insight - Labs CBC & Chem 7: 06/07/24 09:34 06/07/24 02:22 Labs: Abnormal Lab Results - Last 24 Hours (Table) 06/06/24 06/06/24 06/06/24 Range/Units 11:32 16:36 20:23 RBC (4.30-5.90) m/uL Hgb (13.0-17.5) gm/dL Hct (39.0-53.0) % MCV (80.0-100.0) fL MCH (25.0-35.0) pg MCHC (31.0-37.0) g/dL RDW (11.5-15.5) % Lymphocytes # (1.0-4.8) k/uL Glucose (74-99) mg/dL POC Glucose (mg/dL) 235 H 172 H 143 H (70-110) mg/dL 06/07/24 06/07/24 06/07/24 Range/Units 02:22 02:22 09:34 RBC 3.53 L 3.58 L (4.30-5.90) m/uL Hgb 7.1 L 7.2 L (13.0-17.5) gm/dL Hct 24.8 L 25.1 L (39.0-53.0) % MCV 70.2 L 70.1 L (80.0-100.0) fL MCH 20.1 L 20.2 L (25.0-35.0) pg MCHC 28.6 L 28.8 L (31.0-37.0) g/dL RDW 20.5 H 20.5 H (11.5-15.5) % Lymphocytes # 0.9 L (1.0-4.8) k/uL Glucose 121 H (74-99) mg/dL POC Glucose (mg/dL) (70-110) mg/dL - Imaging and Cardiology chest US report reviewed Assessment and Plan (1) Microcytic hypochromic anemia Current Visit: Yes Status: Acute Priority: High Code(s): D50.9 - IRON DEFICIENCY ANEMIA, UNSPECIFIED SNOMED Code(s): 37487547 (2) Iron deficiency Current Visit: Yes Status: Acute Priority: High Code(s): E61.1 - IRON DEFICIENCY SNOMED Code(s): 00105776 Plan: Microcytic, hypochromic anemia. Iron deficiency -Progressive anemia starting late in 2022, microcytosis and hypochromasia developing the last few months. -Iron studies consistent with significant iron deficiency with single digit saturation and ferritin of 12.5. Ongoing parenteral iron supplementation, cont as ordered, pt tolerating well. Iron deficit is too great for oral supplementa tion to be adequate. -Ordered additional anemia workup, still pending some results. Further recomme ndations if other supplements are needed -Pt has Cardiology and GI f/u in Jun, pt needs to keep those appts. Recommending upper and lower GI. -Suspect that the iron deficient anemia is multifactorial based on history. Patient reported changes in diet after 2020 because of gallbladder removal. He has had more recent dietary changes because of teeth. He was recently started on an additional antiplatelet therapy because of cardiac stent. He has been on aspirin for many years. Chronic GI losses over time. -Plan is for follow-up outpatient about 4 weeks after DC to check Hgb recovery post parenteral iron. Additional workup can be done at that time from a Hematology standpoint if needed. -Transfuse to keep Hgb >7. Hgb 7.2 today -CBC daily while inpt Doctor attests: I performed a history and physical examination of this patient, developed impression and plan of care. Discussed with dictator. I agree with dictators note, documented as a scribe.
[2024-06-07 11:50] LABS: Glucose,Whole Blood 154 mg/dL (70-110)
--- NOTE | 2024-06-07 11:56 | XR ---
EXAMINATION TYPE: XR chest 1V portable DATE OF EXAM: 06/07/2024 11:10 AM CLINICAL INDICATION: Male, 74 years old with history of S/P right thoracentesis; COMPARISON: Chest radiographs from 06/06/2024 TECHNIQUE: XR chest 1V portable Frontal view of the chest. FINDINGS: Lungs/Pleura: Decrease in right pleural effusion. There is no evidence of pleural effusion, focal con solidation, or pneumothorax. Pulmonary vascularity: Unremarkable. Heart/mediastinum: Cardiomediastinal silhouette is unremarkable. Musculoskeletal: No acute osseous pathology. Other findings: None Lines/Tubes: IMPRESSION: Decreased right pleural effusion. No obvious pneumothorax.
--- NOTE | 2024-06-07 13:54 | P.PN ---
Subjective Progress Note Date: 06/07/24 H&P Date: 06/05/24 Chief Complaint: Anemic, oral surgery canceled yesterday This is a 74-year-old gentleman with past medical history significant for ulcerative colitis, follows closely with GI Dr. Xochitl Taylor with colonoscopies every couple of years, last completed 2021, COPD, gastroesophageal reflux disease, GI bleed, obstructive sleep apnea wears CPAP/BiPAP, diabetes mellitus- hemoglobin A1c 5.2 in October 2023. Recent cardiac catheterization 11/02 with stenting of RCA placed on Plavix in addition to aspirin. Chronic kidney disease, baseline creatinine 1.1. Hemoglobin has been trending down as of 10/01. yesterday patient was scheduled for oral surgery, routine lab work reported hemoglobin is 7. Patient was symptomatic with dizziness, fatigue, mild shortness of breath and procedure was canceled with patient directed to the ER.Hemoglobin on admission 6.7, transfuse 1 unit packed RBCs with repeat hemoglobin 7.7. iron studies reported iron of 17, TIBC 456, iron saturation 3.73, transferrin 326, ferritin 12.5. Alk phos 132, stool for occult blood negative. Patient denies any bleeding, no hemoptysis, no rectal bleeding, no black stools. Denies nausea or vomiting. His chest pain, palpitations or shortness of breath. 06/06/2024 reports trace blood with mucus in his stool this morning. Denies nausea vomiting or abdominal pain. Complains of exertional shortness of breath. Progressive hypoxic respiratory failure, now requiring 4 L nasal cannula O2 to maintain O2 sats in the 90s. Continues on IV iron. Evaluated by hematology, i simona studies in progress, recommendations noted and appreciated. Hemoglobin 7, platelets 231, electrolytes within normal limits, bicarb 26, creatinine 1.13. 06/07/2024 chest x-ray performed yesterday due to patient's increase in O2 requirements, reporting moderate left pleural effusion with minimal adjacent compressive atelectasis. Evaluated by pulmonary. Chest ultrasound reported right pleural effusion pocket 10.9 cm , marked for potential thoracentesis. Repeat chest x-ray and CBC pending. Oxygen requirements have decreased to 2 L nasal cannula O2, maintain O2 sats in the 90s. Denies any bleeding. Objective - Vital Signs Vital signs: Vital Signs Temp 97.4 F L 06/07/24 11:31 Pulse 75 08/29/24 12:07 Resp 20 06/07/24 11:31 BP 163/66 06/07/24 11:31 Pulse Ox 95 06/07/24 11:31 FiO2 Intake & Output 06/06/24 06/07/24 06/07/24 18:59 06:59 18:59 Intake Total 472 Output Total 200 Balance 272 Intake: Oral 472 Output: Urine 200 Other: Voiding Method Urinal Urinal # Voids 2 - Exam PHYSICAL EXAM: VITAL SIGNS: [As above] GENERAL: Alert and oriented 3, Sitting up in bed, no acute distress,pale HEENT: Normocephalic Conjunctivae normal. eyes normal NECK: Supple, No JVD. CARDIOVASCULAR: S1, S2 regular. No murmur RESPIRATION: Unlabored at rest, equal air entry ,Breath sounds diminished in the bases/ right basilar dullness. ABDOMEN: Soft, nondistended, nontender . No guarding. +BS. LEGS: No edema. no swelling NERVOUS SYSTEM: Cranial N 2-12 grossly normal. No focal deficits. Strength and sensation grossly intact. Skin: Warm and dry, no rash - Labs CBC & Chem 7: 06/07/24 09:34 06/07/24 02:22 Labs: Abnormal Lab Results - Last 24 Hours (Table) 06/06/24 06/06/24 06/07/24 Range/Units 16:36 20:23 02:22 RBC 3.53 L (4.30-5.90) m/uL Hgb 7.1 L (13.0-17.5) gm/dL Hct 24.8 L (39.0-53.0) % MCV 70.2 L (80.0-100.0) fL MCH 20.1 L (25.0-35.0) pg MCHC 28.6 L (31.0-37.0) g/dL RDW 20.5 H (11.5-15.5) % Lymphocytes # 0.9 L (1.0-4.8) k/uL Glucose (74-99) mg/dL POC Glucose (mg/dL) 172 H 143 H (70-110) mg/dL 06/07/24 06/07/24 06/07/24 Range/Units 02:22 09:34 11:49 RBC 3.58 L (4.30-5.90) m/uL Hgb 7.2 L (13.0-17.5) gm/dL Hct 25.1 L (39.0-53.0) % MCV 70.1 L (80.0-100.0) fL MCH 20.2 L (25.0-35.0) pg MCHC 28.8 L (31.0-37.0) g/dL RDW 20.5 H (11.5-15.5) % Lymphocytes # (1.0-4.8) k/uL Glucose 121 H (74-99) mg/dL POC Glucose (mg/dL) 154 H (70-110) mg/dL Assessment and Plan Assessment: Symptomatic acute on chronic anemia, iron deficient, recent cath with stents, on Plavix and aspirin. Negative occult. Status post 1 unit packed RBCs. Receiveng IV iron. Acute hypoxic respiratory failure secondary to the above and moderate right-si ded pleural effusion, December for potential thoracentesis History of ulcerative colitis , last colonoscopy 2021 -routine colonoscopies every 2 years with GI-Dr. Meme Villafuerte, due next month COPD, stable Obesity, BMI 27 Obstructive sleep apnea, on CPAP Diabetes mellitus, insulin pump Hypothyroidism Hypertension Hyperlipidemia History of anxiety, depression History of alcohol and marijuana use Plan: Continue on current medication resume ,monitoring and symptomatic treatment. Continue holding Plavix and aspirin. Maintain IV Venofer. Repeat chest x-ray pending, potential thoracentesis .labs pending-transfuse to keep hemoglobin greater than 7. The impression and plan of care has been dictated as directed. : I performed a history and examination of this patient, discussed the same with the dictator. I agree with the dictator's note ,documented as a scribe. Any additional findings or plans will be noted.
[2024-06-07 16:24] LABS: Glucose,Whole Blood 168 mg/dL (70-110)
[2024-06-07 20:03] LABS: Glucose,Whole Blood 147 mg/dL (70-110)
[2024-06-07] MEDS: INSULIN ASPART (NovoLOG) 100 UNIT/ML VIAL SQ SCH (21:18)
[2024-06-08 03:34] LABS: Appearance,BF Clear (Clear)
[2024-06-08 03:52] LABS: Glucose, BF Source Pleural Fluid; Glucose, Body Fluid 154 mg/dL; LDH, Body Fluid Source Pleural Fluid; T. Protein, Body Fluid Source Pleural Fluid; Total Protein, Body Fluid 3570 mg/dL
[2024-06-08 06:08] LABS: Glucose,Whole Blood 132 mg/dL (70-110)
[2024-06-08 08:24] LABS: Anisocytosis Moderate; HCT 26.8 % (39.0-53.0); HGB 7.5 gm/dL (13.0-17.5); Hypochromasia Marked; MCH 19.9 pg (25.0-35.0); MCHC 28.1 g/dL (31.0-37.0); MCV 70.7 fL (80.0-100.0); Microcytosis Marked; Platelet Count 266 k/uL (150-450); Poikilocytosis Slight; RDW 21.3 % (11.5-15.5); WBC 6.9 k/uL (3.8-10.6)
[2024-06-08 10:07] VITALS: BMI 24.7
[2024-06-08 11:11] LABS: Glucose,Whole Blood 190 mg/dL (70-110)
--- NOTE | 2024-06-08 12:26 | P.PN ---
Subjective Progress Note Date: 06/08/24 Principal diagnosis: Pleural effusion. Patient is a 74-year-old male with past medical history significant for COPD, chronic oxygen dependence, valvular heart disease, coronary artery disease with previous stent to the RCA, obstructive sleep apnea, hypothyroidism, hyperlipidemia, hypertension, ulcerative colitis, and former tobacco smoker. Patient was sent to the emergency department on 06/04/2024 after being found to have abnormal lab work and anemia. This was found in preparation for some dental work that he was going to have. He does take Plavix. Last dose reportedly before he came in on 06/04/2024. Does admit dark brown stools. Mostly formed. He has history of ulcerative colitis. Does follow-up with Dr. Meme Villafuerte, and has frequent colonoscopies every 2 years. Hemoglobin on arrival was 6.7 g/dL. Did receive 1 unit of PRBCs. Fecal occult was negative. Anemia is microcytic and hypochromic. Iron studies abnormal. Has been receiving iron infusions while inpatient. While being admitted, he was noted to have increased oxygen demands and shortness of breath. Currently on 2 L/min nasal cannula. Chest x- ray demonstrates a moderate right-sided pleural effusion. Denies prior history of previous pleural effusion, or prior thoracentesis. Denies trauma. Denies history of heart failure. Denies history of cancer, except local skin cancer removed. Denies any cough, sputum production, chest pain most recent CBC from yesterday: WBC count 6.2, hemoglobin 7, hematocrit 25.4, platelets 231. BMP from yesterday: Sodium 140, potassium 4.3, chloride 106, serum bicarb 26, BUN 14, creatinine 1.13, glucose 159. Vitals are stable. Progress note dated June 08, 2024. 74-year-old male who was seen yesterday in consultation. He has a history of COPD, chronic oxygen dependence, valvular heart disease, coronary disease, sleep apnea, hypothyroidism, hyperlipidemia, hypertension, ulcerative colitis, and previous tobacco use. We were consulted because of a pleural effusion. The patient underwent thoracentesis yesterday, on the right side, and 1.8 L of fluid was removed. The fluid appears to be an exudate. Current labs include a white count 6.9, hemoglobin 7.5, hematocrit 26.8, and a normal platelet count. Glucose is 190. The pleural fluid analysis showed a glucose of 154, protein of 3.57 g, and an LDH of 99. Objective - Vital Signs Vital signs: Vital Signs Temp 98.1 F 06/08/24 11:42 Pulse 84 06/08/24 11:49 Resp 18 06/08/24 11:42 BP 156/62 06/08/24 11:42 Pulse Ox 93 L 06/08/24 11:42 FiO2 Intake & Output 06/07/24 06/08/24 06/08/24 18:59 06:59 18:59 Intake Total 118 130 Balance 118 130 Weight 69.5 kg 69.5 kg Intake: IV 10 Invasive Line 1 10 Oral 118 120 Other: Voiding Method Urinal Urinal Urinal # Voids 2 - Exam No acute distress, oriented 3. Patient is currently on 2 L of oxygen. No respiratory distress. HEENT examination is grossly unremarkable. Mucous membranes are moist. No oral lesions. Neck supple. Full range of motion. No adenopathy thyromegaly or neck vein distention. Cardiovascular examination reveals regular rhythm rate. S1-S2 normal. No S3 or S4. No discernible murmur noted. Lungs reveal clear breath sounds. Breath sounds are equal bilaterally. No adventitious lung sounds including wheezes rhonchi or crackles. Abdomen soft bowel sounds are heard. No masses or tenderness. Extremities are intact. No cyanosis clubbing or edema. Skin is without rash or lesion. Neurologic examination is brief but nonfocal. - Labs CBC & Chem 7: 06/08/24 07:52 06/07/24 02:22 Labs: Abnormal Lab Results - Last 24 Hours (Table) 06/07/24 06/07/24 06/08/24 Range/Units 16:23 20:02 06:07 RBC (4.30-5.90) m/uL Hgb (13.0-17.5) gm/dL Hct (39.0-53.0) % MCV (80.0-100.0) fL MCH (25.0-35.0) pg MCHC (31.0-37.0) g/dL RDW (11.5-15.5) % POC Glucose (mg/dL) 168 H 147 H 132 H (70-110) mg/dL 06/08/24 06/08/24 Range/Units 07:52 11:09 RBC 3.80 L (4.30-5.90) m/uL Hgb 7.5 L (13.0-17.5) gm/dL Hct 26.8 L (39.0-53.0) % MCV 70.7 L (80.0-100.0) fL MCH 19.9 L (25.0-35.0) pg MCHC 28.1 L (31.0-37.0) g/dL RDW 21.3 H (11.5-15.5) % POC Glucose (mg/dL) 190 H (70-110) mg/dL Assessment and Plan Assessment: Acute on chronic hypoxemic respiratory failure, secondary to moderate right- sided pleural effusion. Symptomatic anemia, microcytic/hypochromic. Iron deficiency anemia. History of ulcerative colitis. Chronic obstructive pulmonary disease, stable. Obstructive sleep apnea. Coronary artery disease with previous PCI/stent to the RCA. Diabetes mellitus, insulin-dependent. Hypothyroidism. Hypertension. Hyperlipidemia. Former tobacco smoker. Plan: Plan dated June 08, 2024. The preliminary results of the thoracentesis, shared with the patient and the patient's . The fluid appears to be an exudate. Glucose is high. It does not appear to be infectious. It could relate to an underlying malignancy. The patient was a previous tobacco user. Labs, x-rays, medications are reviewed. The patient is on 2 L of oxygen. We will continue to follow the patient. Labs, x-rays, and all medications are reviewed. Additional recommendations and suggestions are forthcoming. Time with Patient: Less than 30
[2024-06-08 16:13] LABS: Glucose,Whole Blood 157 mg/dL (70-110)
--- NOTE | 2024-06-08 16:57 | P.PN ---
Subjective Progress Note Date: 06/08/24 74-year-old gentleman with past medical history significant for ulcerative colitis, follows closely with GI Dr. Xochitl Taylor with colonoscopies every couple of years, last completed 2021, COPD, gastroesophageal reflux disease, GI bleed, obstructive sleep apnea wears CPAP/BiPAP, diabetes mellitus-hemoglobin A1c 5.2 in October 2023. Recent cardiac catheterization 11/02 with stenting of RCA placed on Plavix in addition to aspirin. Chronic kidney disease, baseline creatinine 1.1. Hemoglobin has been trending down as of 10/01. yesterday patient was scheduled for oral surgery, routine lab work reported hemoglobin is 7. Patient was symptomatic with dizziness, fatigue, mild shortness of breath and procedure was canceled with patient directed to the ER.Hemoglobin on admission 6.7, transfuse 1 unit packed RBCs with repeat hemoglobin 7.7. iron studies reported iron of 17, TIBC 456, iron saturation 3.73, transferrin 326, ferritin 12.5. Alk phos 132, stool for occult blood negative. Patient denies any bleeding, no hemoptysis, no rectal bleeding, no black stools. Denies nausea or vomiting. His chest pain, palpitations or shortness of breath. The patient seen and evaluated with family at bedside; underwent thoracentesis yesterday, on the right side, and 1.8 L of fluid was removed. The fluid appears to be an exudate. -- Current labs include a white count 6.9, hemoglobin 7.5, hematocrit 26.8, and a normal platelet count. Glucose is 190. The pleural fluid analysis showed a glucose of 154, protein of 3.57 g, and an LDH of 99. Glucose is high. It does not appear to be infectious. It could relate to an underlying malignancy. The patient was a previous tobacco user. Objective - Vital Signs Vital signs: Vital Signs Temp 97.4 F L 06/08/24 16:17 Pulse 85 06/08/24 16:18 Resp 18 06/08/24 16:17 BP 151/67 06/08/24 16:17 Pulse Ox 98 06/08/24 16:17 FiO2 Intake & Output 06/07/24 06/08/24 06/08/24 18:59 06:59 18:59 Intake Total 118 360 Balance 118 360 Weight 69.5 kg 69.5 kg Intake: IV 20 Invasive Line 1 20 Oral 118 340 Other: Voiding Method Urinal Urinal Urinal # Voids 2 - Exam VITAL SIGNS: [As above] GENERAL: Alert and oriented 3, Sitting up in bed, no acute distress,pale HEENT: Normocephalic Conjunctivae normal. eyes normal NECK: Supple, No JVD. CARDIOVASCULAR: S1, S2 regular. No murmur RESPIRATION: Unlabored at rest, equal air entry ,Breath sounds diminished in the bases/ right basilar dullness. ABDOMEN: Soft, nondistended, nontender . No guarding. +BS. LEGS: No edema. no swelling NERVOUS SYSTEM: Cranial N 2-12 grossly normal. No focal deficits. Strength and sensation grossly intact. Skin: Warm and dry, no rash - Labs CBC & Chem 7: 06/08/24 07:52 06/07/24 02:22 Labs: Abnormal Lab Results - Last 24 Hours (Table) 06/07/24 06/08/24 06/08/24 Range/Units 20:02 06:07 07:52 RBC 3.80 L (4.30-5.90) m/uL Hgb 7.5 L (13.0-17.5) gm/dL Hct 26.8 L (39.0-53.0) % MCV 70.7 L (80.0-100.0) fL MCH 19.9 L (25.0-35.0) pg MCHC 28.1 L (31.0-37.0) g/dL RDW 21.3 H (11.5-15.5) % POC Glucose (mg/dL) 147 H 132 H (70-110) mg/dL 06/08/24 06/08/24 Range/Units 11:09 16:10 RBC (4.30-5.90) m/uL Hgb (13.0-17.5) gm/dL Hct (39.0-53.0) % MCV (80.0-100.0) fL MCH (25.0-35.0) pg MCHC (31.0-37.0) g/dL RDW (11.5-15.5) % POC Glucose (mg/dL) 190 H 157 H (70-110) mg/dL Microbiology - Last 24 Hours (Table) 06/07/24 18:30 Gram Stain - Preliminary Pleural Fluid Body Fluid Culture - Preliminary Assessment and Plan Assessment: Symptomatic acute on chronic anemia, iron deficient, recent cath with stents, on Plavix and aspirin. Negative occult. Status post 1 unit packed RBCs. Receiveng IV iron. Acute hypoxic respiratory failure secondary to the above and moderate right- sided pleural effusion, December for potential thoracentesis History of ulcerative colitis , last colonoscopy 2021 -routine colonoscopies every 2 years with GI-Dr. Meme Villafuerte, due next month COPD, stable Obesity, BMI 27 Obstructive sleep apnea, on CPAP Diabetes mellitus, insulin pump Hypothyroidism Hypertension Hyperlipidemia History of anxiety, depression History of alcohol and marijuana use Plan: Continue on current medication resume ,monitoring and symptomatic treatment. Continue holding Plavix and aspirin. Maintain IV Venofer. Repeat chest x-ray pending, potential thoracentesis .labs pending-transfuse to keep hemoglobin greater than 7
[2024-06-08 20:34] LABS: Glucose,Whole Blood 186 mg/dL (70-110)
[2024-06-09 06:23] LABS: Glucose,Whole Blood 141 mg/dL (70-110)
[2024-06-09 09:53] LABS: Anisocytosis Moderate; HCT 26.2 % (39.0-53.0); HGB 7.5 gm/dL (13.0-17.5); Hypochromasia Marked; MCH 20.6 pg (25.0-35.0); MCHC 28.7 g/dL (31.0-37.0); MCV 71.9 fL (80.0-100.0); Mean Platelet Volume 7.2; Microcytosis Marked; Platelet Count 233 k/uL (150-450); Poikilocytosis Slight; RBC 3.64 m/uL (4.30-5.90); RDW 23.4 % (11.5-15.5); WBC 6.5 k/uL (3.8-10.6)
--- NOTE | 2024-06-09 10:37 | P.PN ---
Subjective Progress Note Date: 06/09/24 Principal diagnosis: Pleural effusion. Patient is a 74-year-old male with past medical history significant for COPD, chronic oxygen dependence, valvular heart disease, coronary artery disease with previous stent to the RCA, obstructive sleep apnea, hypothyroidism, hyperlipidemia, hypertension, ulcerative colitis, and former tobacco smoker. Patient was sent to the emergency department on 06/04/2024 after being found to have abnormal lab work and anemia. This was found in preparation for some dental work that he was going to have. He does take Plavix. Last dose reportedly before he came in on 06/04/2024. Does admit dark brown stools. Mostly formed. He has history of ulcerative colitis. Does follow-up with Dr. Meme Villafuerte, and has frequent colonoscopies every 2 years. Hemoglobin on arrival was 6.7 g/dL. Did receive 1 unit of PRBCs. Fecal occult was negative. Anemia is microcytic and hypochromic. Iron studies abnormal. Has been receiving iron infusions while inpatient. While being admitted, he was noted to have increased oxygen demands and shortness of breath. Currently on 2 L/min nasal cannula. Chest x- ray demonstrates a moderate right-sided pleural effusion. Denies prior history of previous pleural effusion, or prior thoracentesis. Denies trauma. Denies history of heart failure. Denies history of cancer, except local skin cancer removed. Denies any cough, sputum production, chest pain most recent CBC from yesterday: WBC count 6.2, hemoglobin 7, hematocrit 25.4, platelets 231. BMP from yesterday: Sodium 140, potassium 4.3, chloride 106, serum bicarb 26, BUN 14, creatinine 1.13, glucose 159. Vitals are stable. Progress note dated June 08, 2024. 74-year-old male who was seen yesterday in consultation. He has a history of COPD, chronic oxygen dependence, valvular heart disease, coronary disease, sleep apnea, hypothyroidism, hyperlipidemia, hypertension, ulcerative colitis, and previous tobacco use. We were consulted because of a pleural effusion. The patient underwent thoracentesis yesterday, on the right side, and 1.8 L of fluid was removed. The fluid appears to be an exudate. Current labs include a white count 6.9, hemoglobin 7.5, hematocrit 26.8, and a normal platelet count. Glucose is 190. The pleural fluid analysis showed a glucose of 154, protein of 3.57 g, and an LDH of 99. Progress note dated June 09, 2024. 74-year-old male seen in room 353. The patient is feeling much better. He did have a thoracentesis earlier. The fluid appears to be an exudate. Microbiology and cytology are currently pending. We did mention to the nurse that the patient could be discharged, and brought back into the office, for follow-up. We will leave that up to the primary service. Laboratory data includes a white count 6.5, hemoglobin 7.5, hematocrit 26.2, and a platelet count of 233,000. Glucose is 141. Fluid cytology is currently pending. It likely will not be back till mid next week. Objective - Vital Signs Vital signs: Vital Signs Temp 98.1 F 06/09/24 08:39 Pulse 72 06/09/24 08:39 Resp 16 06/09/24 08:39 BP 126/63 06/09/24 08:39 Pulse Ox 92 L 06/09/24 08:39 FiO2 Intake & Output 06/08/24 06/09/24 06/09/24 18:59 06:59 18:59 Intake Total 480 20 310 Balance 480 20 310 Weight 69.5 kg 73.6 kg Intake: IV 20 20 10 Invasive Line 1 20 10 Invasive Line 2 10 10 Oral 460 300 Other: Voiding Method Urinal Urinal Urinal # Voids 3 - Exam No acute distress, oriented 3. Patient is currently on 2 L of oxygen. No respiratory distress. HEENT examination is grossly unremarkable. Mucous membranes are moist. No oral lesions. Neck supple. Full range of motion. No adenopathy thyromegaly or neck vein dis tention. Cardiovascular examination reveals regular rhythm rate. S1-S2 normal. No S3 or S4. No discernible murmur noted. Lungs reveal clear breath sounds. Breath sounds are equal bilaterally. No adventitious lung sounds including wheezes rhonchi or crackles. Abdomen soft bowel sounds are heard. No masses or tenderness. Extremities are intact. No cyanosis clubbing or edema. Skin is without rash or lesion. Neurologic examination is brief but nonfocal. - Labs CBC & Chem 7: 06/09/24 07:50 06/07/24 02:22 Labs: Abnormal Lab Results - Last 24 Hours (Table) 06/08/24 06/08/24 06/08/24 Range/Units 11:09 16:10 20:32 RBC (4.30-5.90) m/uL Hgb (13.0-17.5) gm/dL Hct (39.0-53.0) % MCV (80.0-100.0) fL MCH (25.0-35.0) pg MCHC (31.0-37.0) g/dL RDW (11.5-15.5) % POC Glucose (mg/dL) 190 H 157 H 186 H (70-110) mg/dL 06/09/24 06/09/24 Range/Units 06:22 07:50 RBC 3.64 L (4.30-5.90) m/uL Hgb 7.5 L (13.0-17.5) gm/dL Hct 26.2 L (39.0-53.0) % MCV 71.9 L (80.0-100.0) fL MCH 20.6 L (25.0-35.0) pg MCHC 28.7 L (31.0-37.0) g/dL RDW 23.4 H (11.5-15.5) % POC Glucose (mg/dL) 141 H (70-110) mg/dL Microbiology - Last 24 Hours (Table) 06/07/24 18:30 Acid Fast Bacilli Smear - Preliminary Pleural Fluid 06/07/24 18:30 Gram Stain - Preliminary Pleural Fluid Body Fluid Culture - Preliminary Assessment and Plan Assessment: Acute on chronic hypoxemic respiratory failure, secondary to moderate right- sided pleural effusion. Symptomatic anemia, microcytic/hypochromic. Iron deficiency anemia. History of ulcerative colitis. Chronic obstructive pulmonary disease, stable. Obstructive sleep apnea. Coronary artery disease with previous PCI/stent to the RCA. Diabetes mellitus, insulin-dependent. Hypothyroidism. Hypertension. Hyperlipidemia. Former tobacco smoker. Plan: Plan dated June 08, 2024. The preliminary results of the thoracentesis, shared with the patient and the patient's . The fluid appears to be an exudate. Glucose is high. It does not appear to be infectious. It could relate to an underlying malignancy. The patient was a previous tobacco user. Labs, x-rays, medications are reviewed. The patient is on 2 L of oxygen. We will continue to follow the patient. Labs, x-rays, and all medications are reviewed. Additional recommendations and suggestions are forthcoming. Plan dated June 09, 2024. The patient is seen today in room 353. The patient is concerned about the fluid cytology. The patient was a smoker in the past. The fluid appears to be an exudate, given the protein being greater than 3 g. In my opinion, the patient could be discharged, and follow-up with me in the office. Additional recommendations and suggestions are forthcoming. He is currently on 2 L. He is very comfortable. His breathing is much improved. No additional recommendations are made at this time. Time with Patient: Less than 30
[2024-06-09 11:40] LABS: Glucose,Whole Blood 184 mg/dL (70-110)
[2024-06-09 16:38] LABS: Glucose,Whole Blood 190 mg/dL (70-110)
[2024-06-09 20:34] LABS: Glucose,Whole Blood 131 mg/dL (70-110)
[2024-06-10 06:24] LABS: Glucose,Whole Blood 148 mg/dL (70-110)
--- NOTE | 2024-06-10 09:40 | P.PN ---
Subjective Progress Note Date: 06/10/24 Principal diagnosis: Pleural effusion. Patient is a 74-year-old male with past medical history significant for COPD, chronic oxygen dependence, valvular heart disease, coronary artery disease with previous stent to the RCA, obstructive sleep apnea, hypothyroidism, hyperlipidemia, hypertension, ulcerative colitis, and former tobacco smoker. Patient was sent to the emergency department on 06/04/2024 after being found to have abnormal lab work and anemia. This was found in preparation for some dental work that he was going to have. He does take Plavix. Last dose reportedly before he came in on 06/04/2024. Does admit dark brown stools. Mostly formed. He has history of ulcerative colitis. Does follow-up with Dr. Meme Villafuerte, and has frequent colonoscopies every 2 years. Hemoglobin on arrival was 6.7 g/dL. Did receive 1 unit of PRBCs. Fecal occult was negative. Anemia is microcytic and hypochromic. Iron studies abnormal. Has been receiving iron infusions while inpatient. While being admitted, he was noted to have increased oxygen demands and shortness of breath. Currently on 2 L/min nasal cannula. Chest x- ray demonstrates a moderate right-sided pleural effusion. Denies prior history of previous pleural effusion, or prior thoracentesis. Denies trauma. Denies history of heart failure. Denies history of cancer, except local skin cancer removed. Denies any cough, sputum production, chest pain most recent CBC from yesterday: WBC count 6.2, hemoglobin 7, hematocrit 25.4, platelets 231. BMP from yesterday: Sodium 140, potassium 4.3, chloride 106, serum bicarb 26, BUN 14, creatinine 1.13, glucose 159. Vitals are stable. Progress note dated June 08, 2024. 74-year-old male who was seen yesterday in consultation. He has a history of COPD, chronic oxygen dependence, valvular heart disease, coronary disease, sleep apnea, hypothyroidism, hyperlipidemia, hypertension, ulcerative colitis, and previous tobacco use. We were consulted because of a pleural effusion. The patient underwent thoracentesis yesterday, on the right side, and 1.8 L of fluid was removed. The fluid appears to be an exudate. Current labs include a white count 6.9, hemoglobin 7.5, hematocrit 26.8, and a normal platelet count. Glucose is 190. The pleural fluid analysis showed a glucose of 154, protein of 3.57 g, and an LDH of 99. Progress note dated June 09, 2024. 74-year-old male seen in room 353. The patient is feeling much better. He did have a thoracentesis earlier. The fluid appears to be an exudate. Microbiology and cytology are currently pending. We did mention to the nurse that the patient could be discharged, and brought back into the office, for follow-up. We will leave that up to the primary service. Laboratory data includes a white count 6.5, hemoglobin 7.5, hematocrit 26.2, and a platelet count of 233,000. Glucose is 141. Fluid cytology is currently pending. It likely will not be back till mid next week. Progress note dated June 10, 2024. The patient is seen today in room 353. He is resting comfortably. He is on 2 L of oxygen. No IV fluids. Blood work from this morning is currently pending. His last hemoglobin was 7.5. Cytology from the pleural fluid is pending. Objective - Vital Signs Vital signs: Vital Signs Temp 98.7 F 06/10/24 03:52 Pulse 70 06/10/24 08:38 Resp 16 06/10/24 03:52 BP 153/58 06/10/24 03:52 Pulse Ox 94 L 06/10/24 08:27 FiO2 Intake & Output 06/09/24 06/10/24 06/10/24 18:59 06:59 18:59 Intake Total 670 480 Balance 670 480 Weight 74.1 kg Intake: IV 10 Invasive Line 2 10 Oral 660 480 Other: Voiding Method Urinal Toilet # Voids 1 1 - Exam No acute distress, oriented 3. Patient is currently on 2 L of oxygen. No respiratory distress. HEENT examination is grossly unremarkable. Mucous membranes are moist. No oral lesions. Neck supple. Full range of motion. No adenopathy thyromegaly or neck vein distention. Cardiovascular examination reveals regular rhythm rate. S1-S2 normal. No S3 or S4. No discernible murmur noted. Lungs reveal clear breath sounds. Breath sounds are equal bilaterally. No adventitious lung sounds including wheezes rhonchi or crackles. Abdomen soft bowel sounds are heard. No masses or tenderness. Extremities are intact. No cyanosis clubbing or edema. Skin is without rash or lesion. Neurologic examination is brief but nonfocal. - Labs CBC & Chem 7: 06/09/24 07:50 06/07/24 02:22 Labs: Abnormal Lab Results - Last 24 Hours (Table) 06/09/24 06/09/24 06/09/24 Range/Units 07:50 11:39 16:36 RBC 3.64 L (4.30-5.90) m/uL Hgb 7.5 L (13.0-17.5) gm/dL Hct 26.2 L (39.0-53.0) % MCV 71.9 L (80.0-100.0) fL MCH 20.6 L (25.0-35.0) pg MCHC 28.7 L (31.0-37.0) g/dL RDW 23.4 H (11.5-15.5) % POC Glucose (mg/dL) 184 H 190 H (70-110) mg/dL 06/09/24 06/10/24 Range/Units 20:32 06:23 RBC (4.30-5.90) m/uL Hgb (13.0-17.5) gm/dL Hct (39.0-53.0) % MCV (80.0-100.0) fL MCH (25.0-35.0) pg MCHC (31.0-37.0) g/dL RDW (11.5-15.5) % POC Glucose (mg/dL) 131 H 148 H (70-110) mg/dL Microbiology - Last 24 Hours (Table) 06/07/24 18:30 Gram Stain - Preliminary Pleural Fluid Body Fluid Culture - Preliminary Assessment and Plan Assessment: Acute on chronic hypoxemic respiratory failure, secondary to moderate right- sided pleural effusion. Symptomatic anemia, microcytic/hypochromic. Iron deficiency anemia. History of ulcerative colitis. Chronic obstructive pulmonary disease, stable. Obstructive sleep apnea. Coronary artery disease with previous PCI/stent to the RCA. Diabetes mellitus, insulin-dependent. Hypothyroidism. Hypertension. Hyperlipidemia. Former tobacco smoker. Plan: Plan dated June 08, 2024. The preliminary results of the thoracentesis, shared with the patient and the patient's . The fluid appears to be an exudate. Glucose is high. It does not appear to be infectious. It could relate to an underlying malignancy. The patient was a previous tobacco user. Labs, x-rays, medications are reviewed. The patient is on 2 L of oxygen. We will continue to follow the patient. Labs, x-rays, and all medications are reviewed. Additional recommendations and suggestions are forthcoming. Plan dated June 09, 2024. The patient is seen today in room 353. The patient is concerned about the fluid cytology. The patient was a smoker in the past. The fluid appears to be an exudate, given the protein being greater than 3 g. In my opinion, the patient could be discharged, and follow-up with me in the office. Additional recommendations and suggestions are forthcoming. He is currently on 2 L. He is very comfortable. His breathing is much improved. No additional recommendations are made at this time. Plan dated June 10, 2024. Pleural fluid cytology is currently pending. The patient is on 2 L. From the pulmonary perspective, the patient could be discharged. Labs, x-rays, med ications are reviewed. The patient is currently on 2 L. No IV fluids. His respiratory status is stable. The patient could follow-up with me as an outpatient. The pleural fluid cytology given the holiday weekend, likely will be back on the chart till mid next week. Time with Patient: Less than 30
[2024-06-10 10:33] VITALS: RESP 18; TEMP 98.1
[2024-06-10 11:14] LABS: Glucose,Whole Blood 170 mg/dL (70-110)
[2024-06-10 11:46] LABS: Anisocytosis Marked; Basophils % (A) 1 %; Eosinophils # (A) 0.1 k/uL (0-0.7); Eosinophils % (A) 3 %; HCT 27.5 % (39.0-53.0); HGB 7.9 gm/dL (13.0-17.5); Hypochromasia Marked; Lymphocytes # (A) 0.9 k/uL (1.0-4.8); Lymphocytes % (A) 16 %; MCH 20.6 pg (25.0-35.0); MCHC 28.6 g/dL (31.0-37.0); Mean Platelet Volume 6.6; Microcytosis Marked; Monocytes # (A) 0.4 k/uL (0-1.0); Monocytes % (A) 7 %; Neutrophils % (A) 72 %; Platelet Count 250 k/uL (150-450); Poikilocytosis Slight; RBC 3.82 m/uL (4.30-5.90); RDW 24.2 % (11.5-15.5); WBC 5.5 k/uL (3.8-10.6)
[2024-06-10 12:00] LABS: African American GFR (CKD) 79 (>60 ml/min/1.73 sqM); Anion Gap 5 mmol/L; Blood Urea Nitrogen 23 mg/dL (9-20); Calcium 8.4 mg/dL (8.4-10.2); Carbon Dioxide 26 mmol/L (22-30); Chloride 106 mmol/L (98-107); Glucose 158 mg/dL (74-99); Non-African American GFR(CKD) 68 (>60 ml/min/1.73 sqM); Potassium 4.9 mmol/L (3.5-5.1); Sodium 137 mmol/L (137-145)
[2024-06-10 13:48] VITALS: BP 154/70; PULSE 68
--- NOTE | 2024-06-10 15:25 | P.PN ---
Subjective Progress Note Date: 06/09/24 74-year-old gentleman with past medical history significant for ulcerative colitis, follows closely with GI Dr. Xochitl Taylor with colonoscopies every couple of years, last completed 2021, COPD, gastroesophageal reflux disease, GI bleed, obstructive sleep apnea wears CPAP/BiPAP, diabetes mellitus-hemoglobin A1c 5.2 in October 2023. Recent cardiac catheterization 11/02 with stenting of RCA placed on Plavix in addition to aspirin. Chronic kidney disease, baseline creatinine 1.1. Hemoglobin has been trending down as of 10/01. yesterday patient was scheduled for oral surgery, routine lab work reported hemoglobin is 7. Patient was symptomatic with dizziness, fatigue, mild shortness of breath and procedure was canceled with patient directed to the ER.Hemoglobin on admission 6.7, transfuse 1 unit packed RBCs with repeat hemoglobin 7.7. iron studies reported iron of 17, TIBC 456, iron saturation 3.73, transferrin 326, ferritin 12.5. Alk phos 132, stool for occult blood negative. Patient denies any bleeding, no hemoptysis, no rectal bleeding, no black stools. Denies nausea or vomiting. His chest pain, palpitations or shortness of breath. The patient seen and evaluated with family at bedside; underwent thoracentesis yesterday, on the right side, and 1.8 L of fluid was removed. The fluid appears to be an exudate. -- Current labs include a white count 6.9, hemoglobin 7.5, hematocrit 26.8, and a normal platelet count. Glucose is 190. The pleural fluid analysis showed a glucose of 154, protein of 3.57 g, and an LDH of 99. Glucose is high. It does not appear to be infectious. It could relate to an underlying malignancy. The patient was a previous tobacco user. 06/09/2024 The patient is seen and evaluated in room at bedside; reports feeling much bett er. He did have a thoracentesis earlier. The fluid appears to be an exudate. Microbiology and cytology are currently pending. Laboratory data includes a white count 6.5, hemoglobin 7.5, hematocrit 26.2, and a platelet count of 233,000. Glucose is 141. Fluid cytology is currently pending. It likely will not be back till mid next week. The patient is concerned about the fluid cytology. The patient was a smoker in the past. The fluid appears to be an exudate, given the protein being greater than 3 g. Pulmonary service on board and patient could be discharged, and follow-up with me in the office. Additional recommendations and suggestions are forthcoming. He is currently on 2 L. He is very comfortable. His breathing is much improved. No additional recommendations are made at this time. Objective - Vital Signs Vital signs: Vital Signs Temp 98.1 F 06/09/24 08:39 Pulse 72 06/09/24 08:39 Resp 16 06/09/24 08:39 BP 126/63 06/09/24 08:39 Pulse Ox 92 L 06/09/24 08:39 FiO2 Intake & Output 06/08/24 06/09/24 06/09/24 18:59 06:59 18:59 Intake Total 480 20 310 Balance 480 20 310 Weight 69.5 kg 73.6 kg Intake: IV 20 20 10 Invasive Line 1 20 10 Invasive Line 2 10 10 Oral 460 300 Other: Voiding Method Urinal Urinal Urinal # Voids 3 - Exam VITAL SIGNS: [As above] GENERAL: Alert and oriented 3, Sitting up in bed, no acute distress,pale HEENT: Normocephalic Conjunctivae normal. eyes normal NECK: Supple, No JVD. CARDIOVASCULAR: S1, S2 regular. No murmur RESPIRATION: Unlabored at rest, equal air entry ,Breath sounds diminished in the bases/ right basilar dullness. ABDOMEN: Soft, nondistended, nontender . No guarding. +BS. LEGS: No edema. no swelling NERVOUS SYSTEM: Cranial N 2-12 grossly normal. No focal deficits. Strength and sensation grossly intact. Skin: Warm and dry, no rash - Labs CBC & Chem 7: 06/10/24 11:10 06/10/24 11:10 Labs: Abnormal Lab Results - Last 24 Hours (Table) 06/08/24 06/08/24 06/08/24 Range/Units 11:09 16:10 20:32 RBC (4.30-5.90) m/uL Hgb (13.0-17.5) gm/dL Hct (39.0-53.0) % MCV (80.0-100.0) fL MCH (25.0-35.0) pg MCHC (31.0-37.0) g/dL RDW (11.5-15.5) % POC Glucose (mg/dL) 190 H 157 H 186 H (70-110) mg/dL 06/09/24 06/09/24 Range/Units 06:22 07:50 RBC 3.64 L (4.30-5.90) m/uL Hgb 7.5 L (13.0-17.5) gm/dL Hct 26.2 L (39.0-53.0) % MCV 71.9 L (80.0-100.0) fL MCH 20.6 L (25.0-35.0) pg MCHC 28.7 L (31.0-37.0) g/dL RDW 23.4 H (11.5-15.5) % POC Glucose (mg/dL) 141 H (70-110) mg/dL Microbiology - Last 24 Hours (Table) 06/07/24 18:30 Acid Fast Bacilli Smear - Preliminary Pleural Fluid 06/07/24 18:30 Gram Stain - Preliminary Pleural Fluid Body Fluid Culture - Preliminary Assessment and Plan Assessment: Symptomatic acute on chronic anemia, iron deficient, recent cath with stents, on Plavix and aspirin. Negative occult. Status post 1 unit packed RBCs. Receiveng IV iron. Acute hypoxic respiratory failure secondary to the above and moderate right- sided pleural effusion, December for potential thoracentesis History of ulcerative colitis , last colonoscopy 2021 -routine colonoscopies every 2 years with GI-Dr. Meme Villafuerte, due next month COPD, stable Obesity, BMI 27 Obstructive sleep apnea, on CPAP Diabetes mellitus, insulin pump Hypothyroidism Hypertension Hyperlipidemia History of anxiety, depression History of alcohol and marijuana use Plan: Continue on current medication resume ,monitoring and symptomatic treatment. Continue holding Plavix and aspirin. Maintain IV Venofer. Repeat chest x-ray pending, potential thoracentesis .labs pending-transfuse to keep hemoglobin greater than 7
--- NOTE | 2024-06-12 11:48 | PCN ---
PROCEDURE NOTE PROCEDURE: Right-sided thoracentesis. PREOPERATIVE DIAGNOSIS: Right pleural effusion. POSTOPERATIVE DIAGNOSIS: Right pleural effusion. DESCRIPTION OF PROCEDURE: There was informed consent. There was universal timeout. The patient's procedure took place in room #353. A time-out was completed verifying correct patient, procedure, site, positioning, and implant or special equipment if applicable. The right posterior chest was marked by ultrasound. Ultrasound guidance was used and appropriate fluid pocket was identified and marked. Patient was positioned, prepped and draped in usual sterile fashion. Lidocaine was used to anesthetize the area. A Thoracentesis catheter was introduced into the pleural space and fluid was removed. Blood loss was none. A chest x-ray was ordered to evaluate for pneumothorax. Total Fluid Removed: 1.8 L removed from the right pleural space. Color of Fluid: Dark yellow fluid. Fluid: Was sent for analysis/appropriate laboratory tests. Patient tolerated the procedure well and there were no immediate complications. MMODL / IJN: [id number] /
== END 2024-06-10 15:36 | disposition home or self-care (01) | DRG 811 ==
LOC: EC 11:24 → 3SCARD 13:53
PROVIDERS: ADMIT Family Medicine; ATTEND Family Medicine
PROC: 30233P1 Transfusion of Nonautologous Frozen Red Cells into Peripheral Vein, Percutaneous Approach (ICD-10-PCS; 2024-06-04)
PROC: 0W993ZZ Drainage of Right Pleural Cavity, Percutaneous Approach (ICD-10-PCS; principal; 2024-06-07)
DX: D50.9 Iron deficiency anemia, unspecified (principal); J96.21 Acute and chronic respiratory failure with hypoxia; J90 Pleural effusion, not elsewhere classified; K51.90 Ulcerative colitis, unspecified, without complications; D53.9 Nutritional anemia, unspecified; E03.9 Hypothyroidism, unspecified; E11.22 Type 2 diabetes mellitus with diabetic chronic kidney disease; E66.9 Obesity, unspecified; Z68.27 Body mass index [BMI] 27.0-27.9, adult; E78.5 Hyperlipidemia, unspecified; F32.A Depression, unspecified; F41.9 Anxiety disorder, unspecified; G25.81 Restless legs syndrome; G47.33 Obstructive sleep apnea (adult) (pediatric); I12.9 Hypertensive chronic kidney disease with stage 1 through stage 4 chronic kidney disease, or unspecified chronic kidney disease; T21.3 Burn of third degree of trunk; K21.9 Gastro-esophageal reflux disease without esophagitis; H35.30 Unspecified macular degeneration; I25.10 Atherosclerotic heart disease of native coronary artery without angina pectoris; J44.9 Chronic obstructive pulmonary disease, unspecified; N18.9 Chronic kidney disease, unspecified; Z99.81 Dependence on supplemental oxygen; Z79.02 Long term (current) use of antithrombotics/antiplatelets; Z79.4 Long term (current) use of insulin; Z79.51 Long term (current) use of inhaled steroids; Z79.82 Long term (current) use of aspirin; Z79.890 Hormone replacement therapy; Z79.899 Other long term (current) drug therapy; Z85.828 Personal history of other malignant neoplasm of skin; Z87.891 Personal history of nicotine dependence; Z95.5 Presence of coronary angioplasty implant and graft; Z96.41 Presence of insulin pump (external) (internal); Z87.19 Personal history of other diseases of the digestive system; Z88.0 Allergy status to penicillin; Z88.8 Allergy status to other drugs, medicaments and biological substances
CPT/HCPCS: 36415; 36430; 71045; 76604; 80048; 80053; 82272; 82607; 82668; 82728; 82746; 82945; 83036; 83540; 83550; 83605; 83615; 83921; 84157; 84484; 85025; 85027; 85045; 85610; 85730; 86850; 86900; 86901; 86920; 87070; 87102; 87116; 87205; 87206; 87496; 87498; 87502; 87529; 87634; 87635; 87798; 88108; 88305; 89050; 93005; 94640; 94760; 99285

== ENCOUNTER → 2024-06-27 | Outpatient (CLI) | payer MEDICARE ==
[2024-06-27 13:43] VITALS: BP 154/57; PULSE 65; RESP 16; TEMP 97.6
--- NOTE | 2024-06-27 14:49 | P.PROGSL ---
Subjective DATE: 06/27/2024 FOLLOW UP VISIT. Patient with obstructive sleep apnea hypopnea syndrome return to sleep center for follow-up visit. Information from previous visit have been reviewed. Presently patient is on oxygen supplements 2 L/min 24 hours/day. Patient is using PAP equipment every night for the whole night, getting PAP supplies in time. The patient does not have significant problems with the mask, PAP unit and humidification. Ewell sleepiness scale is 7, which is normal. I checked information from PAP unit. PAP unit pressure 5-15, average 7.3 cm H2O. Usage is 90% , average 7.3 hours per night. Leak is 12 l/m, which is in acceptable range. Apnea Hypopnea Index is 0.6, which is normal. MEDICATIONS have been reviewed, please see below. During physical exam: GENERAL: A pleasant patient without any distress. VITAL SIGNS: Please see below, oximetry 94% hase been done on 2 L/min of oxygen ,weight is 168.4 lbs. HEENT: PERRLA, EOMI.low position of soft palate, Mallapati 3. NECK: Supple. No JVD. LUNGS: Significant decreasing of respiratory sound on the low part of the right lung. HEART: S1, S2 regular. ABDOMEN: Soft and nontender.[] EXTREMITIES: No clubbing or cyanosis. CABLE WAY OPERATOR: Awake, alert, and oriented x3. No focal deficit. Impressions: 1. Obstructive sleep apnea-hypopnea syndrome. Patient demonstrated great compliance with treatment, benefiting from treatment. 2. COPD. 3. History of REM sleep behavioral disorder, on treatment with clonazepam. 4. Hypertension. 5. Hyperlipidemia. 6. Pleural effusion on the right side, status post thoracentesis on the right side. 7. Diabetes mellitus. 8. History of ulcerative colitis. 9. Iron deficiency anemia. 10. History of anxiety. Plan: 1. Continue using PAP equipment every night for the whole night. 2. Sleep hygiene with regular time in bed for at least 7.5-8 hours 3. PAP unit should stay lower then position of the head. 4. Advised patient to remove all remaining water from humidifier canister daily and make it dry after each usage. Refill canister with fresh distilled water before each usage. 5. Watching weight. 6. Precautions related to driving. No driving if feel any sleepiness. 7. I will maintain prescription for PAP supplies including mask, tube, filters. 8. Follow up visit in 6 months or earlier if patient has any problems. Thank you very much for allowing me to participate in the management of your patient. Tej Flanagan MD, PhD, FAASM. Diplomat of [place] [employer], Sleep Medicine Board by [place] [employer] [facility] [place] Objective - Vital Signs Vital Signs: Vital Signs Temp 97.6 F 06/27/24 13:40 Pulse 65 06/27/24 13:40 Resp 16 06/27/24 13:40 BP 154/57 06/27/24 13:40 Pulse Ox 94 L 06/27/24 13:40 FiO2 Intake & Output 06/26/24 06/27/24 06/27/24 18:59 06:59 18:59 Weight 76.317 kg Home Medications: Home Medications Medication Instructions Recorded Confirmed Type PARoxetine [Paxil] 20 mg PO DAILY 05/16/14 06/04/24 History Pravastatin Sodium [Pravachol] 20 mg PO HS 05/16/14 06/04/24 History sulfaSALAzine [Azulfidine] 1,000 mg PO QID 06/26/17 06/04/24 History INSULIN LISPRO (For Pump) [humaLOG 0.01 units SQ-PUMP CONTINUOUS MDD 01/29/21 06/04/24 History (For Pump)] 100 UNITS Dicyclomine [Bentyl] 10 mg PO ACHS 09/10/23 06/04/24 History Famotidine 20 mg PO DAILY 09/10/23 06/04/24 History Latanoprost Ophth [Xalatan 0.005%] 1 drop BOTH EYES HS 09/10/23 06/04/24 History clonazePAM [KlonoPIN] 0.5 mg PO HS 09/10/23 06/04/24 History Budesonide-Formot 160-4.5 Mcg 2 puff INHALATION RT-BID #1 each 09/16/23 06/04/24 Rx [Symbicort 160-4.5 Mcg Inhaler] Ipratropium-Albuterol Nebulize 3 ml INHALATION RT-QID 10/17/23 06/04/24 History [Duoneb 0.5 mg-3 mg/3 ml Soln] Isosorbide Mononitrate ER [Imdur] 30 mg PO DAILY 10/17/23 06/04/24 History hydrALAZINE HCL [Apresoline] 50 mg PO TID 10/17/23 06/04/24 History Ipratropium-Albuterol Nebulize 3 ml INHALATION RT-Q4H PRN 06/04/24 06/04/24 History [Duoneb 0.5 mg-3 mg/3 ml Soln] Levothyroxine Sodium [Synthroid] 75 mcg PO AC-BRKFST 06/04/24 06/04/24 History NIFEdipine XL [Procardia XL] 60 mg PO BID 06/04/24 06/04/24 History carvediloL [Coreg*] 12.5 mg PO BID 06/04/24 06/04/24 History lisinopriL [Zestril] 5 mg PO DAILY 06/04/24 06/04/24 History Insulin Regular, Human [NovoLIN R 2 - 12 units SQ ACHS 30 Days #4 06/10/24 Rx Flexpen] each
== END ==
LOC: 3 N SLEEP 13:20
PROVIDERS: ATTEND Internal Medicine
CPT/HCPCS: 99212

== ENCOUNTER → 2024-08-07 | Outpatient (CLI) | payer MEDICARE ==
[2024-08-07 14:40] LABS: African American GFR (CKD) 62 (>60 ml/min/1.73 sqM); Blood Urea Nitrogen 27 mg/dL (9-20); Non-African American GFR(CKD) 54 (>60 ml/min/1.73 sqM)
--- NOTE | 2024-08-09 09:22 | CT ---
EXAMINATION TYPE: CT chest w con DATE OF EXAM: 08/07/2024 COMPARISON: 05/25/2018 HISTORY: pleural effusion x 1 year, SOB CT DLP: 595 mGycm, Automated exposure control for dose reduction was used. CONTRAST: Performed injected with 80 mL of Isovue 300. TECHNIQUE: Axial images were obtained at 5 mm thick sections. Reconstructed images are reviewed on [employer] computer in the coronal plane. FINDINGS: Portion of the thyroid visualized is normal. There is a moderate right pleural effusion. Mild compressive atelectasis is adjacent to the pleural e ffusion. There is a punctate anterior right lung nodule, series 4 image 22, stable from comparison There is a prominent 1.4 cm pretracheal lymph node above the yodit. Scattered small pretracheal lym ph nodes are present. There is a 0.9 cm lymph node adjacent left main pulmonary artery. The ascending aorta diameter at the level of the main pulmonary artery is 3.7 cm. The main pulmonary artery diame ter at the bifurcation is 2.[address] sections are obtained through the upper abdomen. Abdomen is essentially unremarkable. IMPRESSION: 1. Moderate right pleural effusion with mild adjacent compressive atelectasis. 2. Stable enlarged pretracheal lymph node. [facility], , 08/09/2024 9:20 AM
== END | disposition home or self-care (01) ==
LOC: RADCTMAIN 14:05
PROVIDERS: ATTEND Internal Medicine
CPT/HCPCS: 36415; 71260; 82565; 84520

== ENCOUNTER → 2024-08-16 | Day surgery (SDC) | payer MEDICARE ==
[~2024-08-16] MED LIST changes: -ALPRAZolam 0.25 MG TAB PO PRN; -ALPRAZolam 0.5 MG TAB PO PRN; -NITROGLYCERIN SL TABS 0.4 MG TAB SUBLINGUAL PRN; +SODIUM CHLORIDE 0.9% 250 ML in EMPTY BAG 1 BAG IV PRN; +SODIUM CHLORIDE 0.9% 500 ML 500 ML in EMPTY BAG 1 BAG IV PRN
[2024-08-21 12:11] VITALS: TEMP 98
[2024-08-21 13:08] VITALS: PULSE 69; RESP 16
[2024-08-21 13:22] VITALS: BP 132/72
--- NOTE | 2024-08-21 13:22 | XR ---
EXAMINATION TYPE: XR chest 1V portable DATE OF EXAM: 08/21/2024 1:17 PM COMPARISON: Chest radiographs from 06/07/2024. CLINICAL INDICATION: Male, 74 years old with history of Post thoracentesis; [facility] TECHNIQUE: XR chest 1V portable Frontal view of the chest. FINDINGS: Lungs/Pleura: No pneumothorax identified decrease in right pleural effusion. Streaky atelectasis in t he right lung base. Pulmonary vascularity: Unremarkable. Heart/mediastinum: Cardiomediastinal silhouette is unremarkable. Musculoskeletal: No acute osseous pathology. IMPRESSION: Decrease in right pleural effusion no pneumothorax identified. [facility], , 08/21/2024 1:19 PM
--- NOTE | 2024-08-21 19:42 | OP ---
OPERATIVE REPORT DATE OF SERVICE : PROCEDURE: Right-sided thoracentesis. PREOPERATIVE DIAGNOSIS: Right pleural effusion. POSTOPERATIVE DIAGNOSIS: Right pleural effusion. ANESTHESIA USED: 2 mL of 1% lidocaine. DESCRIPTION OF PROCEDURE: The patient was placed in a sitting upright position, the area below the right scapula was prepared in a sterile fashion and drapes were applied. The area was earlier localized by ultrasound, and marking was placed at the 8th intercostal space and tip of the scapula. Area was anesthetized locally with lidocaine after preparing in a sterile fashion, and a small 26-gauge needle was inserted into the pleural space. Fluid was localized with a needle. Then, a small tiny incision was made and a standard thoracentesis catheter and needle were used. Needle advanced into the pleural space into the area of the fluid, fluid was localized with a needle. Then, the catheter was advanced over the needle into the pleural space. Freely flowing fluid was obtained. Roughly 1500 mL of cliff colored fluid was removed from the right pleural space. The procedure was well tolerated, no complications, chest x-ray showed no evidence of any sizable pneumothorax. The patient will have outpatient followup with me on outpatient basis. MMODL / IJN: [id number] /
[2024-08-22 05:50] LABS: Appearance,BF Clear (Clear)
[2024-08-22 05:55] LABS: Glucose, BF Source Pleural Fluid; Glucose, Body Fluid 178 mg/dL; LDH, Body Fluid Source Pleural Fluid; T. Protein, Body Fluid Source Pleural Fluid; Total Protein, Body Fluid >3600 mg/dL
== END ==
LOC: PROCWHC3 11:50
PROVIDERS: ATTEND Internal Medicine
DX: J90 Pleural effusion, not elsewhere classified (principal)

== ENCOUNTER → 2024-08-21 | Outpatient (CLI) | payer MEDICARE ==
--- NOTE | 2024-08-21 11:39 | US ---
EXAMINATION TYPE: US chest DATE OF EXAM: 08/21/2024 COMPARISON: US 2023 CLINICAL INDICATION: Male, 74 years old with history of J90 PLEURAL EFFUSION; TECHNIQUE: Grayscale imaging of the chest. Targeted ultrasound of the posterior lower right FINDINGS: EXAM MEASUREMENTS: Right Pleural Effusion pocket size: 14.4 cm Right skin surface to fluid distance: 3.4 cm Right side marked for possible thoracentesis outside the dept. Pulmonologists are able to review the images in the patient?s EMR. IMPRESSIONS: Moderate right pleural effusion marked for thoracentesis. [facility], , 08/21/2024 11:37 AM
== END | disposition home or self-care (01) ==
LOC: RADUSWWP 10:43
PROVIDERS: ATTEND Internal Medicine
DX: J90 Pleural effusion, not elsewhere classified (principal); Z48.813 Encounter for surgical aftercare following surgery on the respiratory system
CPT/HCPCS: 76604

== ENCOUNTER → 2024-10-26 | Outpatient (CLI) | payer MEDICARE ==
[2024-10-26 11:21] LABS: African American GFR (CKD) 52 (>60 ml/min/1.73 sqM); Blood Urea Nitrogen 38 mg/dL (9-20); Non-African American GFR(CKD) 45 (>60 ml/min/1.73 sqM)
--- NOTE | 2024-10-26 14:16 | CT ---
EXAMINATION TYPE: CT abdomen pelvis w con DATE OF EXAM: 10/26/2024 12:45 PM COMPARISON: None. CLINICAL INDICATION: Male, 74 years old with history of D50.9 ANEMIA D53.8 J44.9 COPD E11.9 DIABETES, low hemoglobin TECHNIQUE: Axial images were obtained from above the diaphragm to the pubic rami in the axial plane a t 5 mm thick sections. Reconstructed images are reviewed on the computer in the coronal plane. CONTRAST: 80ml mL of Isovue 300. Study performed with Oral Contrast DLP: 1052.60 mGycm, Automated exposure control for dose reduction was used. FINDINGS: Limited CT sections are obtained the lung bases. There is a small right pleural effusion. Some adjac ent compressive atelectasis is present. Coronary artery calcification is present. CT ABDOMEN: Liver: Normal Spleen: Normal Pancreas: Normal Adrenal glands: The adrenal glands are normal. Gallbladder: Surgically absent Kidneys: No masses are evident. No hydronephrosis is present. No cysts are present. There is punct ate 0.3 cm upper pole left renal calcification without obstruction. No hydronephrosis or hydroureter is evident. Aorta: Vascular calcification is within the aorta. Inferior vena cava: Normal. CT PELVIS: Loops of bowel within the abdomen and pelvis are normal. There are loops of bowel which are incom pletely distended or lack oral contrast limiting their evaluation. Appendix: Normal as visualized. Urinary bladder: Normal. Genitourinary structures: Prostate is a prominent Osseous structures: No suspicious lytic or sclerotic lesions. IMPRESSION: 1. No suspicious acute abnormality CT abdomen and pelvis. 2. Small right pleural effusion. 3. Nonobstructing punctate left upper pole renal stone. 4. Prostate hypertrophy [facility], Workstation: [facility], 10/26/2024 2:14 PM
== END | disposition home or self-care (01) ==
LOC: RADCTMAIN 10:40
PROVIDERS: ATTEND Internal Medicine Hematology & Oncology
DX: D50.9 Iron deficiency anemia, unspecified (principal); D53.8 Other specified nutritional anemias; J44.9 Chronic obstructive pulmonary disease, unspecified; E11.9 Type 2 diabetes mellitus without complications; J90 Pleural effusion, not elsewhere classified; N20.0 Calculus of kidney; N40.0 Benign prostatic hyperplasia without lower urinary tract symptoms
CPT/HCPCS: 82565; 84520; 74177; 36415; Q9967

== ENCOUNTER → 2024-12-03 | Day surgery (SDC) | payer MEDICARE ==
[2024-11-30 12:03] VITALS: BMI 25.8
[2024-12-03 07:12] VITALS: BP 184/77; PULSE 75; RESP 18; TEMP 97
== END ==
LOC: ORWHC2ENDO 06:31
PROVIDERS: ATTEND Internal Medicine Gastroenterology
DX: D50.9 Iron deficiency anemia, unspecified (principal)
CPT/HCPCS: 91110

== ENCOUNTER → 2025-02-27 | Outpatient (CLI) | payer MEDICARE ==
[2025-02-27 13:34] VITALS: BP 109/56; PULSE 71; RESP 12; TEMP 97.9
--- NOTE | 2025-02-27 14:11 | P.PROGSL ---
Subjective DATE: 02/27/2025 FOLLOW UP VISIT. Patient with obstructive sleep apnea hypopnea syndrome return to sleep center for follow-up visit. Information from previous visit have been reviewed. Patient is using PAP equipment every night for the whole night, getting PAP supplies in time. Patient is on O2 supplement 2 L/min hours per day. The patient does not have significant problems with the mask, PAP unit and humidification. [place] sleepiness scale is borderline 10. I checked information from PAP unit. PAP unit pressure 5-15, average 10.7 cm H2O. Usage is 100% for more then 4 hours, average 8.5 hours per night. Leak is 10 l/m, which is in acceptable range. Apnea Hypopnea Index is 0.6, which is normal. MEDICATIONS have been reviewed, please see below. During physical exam: GENERAL: A pleasant patient without any distress on O2 supplement 2 L/min. VITAL SIGNS: Please see below, weight is 161.4 lbs. HEENT: PERRLA, EOMI.low position of soft palate, Mallapati 3. NECK: Supple. No JVD. LUNGS: Clear to percussion and to auscultation. Decreasing of breathing sound on the lower part of the right lung. HEART: S1, S2 regular. ABDOMEN: Soft and nontender.[] EXTREMITIES: No clubbing or cyanosis. SPECIALIZED DEVELOPER: Awake, alert, and oriented x3. No focal deficit. Impressions: 1. Obstructive sleep apnea-hypopnea syndrome. Patient demonstrated great compliance with treatment, benefiting from treatment. 2. COPD. 3. Pleural effusion on the right side, status post thoracocentesis. 4. Hypertension. 5. History of REM sleep behavior disorder, on treatment with clonazepam. 6. Hyperlipidemia. 7. Diabetes mellitus. 8. History of ulcerative colitis. 9. History of anxiety. 10. History of iron deficiency anemia. 11. Patient lost 7 pounds since previous visit. Plan: 1. Continue using PAP equipment every night for the whole night. 2. Sleep hygiene with regular time in bed for at least 7.5-8 hours 3. PAP unit should stay lower then position of the head. 4. Advised patient to remove all remaining water from humidifier canister daily and make it dry after each usage. Refill canister with fresh distilled water before each usage. 5. Watching weight. 6. Precautions related to driving. No driving if feel any sleepiness. 7. I will maintain prescription for PAP supplies including mask, tube, filters. 8. Follow up visit in 6 months or earlier if patient has any problems. Thank you very much for allowing me to participate in the management of your patient. Tej Flanagan MD, PhD, FAASM. Diplomat of [employer], Sleep Medicine Board by [employer] Officer of [facility] [place] Objective - Vital Signs Vital Signs: Vital Signs Temp 97.9 F 02/27/25 13:34 Pulse 71 02/27/25 13:34 Resp 12 02/27/25 13:34 BP 109/56 02/27/25 13:34 Pulse Ox 89 L 02/27/25 13:34 FiO2 Home Medications: Home Medications Medication Instructions Recorded Confirmed Type PARoxetine [Paxil] 20 mg PO DAILY 05/16/14 02/27/25 History Pravastatin Sodium [Pravachol] 20 mg PO HS 05/16/14 02/27/25 History sulfaSALAzine [Azulfidine] 1,000 mg PO QID 06/26/17 02/27/25 History INSULIN LISPRO (For Pump) [humaLOG 0.01 units SQ-PUMP CONTINUOUS MDD 01/29/21 02/27/25 History (For Pump)] 100 UNITS Dicyclomine [Bentyl] 10 mg PO ACHS 09/10/23 02/27/25 History Famotidine 20 mg PO DAILY 09/10/23 02/27/25 History Latanoprost Ophth [Xalatan 0.005%] 1 drop BOTH EYES HS 09/10/23 02/27/25 History clonazePAM [KlonoPIN] 0.5 mg PO HS 09/10/23 02/27/25 History Budesonide-Formot 160-4.5 Mcg 2 puff INHALATION RT-BID #1 each 09/16/23 02/27/25 Rx [Symbicort 160-4.5 Mcg Inhaler] Ipratropium-Albuterol Nebulize 3 ml INHALATION RT-QID 10/17/23 02/27/25 History [Duoneb 0.5 mg-3 mg/3 ml Soln] Isosorbide Mononitrate ER [Imdur] 30 mg PO DAILY 10/17/23 02/27/25 History hydrALAZINE HCL [Apresoline] 50 mg PO TID 10/17/23 02/27/25 History Levothyroxine Sodium [Synthroid] 75 mcg PO AC-BRKFST 06/04/24 02/27/25 History NIFEdipine XL [Procardia XL] 60 mg PO BID 06/04/24 02/27/25 History carvediloL [Coreg*] 12.5 mg PO BID 06/04/24 02/27/25 History lisinopriL [Zestril] 5 mg PO DAILY 06/04/24 02/27/25 History Ferrous Sulfate [Feosol] 325 mg PO DAILY 11/30/24 02/27/25 History Furosemide [Lasix] 40 mg PO DAILY 02/27/25 02/27/25 History
== END ==
LOC: 3 N SLEEP 13:16
PROVIDERS: ATTEND Internal Medicine
DX: G47.33 Obstructive sleep apnea (adult) (pediatric) (principal); J44.9 Chronic obstructive pulmonary disease, unspecified; J90 Pleural effusion, not elsewhere classified; I10 Essential (primary) hypertension; E78.5 Hyperlipidemia, unspecified; E11.9 Type 2 diabetes mellitus without complications; F41.9 Anxiety disorder, unspecified; Z86.19 Personal history of other infectious and parasitic diseases; Z86.2 Personal history of diseases of the blood and blood-forming organs and certain disorders involving the immune mechanism; Z99.89 Dependence on other enabling machines and devices; Z79.899 Other long term (current) drug therapy; Z88.0 Allergy status to penicillin; Z86.59 Personal history of other mental and behavioral disorders; Z98.890 Other specified postprocedural states; Z88.8 Allergy status to other drugs, medicaments and biological substances
CPT/HCPCS: 99212